=== PATIENT | male | born 1965 | race Caucasian/White ===

== ENCOUNTER 2019-03-10 09:41 | Outpatient (RCR) | payer MEDICARE, SELFPAY ==
[2019-03-10 09:48] VITALS: BMI 30.4
[2019-03-10 09:51] VITALS: BMI 30.4
[2019-03-10 10:21] VITALS: BMI 30.4
[2019-03-10 10:33] VITALS: BMI 30.4
[2019-03-10 10:34] VITALS: BMI 30.4
[2019-03-10 10:36] VITALS: BMI 30.4
== END 2019-06-08 23:59 | disposition home or self-care (01) ==
LOC: ANHDMC 09:41
PROVIDERS: PCP Family Medicine; Visit Provider Family Medicine
DX: E10.40 Type 1 diabetes mellitus with diabetic neuropathy, unspecified (principal); E10.621 Type 1 diabetes mellitus with foot ulcer; Z71.3 Dietary counseling and surveillance
CPT/HCPCS: 97802

== ENCOUNTER 2019-03-20 10:00 | Outpatient (RCR) | payer MEDICARE, SELFPAY ==
--- NOTE | 2019-03-02 15:47 | PCPTNOTE ---
The treatment documented on this account is a continuation of the treatment documented on visit number [id number]. Please see documentation on both accounts to view progress. The Plan of Care has been transitioned and updated within the new V#. I have addressed and agree with the discipline specific Problems, Interventions, and Goals for the current certification period. Completed interventions, outcomes, and problems have been marked as Inactive to facilitate the copying of the Care plan routine for recurring accounts.
--- NOTE | 2019-03-18 08:35 | PCPTNOTE ---
Pt called is doing well with his new compression knee high sock and foot peice is cancelling today and will be here for his reeval on Saturday.
--- NOTE | 2019-03-20 13:59 | PTOPEVAL ---
Addendum entered by Marisela Stearns, PT 03/20/19 16:55: circumferential measurements, from bottom of foot to 44 cm, R LE is 392.5 cm; decreased by 32.6 cm compared to initial evaluation. Original Note: PHYSICAL THERAPY DISCHARGE 03-20-19 Mr. Julian has received 10 Physical Therapy sessions, from February 19 to today, for the diagnosis of R foot edema and Charcot Telma Disease. He has improved with decreased edema and pain, and has appropriate compression garment and foot piece to manage his lymphedema. He has been educated on home exercises and lymphedema self massage and skin care. Thank you for referring Ross to [facility]. Please review, sign, date and return this plan of care NAEEM. I agree with and certify that the following plan of care is medically necessary. Referring Physician Date Admitting Provider: Attending Provider: Familia Monteiro MD Referring Provider: *PT Outpatient Evaluation Start: 03/20/19 13:44 Freq: Status: Active Protocol: Document 03/20/19 10:00 BRAD (Rec: 03/20/19 13:57 BRAD [email or web address]) Therapy Assessment Status Assessment Status Assessment Status Re-evaluation Evaluation Information Problem Subjective Information Ross reports: is doing well Query Text:As Reported By Patient/ with the compression sock and Family foot piece; is walking short distance in home, but wearing support to ankle, feels like going to turn in; walk in communtiy uses the knee/roller scooter; understands all the lymphedema education and agrees to discharge from PT services. He is working on obtaining an intermittent compression pump- -awaiting insurance authorization. Pain Assessment Timing of Pain Assessment Timing of Pain Assessment Assessment Self Report Self Report Pain Level 0 Pain Score Pain Score 0: Self Report Lower Extremity Muscle Strength Testing General Lower Extremity Strength Gross Lower Extremity Strength R hip and knee 4+/5; R ankle DF to 10'; PF to 10' and eversion 0'; with passive stretch, able to place calcaneus in neutral; static stand without brace, for 3 minutes without pain and with good balance.; Leukotape applied to calcaneus - to facilitate correct alignement; educated pt on application, monitor skin and
== END 2019-05-29 12:48 | disposition home or self-care (01) ==
LOC: ANHPT 10:00
PROVIDERS: PCP Family Medicine; Visit Provider Orthopaedic Surgery
DX: I89.0 Lymphedema, not elsewhere classified (principal); E11.40 Type 2 diabetes mellitus with diabetic neuropathy, unspecified
CPT/HCPCS: 29581; 97110; 97140

== ENCOUNTER 2019-10-13 08:56 | Outpatient (RCR) | payer MEDICARE, SELFPAY ==
--- NOTE | 2019-10-13 09:58 | PM.CNOR ---
Assessment and Plan Assessment and plan (1) Lymphedema of right lower extremity: Code(s): I89.0 - Lymphedema, not elsewhere classified Status: Acute Assessment and Plan: Patient with home lymphedema pumps and compression stockings. Continue with recommended treatment and observation. (2) Charcot's joint of foot in type 1 diabetes mellitus: Code(s): E10.610 - Type 1 diabetes mellitus with diabetic neuropathic arthropathy Status: Acute Assessment and Plan: Six months now with right double upright ankle brace. With modifications has a brace will plantigrade foot. Discussed surgical options including attempted reconstruction and stabilization versus amputation. Patient on willing to proceed with surgery at this time. Continue with bracing and observation. (3) Diabetic foot ulcer associated with diabetes mellitus due to underlying condition: Qualifiers: Diabetic foot ulcer location: toe Laterality: right Non-pressure ulcer stage: limited to breakdown of skin Qualified Code(s): E08.621 - Diabetes mellitus due to underlying condition with foot ulcer; L97.511 - Non-pressure chronic ulcer of other part of right foot limited to breakdown of skin Code(s): E08.621 - Diabetes mellitus due to underlying condition with foot ulcer; L97.509 - Non-pressure chronic ulcer of other part of unspecified foot with unspecified severity Status: Acute Assessment and Plan: Updated history, physical exam reviewed with the patient. Interval changes reviewed. Discussed the condition, nature, etiology and course of natural history with the patient. Fixed flexion deformity of the hallux secondary to flexor tendon over pull and neuropathy. Pressure on the distal tip of the hallux. Initial ulceration has almost completely healed. Patient using modified inserts, custom. Treatment options including surgical and nonoperative treatment were reviewed. Risks and benefits of each as well as alternatives reviewed. Discussed flexor tenotomy. Risk of amputation reviewed. The patient's questions were answered. He has declined surgery at this time. He is going to continue with conservative care and observation. Notify office if any changes. Follow up in 2 to 3 months for review of treatment options. History of Present Illness HPI Consult date: 10/13/19 Requesting physician: Roxana Mosley MD Consult reason: other (Bilat Charcot foot) Chief complaint: diabetic foot wound Narrative: Patient presents for [facility] wound clinic with bilateral Charcot foot deformity right ankle instability and new ulcer on the right hallux. Patient transition from his tlingit & haida walker boot to a double-upright ankle brace approximately 6 months ago. Developed pressure on the and the hallux and ulceration. He has treated it with dressing changes and orthotic modifications. He has noted improvement but still has central area opening. No drainage noted. Denies fever or chills. Denies any pain secondary to his neuropathy. He has noted some change in the appearance of the left midfoot. Review of Systems Constitutional: Constitutional: Denies fever(s) Eyes: Eyes: Denies blurry vision ENT: Reports Normal hearing present Cardiovascular: Cardiovascular: Denies chest pain and Denies dyspnea Respiratory: Respiratory: Denies dyspnea and Denies wheezing Gastrointestinal: Gastrointestinal: Denies abdominal pain Genitourinary: Genitourinary: Denies urinary urgency Musculoskeletal: Musculoskeletal: Reports as per HPI and Reports numbness (both feet) Integumentary/Breasts: Skin/Breast: Denies changing lesions and Denies sores Neurologic: Reports Normal hearing present, Denies behavioral changes, Denies confusion, Reports numbness and Denies convulsions Psychiatric: Psychiatric: Denies behavioral changes, Denies confusion and Denies hallucinations Endocrine: Endocrine: Denies heat intolerance Hematologic/Ly
== END 2020-01-11 23:59 | disposition home or self-care (01) ==
LOC: ANHWOC 08:56
PROVIDERS: PCP Family Medicine; Visit Provider Orthopaedic Surgery
DX: E11.621 Type 2 diabetes mellitus with foot ulcer (principal); L97.519 Non-pressure chronic ulcer of other part of right foot with unspecified severity
CPT/HCPCS: 99213; G0463

== ENCOUNTER 2020-05-30 19:39 | Inpatient (IN) | payer MEDICARE, SELFPAY ==
[2020-05-30] VITALS (7 sets, daily range): BP systolic 104–161; BP diastolic 66–85; PULSE 84–109; RESP 15–23; TEMP 36.7–38.1; O2SAT 95–100; BMI 31.6
--- NOTE | ~2020-05-30 | XR_ITS ---
XR chest 1V portable DATE: 05/30/2020 20:25 INDICATION: Fever. Diabetic lateral ankle and foot wound. TECHNIQUE: Portable upright AP chest on 05/30/2020 at 2010 hours COMPARISON: 05/27/2019 MR chest 09/19/2018 portable AP chest FINDINGS: Status post sternotomy. Normal heart size. No hilar or mediastinal enlargement. No pulmonar y infiltrate or consolidation, pleural effusion or pulmonary vascular congestion or pneumothorax. IMPRESSION: No active cardiopulmonary disease Reviewed, dictated and finalized at location A. R PATCHER
--- NOTE | ~2020-05-30 | XR_ITS ---
XR ankle RT 2V DATE: 05/30/2020 20:25 INDICATION: Right ankle wound TECHNIQUE: 2 views COMPARISON: 02/04/2019 right ankle and foot FINDINGS: There is mild organized periosteal reaction of the distal tibia. Differential diagnosis for the chronic organized periosteal reaction includes venous insufficiency, infection, fracture; no dis cortes tibial fracture however is evident. There is subluxation at the tibiotalar joint. There is prominent patchy sclerosis, bony deformity at the hindfoot and disruption of the subtalar, t arsal and tarsometatarsal articulations, suggesting severe neuropathic joint changes. Superimposed os teoarthritis is not excluded. Clinical correlation is advised. IMPRESSION: Chronic organized periosteal reaction of the distal tibia signal and diffusion diagnosis given above Tibiotalar subluxation and more severe disruption of the subtalar, tarsal and tarsometatarsal articul ations, with patchy sclerosis and bone deformity, suggesting severe neuropathic changes. Superimposed osteomyelitis is not excluded radiographically. Clinical correlation is advised. Reviewed, dictated and finalized at location A. RONMENTAL SERVICES MANAGER IMPRESSION: Chronic organized periosteal reaction of the distal tibia signal an d diffusion diagnosis given above Tibiotalar subluxation and more severe disruption of the subtalar, tarsal and t arsometatarsal articulations, with patchy sclerosis and bone deformity, suggest ing severe neuropathic changes. Superimposed osteomyelitis is not excluded radi ographically. Clinical correlation is advised.
--- NOTE | ~2020-05-30 | XR_ITS ---
XR foot RT 2V DATE: 05/30/2020 20:25 INDICATION: Right ankle wound TECHNIQUE: AP and lateral views of the right foot COMPARISON: 05/30/2020 right ankle 02/04/2019 right ankle and right foot FINDINGS: There is chronic organized periosteal reaction along the distal tibia. The vertebral diagno sis includes osteomyelitis, venous insufficiency, fracture. Clinical correlation is advised. CT or MR evaluation may be of benefit. There is subluxation of the tibiotalar joint. There is extensive deformity at the hindfoot, including subtalar region and tarsal joints as well as the second through fifth tarsometatarsal joints, in ass ociation with patchy sclerosis. Findings suggest chronic neuropathic changes. Superimposed bone destr uction secondary to osteomyelitis is difficult to exclude radiographically. Clinical correlation is a dvised. Joint space narrowing consistent with osteoarthritis at the first metatarsophalangeal joint. There is diffuse osteopenia. Metatarsal and digital artery calcifications, suggesting diabetes. IMPRESSION: Extensive neuropathic changes of the hindfoot including subtalar, tarsal and tarsometatar tal joints; superimposed osteomyelitis is not excluded. Chronic organized periosteal reaction of the distal tibia is minimal diffusion diagnosis includes ost eomyelitis, venous insufficiency, fracture Reviewed, dictated and finalized at location A. R TREATMENT PLANT SUPERVISOR IMPRESSION: Extensive neuropathic changes of the hindfoot including subtalar, t arsal and tarsometatarsal joints; superimposed osteomyelitis is not excluded. Chronic organized periosteal reaction of the distal tibia is minimal diffusion diagnosis includes osteomyelitis, venous insufficiency, fracture
--- NOTE | 2020-05-30 20:07 | ED.GENADULT ---
HPI - General Adult General Chief complaint: Extremity Problem,Nontraumatic Stated complaint: Fever/pain/drainage to right ankle chronic wound Time Seen by Provider: 05/30/20 19:55 Related Data Home Medications Medication Instructions Recorded Confirmed aspirin 81 mg tablet,delayed 81 mg PO DAILY 03/12/19 03/29/20 release cholecalciferol (vitamin D3) 10 400 unit PO DAILY 05/01/19 03/29/20 mcg (400 unit) capsule omega-3 fatty acids 1,000 mg 1,000 mg PO DAILY 05/01/19 03/29/20 capsule blood sugar diagnostic #10 each 09/08/19 03/29/20 subcutaneous insulin pump #1 each 09/08/19 03/29/20 lisinopril 20 mg tablet 20 mg PO BID tablet 03/29/20 03/29/20 Allergies Allergy/AdvReac Type Severity Reaction Status Date / Time No Known Allergies Allergy Verified 05/30/20 23:51 PMFSH Past Medical History Medical History Charcot's joint of foot in type 1 diabetes mellitus Chronic pain in right foot Coronary artery disease involving [place] coronary artery of [place] heart Diabetic foot ulcer associated with diabetes mellitus due to underlying condition Diabetic peripheral angiopathy Essential (primary) hypertension History of tobacco use wire cutter (current) use of insulin Lymphedema of right lower extremity Mixed hyperlipidemia AIDA on CPAP PVD (peripheral vascular disease) Stage 2 chronic kidney disease Type 1 diabetes mellitus with hyperglycemia Wound of right foot Surgical History Surgical History S/P angioplasty with stent S/P CABG x 3 Family History Family History Mother Family history of lung cancer Father Family history of lymphoma Other Diabetes mellitus Family history of arthritis Family history of cardiovascular disease Family history of congestive heart failure Family history of coronary artery disease Family history of heart disease in male family member before age 55 Family history of malignant neoplasm Family history of premature coronary heart disease Hypertension Social History Social History Smoking status: Former smoker Tobacco type: cigarettes Second hand tobacco smoke exposure: No Smoking end date: 05/06/12 Alcohol intake: never Substance use: never Substance use type: does not use Additional occupation/education comments: Disability Gender identity (if verbalized by the patient): Male Spiritual care concerns: No Course Vital Signs Vital signs: Vital Signs Temperature 38.1 C H 05/30/20 19:46 Pulse Rate 109 H 05/30/20 19:46 Respiratory Rate 16 05/30/20 19:46 Blood Pressure 161/66 H 05/30/20 19:46 Pulse Oximetry 100 05/30/20 19:46 Temperature 36.7 C 05/30/20 23:51 Pulse Rate 87 05/30/20 23:51 Respiratory Rate 20 05/30/20 23:51 Blood Pressure 146/85 H 05/30/20 23:51 Pulse Oximetry 100 05/30/20 23:51 Medical Decision Making Vital Signs Vital Signs: Vital Signs Temperature 38.1 C H 05/30/20 19:46 Pulse Rate 109 H 05/30/20 19:46 Respiratory Rate 16 05/30/20 19:46 Blood Pressure 161/66 H 05/30/20 19:46 Pulse Oximetry 100 05/30/20 19:46 Temperature 36.7 C 05/30/20 23:51 Pulse Rate 87 05/30/20 23:51 Respiratory Rate 20 05/30/20 23:51 Blood Pressure 146/85 H 05/30/20 23:51 Pulse Oximetry 100 05/30/20 23:51 Lab Data Result diagrams: 05/30/20 20:05 05/30/20 20:05 Labs: Lab Results 05/30/20 05/30/20 05/30/20 Range/Units 20:05 20:05 20:05 WBC 15.3 H (4.5-10.0) K/mm3 RBC 4.24 L (4.6-6.20) M/mm3 Hgb 11.8 L (14.0-18.0) g/dL Hct 35.9 L (42.0-52.0) % MCV 84.7 (80-100) fl MCH 27.8 (26-34) pg MCHC 32.9 (32-36) g/dl RDW 13.8 (11.5-14.5) % Plt Count 555 H (150-375) k/mm3 MPV 8.4 (7.4-10.4) fl Imm
--- NOTE | 2020-05-30 20:09 | ED.GENADULT ---
HPI - General Adult General Chief complaint: Extremity Problem,Nontraumatic Stated complaint: Fever/pain/drainage to right ankle chronic wound Time Seen by Provider: 05/30/20 19:55 Source: patient History of Present Illness HPI narrative: Patient is a 54 y/o male complaining of fever, chill, nausea and decreased appetite starting 3 days ago. He states that his fever was up to 102.8. He took Tylenol#4 for pain, which incidentally helps with the fever. He has chronic draining wound from right ankle. He also has a chronic cough which he attributed to CPAP use. He also developed a hiccup 2-3 days ago. Related Data Home Medications Medication Instructions Recorded Confirmed aspirin 81 mg tablet,delayed 81 mg PO DAILY 03/12/19 03/29/20 release cholecalciferol (vitamin D3) 10 400 unit PO DAILY 05/01/19 03/29/20 mcg (400 unit) capsule omega-3 fatty acids 1,000 mg 1,000 mg PO DAILY 05/01/19 03/29/20 capsule blood sugar diagnostic #10 each 09/08/19 03/29/20 subcutaneous insulin pump #1 each 09/08/19 03/29/20 lisinopril 20 mg tablet 20 mg PO BID tablet 03/29/20 03/29/20 Allergies Allergy/AdvReac Type Severity Reaction Status Date / Time No Known Allergies Allergy Verified 05/30/20 19:42 Review of Systems Constitutional: Constitutional: Reports chills, Reports fever(s), Denies headache(s) and Denies weakness Eyes: Eyes: Denies blurry vision ENT: Denies headache(s) and Denies neck pain Cardiovascular: Cardiovascular: Denies chest pain and Denies dyspnea Respiratory: Respiratory: Reports cough and Denies dyspnea Gastrointestinal: Gastrointestinal: Denies abdominal pain, Denies diarrhea, Reports nausea, Denies vomiting and Reports other (+hiccups) Genitourinary: Genitourinary: Denies hematuria and Denies dysuria Musculoskeletal: Musculoskeletal: Denies back pain and Denies neck pain Integumentary/Breasts: Skin/Breast: Reports wounds (open wound right ankle with drainage) Neurologic: Denies headache(s) and Denies weakness PMFSH Past Medical History Medical History Charcot's joint of foot in type 1 diabetes mellitus Chronic pain in right foot Coronary artery disease involving [place] coronary artery of [place] heart Diabetic foot ulcer associated with diabetes mellitus due to underlying condition Diabetic peripheral angiopathy Essential (primary) hypertension History of tobacco use long-term (current) use of insulin Lymphedema of right lower extremity Mixed hyperlipidemia AIDA on CPAP PVD (peripheral vascular disease) Stage 2 chronic kidney disease Type 1 diabetes mellitus with hyperglycemia Wound of right foot Surgical History Surgical History S/P angioplasty with stent S/P CABG x 3 Family History Family History Mother Family history of lung cancer Father Family history of lymphoma Other Diabetes mellitus Family history of arthritis Family history of cardiovascular disease Family history of congestive heart failure Family history of coronary artery disease Family history of heart disease in male family member before age 55 Family history of malignant neoplasm Family history of premature coronary heart disease Hypertension Social History Social History Smoking status: Former smoker Second hand tobacco smoke exposure: No Smoking end date: 05/06/12 Alcohol intake: former Substance use: never Substance use type: does not use Additional occupation/education comments: Disability Gender identity (if verbalized by the patient): Male Spiritual care concerns: No Exam Const: General: no acute distress and well developed Orientation/consciousness: oriented to person, oriented to place, oriented to time and patient oriented x3 HENMT: Head: normocephalic Ears: exter
[2020-05-30 20:17] LABS: Basophils Percent Auto 0.3 % (0.2-1.2); Eosinophils Absolute Auto 0.1 K/mm3 (0-0.3); Eosinophils Percent Auto 0.8 % (0-4.4); Hematocrit 35.9 % (42.0-52.0); Hemoglobin 11.8 g/dL (14.0-18.0); Immature Granulocyte Absolute 0.09 K/mm3 (0.00-0.031); Immature Granulocyte Percent A 0.6 % (0-0.5); Lymphocytes Absolute Auto 1.45 K/mm3 (0.9-3.2); Lymphocytes Percent Auto 9.5 % (18.3-44.2); Mean Corpuscular HGB Conc 32.9 g/dl (32-36); Mean Corpuscular Hemoglobin 27.8 pg (26-34); Mean Corpuscular Volume 84.7 fl (80-100); Mean Platelet Volume 8.4 fl (7.4-10.4); Monocytes Absolute Auto 1.7 K/mm3 (0.1-0.6); Monocytes Percent Auto 10.8 % (2.6-8.5); Platelet Count Result 555 k/mm3 (150-375); Red Blood Count 4.24 M/mm3 (4.6-6.20); Red Cell Distribution Width 13.8 % (11.5-14.5); White Blood Count 15.3 K/mm3 (4.5-10.0)
[2020-05-30 20:29] LABS: INR 1.1; Prothrombin Time 14.4 Seconds (11.1-14.7)
[2020-05-30 20:30] LABS: Partial Thromboplastin Time 33.4 SECONDS (22.3-36.8)
[2020-05-30 20:36] LABS: Lactic Acid Reflex 0.7 mmol/L (0.7-2.1)
[2020-05-30 20:39] LABS: Alanine Aminotransferase 18 U/L (4-50); Albumin Level 3.8 g/dL (3.5-5.1); Alkaline Phosphatase 85 U/L (38-126); Anion Gap 8 mmol/L (8-16); Aspartate Amino Transferase 32 U/L (17-59); Bilirubin,Total 0.4 mg/dL (0.2-1.3); Blood Urea Nitrogen 39 mg/dL (9-20); Calcium 9.4 mg/dL (8.4-10.2); Carbon Dioxide 27 mmol/L (22-30); Chloride 99 mmol/L (98-107); Estimated CRCL calculation 61 ml/min; Estimated Glomerular Filt Rate 48; Glucose 159 mg/dL (75-110); Potassium 4.6 mmol/L (3.4-5.0); Sodium 134 mmol/L (137-145)
[2020-05-30 20:41] LABS: Erythrocyte Sedimentation Rate > 140 mm/hr (0-20)
[2020-05-30 20:48] LABS: CRP 24.2 mg/dL (<1.0)
[2020-05-30 21:38] LABS: Add Urine Microscopic? YES; Amorphous Sediment Urine Few; Appearance Urine Clear (Clear); Bacteria Urine Trace /hpf; Bilirubin Urine Negative (Negative); Blood Urine 1+ (Negative); Color Urine Yellow (Yellow); Glucose Urine UA Negative (Negative); Ketones Urine Negative (Negative); Leukocyte Esterase Ur Negative LEU/UL (Negative); Mucus Urine Rare /lpf; Nitrate Urine Negative (Negative); Protein Urine 2+ mg/dL (Negative); Specific Grav Ur 1.021 (1.001-1.035); Squamous Epithelial Cell Urine Rare /hpf (Few); Urobilinogen Urine Negative mg/dL (<2.0); WBC Urine 0-3 /hpf
[2020-05-30] MEDS: SODIUM CHLORIDE 0.9% IV 1,000 ML 999 ML IV CONT (22:14)
[2020-05-30] MEDS: chlorproMAZINE HCL 25 MG TABLET PO (22:14)
--- NOTE | 2020-05-30 23:30 | PC.NURSE ---
This patient, Bereket Julian, was admitted to [facility] Room 332-01. Patient/family oriented to hospital policies and general routines including ID bracelet, bed and alarms, visiting hours, pain management, procedures, bathroom and other care routines, personal items, smoking policy, room service/diet, and visiting hours. Information on how to activate the Rapid Response Team has been discussed. Patient/Family are encouraged to report perceived risks to care and to ask questions if they do not understand what they are told or what they should do.
[2020-05-30] MEDS: SODIUM CHLORIDE 0.9% IV 1,000 ML 125 ML IV CONT (23:31)
[2020-05-31] VITALS (16 sets, daily range): BP systolic 125–162; BP diastolic 58–76; PULSE 64–91; RESP 14–20; TEMP 36.1–36.8; O2SAT 94–100
[2020-05-31 06:19] LABS: Anion Gap 6 mmol/L (8-16); Blood Urea Nitrogen 33 mg/dL (9-20); Calcium 8.3 mg/dL (8.4-10.2); Carbon Dioxide 29 mmol/L (22-30); Chloride 102 mmol/L (98-107); Estimated CRCL calculation 74 ml/min; Estimated Glomerular Filt Rate 52; Glucose 82 mg/dL (75-110); Sodium 137 mmol/L (137-145)
[2020-05-31 08:18] LABS: Glucose Point of Care 48 (65-105)
[2020-05-31] MEDS: SODIUM CHLORIDE 0.9% IV 1,000 ML 125 ML IV CONT (08:47)
[2020-05-31 08:49] LABS: Glucose Point of Care 81 (65-105)
[2020-05-31] MEDS: ACETAMINOPHEN/CODEINE (*CRX) 300/30 MG TABLET 1 TAB PO ×2 (11:12→20:14)
[2020-05-31] MEDS: OMEGA 3 POLYUNSAT FATTY ACIDS 1 GM CAP PO (11:12)
[2020-05-31] MEDS: ASPIRIN 81 MG ENTERIC TABLET PO (11:12)
[2020-05-31] MEDS: carvediloL 25 MG TABLET PO ×2 (11:13→20:07)
[2020-05-31] MEDS: CODEINE SULFATE (*CRX) 30 MG TABLET PO ×2 (11:13→20:14)
[2020-05-31] MEDS: ROSUVASTATIN 10 MG TABLET PO (11:13)
[2020-05-31] MEDS: cilostazoL 100 MG TABLET PO ×2 (11:14→16:31)
[2020-05-31] MEDS: lisinopriL 20 MG TABLET PO ×2 (11:14→16:31)
--- NOTE | 2020-05-31 13:16 | WPDANESEPPF ---
Anes - Initial Pre Proc Eval Procedure: Operation Date: 05/31/20 14:00 Proposed Procedures p Excision of Osteomyelitis and Debridement of Ulcer Right Ankle(Right) - Familia Monteiro MD Date/Time: 05/31/20 13:16 Surgeon: Crystal Concepcion DO Pre Op Diagnosis: sepsis Patient Data Age: 54 Gender: M Height: 1.93 m Weight: 118 kg Last Vital Signs Temp 36.6 C 05/31/20 08:00 Pulse 80 05/31/20 11:13 Resp 20 05/31/20 08:00 BP 154/74 H 05/31/20 08:00 Pulse Ox 99 05/31/20 08:00 Allergies Allergy/AdvReac Type Severity Reaction Status Date / Time No Known Allergies Allergy Verified 05/30/20 23:51 Home Medications Medication Instructions Recorded Confirmed Type aspirin 81 mg tablet,delayed 81 mg PO DAILY 03/12/19 05/30/20 History release cholecalciferol (vitamin D3) 10 400 unit PO DAILY 05/01/19 05/30/20 History mcg (400 unit) capsule omega-3 fatty acids 1,000 mg 1,000 mg PO DAILY 05/01/19 05/30/20 History capsule blood sugar diagnostic #10 each 09/08/19 05/30/20 History subcutaneous insulin pump #1 each 09/08/19 05/30/20 History acetaminophen 300 mg-codeine 60 mg 1 tablet PO Q8H PRN #90 tablet 02/05/20 05/30/20 Rx tablet rosuvastatin 10 mg tablet 10 mg PO DAILY #90 tablet 02/06/20 05/30/20 Rx carvedilol 25 mg tablet 25 mg PO Q12H #90 tablet 02/18/20 05/30/20 Rx lisinopril 20 mg tablet 20 mg PO BID tablet 03/29/20 05/30/20 History cilostazol 100 mg tablet 100 mg PO BID #60 tablet 04/27/20 05/30/20 Rx insulin aspart U-100 100 unit/mL 100 - 120 unit CONTINUOUS 05/03/20 05/30/20 Rx subcutaneous solution SUBCUTANEOUS INFUSION DAILY 90 Days #110 ml Laboratory Tests 05/30/20 05/30/20 05/30/20 20:05 20:05 20:05 WBC 15.3 K/mm3 H K/mm3 (4.5-10.0) RBC 4.24 M/mm3 L M/mm3 (4.6-6.20) Hgb 11.8 g/dL L g/dL (14.0-18.0) Hct 35.9 % L % (42.0-52.0) MCV 84.7 fl fl (80-100) MCH 27.8 pg pg (26-34) MCHC 32.9 g/dl g/dl (32-36) RDW 13.8 % % (11.5-14.5) Plt Count 555 k/mm3 H k/mm3 (150-375) MPV 8.4 fl fl (7.4-10.4) Immature Gran % (Auto) 0.6 % H % (0-0.5) Neut % (Auto) 78.0 % H % (45.5-73.1) Lymph % (Auto) 9.5 % L % (18.3-44.2) [place] % (Auto) 10.8 % H % (2.6-8.5) Eos % (Auto) 0.8 % % (0-4.4) Baso % (Auto) 0.3 % % (0.2-1.2) Lymph # (Auto) 1.45 K/mm3 K/mm3 (0.9-3.2) [place] # (Auto) 1.7 K/mm3 H K/mm3 (0.1-0.6) Eos # (Auto) 0.1 K/mm3 K/mm3 (0-0.3) Baso # (Auto) 0.0 K/mm3 K/mm3 (0.0-0.1) Abs Immat Gran (auto) 0.09 K/mm3 H K/mm3 (0.00-0.031) Absolute Neuts (auto) 12.0 K/mm3 H K/mm3 (1.3-6.7) Absolute Nucleated RBC 0.0 K/mm3 K/mm3 (0.0-0.012) Nucleated RBC % 0.0 % % (0.0-0.2) ESR > 140 mm/hr H mm/hr (0-20) PT 14.4 Seconds Seconds (11.1-14.7) INR 1.1 APTT 33.4 SECONDS SECONDS (22.3-36.8) Sodium 134 mmol/L L mmol/L (137-145) Potassium 4.6 mmol/L mmol/L (3.4-5.0) Chloride 99 mmol/L mmol/L (98-107) Carbon Dioxide 27 mmol/L mmol/L (22-30) Anion Gap 8 mmol/L mmol/L (8-16) BUN 39 mg/dL H mg/dL (9-20) Creatinine 1.50 mg/dL H mg/dL (0.7-1.3) Estim Creat Clear Calc 61 ml/min ml/min Estimated GFR 48 L (59 - ) Glucose 159 mg/dL H mg/dL (75-110) POC Capillary Glucose Lactic Acid Calcium 9.4 mg/dL mg/dL (8.4-10.2) Total Bilirubin 0.4 mg/dL mg/dL (0.2-1.3) AST 32 U/L U/L (17-59) ALT 18 U/L U/L (4-50) Alkaline Phosphatase 85 U/L U/L (38-126) C-Reactive Protein 24.2 mg/dL H mg/dL (<1.0) Total Protein 8.0 g/dL g/dL (6.3-8.2) Albumin 3.8 g/dL g/dL (3.5-5.1)
--- NOTE | 2020-05-31 13:16 | PM.CNOR ---
Assessment and Plan Assessment and plan (1) Infection of bone of right ankle: Code(s): M86.9 - Osteomyelitis, unspecified Status: Acute Assessment and Plan: History, exam and radiographs reviewed with the patient. Radiographs of the foot reveal extensive neuropathic changes of the hindfoot including subtalar, tarsal and tarsometatarsal joints. Radiographs of the ankle reveal mild organized periosteal reaction of the distal tibia. on exam, moderate amount of purulence drainage should expressed from the right lateral ankle ulcer. Wound goes down to the bone. Surrounding tissue with significant swelling. Chronic deformity noted. Discussed nonoperative and operative treatment options with the patient. The patients questions were answered. The patient desires operative treatment. Discussed excision of osteomyelitis and debridement of DFU right lateral ankle vs. below the knee amputation. Risks of surgery including but not limited to neurovascular damage, wound complications, blood clot, pulmonary embolus, stroke, myocardial infarction, anesthetic risks up to and including were reviewed. Continued pain and possible dysfunction were explained. No guarantees were offered. The patient understands and wishes to proceed. Patient would like to proceed with surgical debridement at this time. Understands risks for need of further debridement vs. below the knee amputation. Patient understanding of risks of potential loss of limb Plan: Excision of osteomyelitis and debridement of DFU right lateral ankle by Dr. Monteiro. Patient NPO now. (2) Sepsis: Qualifiers: Sepsis acute organ dysfunction status: unspecified Sepsis type: sepsis due to unspecified organism Qualified Code(s): A41.9 - Sepsis, unspecified organism Code(s): A41.9 - Sepsis, unspecified organism Status: Acute Assessment and Plan: IV antibiotics per medicine team. (3) intermediate designer (current) use of insulin: Code(s): Z79.4 - FPC (current) use of insulin Status: Acute Assessment and Plan: Defer diabetic management to hospitalist staff (4) Diabetic foot ulcer associated with diabetes mellitus due to underlying condition: Qualifiers: Diabetic foot ulcer location: toe Laterality: right Non-pressure ulcer stage: limited to breakdown of skin Qualified Code(s): E08.621 - Diabetes mellitus due to underlying condition with foot ulcer; L97.511 - Non-pressure chronic ulcer of other part of right foot limited to breakdown of skin Code(s): E08.621 - Diabetes mellitus due to underlying condition with foot ulcer; L97.509 - Non-pressure chronic ulcer of other part of unspecified foot with unspecified severity Status: Acute Assessment and Plan: Close diabetic control need for optimal healing. History of Present Illness HPI Consult date: 05/31/20 Requesting physician: Felipa Anthony MD Consult reason: other (Right Lateral Ankle Ulcer ) Chief complaint: sepsis Narrative: 54-year-old male admitted to the hospitalist service for a right lateral ankle ulcer and worsening signs of infection over the last 3 days. He has been being closely followed in the [facility] wound [facility] for the last month. He is well known to Orthopedic service for his right foot Charcot and complicated wounds. He reports increased feelings of lethargy and drainage to the right lateral ankle ulcer. He had a planned follow-up in the [facility] wound [facility] today however was evaluated in the emergency room prior. Orthopedic consult requested by the emergency room physician. Patient is also being ruled out for COVID-19. The patient was most recently seen in [facility] wound [facility] on May 17, 2020. He has had this ulcer on the lateral aspect of the ankle which was felt to be secondary to pressure from wearing out of his foot support. At that time, there was minimal changes to the wound bed and no signs of active infection. We zavaleta
[2020-05-31 13:30] LABS: Glucose Point of Care 312 (65-105)
[2020-05-31] MEDS: INSULIN ASPART (*BKC) 100 UNITS/ML SUB-Q ×2 (13:31→18:24)
--- NOTE | 2020-05-31 13:45 | WPDHPUPDATE1 ---
History and Physical Update Update Date/Time: 05/31/20 13:45 History and Physical has been reviewed, including an updated exam of the patient. There are NO changes in the patient's condition. chronic right lateral ankle ulcer now with evidence of osteomyelitis of the distal fibula and leg and foot cellulitis. Debridement with attempted salvage versus amputation leg discussed with the patient. He has declined an amputation at this time. Risks, benefits, and alternatives have been discussed and questions answered. Patient agrees to proceed with procedure. Plan: Excision of osteomyelitis right ankle with debridement of right ankle ulcer.
[2020-05-31] MEDS: BUPIVACAINE HCL 0.5% PF 30 ML VIAL INFILTRATE (14:31)
[2020-05-31] MEDS: LACTATED RINGERS 1,000 ML 30 ML IV CONT (14:47)
--- NOTE | 2020-05-31 15:49 | P.OP_ITS ---
Procedure Note - Detailed Date of procedure: 05/31/20 Pre-op diagnosis: sepsis right lateral diabetic ulcer ankle, distal fibula osteomyelitis Post-op diagnosis: other ( right diabetic ankle ulcer, lateral. Septic arthritis right ankle.) Procedure performed: Debridement right ankle septic arthritis, debridement including bone right diabetic ankle ulcer Description of procedure: Indications: Patient is a 54-year-old gentleman with diabetes peripheral neuropathy and peripheral arterial disease. Chronic ulceration right lateral ankle. Admitted to the hospital with worsening infection and cellulitis. Presents now to the operating room for debridement of right leg. What was done: Patient identified in the preoperative holding. Informed consent given. Operative extremity marked. Patient received intravenous antibiotics. Patient brought to the operating room where underwent general anesthetic by anesthesia team. Positioned supine on operating room table. Time-out performed confirming the patient, site of the surgery and the plan. Right leg prepped draped usual sterile surgical fashion using to a Betadine prep solution. Leg was elevated and a thigh tourniquet inflated to 250 mmHg. Quarter-sized ulceration noted on the lateral aspect of the ankle which probed to the distal fibula. The ulcer was extended proximally and distally with 15 blade knife to expose lateral side of the distal leg. Fifteen blade knife used to sharply debride the diabetic ulcer including skin, subcutaneous tissue, muscle and distal fibula which was debrided with a rongeur. There did not appear to be any infection of the distal fibula, only chronic ulcer changes of the bone noted. Wound thoroughly irrigated with antibiotic solution. Dissection then carried anterior to the fibula which allowed entry into the ankle joint. Copious amounts of infected material in the ankle joint as well as changes of the talar dome consistent with infection. Rongeur used to remove ankle joint material and synovium which appeared to be infected. Ankle joint then thoroughly irrigated antibiotic solution and suctioned. Wound packed with Betadine soaked gauze and skin incisions closed with 0 Prolene interrupted sutu re. Sterile dressing applied. The patient was then woken from anesthesia, extubated And recovered in the operating room due to suspected COVID. in stable condition , return to the floor when stable. All sponge, needle, instrument counts were correct at the end of the case. Implants: none Anesthesia: GETA Surgeon: Familia Monteiro MD Machine Molder Squeeze: 1st cardiology physician assistant Estimated blood loss (mL): 20 Tourniquet time (min): 16 Drains: No Packing: Yes ( Betadine gauze ankle ulcer) Complications: None Condition: stable Disposition: other ( recovered in the operating room)
[2020-05-31 16:31] LABS: Glucose Point of Care 263 (65-105)
[2020-05-31] MEDS: DOCUSATE SODIUM 100 MG CAPSULE PO (16:32)
--- NOTE | 2020-05-31 16:41 | PM.IMPN ---
Subjective Date/time seen: 05/31/20 16:41 Interval history: 54 year old male follows up to the Home wound clinic today for re-evaluation right lateral malleolus ulceration. Right lateral diabetic ulcer ankle, distal fibula osteomyelitis Objective Data Vital Signs Vital Signs: Vital Signs - 24 hr 05/30/20 19:46 05/30/20 21:30 05/30/20 21:58 Temperature 38.1 C H 36.9 C Pulse Rate 109 H 90 Respiratory Rate 16 23 H Blood Pressure 161/66 H 104/74 Pulse Oximetry 100 95 05/30/20 23:10 05/30/20 23:30 05/30/20 23:51 Temperature 36.7 C 36.7 C Pulse Rate 84 87 87 Respiratory Rate 15 20 20 Blood Pressure 127/78 146/85 H 146/85 H Pulse Oximetry 99 100 100 05/30/20 23:52 05/31/20 04:00 05/31/20 08:00 Temperature 36.8 C 36.6 C Pulse Rate 84 79 Respiratory Rate 20 20 Blood Pressure 144/60 H 154/74 H Pulse Oximetry 99 94 99 05/31/20 11:13 05/31/20 12:00 05/31/20 14:50 Temperature 36.4 C 36.2 C L Pulse Rate 80 91 86 Respiratory Rate 18 16 Blood Pressure 154/76 H 134/63 Pulse Oximetry 99 99 05/31/20 15:05 05/31/20 15:20 05/31/20 15:35 Temperature Pulse Rate 84 81 80 Respiratory Rate 16 14 16 Blood Pressure 162/74 H 158/69 H 151/67 H Pulse Oximetry 100 97 97 05/31/20 15:50 05/31/20 16:05 Temperature Pulse Rate 83 80 Respiratory Rate 16 16 Blood Pressure 145/67 H 146/66 H Pulse Oximetry 99 97 Intake/Output Intake/Output: Intake & Output 05/28/20 05/29/20 05/30/20 05/31/20 23:59 23:59 23:59 23:59 Intake Total 1300 1880 Output Total 1200 Balance 1300 680 Meds/Results Medications: Active Medications Generic Name Dose Route Start Last Admin Trade Name Freq PRN Reason Stop Dose Admin Acetaminophen/Codeine Phosphate 1 tab 05/31/20 08:32 05/31/20 11:12 Acetaminophen/Codeine (*Crx) 300/30 Mg Tablet PO 1 tab Q8H PRN Administration pain (scale score 7-10) Aspirin 81 mg 05/31/20 09:00 05/31/20 11:12 Aspirin 81 Mg Enteric Tablet PO 81 mg DAILY MARY Administration Carvedilol 25 mg 05/31/20 09:00 05/31/20 11:13 Carvedilol 25 Mg Tablet PO 25 mg Q12H MARY Administration Chlorpromazine HCl 25 mg 05/30/20 21:43 05/30/20 22:14 Chlorpromazine Hcl 25 Mg Tablet PO 25 mg Q6H PRN Administration Hiccups Cilostazol 100 mg 05/31/20 09:00 05/31/20 16:31 Cilostazol 100 Mg Tablet PO 100 mg BID MARY Administration Codeine Sulfate 30 mg 05/31/20 08:33 05/31/20 11:13 Codeine Sulfate (*Crx) 30 Mg Tablet PO 30 mg Q8H PRN Administration pain (scale score 7-10) Dextrose 12.5 gm 05/31/20 08:21 Dextrose 50% 25 Gm/50 Ml Syringe IV PUSH PRN PRN Hypoglycemia Protocol Docusate Sodium 100 mg 05/31/20 17:00 05/31/20 16:32 Docusate Sodium 100 Mg Capsule PO 100 mg BID MARY Administration Fish Oil 1 gm 05/31/20 09:00 05/31/20 11:12 [place] 3 Polyunsat Fatty Acids 1 Gm Cap PO 1 gm DAILY MARY Administration Glucagon 1 mg 05/31/20 08:21 Glucagon For Inj 1 Mg Vial IM PRN PRN Hypoglycemia Protocol Glucose 15 gm 05/31/20 08:21 Glucose Oral Gel 15 Gm Of Glucse In 37.5 Gm Tube PO PRN PRN Hypoglycemia Protocol Piperacillin/Tazobactam/Dextrose 3.375 gm in 50 mls @ 100 mls/hr 05/31/20 04:00 05/31/20 16:29 Zosyn 3.375 Gm/D5w 50ml Pm IVPB 100 mls/hr Q6H MARY Administration Dextrose 1,000 mls @ 100 mls/hr 05/31/20 08:21 Dextrose 5% 1,000 Ml IVPB PRN PRN Hypoglycemia Protocol Potassium Chloride/Sodium Chloride 1,000 mls @ 75 mls/hr 05/31/20 16:16 Kcl 20 Meq/Ns IV CONT .[id number] MARY Vancomycin HCl 1,750 mg in 500 mls @ 250 mls/hr 05/31/20 18:00 Vancomycin 1,750 Mg/D5w 500 Ml IVPB Q18H [facility] Insulin Aspart 4 - 8 units 05/31/20 12:00 05/31/20 13:31 Insulin Aspart (*Bkc) 100 Units/Ml SUB-Q 6 units TIDWM [facility] Administration Protocol Lisinopril 20 mg 05/31/20 09:00 05/31/20 16:31 Lisin
--- NOTE | 2020-05-31 16:42 | PM.IMHP ---
H&P: HPI History of Present Illness Date/Time: 05/31/20 16:42 Chief Complaint: Fever and drainage from DM foot wound Narrative: Bereket Julian is a 54 year old male sp Debridement right ankle septic arthritis today. Pt has a history of right lateral diabetic ulcer ankle with distal fibula osteomyelitis. History of Charcot foot and DM has been to wound clinic and orthopedic clinic before. Pt uses insulin pump but we stopped the pump while he was in the hospital. Pt is being checked for the covid virus. Pt has been unwell with fevers, chill, nausea and decreased appetite on admission. Pt denies cough or wheeze, sore throat, sinus infection or loss of taste. Review of Systems Review of Systems: All systems reviewed & are unremarkable except as noted in HPI and below PMFSH Past Medical History Medical History Charcot's joint of foot in type 1 diabetes mellitus Chronic pain in right foot Coronary artery disease involving [place] coronary artery of [place] heart Diabetic foot ulcer associated with diabetes mellitus due to underlying condition Diabetic peripheral angiopathy Essential (primary) hypertension History of tobacco use jail (current) use of insulin Lymphedema of right lower extremity Mixed hyperlipidemia AIDA on CPAP PVD (peripheral vascular disease) Stage 2 chronic kidney disease Type 1 diabetes mellitus with hyperglycemia Wound of right foot Surgical History Surgical History S/P angioplasty with stent S/P CABG x 3 Family History Family History Mother Family history of lung cancer Father Family history of lymphoma Other Diabetes mellitus Family history of arthritis Family history of cardiovascular disease Family history of congestive heart failure Family history of coronary artery disease Family history of heart disease in male family member before age 55 Family history of malignant neoplasm Family history of premature coronary heart disease Hypertension Social History Social History Social History: Patient lives at home alone. He does have a significant other and his daughter available for intermittent assistance with wound care. Smoking status: Former smoker Tobacco type: cigarettes Second hand tobacco smoke exposure: No Smoking end date: 05/06/12 Alcohol intake: never Substance use: never Substance use type: does not use Living arrangements: alone Occupation/Education: other Additional occupation/education comments: Disability Gender identity (if verbalized by the patient): Male Sexual Orientation (if Verbalized by the Patient): Straight or Heterosexual Spiritual care concerns: No Meds Home Medications and Allergies Home Medications Medication Instructions Recorded Confirmed Type aspirin 81 mg tablet,delayed 81 mg PO DAILY 03/12/19 05/30/20 History release cholecalciferol (vitamin D3) 10 400 unit PO DAILY 05/01/19 05/30/20 History mcg (400 unit) capsule omega-3 fatty acids 1,000 mg 1,000 mg PO DAILY 05/01/19 05/30/20 History capsule blood sugar diagnostic #10 each 09/08/19 05/30/20 History subcutaneous insulin pump #1 each 09/08/19 05/30/20 History acetaminophen 300 mg-codeine 60 mg 1 tablet PO Q8H PRN #90 tablet 02/05/20 05/30/20 Rx tablet rosuvastatin 10 mg tablet 10 mg PO DAILY #90 tablet 02/06/20 05/30/20 Rx carvedilol 25 mg tablet 25 mg PO Q12H #90 tablet 02/18/20 05/30/20 Rx lisinopril 20 mg tablet 20 mg PO BID tablet 03/29/20 05/30/20 History cilostazol 100 mg tablet 100 mg PO BID #60 tablet 04/27/20 05/30/20 Rx insulin aspart U-100 100 unit/mL 100 - 120 unit CONTINUOUS 05/03/20 05/30/20 Rx subcutaneous solution SUBCUTANEOUS INFUSION DAILY 90 Days #110 ml Allergies Allergy/AdvReac Type Severit
[2020-05-31 18:13] LABS: SARS-CoV-2 RNA PCR Negative
[2020-05-31 18:19] LABS: Glucose Point of Care 269 (65-105)
[2020-05-31] MEDS: ENOXAPARIN 40 MG/0.4 ML SYRINGE SUB-Q (20:08)
[2020-05-31 21:30] LABS: Glucose Point of Care 326 (65-105)
[2020-06-01] VITALS (7 sets, daily range): BP systolic 141–156; BP diastolic 70–78; PULSE 80–88; RESP 16–20; TEMP 36.4–36.7; O2SAT 95–98
--- NOTE | 2020-06-01 07:18 | WPDANESPN ---
Anes - Prog Note Post-Op Date/Time: 06/01/20 07:18 Cardiovascular status: normal Respiratory status: normal Airway patency: baseline Mental status: baseline Post-Op hydration status: normal Vital Signs: Last Vital Signs Temp 97.6 F 06/01/20 05:50 Pulse 80 06/01/20 05:50 Resp 20 06/01/20 05:50 BP 141/70 H 06/01/20 05:50 Pulse Ox 98 06/01/20 05:50 Pain Score (VAS): 05/15 I/O: Intake & Output 05/31/20 05/31/20 06/01/20 15:59 23:59 07:59 Intake Total 530 1440 400 Output Total 1500 2475 Balance 795 -07 -5824 Laboratory Tests 05/30/20 20:05 05/31/20 05:29 05/30/20 05/31/20 05/31/20 22:10 08:10 08:37 POC Capillary Glucose 48 L* 81 SARS-CoV-2 RNA (RT-PCR) Negative 05/31/20 05/31/20 05/31/20 12:40 14:54 18:15 POC Capillary Glucose 312 H 263 H 269 H SARS-CoV-2 RNA (RT-PCR) 05/31/20 20:16 POC Capillary Glucose 326 H SARS-CoV-2 RNA (RT-PCR) Microbiology 05/30/20 20:07 Blood Blood Culture - Preliminary 05/30/20 20:08 Blood Blood Culture - Preliminary 05/30/20 20:20 Ankle Right Wound Culture - Preliminary Post-procedural complaints: none Patient Feedback: Patient satisfied with anesthetic care.
[2020-06-01 08:30] LABS: Glucose Point of Care 375 (65-105)
[2020-06-01] MEDS: lisinopriL 20 MG TABLET PO ×2 (09:14→18:03)
[2020-06-01] MEDS: ENOXAPARIN 40 MG/0.4 ML SYRINGE SUB-Q (09:14)
[2020-06-01] MEDS: ASPIRIN 81 MG ENTERIC TABLET PO (09:15)
[2020-06-01] MEDS: cilostazoL 100 MG TABLET PO ×2 (09:15→18:03)
[2020-06-01] MEDS: CHOLECALCIFEROL 400 UNITS TABLET (VIT D) 800 UNITS PO (09:15)
[2020-06-01] MEDS: carvediloL 25 MG TABLET PO ×2 (09:15→21:36)
[2020-06-01] MEDS: ROSUVASTATIN 10 MG TABLET PO (09:15)
[2020-06-01] MEDS: OMEGA 3 POLYUNSAT FATTY ACIDS 1 GM CAP PO (09:15)
--- NOTE | 2020-06-01 09:16 | WPDCDIQUERY2 ---
CDI Query Clarification Request -Dr Monteiro you have documented: Fifteen blade knife used to sharply debride the diabetic ulcer including skin, subcutaneous tissue, muscle and distal fibula which was debrided with a rongeur. Please clarify if debridement was excisional or non excisional. <Jillian Saldana RN - Last Filed: 06/01/20 09:18> Debridement was excisional. Please modify computer system to allow for check box designation of type of debridement if this is critical to hospital. <Familia Monteiro MD - Last Filed: 06/01/20 10:47>
[2020-06-01] MEDS: ACETAMINOPHEN/CODEINE (*CRX) 300/30 MG TABLET 1 TAB PO ×2 (09:19→18:17)
[2020-06-01] MEDS: CODEINE SULFATE (*CRX) 30 MG TABLET PO (09:20)
--- NOTE | 2020-06-01 12:23 | PM.PNORT ---
Progress Note: A&P Assessment and Plan (1) Septic arthritis of right ankle: Qualifiers: Septic arthritis organism: staphylococcal Qualified Code(s): M00.071 - Staphylococcal arthritis, right ankle and foot Code(s): M00.9 - Pyogenic arthritis, unspecified Status: Acute Assessment and Plan: Postoperative day 1. Right ankle debridement. Operative findings reviewed with the patient. Long discussion regarding treatment options including potential salvage of the foot versus amputation. Patient to consider. Continue IV antibiotics. Wound VAC dressing to be applied to right ankle to control open wound and septic arthritis. PT/OT with nonweightbearing right lower extremity. Blood sugar control. Patient would like to restart his insulin pump. Further treatment recommendations based on patient decision regarding salvage or amputation of the right foot. Subjective Subjective Date/Time Seen: 06/01/20 8:00 Patient awake and alert. States uncomfortable secondary to hyperglycemia. Minimal complaints of right foot, ankle or leg pain. Exam Const: General: alert, awake, anxious and ill appearing acutely; No confusion, lethargic or poor hygiene Orientation/consciousness: patient oriented x3 and No confusion Limitations: no limitations HENMT: Head: normal to inspection, normocephalic and atraumatic Ears: hearing grossly normal bilaterally Mouth: Yes moist mucous membranes Teeth and gingiva: dentition normal Eyes: Conjunctivae: conjunctivae normal Sclera: sclerae normal Pupils: Equal, round and reactive pupils present EOM: EOMs intact bilaterally Neck: Neck: supple and nontender Chest: Chest palpation & inspection: normal inspection of the chest Resp: Effort & Inspection: normal respiratory effort and no audible wheezes Cardio: Jugular venous distension: no JVD Rate: regular rate Rhythm: regular rhythm GI: GI Palp: No abdominal tenderness : General: Yes deferred Skin: Wounds: wounds noted (see extremity exam) Neuro: General: patient oriented x3 and No confusion Cognition (Neuro): normal cognition Speech: normal speech Gait exam (Neuro): Unable to assess gait Extrem: General: capillary refill normal Right upper extremity: normal to inspection Left upper extremity: normal to inspection Right lower extremity: hip/thigh Details: no tenderness, knee Details: normal ROM; no tenderness and no swelling, ankle Details: abnormal to inspection Details: other (deformity ankle, hindfoot varus), swelling ( moderate) Details: laterally, medially and anteriorly, edema, abnormal ROM ( ankle dorsiflexion -10 degrees, plantar flexion 30?, inversion 15?, eversion 5?) Details: pain with active ROM, warmth and crepitus; no tenderness and no ecchymosis and foot Details: warmth, edema, vascular exam Details: normal capillary refill; dorsalis pedis pulse absent and posterior tibial pulse absent, tendon exam (flexion only), motor-sensory exam Details: two point discrimination abnormal Location: in all toes and light-touch abnormal Location: in all toes and other (Fixed flexion deformity of the hallux. No active extension of the hallux or toes.) Left lower extremity: hip/thigh Details: normal to inspection, knee Details: normal to inspection, ankle Details: normal to inspection and normal ROM ( Active flexion and extension intact); no tenderness and no swelling and foot Details: abnormal to inspection (Deformity through the midfoot and forefoot consistent with Charcot), vascular exam Details: normal capillary refill; dorsalis pedis pulse absent and posterior tivial pulse absent, tendon exam active flexion abnormal and motor-sensory exam two point discrimination abnormal in all toes and light-touch abnormal in all toes; no tenderness Other: Right ankle dressing in place. Betadine ointment noted. No other drainage. Toes with good capillary refill. Improved swelling ankle leg and calf. Negative Homans sign. Psych: Appearance: grossly
[2020-06-01 13:30] LABS: Glucose Point of Care 371 (65-105)
--- NOTE | 2020-06-01 13:53 | PM.IMPN ---
Progress Note: A&P Assessment and Plan (1) Sepsis: Qualifiers: Sepsis acute organ dysfunction status: unspecified Sepsis type: sepsis due to unspecified organism Qualified Code(s): A41.9 - Sepsis, unspecified organism Code(s): A41.9 - Sepsis, unspecified organism Status: Acute Assessment and Plan: blood cultures positive for Group B strep Treat with iv zosyn and iv vancomycin, can consult ID Dr Phelps for ABX regime (2) Infection of bone of right ankle: Code(s): M86.9 - Osteomyelitis, unspecified Status: Acute Assessment and Plan: Sp debridement and IV abx regime, pt to have vac theraphy. Pt to have picc line placed (3) Diabetic foot ulcer associated with diabetes mellitus due to underlying condition: Qualifiers: Diabetic foot ulcer location: toe Laterality: right Non-pressure ulcer stage: limited to breakdown of skin Qualified Code(s): E08.621 - Diabetes mellitus due to underlying condition with foot ulcer; L97.511 - Non-pressure chronic ulcer of other part of right foot limited to breakdown of skin Code(s): E08.621 - Diabetes mellitus due to underlying condition with foot ulcer; L97.509 - Non-pressure chronic ulcer of other part of unspecified foot with unspecified severity Status: Acute Assessment and Plan: Sp debridement today, pt to have vac theraphy (4) Type 1 diabetes mellitus with hyperglycemia: Code(s): E10.65 - Type 1 diabetes mellitus with hyperglycemia Status: Acute Assessment and Plan: Restart insulin pump post op day 1 (5) AILEEN (acute kidney injury): Code(s): N17.9 - Acute kidney failure, unspecified Status: Acute Assessment and Plan: CReat is 1.4 continue to hydrate and monitor kidney function (6) AIDA on CPAP: Code(s): G47.33 - Obstructive sleep apnea (adult) (pediatric); Z99.89 - Dependence on other enabling machines and devices Status: Acute Assessment and Plan: CPAP at night Subjective Date/time seen: 06/01/20 13:53 Interval history: 54 year old male sp Debridement right ankle septic arthritis today. Pt has a history of right lateral diabetic ulcer ankle with distal fibula osteomyelitis. Pt to have wound vac theraphy and picc line placement. Pt will need further debridement v amputation later. Review of Systems Review of Systems: All systems reviewed & are unremarkable except as noted in HPI and below Exam Const: General: other (large man alert talkative tired ) Nutritional Appearance: well nourished HENMT: Head: normocephalic Resp: Auscultation: clear to auscultation bilaterally Cardio: Rhythm: regular rhythm Heart sounds: S1 normal heart sound present and S2 normal heart sound present GI: Inspection: normal to inspection Auscultation: normal bowel sounds Skin: General skin exam: normal color and dry skin Neuro: Cognition (Neuro): normal cognition Speech: normal speech Motor exam (neuro): 5/5 motor strength present throughout Extrem: General: other (left foot wound sp debridement with kinga wrap on ) Psych: Appearance: grossly normal Mental Status: mental status grossly normal Objective Data Vital Signs Vital Signs: Vital Signs - 24 hr 05/31/20 14:50 05/31/20 15:05 05/31/20 15:20 Temperature 36.2 C L Pulse Rate 86 84 81 Respiratory Rate 16 16 14 Blood Pressure 134/63 162/74 H 158/69 H Pulse Oximetry 99 100 97 05/31/20 15:35 05/31/20 15:50 05/31/20 16:05 Temperature Pulse Rate 80 83 80 Respiratory Rate 16 16 16 Blood Pressure 151/67 H 145/67 H 146/66 H Pulse Oximetry 97 99 97 05/31/20 16:16 05/31/20 16:31 05/31/20 17:01 Temperature 36.1 C L 36.4 C 36.5 C Pulse Rate 84 79 78 Respiratory Rate 18 20 18 Blood Pressure 151/68 H 137/58 L 139/64 Pulse Oximetry 99 100 99 05/31/20 18:01 05/31/20 20:07 05/31/20 22:00 Temperature 36.7 C 36.4 C L Pulse Rate 80 64 81 Respiratory Rate 18 18 Blood Pressure 141/70
[2020-06-01 18:49] LABS: Glucose Point of Care 112 (65-105)
[2020-06-02] VITALS (7 sets, daily range): BP systolic 144–147; BP diastolic 69–74; PULSE 70–88; RESP 16–20; TEMP 35.9–36.7; O2SAT 93–98
[2020-06-02 06:18] LABS: Hematocrit 31.3 % (42.0-52.0); Hemoglobin 10.2 g/dL (14.0-18.0); Mean Corpuscular HGB Conc 32.6 g/dl (32-36); Mean Corpuscular Hemoglobin 27.6 pg (26-34); Mean Corpuscular Volume 84.6 fl (80-100); Mean Platelet Volume 8.1 fl (7.4-10.4); Platelet Count Result 637 k/mm3 (150-375); Red Cell Distribution Width 13.8 % (11.5-14.5); White Blood Count 10.4 K/mm3 (4.5-10.0)
[2020-06-02 06:36] LABS: Anion Gap 1 mmol/L (8-16); Blood Urea Nitrogen 18 mg/dL (9-20); Calcium 8.6 mg/dL (8.4-10.2); Carbon Dioxide 35 mmol/L (22-30); Chloride 103 mmol/L (98-107); Estimated CRCL calculation 86 ml/min; Estimated Glomerular Filt Rate > 60; Glucose 131 mg/dL (75-110); Potassium 4.2 mmol/L (3.4-5.0); Sodium 139 mmol/L (137-145)
[2020-06-02] MEDS: ENOXAPARIN 40 MG/0.4 ML SYRINGE SUB-Q (08:00)
[2020-06-02] MEDS: ROSUVASTATIN 10 MG TABLET PO (08:01)
[2020-06-02] MEDS: OMEGA 3 POLYUNSAT FATTY ACIDS 1 GM CAP PO (08:01)
[2020-06-02] MEDS: CHOLECALCIFEROL 400 UNITS TABLET (VIT D) 800 UNITS PO (08:01)
[2020-06-02] MEDS: DOCUSATE SODIUM 100 MG CAPSULE PO (08:02)
[2020-06-02] MEDS: carvediloL 25 MG TABLET PO ×2 (08:02→20:48)
[2020-06-02] MEDS: ASPIRIN 81 MG ENTERIC TABLET PO (08:03)
[2020-06-02] MEDS: cilostazoL 100 MG TABLET PO ×2 (08:03→16:25)
[2020-06-02] MEDS: lisinopriL 20 MG TABLET PO ×2 (08:04→16:25)
[2020-06-02] MEDS: ACETAMINOPHEN/CODEINE (*CRX) 300/30 MG TABLET 1 TAB PO ×3 (08:07→23:52)
[2020-06-02 09:13] LABS: Glucose Point of Care 142 (65-105)
--- NOTE | 2020-06-02 11:52 | PM.PNORT ---
Progress Note: A&P Assessment and Plan (1) Septic arthritis of right ankle: Qualifiers: Septic arthritis organism: staphylococcal Qualified Code(s): M00.071 - Staphylococcal arthritis, right ankle and foot Code(s): M00.9 - Pyogenic arthritis, unspecified Status: Acute Assessment and Plan: POD #2: Right ankle debridement. Continue IV antibiotics. Awaiting ID recommendations. PICC line to be placed today. Anticipate rodent exterminator IV antibiotics Wound VAC dressing in place. Home wound VAC pending. PT/OT with nonweightbearing right lower extremity. Blood sugar control. Patient would like to restart his insulin pump. Patient would like to proceed with conservative treatment and salvage of the right foot. He understands risks for need for amputation in the future. Plan: Home with Home Health for IV infusion/wound VAC pending recommendations from ID and medical clearance. Will arrange outpatient follow up in the [facility] wound clinic. Subjective Subjective Date/Time Seen: 06/02/20 11:52 Patient reports he feels significantly better. No new concerns. Anxious to go home once IV antibiotics and wound VAC are approved. Review of Systems Review of Systems: All systems reviewed & are unremarkable except as noted in HPI and below Constitutional: Constitutional: Denies fatigue, Denies fever(s) and Denies weakness Cardiovascular: Cardiovascular: Reports no additional cardiovascular complaints Respiratory: Respiratory: Reports no additional respiratory complaints, Denies cough and Denies dyspnea Gastrointestinal: Gastrointestinal: Reports no additional gastrointestinal complaints, Denies abdominal pain, Denies nausea and Denies vomiting Genitourinary: Genitourinary: Reports no additional male genitourinary complaints and Denies dysuria Musculoskeletal: Musculoskeletal: Reports as per HPI Exam Const: General: alert, awake, anxious and ill appearing acutely; No confusion, lethargic or poor hygiene Orientation/consciousness: patient oriented x3 and No confusion Limitations: no limitations HENMT: Head: normal to inspection, normocephalic and atraumatic Ears: hearing grossly normal bilaterally Mouth: Yes moist mucous membranes Teeth and gingiva: dentition normal Eyes: Conjunctivae: conjunctivae normal Sclera: sclerae normal Pupils: Equal, round and reactive pupils present EOM: EOMs intact bilaterally Neck: Neck: supple and nontender Chest: Chest palpation & inspection: normal inspection of the chest Resp: Effort & Inspection: normal respiratory effort and no audible wheezes Cardio: Jugular venous distension: no JVD Rate: regular rate Rhythm: regular rhythm GI: GI Palp: No abdominal tenderness : General: Yes deferred Skin: Wounds: wounds noted (see extremity exam) Neuro: General: patient oriented x3 and No confusion Cognition (Neuro): normal cognition Speech: normal speech Gait exam (Neuro): Unable to assess gait Extrem: General: capillary refill normal Right upper extremity: normal to inspection Left upper extremity: normal to inspection Right lower extremity: hip/thigh Details: no tenderness, knee Details: normal ROM; no tenderness and no swelling, ankle Details: abnormal to inspection Details: other (deformity ankle, hindfoot varus), swelling ( moderate) Details: laterally, medially and anteriorly, edema, abnormal ROM ( ankle dorsiflexion -10 degrees, plantar flexion 30?, inversion 15?, eversion 5?) Details: pain with active ROM, warmth and crepitus; no tenderness and no ecchymosis and foot Details: warmth, edema, vascular exam Details: normal capillary refill; dorsalis pedis pulse absent and posterior tibial pulse absent, tendon exam (flexion only), motor-sensory exam Details: two point discrimination abnormal Location: in all toes and light-touch abnormal Location: in all toes and other (Fixed flexion deformity of the hallux. No active extension of the hallux or toes.) Left lower extremity:
[2020-06-02 13:12] LABS: Glucose Point of Care 159 (65-105)
--- NOTE | 2020-06-02 13:31 | WPDINFPN2 ---
Progress Note: A&P Assessment and Plan (1) Septic arthritis of right ankle: Qualifiers: Septic arthritis organism: staphylococcal Qualified Code(s): M00.071 - Staphylococcal arthritis, right ankle and foot Code(s): M00.9 - Pyogenic arthritis, unspecified Status: Acute Assessment and Plan: GBS bacteremia and septic arthritis REC Amp IV through 06/27 Subjective Date/time seen: 06/02/20 13:31 Objective Data Vital Signs Vital Signs: Vital Signs - 24 hr 06/01/20 14:00 06/01/20 20:00 06/01/20 21:36 Temperature 36.6 C Pulse Rate 86 85 86 Respiratory Rate 16 18 Blood Pressure 155/70 H Pulse Oximetry 98 97 06/01/20 22:00 06/02/20 05:57 06/02/20 08:02 Temperature 36.7 C 36.7 C Pulse Rate 85 70 72 Respiratory Rate 18 18 Blood Pressure 156/78 H 147/69 H Pulse Oximetry 97 96 Intake/Output Intake/Output: Intake & Output 05/30/20 05/31/20 06/01/20 06/02/20 23:59 23:59 23:59 23:59 Intake Total 1300 3220 2800 850 Output Total 2700 3575 1600 Balance 1300 930 -135 -830 Meds/Results Medications: Active Medications Generic Name Dose Route Start Last Admin Trade Name Freq PRN Reason Stop Dose Admin Acetaminophen/Codeine Phosphate 1 tab 05/31/20 08:32 06/02/20 08:07 Acetaminophen/Codeine (*Crx) 300/30 Mg Tablet PO 1 tab Q8H PRN Administration pain (scale score 7-10) Aspirin 81 mg 05/31/20 09:00 06/02/20 08:03 Aspirin 81 Mg Enteric Tablet PO 81 mg DAILY MARY Administration Carvedilol 25 mg 05/31/20 09:00 06/02/20 08:02 Carvedilol 25 Mg Tablet PO 25 mg Q12H MARY Administration Chlorpromazine HCl 25 mg 05/30/20 21:43 05/30/20 22:14 Chlorpromazine Hcl 25 Mg Tablet PO 25 mg Q6H PRN Administration Hiccups Cilostazol 100 mg 05/31/20 09:00 06/02/20 08:03 Cilostazol 100 Mg Tablet PO 100 mg BID MARY Administration Codeine Sulfate 30 mg 05/31/20 08:33 06/01/20 09:20 Codeine Sulfate (*Crx) 30 Mg Tablet PO 30 mg Q8H PRN Administration pain (scale score 7-10) Dextrose 12.5 gm 05/31/20 08:21 Dextrose 50% 25 Gm/50 Ml Syringe IV PUSH PRN PRN Hypoglycemia Protocol Docusate Sodium 100 mg 05/31/20 17:00 06/02/20 08:02 Docusate Sodium 100 Mg Capsule PO 100 mg BID MARY Administration Enoxaparin Sodium 40 mg 06/02/20 09:00 06/02/20 08:00 Enoxaparin 40 Mg/0.4 Ml Syringe SUB-Q 40 mg DAILY MARY Administration Fish Oil 1 gm 05/31/20 09:00 06/02/20 08:01 [place] 3 Polyunsat Fatty Acids 1 Gm Cap PO 1 gm DAILY MARY Administration Glucagon 1 mg 05/31/20 08:21 Glucagon For Inj 1 Mg Vial IM PRN PRN Hypoglycemia Protocol Glucose 15 gm 05/31/20 08:21 Glucose Oral Gel 15 Gm Of Glucse In 37.5 Gm Tube PO PRN PRN Hypoglycemia Protocol Dextrose 1,000 mls @ 100 mls/hr 05/31/20 08:21 Dextrose 5% 1,000 Ml IVPB PRN PRN Hypoglycemia Protocol Ampicillin Sodium 2 gm in 100 mls @ 200 mls/hr 06/02/20 18:00 Ampicillin 2 Gm/Ns 100 Ml IVPB 06/27/20 23:59 Q6HR [facility] Lisinopril 20 mg 05/31/20 09:00 06/02/20 08:04 Lisinopril 20 Mg Tablet PO 20 mg BID MARY Administration Magnesium Hydroxide 30 ml 05/31/20 16:16 Magnesium Hydroxide Susp 30 Ml Udc PO BID PRN Constipation Morphine Sulfate 3 mg 05/31/20 16:16 Morphine Sulfate (*Crx) 4 Mg/Ml Inj IV PUSH Q3H PRN Pain Rated 7-10 Rosuvastatin Calcium 10 mg 05/31/20 09:00 06/02/20 08:01 Rosuvastatin 10 Mg Tablet PO 10 mg DAILY MARY Administration Vitamin D 800 units 06/01/20 09:00 06/02/20 08:01 Cholecalciferol 400 Units Tablet (Vit D) PO 800 units DAILY MARY Administration Radiology Results: ITS Impressions Chest X-Ray 05/30/20 20:30 IMPRESSION: No active cardiopulmonary disease Ankle X-Ray 05/30/20 20:33 IMPRESSION: Chronic organized periosteal reaction of the distal tibia signal and diff
--- NOTE | 2020-06-02 15:13 | CONS_ITS ---
DATE OF CONSULTATION: 06/02/2020 REASON FOR CONSULTATION: Group B strep bacteremia and septic arthritis, right ankle. HISTORY OF PRESENT ILLNESS: A 54-year-old male whom I have seen some 2 years ago for forefoot osteomyelitis on the right side. He had resolution in his signs and symptoms and I did not see him in the office. He began feeling ill several days before his admission on May 30 with anorexia, fever sensation, and chills. He ascribes his symptoms to an ulcer that developed due to an ill-fitting boot. The patient has been given vancomycin while here and consultation requested. He was taken to the operating room on the day after admission. Findings included an ulcer at the lateral aspect of the ankle without involvement of the distal fibula; however, the ankle joint was entered with pus evacuated by aspiration. The wound was closed. He has a wound VAC in place now and consultation requested. In the meantime, his blood cultures have become positive. He has been on no other recent antibiotics. He has defervesced. Appetite has fully recovered. His A1c is generally about 7%. He has an insulin pump in place. Accu-Cheks also acceptable. ALLERGIES: NONE KNOWN. HABITS: Ex-smoker. No alcohol. PRESENT MEDICATIONS: No immunosuppressants. PAST MEDICAL HISTORY: Charcot foot, ASHD, hypertension, lymphedema, peripheral vascular disease, hyperlipidemia, stage II chronic renal insufficiency. Per record, his diabetes is type 1. FAMILY HISTORY: Diabetes, ASHD, cancer. SOCIAL HISTORY: Administration of IV antibiotics several years ago was successfully performed by the patient. He has a daughter and also has a significant other. He is disabled. REVIEW OF SYSTEMS: 14-point review otherwise negative. PHYSICAL EXAMINATION: GENERAL: Middle-aged male who appears actual age. No acute distress. VITAL SIGNS: On admission, temperature 38.1, has since been afebrile. 147/69, 70, 18, 95%. SKIN: No rashes. Warm and dry. EENT: The conjunctivae are normal. Pupils equal, round, and reactive to light. The oropharynx, oral mucosa normal. NECK: No masses, adenopathy, or meningismus. LUNGS: Clear to auscultation and percussion. BACK: No spinal tenderness. CARDIAC: Regular rate and rhythm. No murmur, gallop, or rub. CHEST: No indwelling vascular devices. ABDOMEN: Nontender, soft. No organomegaly. No masses. Normal bowel sounds. EXTREMITIES: He has 1+ edema. Dressing in place which I did not remove. There is no lymphangitis nor proximal cellulitis. LABORATORY DATA: Blood cultures from admission, 1 out of 2 sets, micrococcus. The joint fluid has grown group B strep. His white count 10.4, hemoglobin 10.2, platelets are 637. His BUN is 18, creatinine 1.2. His Accu-Cheks widely variable. Hemoglobin A1c as noted above. RADIOLOGY: Ankle x-ray 05/30, periosteal reaction, distal tibia and also multiple neuropathic changes. ASSESSMENT: 1. Right fibula ulcer, no deep space infection, but port of entry for the below. 2. Group B strep septic arthritis. 3. Micrococcus bacteremia, skin contaminant. 4. Type 1 diabetes mellitus, well controlled overall, but labile blood sugars. RECOMMENDATIONS: 1. Ampicillin through June 27. 2. Set up a PICC. 3. Local wound care. 4. Glycemic control. Thank you very much for asking me to see him. GOMEZ PEÑA M.D. FUR GLAZER FUR GLAZER D I MT: Christoph
--- NOTE | 2020-06-02 15:42 | PM.IMPN ---
Progress Note: A&P Assessment and Plan (1) Sepsis: Qualifiers: Sepsis acute organ dysfunction status: unspecified Sepsis type: sepsis due to unspecified organism Qualified Code(s): A41.9 - Sepsis, unspecified organism Code(s): A41.9 - Sepsis, unspecified organism Status: Acute Assessment and Plan: blood cultures positive for Group B strep Treat with iv ampicillin await picc line placement (2) Infection of bone of right ankle: Code(s): M86.9 - Osteomyelitis, unspecified Status: Acute Assessment and Plan: Sp debridement and IV abx regime, pt to have vac theraphy. Pt to have picc line placed (3) Diabetic foot ulcer associated with diabetes mellitus due to underlying condition: Qualifiers: Diabetic foot ulcer location: toe Laterality: right Non-pressure ulcer stage: limited to breakdown of skin Qualified Code(s): E08.621 - Diabetes mellitus due to underlying condition with foot ulcer; L97.511 - Non-pressure chronic ulcer of other part of right foot limited to breakdown of skin Code(s): E08.621 - Diabetes mellitus due to underlying condition with foot ulcer; L97.509 - Non-pressure chronic ulcer of other part of unspecified foot with unspecified severity Status: Acute Assessment and Plan: Sp debridement pt on vac theraphy (4) Type 1 diabetes mellitus with hyperglycemia: Code(s): E10.65 - Type 1 diabetes mellitus with hyperglycemia Status: Acute Assessment and Plan: Restart insulin pump post op day 2 (5) AILEEN (acute kidney injury): Code(s): N17.9 - Acute kidney failure, unspecified Status: Acute Assessment and Plan: CReat is 1.2 continue to hydrate and monitor kidney function (6) AIDA on CPAP: Code(s): G47.33 - Obstructive sleep apnea (adult) (pediatric); Z99.89 - Dependence on other enabling machines and devices Status: Acute Assessment and Plan: CPAP at night Subjective Date/time seen: 06/02/20 15:42 Interval history: 54 year old male sp Debridement right ankle septic arthritis today. Pt has a history of right lateral diabetic ulcer ankle with distal fibula osteomyelitis. Pt to have wound vac theraphy and picc line placement. Pt will need further debridement v amputation later. pt has insulin pump back on, hopeful discharge tomorrow am Review of Systems Review of Systems: All systems reviewed & are unremarkable except as noted in HPI and below Exam Const: General: other (large man alert talkative tired ) Nutritional Appearance: well nourished HENMT: Head: normocephalic Eyes: General: appearance normal, both eyes and all related structures Pupils: Equal, round and reactive pupils present Neck: Neck: supple Chest: Chest palpation & inspection: normal inspection of the chest Resp: Effort & Inspection: normal respiratory effort Auscultation: clear to auscultation bilaterally Cardio: Jugular venous distension: no JVD Rhythm: regular rhythm Heart sounds: S1 normal heart sound present and S2 normal heart sound present GI: Inspection: normal to inspection Auscultation: normal bowel sounds Skin: General skin exam: normal color and dry skin Neuro: Cranial nerves: Yes CN's II-XII intact bilaterally and Yes Equal, round and reactive pupils present Cognition (Neuro): normal cognition Speech: normal speech Motor exam (neuro): 5/5 motor strength present throughout Extrem: General: other (left foot wound sp debridement with kinga wrap on ) Psych: Appearance: grossly normal Mental Status: mental status grossly normal Objective Data Vital Signs Vital Signs: Vital Signs - 24 hr 06/01/20 20:00 06/01/20 21:36 06/01/20 22:00 Temperature 36.7 C Pulse Rate 85 86 85 Respiratory Rate 18 18 Blood Pressure 156/78 H Pulse Oximetry 97 97 06/02/20 05:57 06/02/20 08:02 Temperature 36.7 C Pulse Rate 70 72 Respiratory Rate 18 Blood Pressure 147/69 H Pulse Oximet
[2020-06-02 17:20] LABS: Glucose Point of Care 210 (65-105)
[2020-06-02] MEDS: AMPICILLIN 2 GM/NS 100 ML 2 GM/100 ML BAG IVPB ×2 (17:29→23:14)
[2020-06-03 04:13] VITALS: PULSE 73; O2SAT 94
[2020-06-03] MEDS: AMPICILLIN 2 GM/NS 100 ML 2 GM/100 ML BAG IVPB ×3 (05:53→17:05)
--- NOTE | 2020-06-03 06:02 | PC.NURSE ---
63.1 uits basal and 15.2 units bolus
[2020-06-03 06:10] VITALS: BP 148/75; PULSE 81; RESP 18; TEMP 36.2; O2SAT 99
[2020-06-03] MEDS: LIDOCAINE HCL 1% PF INJ 5 ML VIAL INFILTRATE (08:00)
[2020-06-03 08:51] VITALS: PULSE 81
[2020-06-03] MEDS: cilostazoL 100 MG TABLET PO (08:51)
[2020-06-03] MEDS: carvediloL 25 MG TABLET PO (08:51)
[2020-06-03] MEDS: ROSUVASTATIN 10 MG TABLET PO (08:51)
[2020-06-03] MEDS: ENOXAPARIN 40 MG/0.4 ML SYRINGE SUB-Q (08:52)
[2020-06-03] MEDS: lisinopriL 20 MG TABLET PO (08:52)
[2020-06-03] MEDS: CHOLECALCIFEROL 400 UNITS TABLET (VIT D) 800 UNITS PO (08:52)
[2020-06-03] MEDS: ASPIRIN 81 MG ENTERIC TABLET PO (08:52)
[2020-06-03] MEDS: OMEGA 3 POLYUNSAT FATTY ACIDS 1 GM CAP PO (08:52)
[2020-06-03 09:06] LABS: Glucose Point of Care 131 (65-105)
--- NOTE | 2020-06-03 11:16 | PM.PNORT ---
Progress Note: A&P Assessment and Plan (1) Septic arthritis of right ankle: Qualifiers: Septic arthritis organism: staphylococcal Qualified Code(s): M00.071 - Staphylococcal arthritis, right ankle and foot Code(s): M00.9 - Pyogenic arthritis, unspecified Status: Acute Assessment and Plan: POD #3: Right ankle debridement. Continue IV antibiotics. PICC line to be placed. IV antibiotics Planned through 06/27 Wound VAC dressing change today with plan for home wound VAC. PT/OT with nonweightbearing right lower extremity. Fracture boot on for protection but nonweightbearing. Blood sugar control. Patient would like to proceed with conservative treatment and salvage of the right foot. He understands risks for need for amputation in the future. Current nose bleed with DVT prophylaxis. Recommend discontinue DVT prophylaxis with active current bleeding. Plan: Home with Home Health for IV infusion/wound VAC pending medical clearance. Will arrange outpatient follow up in the [facility] wound clinic. May be discharged home when medically cleared. Subjective Subjective Date/Time Seen: 06/03/20 11:16 Patient awake and alert. Currently with nose bleed, holding pressure. Exam Const: General: alert, awake, anxious and ill appearing acutely; No confusion, lethargic or poor hygiene Orientation/consciousness: patient oriented x3 and No confusion Limitations: no limitations HENMT: Head: normal to inspection, normocephalic and atraumatic Ears: hearing grossly normal bilaterally Mouth: Yes moist mucous membranes Teeth and gingiva: dentition normal Eyes: Conjunctivae: conjunctivae normal Sclera: sclerae normal Pupils: Equal, round and reactive pupils present EOM: EOMs intact bilaterally Neck: Neck: supple and nontender Chest: Chest palpation & inspection: normal inspection of the chest Resp: Effort & Inspection: normal respiratory effort and no audible wheezes Cardio: Jugular venous distension: no JVD Rate: regular rate Rhythm: regular rhythm GI: GI Palp: No abdominal tenderness : General: Yes deferred Skin: Wounds: wounds noted (see extremity exam) Neuro: General: patient oriented x3 and No confusion Cognition (Neuro): normal cognition Speech: normal speech Gait exam (Neuro): Unable to assess gait Extrem: General: capillary refill normal Right upper extremity: normal to inspection Left upper extremity: normal to inspection Right lower extremity: hip/thigh Details: no tenderness, knee Details: normal ROM; no tenderness and no swelling, ankle Details: abnormal to inspection Details: other (deformity ankle, hindfoot varus), swelling ( moderate) Details: laterally, medially and anteriorly, edema, abnormal ROM ( ankle dorsiflexion -10 degrees, plantar flexion 30?, inversion 15?, eversion 5?) Details: pain with active ROM, warmth and crepitus; no tenderness and no ecchymosis and foot Details: warmth, edema, vascular exam Details: normal capillary refill; dorsalis pedis pulse absent and posterior tibial pulse absent, tendon exam (flexion only), motor-sensory exam Details: two point discrimination abnormal Location: in all toes and light-touch abnormal Location: in all toes and other (Fixed flexion deformity of the hallux. No active extension of the hallux or toes.) Left lower extremity: hip/thigh Details: normal to inspection, knee Details: normal to inspection, ankle Details: normal to inspection and normal ROM ( Active flexion and extension intact); no tenderness and no swelling and foot Details: abnormal to inspection (Deformity through the midfoot and forefoot consistent with Charcot), vascular exam Details: normal capillary refill; dorsalis pedis pulse absent and posterior tivial pulse absent, tendon exam active flexion abnormal and motor-sensory exam two point discrimination abnormal in all toes and light-touch abnormal in all toes; no tenderness Other: Right ankle wound VAC dressing in place, functioni
[2020-06-03] MEDS: CENTRAL LINE FLUSH 10 ML IV PUSH (12:21)
[2020-06-03 12:43] LABS: Glucose Point of Care 231 (65-105)
--- NOTE | 2020-06-03 14:12 | WPDINFPN2 ---
Progress Note: A&P Assessment and Plan (1) Septic arthritis of right ankle: Qualifiers: Septic arthritis organism: staphylococcal Qualified Code(s): M00.071 - Staphylococcal arthritis, right ankle and foot Code(s): M00.9 - Pyogenic arthritis, unspecified Status: Acute Assessment and Plan: 1. GBS septic arthritis R ankle 2. Micrococcus bacteremia, contaminant 3. DM REC Ampicillin same, through 06/27/20. PICC in, and ok for discharge, I discussed what to expect with his therapy. See me in office. Subjective Date/time seen: 06/03/20 14:12 Interval history: ankle feels ok, no other complaints Exam Narrative: Exam Narrative: afebrile Const: General: no acute distress Resp: Effort & Inspection: normal respiratory effort Auscultation: clear to auscultation bilaterally Cardio: Rate: regular rate Rhythm: regular rhythm GI: Inspection: non-distended GI Palp: Yes Soft to palpation and No Tenderness to palpation present (GI) Skin: General skin exam: normal color and no rashes or lesions noted Extrem: Other: left foot normal. Wound vac R ankle, 3 + edema of ankle and surrounding foot/distal leg Objective Data Vital Signs Vital Signs: Vital Signs - 24 hr 06/02/20 20:30 06/02/20 20:48 06/02/20 22:00 Temperature 35.9 C L Pulse Rate 88 79 Respiratory Rate 16 Blood Pressure 144/74 H Pulse Oximetry 98 98 06/02/20 22:44 06/03/20 04:13 06/03/20 06:10 Temperature 36.2 C L Pulse Rate 74 73 81 Respiratory Rate 18 Blood Pressure 148/75 H Pulse Oximetry 93 94 99 06/03/20 08:51 Temperature Pulse Rate 81 Respiratory Rate Blood Pressure Pulse Oximetry Intake/Output Intake/Output: Intake & Output 05/31/20 06/01/20 06/02/20 06/03/20 23:59 23:59 23:59 23:59 Intake Total 3220 2800 2620 1030 Output Total 2700 3575 2700 600 Balance 520 -775 -80 430 Meds/Results Medications: Active Medications Generic Name Dose Route Start Last Admin Trade Name Freq PRN Reason Stop Dose Admin Acetaminophen/Codeine Phosphate 1 tab 05/31/20 08:32 06/02/20 23:52 Acetaminophen/Codeine (*Crx) 300/30 Mg Tablet PO 1 tab Q8H PRN Administration pain (scale score 7-10) Aspirin 81 mg 05/31/20 09:00 06/03/20 08:52 Aspirin 81 Mg Enteric Tablet PO 81 mg DAILY MARY Administration Carvedilol 25 mg 05/31/20 09:00 06/03/20 08:51 Carvedilol 25 Mg Tablet PO 25 mg Q12H MARY Administration Chlorpromazine HCl 25 mg 05/30/20 21:43 05/30/20 22:14 Chlorpromazine Hcl 25 Mg Tablet PO 25 mg Q6H PRN Administration Hiccups Cilostazol 100 mg 05/31/20 09:00 06/03/20 08:51 Cilostazol 100 Mg Tablet PO 100 mg BID MARY Administration Codeine Sulfate 30 mg 05/31/20 08:33 06/01/20 09:20 Codeine Sulfate (*Crx) 30 Mg Tablet PO 30 mg Q8H PRN Administration pain (scale score 7-10) Dextrose 12.5 gm 05/31/20 08:21 Dextrose 50% 25 Gm/50 Ml Syringe IV PUSH PRN PRN Hypoglycemia Protocol Docusate Sodium 100 mg 05/31/20 17:00 06/03/20 08:52 Docusate Sodium 100 Mg Capsule PO Not Given BID [facility] Enoxaparin Sodium 40 mg 06/02/20 09:00 06/03/20 08:52 Enoxaparin 40 Mg/0.4 Ml Syringe SUB-Q 40 mg DAILY MARY Administration Fish Oil 1 gm 05/31/20 09:00 06/03/20 08:52 [place] 3 Polyunsat Fatty Acids 1 Gm Cap PO 1 gm DAILY MARY Administration Glucagon 1 mg 05/31/20 08:21 Glucagon For Inj 1 Mg Vial IM PRN PRN Hypoglycemia Protocol Glucose 15 gm 05/31/20 08:21 Glucose Oral Gel 15 Gm Of Glucse In 37.5 Gm Tube PO PRN PRN Hypoglycemia Protocol Dextrose 1,000 mls @ 100 mls/hr 05/31/20 08:21 Dextrose 5% 1,000 Ml IVPB PRN PRN Hypoglycemia Protocol Ampicillin Sodium 2 gm in 100 mls @ 200 mls/hr 06/02/20 18:00 06/03/20 12:18 Ampicillin 2 Gm/Ns 100 Ml IVPB 06/27/20 23:59 Infused Q6HR MARY Infusion Lisinopril 20 mg 05/31/20 09:00
[2020-06-03 14:58] VITALS: BP 152/78; PULSE 85; RESP 20; TEMP 36.9; O2SAT 100
--- NOTE | 2020-06-03 16:51 | PM.DS ---
DS: Admitting Diagnosis Admitting Diagnosis Admitting Diagnosis: Drainage from foot and fever DS: Discharge Diagnosis Discharge Diagnosis (1) Sepsis: Qualifiers: Sepsis acute organ dysfunction status: unspecified Sepsis type: sepsis due to unspecified organism Qualified Code(s): A41.9 - Sepsis, unspecified organism Code(s): A41.9 - Sepsis, unspecified organism Status: Resolved Assessment and Plan: Blood cultures positive for Group B strep secondary to om Covid test was negative. Treat with iv ampicillin for another 21 days until jun 27 2020 Pt has picc line placed receiving iv abx through it (2) Infection of bone of right ankle: Code(s): M86.9 - Osteomyelitis, unspecified Status: Acute Assessment and Plan: Sp debridement and IV abx regime, pt to have vac theraphy at home and iv antibiotics through the picc line. (3) Diabetic foot ulcer associated with diabetes mellitus due to underlying condition: Qualifiers: Diabetic foot ulcer location: toe Laterality: right Non-pressure ulcer stage: limited to breakdown of skin Qualified Code(s): E08.621 - Diabetes mellitus due to underlying condition with foot ulcer; L97.511 - Non-pressure chronic ulcer of other part of right foot limited to breakdown of skin Code(s): E08.621 - Diabetes mellitus due to underlying condition with foot ulcer; L97.509 - Non-pressure chronic ulcer of other part of unspecified foot with unspecified severity Status: Acute Assessment and Plan: Sp debridement of right ankle septic arthritis, debridement including bone right diabetic ankle ulcer pt on vac therapy currently and iv abx, follow vac therapy at home home health to help, continue iv ampicillin at home, home health nurses to help and follow up orthopedics and wound clinic. Continue to dress wound and recommended bu Orthopedics. (4) Type 1 diabetes mellitus with hyperglycemia: Code(s): E10.65 - Type 1 diabetes mellitus with hyperglycemia Status: Acute Assessment and Plan: Continue insulin pump post op day 3 (5) AILEEN (acute kidney injury): Code(s): N17.9 - Acute kidney failure, unspecified Status: Resolved Assessment and Plan: Creat is 1.2 on discharge, sp hydration and monitor kidney function (6) AIDA on CPAP: Code(s): G47.33 - Obstructive sleep apnea (adult) (pediatric); Z99.89 - Dependence on other enabling machines and devices Status: Acute Assessment and Plan: CPAP at night DS: Summary Hospital Course Hospital Course: 54 year old male sp Debridement right ankle septic arthritis today. Pt has a history of right lateral diabetic ulcer ankle with distal fibula osteomyelitis. Pt sp wound vac theraphy and picc line placement. Pt will need further debridement v amputation later. pt has insulin pump back on, hopeful discharge today with outpatient abx. Time Spent with Patient Time attestation: Total time spent providing and/or coordinating discharge services:40 minutes on day of discharge Exam Const: General: other (large man alert talkative tired ) Nutritional Appearance: well nourished HENMT: Head: normocephalic Eyes: General: appearance normal, both eyes and all related structures Pupils: Equal, round and reactive pupils present Neck: Neck: supple Chest: Chest palpation & inspection: normal inspection of the chest Resp: Effort & Inspection: normal respiratory effort Auscultation: clear to auscultation bilaterally Cardio: Jugular venous distension: no JVD Rhythm: regular rhythm Heart sounds: S1 normal heart sound present and S2 normal heart sound present GI: Inspection: normal to inspection Auscultation: normal bowel sounds Skin: General skin exam: normal color and dry skin Neuro: Cranial nerves: Yes CN's II-XII intact bilaterally and Yes Equal, round and reactive pupils present Cognition (Neuro): normal cognition Speech: normal speech Motor
== END 2020-06-03 17:57 | disposition home health service (06) | DRG 854 ==
LOC: ANHED 23:22 → ANH3MEDSUR 23:46
PROVIDERS: Emergency Medicine Emergency Medical Services; Orthopaedic Surgery; Admitting Provider Internal Medicine; Emergency Provider Emergency Medicine; PCP Family Medicine; Visit Provider Family Medicine
PROC: 0QBJ0ZZ Excision of Right Fibula, Open Approach (ICD-10-PCS; principal; 2020-05-31 14:00)
DX: A41.9 Sepsis, unspecified organism (principal); N17.9 Acute kidney failure, unspecified; M86.171 Other acute osteomyelitis, right ankle and foot; M00.271 Other streptococcal arthritis, right ankle and foot; L97.319 Non-pressure chronic ulcer of right ankle with unspecified severity; E10.69 Type 1 diabetes mellitus with other specified complication; E10.622 Type 1 diabetes mellitus with other skin ulcer; Z20.822 Contact with and (suspected) exposure to COVID-19; N18.2 Chronic kidney disease, stage 2 (mild); E10.610 Type 1 diabetes mellitus with diabetic neuropathic arthropathy; I12.9 Hypertensive chronic kidney disease with stage 1 through stage 4 chronic kidney disease, or unspecified chronic kidney disease; E10.42 Type 1 diabetes mellitus with diabetic polyneuropathy; E10.51 Type 1 diabetes mellitus with diabetic peripheral angiopathy without gangrene; B95.1 Streptococcus, group B, as the cause of diseases classified elsewhere; E10.22 Type 1 diabetes mellitus with diabetic chronic kidney disease; E10.65 Type 1 diabetes mellitus with hyperglycemia; I25.10 Atherosclerotic heart disease of native coronary artery without angina pectoris; G47.33 Obstructive sleep apnea (adult) (pediatric); E78.2 Mixed hyperlipidemia; E66.9 Obesity, unspecified; Z68.31 Body mass index [BMI] 31.0-31.9, adult; Z79.4 Long term (current) use of insulin; Z87.891 Personal history of nicotine dependence; Z95.5 Presence of coronary angioplasty implant and graft; Z95.1 Presence of aortocoronary bypass graft
CPT/HCPCS: 36415; 36569; 71045; 73600; 73620; 80048; 80053; 81001; 82948; 83605; 85025; 85027; 85610; 85652; 85730; 86140; 87040; 87070; 87077; 87205; 96365; 96367; 97110; 97116; 97161; 97165; 97530; 97535; 99285; A9270; C1751; C9803; J0290; J0330; J1100; J1650; J1815; J2250; J2370; J2405; J2543; J2704; J3010; J3370; J7030; J7120; U0003; U0005

== ENCOUNTER 2020-06-27 10:56 | Outpatient (RCR) | payer MEDICARE, SELFPAY ==
[2020-06-06 17:22] LABS: Anion Gap 4 mmol/L (8-16); Blood Urea Nitrogen 18 mg/dL (9-20); CRP 1.3 mg/dL (<1.0); Calcium 9.4 mg/dL (8.4-10.2); Carbon Dioxide 33 mmol/L (22-30); Chloride 103 mmol/L (98-107); Estimated Glomerular Filt Rate > 60; Glucose 143 mg/dL (75-110); Potassium 4.7 mmol/L (3.4-5.0); Sodium 140 mmol/L (137-145)
[2020-06-07 00:55] LABS: Basophils Absolute Auto 0.1 K/mm3 (0.0-0.1); Basophils Percent Auto 0.5 % (0.2-1.2); Eosinophils Absolute Auto 0.3 K/mm3 (0-0.3); Eosinophils Percent Auto 2.2 % (0-4.4); Hematocrit 36.6 % (42.0-52.0); Hemoglobin 11.2 g/dL (14.0-18.0); Immature Granulocyte Absolute 0.22 K/mm3 (0.00-0.031); Immature Granulocyte Percent A 1.7 % (0-0.5); Lymphocytes Absolute Auto 2.68 K/mm3 (0.9-3.2); Lymphocytes Percent Auto 20.4 % (18.3-44.2); Mean Corpuscular HGB Conc 30.6 g/dl (32-36); Mean Corpuscular Hemoglobin 27.9 pg (26-34); Mean Platelet Volume 8.4 fl (7.4-10.4); Monocytes Absolute Auto 0.9 K/mm3 (0.1-0.6); Neutrophils Percent Auto 68.2 % (45.5-73.1); Platelet Count Result 691 k/mm3 (150-375); Red Blood Count 4.02 M/mm3 (4.6-6.20); Red Cell Distribution Width 14.6 % (11.5-14.5); White Blood Count 13.2 K/mm3 (4.5-10.0)
[2020-06-08 12:56] LABS: Basophils Absolute Auto 0.1 K/mm3 (0.0-0.1); Basophils Percent Auto 0.4 % (0.2-1.2); Eosinophils Absolute Auto 0.3 K/mm3 (0-0.3); Hemoglobin 11.6 g/dL (14.0-18.0); Immature Granulocyte Absolute 0.16 K/mm3 (0.00-0.031); Immature Granulocyte Percent A 1.2 % (0-0.5); Lymphocytes Absolute Auto 2.35 K/mm3 (0.9-3.2); Lymphocytes Percent Auto 17.4 % (18.3-44.2); Mean Corpuscular HGB Conc 31.4 g/dl (32-36); Mean Corpuscular Hemoglobin 27.8 pg (26-34); Mean Corpuscular Volume 88.7 fl (80-100); Mean Platelet Volume 8.4 fl (7.4-10.4); Monocytes Absolute Auto 1.4 K/mm3 (0.1-0.6); Monocytes Percent Auto 10.3 % (2.6-8.5); Neutrophils Absolute Auto 9.3 K/mm3 (1.3-6.7); Neutrophils Percent Auto 68.7 % (45.5-73.1); Platelet Count Result 609 k/mm3 (150-375); Red Blood Count 4.17 M/mm3 (4.6-6.20); Red Cell Distribution Width 14.9 % (11.5-14.5); White Blood Count 13.5 K/mm3 (4.5-10.0)
[2020-06-08 13:11] LABS: Anion Gap 7 mmol/L (8-16); Blood Urea Nitrogen 17 mg/dL (9-20); Calcium 9.3 mg/dL (8.4-10.2); Carbon Dioxide 30 mmol/L (22-30); Chloride 102 mmol/L (98-107); Estimated Glomerular Filt Rate > 60; Glucose 149 mg/dL (75-110); Potassium 4.7 mmol/L (3.4-5.0); Sodium 139 mmol/L (137-145)
[2020-06-13 11:25] LABS: Basophils Absolute Auto 0.1 K/mm3 (0.0-0.1); Basophils Percent Auto 0.5 % (0.2-1.2); Eosinophils Absolute Auto 0.2 K/mm3 (0-0.3); Hematocrit 37.6 % (42.0-52.0); Hemoglobin 11.9 g/dL (14.0-18.0); Immature Granulocyte Absolute 0.06 K/mm3 (0.00-0.031); Immature Granulocyte Percent A 0.7 % (0-0.5); Lymphocytes Absolute Auto 1.98 K/mm3 (0.9-3.2); Lymphocytes Percent Auto 21.6 % (18.3-44.2); Mean Corpuscular HGB Conc 31.6 g/dl (32-36); Mean Corpuscular Hemoglobin 27.4 pg (26-34); Mean Corpuscular Volume 86.6 fl (80-100); Mean Platelet Volume 8.4 fl (7.4-10.4); Monocytes Absolute Auto 0.8 K/mm3 (0.1-0.6); Monocytes Percent Auto 8.6 % (2.6-8.5); Neutrophils Absolute Auto 6.1 K/mm3 (1.3-6.7); Neutrophils Percent Auto 66.6 % (45.5-73.1); Platelet Count Result 476 k/mm3 (150-375); Red Blood Count 4.34 M/mm3 (4.6-6.20); Red Cell Distribution Width 15.2 % (11.5-14.5); White Blood Count 9.2 K/mm3 (4.5-10.0)
[2020-06-13 11:38] LABS: Anion Gap 4 mmol/L (8-16); Blood Urea Nitrogen 20 mg/dL (9-20); CRP 1.1 mg/dL (<1.0); Calcium 9.1 mg/dL (8.4-10.2); Carbon Dioxide 32 mmol/L (22-30); Chloride 105 mmol/L (98-107); Estimated Glomerular Filt Rate > 60; Glucose 97 mg/dL (75-110); Potassium 4.8 mmol/L (3.4-5.0); Sodium 141 mmol/L (137-145)
[2020-06-15 12:16] LABS: Basophils Absolute Auto 0.1 K/mm3 (0.0-0.1); Basophils Percent Auto 0.8 % (0.2-1.2); Eosinophils Absolute Auto 0.1 K/mm3 (0-0.3); Eosinophils Percent Auto 1.4 % (0-4.4); Hematocrit 36.9 % (42.0-52.0); Hemoglobin 11.8 g/dL (14.0-18.0); Immature Granulocyte Absolute 0.04 K/mm3 (0.00-0.031); Immature Granulocyte Percent A 0.4 % (0-0.5); Lymphocytes Absolute Auto 2.36 K/mm3 (0.9-3.2); Lymphocytes Percent Auto 25.4 % (18.3-44.2); Mean Corpuscular Volume 87.6 fl (80-100); Mean Platelet Volume 8.5 fl (7.4-10.4); Monocytes Absolute Auto 0.9 K/mm3 (0.1-0.6); Monocytes Percent Auto 9.4 % (2.6-8.5); Neutrophils Absolute Auto 5.8 K/mm3 (1.3-6.7); Neutrophils Percent Auto 62.6 % (45.5-73.1); Platelet Count Result 394 k/mm3 (150-375); Red Blood Count 4.21 M/mm3 (4.6-6.20); Red Cell Distribution Width 15.6 % (11.5-14.5); White Blood Count 9.3 K/mm3 (4.5-10.0)
[2020-06-15 12:26] LABS: Anion Gap 4 mmol/L (8-16); Blood Urea Nitrogen 25 mg/dL (9-20); Calcium 9.2 mg/dL (8.4-10.2); Carbon Dioxide 32 mmol/L (22-30); Chloride 101 mmol/L (98-107); Estimated Glomerular Filt Rate 57; Glucose 197 mg/dL (75-110); Sodium 137 mmol/L (137-145)
[2020-06-20 10:25] LABS: Basophils Absolute Auto 0.1 K/mm3 (0.0-0.1); Basophils Percent Auto 0.5 % (0.2-1.2); Eosinophils Absolute Auto 0.2 K/mm3 (0-0.3); Eosinophils Percent Auto 1.8 % (0-4.4); Hematocrit 38.4 % (42.0-52.0); Hemoglobin 12.3 g/dL (14.0-18.0); Immature Granulocyte Absolute 0.04 K/mm3 (0.00-0.031); Immature Granulocyte Percent A 0.4 % (0-0.5); Lymphocytes Absolute Auto 2.41 K/mm3 (0.9-3.2); Lymphocytes Percent Auto 25.6 % (18.3-44.2); Mean Corpuscular Hemoglobin 28.1 pg (26-34); Mean Corpuscular Volume 87.7 fl (80-100); Mean Platelet Volume 8.8 fl (7.4-10.4); Monocytes Absolute Auto 1.3 K/mm3 (0.1-0.6); Monocytes Percent Auto 13.5 % (2.6-8.5); Neutrophils Absolute Auto 5.5 K/mm3 (1.3-6.7); Neutrophils Percent Auto 58.2 % (45.5-73.1); Platelet Count Result 331 k/mm3 (150-375); Red Blood Count 4.38 M/mm3 (4.6-6.20); Red Cell Distribution Width 15.8 % (11.5-14.5); White Blood Count 9.4 K/mm3 (4.5-10.0)
[2020-06-20 10:38] LABS: Anion Gap 3 mmol/L (8-16); Blood Urea Nitrogen 23 mg/dL (9-20); CRP 3.2 mg/dL (<1.0); Calcium 9.7 mg/dL (8.4-10.2); Carbon Dioxide 32 mmol/L (22-30); Chloride 103 mmol/L (98-107); Estimated Glomerular Filt Rate > 60; Glucose 73 mg/dL (75-110); Potassium 4.5 mmol/L (3.4-5.0); Sodium 138 mmol/L (137-145)
[2020-06-22 12:09] LABS: Basophils Absolute Auto 0.1 K/mm3 (0.0-0.1); Basophils Percent Auto 0.5 % (0.2-1.2); Eosinophils Absolute Auto 0.1 K/mm3 (0-0.3); Eosinophils Percent Auto 0.5 % (0-4.4); Hematocrit 36.3 % (42.0-52.0); Hemoglobin 11.6 g/dL (14.0-18.0); Immature Granulocyte Absolute 0.04 K/mm3 (0.00-0.031); Immature Granulocyte Percent A 0.4 % (0-0.5); Lymphocytes Absolute Auto 2.23 K/mm3 (0.9-3.2); Lymphocytes Percent Auto 20.4 % (18.3-44.2); Mean Corpuscular Hemoglobin 27.8 pg (26-34); Mean Corpuscular Volume 87.1 fl (80-100); Mean Platelet Volume 8.9 fl (7.4-10.4); Monocytes Absolute Auto 1.5 K/mm3 (0.1-0.6); Monocytes Percent Auto 13.7 % (2.6-8.5); Neutrophils Percent Auto 64.5 % (45.5-73.1); Platelet Count Result 291 k/mm3 (150-375); Red Blood Count 4.17 M/mm3 (4.6-6.20); White Blood Count 10.9 K/mm3 (4.5-10.0)
[2020-06-22 12:30] LABS: Anion Gap 4 mmol/L (8-16); Blood Urea Nitrogen 21 mg/dL (9-20); Carbon Dioxide 31 mmol/L (22-30); Chloride 100 mmol/L (98-107); Estimated Glomerular Filt Rate 52; Glucose 116 mg/dL (75-110); Potassium 4.5 mmol/L (3.4-5.0); Sodium 135 mmol/L (137-145)
[2020-06-27 11:12] LABS: Basophils Absolute Auto 0.1 K/mm3 (0.0-0.1); Basophils Percent Auto 0.7 % (0.2-1.2); Eosinophils Absolute Auto 0.3 K/mm3 (0-0.3); Eosinophils Percent Auto 3.1 % (0-4.4); Hematocrit 36.7 % (42.0-52.0); Hemoglobin 11.7 g/dL (14.0-18.0); Immature Granulocyte Absolute 0.02 K/mm3 (0.00-0.031); Immature Granulocyte Percent A 0.2 % (0-0.5); Lymphocytes Absolute Auto 2.46 K/mm3 (0.9-3.2); Lymphocytes Percent Auto 30.2 % (18.3-44.2); Mean Corpuscular HGB Conc 31.9 g/dl (32-36); Mean Corpuscular Hemoglobin 27.6 pg (26-34); Mean Corpuscular Volume 86.6 fl (80-100); Mean Platelet Volume 8.8 fl (7.4-10.4); Monocytes Absolute Auto 0.8 K/mm3 (0.1-0.6); Monocytes Percent Auto 9.9 % (2.6-8.5); Neutrophils Absolute Auto 4.6 K/mm3 (1.3-6.7); Neutrophils Percent Auto 55.9 % (45.5-73.1); Platelet Count Result 308 k/mm3 (150-375); Red Blood Count 4.24 M/mm3 (4.6-6.20); Red Cell Distribution Width 15.1 % (11.5-14.5); White Blood Count 8.2 K/mm3 (4.5-10.0)
[2020-06-27 11:25] LABS: Anion Gap 3 mmol/L (8-16); Blood Urea Nitrogen 22 mg/dL (9-20); CRP 1.4 mg/dL (<1.0); Calcium 9.5 mg/dL (8.4-10.2); Carbon Dioxide 32 mmol/L (22-30); Chloride 103 mmol/L (98-107); Estimated Glomerular Filt Rate > 60; Glucose 121 mg/dL (75-110); Potassium 4.7 mmol/L (3.4-5.0); Sodium 138 mmol/L (137-145)
== END 2020-09-04 23:59 | disposition home or self-care (01) ==
LOC: HOME HLTH 10:56
PROVIDERS: PCP Family Medicine; Visit Provider Internal Medicine Infectious Disease
DX: Z51.81 Encounter for therapeutic drug level monitoring (principal); A41.9 Sepsis, unspecified organism; Z79.2 Long term (current) use of antibiotics
CPT/HCPCS: 80048; 85025; 86140

== ENCOUNTER 2020-07-01 07:29 | Outpatient (RCR) | payer MEDICARE, SELFPAY ==
--- NOTE | 2020-04-12 09:07 | PM.CNOR ---
Assessment and Plan Assessment and plan (1) Diabetic foot ulcer associated with diabetes mellitus due to underlying condition: Qualifiers: Diabetic foot ulcer location: toe Laterality: right Non-pressure ulcer stage: limited to breakdown of skin Qualified Code(s): E08.621 - Diabetes mellitus due to underlying condition with foot ulcer; L97.511 - Non-pressure chronic ulcer of other part of right foot limited to breakdown of skin Code(s): E08.621 - Diabetes mellitus due to underlying condition with foot ulcer; L97.509 - Non-pressure chronic ulcer of other part of unspecified foot with unspecified severity Status: Acute Assessment and Plan: new ulceration right lateral ankle and hindfoot, stage III. Secondary to pressure from wearing out of his foot support, Shoe and ankle brace. No signs of infection at this time. Treatment options reviewed. Start silver rope packing for the wound with Mepilex foam to protect and absorbed. Twice daily dressing change. Continue to clean the ulcer. Discontinue use of ankle brace. Medically necessary for re-evaluation for new brace. Use fracture boot in the interim. Limited weight-bearing with use of the rolling knee scooter for ambulation. Discussed risk of infection, osteomyelitis or worsening. Reviewed signs to be aware of. Follow up 2 weeks for re-evaluation Medically necessary for custom prosthetic fit and fabrication. Patient condition requires custom fitting due to bone, joint, musculoskeletal deformity. Unable to fit with [id number] brace. Patient condition will be improved with bracing. Condition likely to deteriorate without custom support Indicated for custom ankle support brace and custom shoe right lower extremity (2) Peripheral vascular disease: Code(s): I73.9 - Peripheral vascular disease, unspecified Status: Acute (3) Type 1 diabetes mellitus with hyperglycemia: Code(s): E10.65 - Type 1 diabetes mellitus with hyperglycemia Status: Acute (4) termination clerk (current) use of insulin: Code(s): Z79.4 - termination clerk (current) use of insulin Status: Acute History of Present Illness HPI Consult date: 04/12/20 Requesting physician: Roxana Mosley MD Consult reason: other ( right ankle ulceration) Chief complaint: E11.621 type 2 diabetes mellitus with foot ulcer Narrative: 54-year-old gentleman presents to [facility] outpatient wound clinic for consultation his right ankle foot. Patient with history of Charcot arthropathy of the right foot with previous plantar ulceration. Has been in double upright ankle brace. Has pressure over the lateral aspect developed an ulceration 5 weeks ago. He has been doing home dressing changes. Denies fever chills. Denies any pain. He has noted clear drainage from the ulcer. He states that he feels like it has gotten a little bit better. Review of Systems Constitutional: Constitutional: Denies fever(s) Eyes: Eyes: Denies blurry vision ENT: Reports Normal hearing present Cardiovascular: Cardiovascular: Denies chest pain and Denies dyspnea Respiratory: Respiratory: Denies dyspnea and Denies wheezing Gastrointestinal: Gastrointestinal: Denies abdominal pain Genitourinary: Genitourinary: Denies urinary urgency Musculoskeletal: Musculoskeletal: Reports as per HPI and Reports numbness (both feet) Integumentary/Breasts: Skin/Breast: Denies changing lesions and Denies sores Neurologic: Reports Normal hearing present, Denies behavioral changes, Denies confusion, Reports numbness and Denies convulsions Psychiatric: Psychiatric: Denies behavioral changes, Denies confusion and Denies hallucinations Endocrine: Endocrine: Denies heat intolerance Hematologic/Lymphatic: Hematologic/Lymphatic: Denies easy bleeding Allergic/Immunologic: Allergic/Immunologic: Denies wheezing PMFSH Past Medical History Medical History Ch
--- NOTE | 2020-04-26 13:04 | PM.IMHP ---
H&P: HPI History of Present Illness Date/Time: 04/26/20 0900 Chief Complaint: Right lateral ankle and hind foot ulceration. Narrative: Bereket Julian is a 54 year old male who follows up to the [place] wound clinic today for re-evaluation right lateral malleolus ulceration. Patient has been in a fracture boot utilizing a knee scooter for the last 2 weeks. He reports no fever, chills, night sweats, nausea, vomiting or diarrhea. He denies elevated blood glucose levels. He continues to endorse wound and concerns about future needs for his foot. Review of Systems Constitutional: Constitutional: Denies fever(s) Eyes: Eyes: Denies blurry vision ENT: Reports Normal hearing present Cardiovascular: Cardiovascular: Denies chest pain and Denies dyspnea Respiratory: Respiratory: Denies dyspnea and Denies wheezing Gastrointestinal: Gastrointestinal: Denies abdominal pain Genitourinary: Genitourinary: Denies urinary urgency Musculoskeletal: Musculoskeletal: Reports as per HPI and Reports numbness (both feet) Integumentary/Breasts: Skin/Breast: Denies changing lesions and Denies sores Neurologic: Reports Normal hearing present, Denies behavioral changes, Denies confusion, Reports numbness and Denies convulsions Psychiatric: Psychiatric: Denies behavioral changes, Denies confusion and Denies hallucinations Endocrine: Endocrine: Denies heat intolerance Hematologic/Lymphatic: Hematologic/Lymphatic: Denies easy bleeding Allergic/Immunologic: Allergic/Immunologic: Denies wheezing PMFSH Past Medical History Medical History Charcot's joint of foot in type 1 diabetes mellitus Chronic pain in right foot Coronary artery disease involving [place] coronary artery of [place] heart Diabetic foot ulcer associated with diabetes mellitus due to underlying condition Diabetic peripheral angiopathy Essential (primary) hypertension History of tobacco use [facility] (current) use of insulin Lymphedema of right lower extremity Mixed hyperlipidemia AIDA on CPAP PVD (peripheral vascular disease) Stage 2 chronic kidney disease Type 1 diabetes mellitus with hyperglycemia Wound of right foot Surgical History Surgical History S/P angioplasty with stent S/P CABG x 3 Family History Family History Mother Family history of lung cancer Father Family history of lymphoma Other Diabetes mellitus Family history of arthritis Family history of cardiovascular disease Family history of congestive heart failure Family history of coronary artery disease Family history of heart disease in male family member before age 55 Family history of malignant neoplasm Family history of premature coronary heart disease Hypertension Social History Social History Smoking status: Former smoker Second hand tobacco smoke exposure: No Smoking end date: 05/06/12 Alcohol intake: former Substance use: never Substance use type: does not use Additional occupation/education comments: Disability Gender identity (if verbalized by the patient): Male Sexual Orientation (if Verbalized by the Patient): Straight or Heterosexual Spiritual care concerns: No Meds Home Medications and Allergies Home Medications Medication Instructions Recorded Confirmed Type aspirin 81 mg tablet,delayed 81 mg PO DAILY 03/12/19 03/29/20 History release cholecalciferol (vitamin D3) 10 400 unit PO DAILY 05/01/19 03/29/20 History mcg (400 unit) capsule omega-3 fatty acids 1,000 mg 1,000 mg PO DAILY 05/01/19 03/29/20 History capsule blood sugar diagnostic #10 each 09/08/19 03/29/20 History subcutaneous insulin pump #1 each 09/08/19 03/29/20 History acetaminophen 300 mg-codeine 60 mg 1 tablet PO Q8H PRN #90 tablet 02/05/20 03/29/20 Rx table
--- NOTE | 2020-05-10 13:09 | PM.IMHP ---
H&P: HPI History of Present Illness Date/Time: 05/10/20 13:09 Chief Complaint: Right lateral ankle ulcer Narrative: Bereket Julian is a 54 year old male follows up to the [place] wound clinic today for re-evaluation right lateral malleolus ulceration. Patient has been in a fracture boot utilizing a knee scooter for the last 2 weeks. He reports no fever, chills, night sweats, nausea, vomiting or diarrhea. He denies elevated blood glucose levels. He continues to endorse wound and concerns about future needs for his foot. Review of Systems Constitutional: Constitutional: Denies fever(s) Eyes: Eyes: Denies blurry vision ENT: Reports Normal hearing present Cardiovascular: Cardiovascular: Denies chest pain and Denies dyspnea Respiratory: Respiratory: Denies dyspnea and Denies wheezing Gastrointestinal: Gastrointestinal: Denies abdominal pain Genitourinary: Genitourinary: Denies urinary urgency Musculoskeletal: Musculoskeletal: Reports as per HPI and Reports numbness (both feet) Integumentary/Breasts: Skin/Breast: Denies changing lesions and Denies sores Neurologic: Reports Normal hearing present, Denies behavioral changes, Denies confusion, Reports numbness and Denies convulsions Psychiatric: Psychiatric: Denies behavioral changes, Denies confusion and Denies hallucinations Endocrine: Endocrine: Denies heat intolerance Hematologic/Lymphatic: Hematologic/Lymphatic: Denies easy bleeding Allergic/Immunologic: Allergic/Immunologic: Denies wheezing PMF Past Medical History Medical History Charcot's joint of foot in type 1 diabetes mellitus Chronic pain in right foot Coronary artery disease involving [place] coronary artery of [place] heart Diabetic foot ulcer associated with diabetes mellitus due to underlying condition Diabetic peripheral angiopathy Essential (primary) hypertension History of tobacco use [facility] (current) use of insulin Lymphedema of right lower extremity Mixed hyperlipidemia AIDA on CPAP PVD (peripheral vascular disease) Stage 2 chronic kidney disease Type 1 diabetes mellitus with hyperglycemia Wound of right foot Surgical History Surgical History S/P angioplasty with stent S/P CABG x 3 Family History Family History Mother Family history of lung cancer Father Family history of lymphoma Other Diabetes mellitus Family history of arthritis Family history of cardiovascular disease Family history of congestive heart failure Family history of coronary artery disease Family history of heart disease in male family member before age 55 Family history of malignant neoplasm Family history of premature coronary heart disease Hypertension Social History Social History Smoking status: Former smoker Second hand tobacco smoke exposure: No Smoking end date: 05/06/12 Alcohol intake: former Substance use: never Substance use type: does not use Additional occupation/education comments: Disability Gender identity (if verbalized by the patient): Male Sexual Orientation (if Verbalized by the Patient): Straight or Heterosexual Spiritual care concerns: No Meds Home Medications and Allergies Home Medications Medication Instructions Recorded Confirmed Type aspirin 81 mg tablet,delayed 81 mg PO DAILY 03/12/19 03/29/20 History release cholecalciferol (vitamin D3) 10 400 unit PO DAILY 05/01/19 03/29/20 History mcg (400 unit) capsule omega-3 fatty acids 1,000 mg 1,000 mg PO DAILY 05/01/19 03/29/20 History capsule blood sugar diagnostic #10 each 09/08/19 03/29/20 History subcutaneous insulin pump #1 each 09/08/19 03/29/20 History acetaminophen 300 mg-codeine 60 mg 1 tablet PO Q8H PRN #90 tablet 02/05/20 03/29/20 Rx tablet rosuvastatin 10 mg
--- NOTE | 2020-05-17 08:44 | PM.CNOR ---
Assessment and Plan Assessment and plan (1) Diabetic foot ulcer associated with diabetes mellitus due to underlying condition: Qualifiers: Diabetic foot ulcer location: toe Laterality: right Non-pressure ulcer stage: limited to breakdown of skin Qualified Code(s): E08.621 - Diabetes mellitus due to underlying condition with foot ulcer; L97.511 - Non-pressure chronic ulcer of other part of right foot limited to breakdown of skin Code(s): E08.621 - Diabetes mellitus due to underlying condition with foot ulcer; L97.509 - Non-pressure chronic ulcer of other part of unspecified foot with unspecified severity Status: Acute Assessment and Plan: Patient follows up in the [place] wound clinic today for re-evaluation of right lateral ankle and hindfoot ulcer which is stage III. The ulcer is felt to be secondary to pressure from wearing out of his foot support. Wound with minimal change today. We did discuss increased pressure over the lateral malleolus due to malformation of the foot when not immobilized in the fracture boot, patient verbalized understanding. He did just received his prescription for Regranex x 1 week ago. We reviewed use. Patient will likely need further surgical intervention in the future of right foot hindfoot fusion. Patient is also at risk for right [id number] amputation if infection occurs, patient verbalized understanding. He would like to continue with conservative treatment at this time in the hopes to have his wound heal and then proceed with hindfoot fusion. Regranex with strip gauze and cover with a Mepilex foam daily. He will follow up in 2 weeks for re-evaluation. We reviewed signs symptoms of infection to report to the emergency room immediately, patient verbalized understanding. (2) Peripheral vascular disease: Code(s): I73.9 - Peripheral vascular disease, unspecified Status: Acute (3) Type 1 diabetes mellitus with hyperglycemia: Code(s): E10.65 - Type 1 diabetes mellitus with hyperglycemia Status: Acute (4) longterm (current) use of insulin: Code(s): Z79.4 - longterm (current) use of insulin Status: Acute Assessment and Plan: Discussed importance of proper nutrition and diabetic control for optimal healing. History of Present Illness HPI Consult date: 05/17/20 Requesting physician: Roxana Mosley MD Chief complaint: E11.621 type 2 diabetes mellitus with foot ulcer Narrative: 54-year-old gentleman [facility] outpatient wound clinic for right lateral ankle ulcer, diabetes with neuropathy peripheral arterial disease. Regranex started week ago. Patient using fracture boot. Denies any change in condition. No fever or chills or aches. No pain in the right ankle or foot. Review of Systems Constitutional: Constitutional: Denies fever(s) Eyes: Eyes: Denies blurry vision ENT: Reports Normal hearing present Cardiovascular: Cardiovascular: Denies chest pain and Denies dyspnea Respiratory: Respiratory: Denies dyspnea and Denies wheezing Gastrointestinal: Gastrointestinal: Denies abdominal pain Genitourinary: Genitourinary: Denies urinary urgency Musculoskeletal: Musculoskeletal: Reports as per HPI and Reports numbness (both feet) Integumentary/Breasts: Skin/Breast: Denies changing lesions and Denies sores Neurologic: Reports Normal hearing present, Denies behavioral changes, Denies confusion, Reports numbness and Denies convulsions Psychiatric: Psychiatric: Denies behavioral changes, Denies confusion and Denies hallucinations Endocrine: Endocrine: Denies heat intolerance Hematologic/Lymphatic: Hematologic/Lymphatic: Denies easy bleeding Allergic/Immunologic: Allergic/Immunologic: Denies wheezing PMFSH Past Medical History Medical History Charcot's joint of foot in type 1 diabetes mellitus Chronic pain in right foot Coronary arter
--- NOTE | 2020-05-31 07:53 | PCWOUND ---
WOCN NOTE cancelled patient appointment for today, patient was admitted to the hospital last night.
--- NOTE | 2020-06-10 09:25 | PM.PNORT ---
Progress Note: A&P Assessment and Plan (1) Septic arthritis of right ankle: Qualifiers: Septic arthritis organism: staphylococcal Qualified Code(s): M00.071 - Staphylococcal arthritis, right ankle and foot Code(s): M00.9 - Pyogenic arthritis, unspecified Status: Acute Assessment and Plan: Ten days status post right ankle debridement. Wound VAC reapplied. Increase pressure to assist with drainage control. Continue with dressing changes 3 times per week. May use gauze dressing if wound VAC seal leaks in between dressing changes. Nonweightbearing. IV antibiotic plan until June 27. Continue to follow in wound clinic weekly. (2) Infection of bone of right ankle: Code(s): M86.9 - Osteomyelitis, unspecified Status: Acute (3) Diabetic foot ulcer associated with diabetes mellitus due to underlying condition: Qualifiers: Diabetic foot ulcer location: toe Laterality: right Non-pressure ulcer stage: limited to breakdown of skin Qualified Code(s): E08.621 - Diabetes mellitus due to underlying condition with foot ulcer; L97.511 - Non-pressure chronic ulcer of other part of right foot limited to breakdown of skin Code(s): E08.621 - Diabetes mellitus due to underlying condition with foot ulcer; L97.509 - Non-pressure chronic ulcer of other part of unspecified foot with unspecified severity Status: Acute Subjective Subjective Date/Time Seen: 06/10/20 09:25 Post Op day: 10 Principal diagnosis: Right ankle septic arthritis Interval history: postoperative visit [facility]. Tendon status post debridement of right ankle septic arthritis and diabetic ulcer. Patient states overall feels good. No fever/ chills. No new complaints. Exam Const: General: No confusion Orientation/consciousness: patient oriented x3 and No confusion HENMT: Head: normal to inspection, normocephalic and atraumatic Eyes: Conjunctivae: conjunctivae normal Sclera: sclerae normal Neck: Neck: supple and nontender Chest: Chest palpation & inspection: normal inspection of the chest Resp: Effort & Inspection: normal respiratory effort and no audible wheezes Cardio: Rate: regular rate Rhythm: regular rhythm : General: Yes deferred Skin: General skin exam: no rashes or lesions noted Neuro: General: patient oriented x3 and No confusion Extrem: General: capillary refill normal Right upper extremity: normal to inspection Left upper extremity: normal to inspection Right lower extremity: hip/thigh Details: no tenderness, knee Details: normal ROM; no tenderness and no swelling, ankle Details: abnormal to inspection Details: other (deformity ankle, hindfoot varus), swelling ( moderate) Details: laterally, medially and anteriorly and abnormal ROM ( ankle dorsiflexion -10 degrees, plantar flexion 30?, inversion 15?, eversion 5?) Details: pain with active ROM; no tenderness and no ecchymosis and foot Details: vascular exam Details: normal capillary refill; dorsalis pedis pulse absent and posterior tibial pulse absent, tendon exam (flexion only), motor-sensory exam Details: two point discrimination abnormal Location: in all toes and light-touch abnormal Location: in all toes and other (Fixed flexion deformity of the hallux. No active extension of the hallux or toes.) Left lower extremity: hip/thigh Details: normal to inspection, knee Details: normal to inspection, ankle Details: normal to inspection and normal ROM ( Active flexion and extension intact); no tenderness and no swelling and foot Details: abnormal to inspection (Deformity through the midfoot and forefoot consistent with Charcot), vascular exam Details: normal capillary refill; dorsalis pedis pulse absent and posterior tivial pulse absent, tendon exam active flexion abnormal and motor-sensory exam two point discrimination abnormal in all toes and light-touch abnormal in all toes; no tenderness Other:
--- NOTE | 2020-06-17 10:05 | PM.PNORT ---
Progress Note: A&P Assessment and Plan (1) Septic arthritis of right ankle: Qualifiers: Septic arthritis organism: staphylococcal Qualified Code(s): M00.071 - Staphylococcal arthritis, right ankle and foot Code(s): M00.9 - Pyogenic arthritis, unspecified Status: Acute Assessment and Plan: Two weeks, 3 days status post right ankle debridement. Patient is performing wound VAC dressing changes 3 times a week by the [facility] wound clinic and or home health. He has had some difficulties with getting the wound VAC to stay in place for more than 2 days at a time. Mild improvement with increasing pressure for drainage control. Plan to continue dressing changes 3 times per week. Educated patient on use of gauze dressing of wound VAC seal week in between dressing changes by nursing. Patient continue nonweightbearing of the right lower extremity. IV antibiotics planned under the direction of Dr. burkett and tell June 27. We will continue to follow up in the Wound Clinic weekly. Patient understands need for future surgical intervention. We reviewed signs and symptoms of infection to report to the emergency room immediately for further evaluation. Patient verbalized understanding and agreed with plan of care. (2) Infection of bone of right ankle: Code(s): M86.9 - Osteomyelitis, unspecified Status: Acute Assessment and Plan: continue IV antibiotics under the direction of Dr. burkett. Follow-up with Dr. burkett as scheduled. (3) Diabetic foot ulcer associated with diabetes mellitus due to underlying condition: Qualifiers: Diabetic foot ulcer location: toe Laterality: right Non-pressure ulcer stage: limited to breakdown of skin Qualified Code(s): E08.621 - Diabetes mellitus due to underlying condition with foot ulcer; L97.511 - Non-pressure chronic ulcer of other part of right foot limited to breakdown of skin Code(s): E08.621 - Diabetes mellitus due to underlying condition with foot ulcer; L97.509 - Non-pressure chronic ulcer of other part of unspecified foot with unspecified severity Status: Acute Assessment and Plan: Reviewed importance of diabetic diet, proper nutrition medication management for optimal healing. Subjective Subjective Date/Time Seen: 06/17/20 10:05 54-year-old male follows up in the [facility] wound clinic today status post hospitalization for right septic ankle joint. Patient is now 2 weeks, 3 days status post debridement of right ankle septic arthritis and diabetic ulcer. Patient overall is feeling well. No fever, no chills, no night sweats, no nausea, no vomiting. patient is currently on IV antibiotics under the direction of Dr. burkett. His IV antibiotics are scheduled to proceed through June 27, 2020. He has had a recent follow-up with his primary care physician. No scheduled follow-up with Infectious Disease at this time the Home Health following in performing IV antibiotics and labs. No new questions. Review of Systems Constitutional: Constitutional: Denies fever(s) Eyes: Eyes: Denies blurry vision ENT: Reports Normal hearing present Cardiovascular: Cardiovascular: Denies chest pain and Denies dyspnea Respiratory: Respiratory: Denies dyspnea and Denies wheezing Gastrointestinal: Gastrointestinal: Denies abdominal pain Genitourinary: Genitourinary: Denies urinary urgency Musculoskeletal: Musculoskeletal: Reports as per HPI and Reports numbness (both feet) Integumentary/Breasts: Skin/Breast: Denies changing lesions and Denies sores Neurologic: Reports Normal hearing present, Denies behavioral changes, Denies confusion, Reports numbness and Denies convulsions Psychiatric: Psychiatric: Denies behavioral changes, Denies confusion and Denies hallucinations Endocrine: Endocrine: Denies heat intolerance Hematologic/Lymphatic: Hematologic/Lymphatic: Denies easy bleeding Allergic/Immunologic: Allergic/Immunologic:
--- NOTE | 2020-06-24 10:04 | PM.PNORT ---
Progress Note: A&P Assessment and Plan (1) Septic arthritis of right ankle: Qualifiers: Septic arthritis organism: staphylococcal Qualified Code(s): M00.071 - Staphylococcal arthritis, right ankle and foot Code(s): M00.9 - Pyogenic arthritis, unspecified Status: Acute Assessment and Plan: 3 weeks, 3 days status post right ankle debridement. Patient with wound VAC dressing changes 3 times a week by the [place] wound clinic and or home health. episode yesterday where the wound VAC was no longer holding suction. We have plan in place to remove the wound VAC in start dry gauze dressing in the interim. He had no problems with that. Plan to continue dressing changes 3 times per week. Educated patient on use of gauze dressing of wound VAC seal week in between dressing changes by nursing. Patient continue nonweightbearing of the right lower extremity. IV antibiotics planned under the direction of Dr. painter montejo June 27. We will continue to follow up in the Wound Clinic weekly. Patient understands need for future surgical intervention. Discussed nonoperative and operative treatment options with the patient. Risks and benefits of each as well as alternatives were reviewed. All of the patient's questions were answered. Difficult problem given medical comorbidities and history of previous ulceration and infection. Difficulty with healing following surgery due to peripheral arterial disease and peripheral neuropathy, diabetes. Need for further treatment given the open ulceration and risk of sepsis discussed. Options include attempt at salvage of the leg with ankle and subtalar arthrodesis versus below-knee amputation. Long discussion. Patient has declined amputation at this time and would like to attempt salvage. The risks of surgery reviewed including but not limited to: Neurovascular damage, wound complication, infection, blood clot, pulmonary embolus, stroke, myocardial infarction, and anesthetic risks up to and including . Continued pain and possible dysfunction were explained. Specific risks of the procedure including later recurrence of deformity , recurrence of infection, ulceration or further problems with the foot discussed in detail. Medical comorbidities with diabetes, peripheral arterial disease, neuropathy reviewed. No guarantees were offered. If hardware used, discussed risk of failure/ breakage and possible need for removal. If complications occur, the patient understands the need for further treatment, possible further surgery. Patient verbalizes understanding and wishes to proceed. PLAN: right ankle and subtalar arthrodesis, debridement of diabetic ulcer, hallux flexor tenotomy (2) Infection of bone of right ankle: Code(s): M86.9 - Osteomyelitis, unspecified Status: Acute Assessment and Plan: continue IV antibiotics under the direction of Dr. burkett. Follow-up with Dr. burkett as scheduled. (3) Diabetic foot ulcer associated with diabetes mellitus due to underlying condition: Qualifiers: Diabetic foot ulcer location: toe Laterality: right Non-pressure ulcer stage: limited to breakdown of skin Qualified Code(s): E08.621 - Diabetes mellitus due to underlying condition with foot ulcer; L97.511 - Non-pressure chronic ulcer of other part of right foot limited to breakdown of skin Code(s): E08.621 - Diabetes mellitus due to underlying condition with foot ulcer; L97.509 - Non-pressure chronic ulcer of other part of unspecified foot with unspecified severity Status: Acute Assessment and Plan: Reviewed importance of diabetic diet, proper nutrition medication management for optimal healing. (4) Clawtoe, acquired: Qualifiers: Laterality: right Qualified Code(s): M20.5X1 - Other deformities of toe(s) (acquired), right foot Code(s): M20.5X9 - Other deformities of toe(s) (acquired), unspecified foot Status: Acute A
--- NOTE | 2020-07-01 09:40 | PM.IMHP ---
H&P: HPI History of Present Illness Date/Time: 07/01/20 09:40 Chief Complaint: Diabetic ulcer ankle right, septic arthritis right ankle. Diabetes with peripheral neuropathy Narrative: Bereket Julian is a 54 year old male 1 month status post debridement of right ankle septic arthritis. Patient has completed his course of intravenous antibiotics. He has no findings of systemic infection. Presents to the wound clinic for wound VAC dressing change right ankle. Denies any problems in the interim. Plan for right ankle reconstruction next week. Review of Systems Constitutional: Constitutional: Denies fever(s) Eyes: Eyes: Denies blurry vision ENT: Reports Normal hearing present Cardiovascular: Cardiovascular: Denies chest pain and Denies dyspnea Respiratory: Respiratory: Denies dyspnea and Denies wheezing Gastrointestinal: Gastrointestinal: Denies abdominal pain Genitourinary: Genitourinary: Denies urinary urgency Musculoskeletal: Musculoskeletal: Reports as per HPI and Reports numbness (both feet) Integumentary/Breasts: Skin/Breast: Denies changing lesions and Denies sores Neurologic: Reports Normal hearing present, Denies behavioral changes, Denies confusion, Reports numbness and Denies convulsions Psychiatric: Psychiatric: Denies behavioral changes, Denies confusion and Denies hallucinations Endocrine: Endocrine: Denies heat intolerance Hematologic/Lymphatic: Hematologic/Lymphatic: Denies easy bleeding Allergic/Immunologic: Allergic/Immunologic: Denies wheezing PMFSH Past Medical History Medical History Charcot's joint of foot in type 1 diabetes mellitus Chronic pain in right foot Clawtoe, acquired Coronary artery disease involving [place] coronary artery of [place] heart Diabetic foot ulcer associated with diabetes mellitus due to underlying condition Diabetic peripheral angiopathy Essential (primary) hypertension 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 Lymphedema of right lower extremity Mixed hyperlipidemia AIDA on CPAP PVD (peripheral vascular disease) Septic arthritis of right ankle Stage 2 chronic kidney disease Type 1 diabetes mellitus with hyperglycemia Wound of right foot Surgical History Surgical History S/P angioplasty with stent S/P CABG x 3 Family History Family History Mother Family history of lung cancer Father Family history of lymphoma Other Diabetes mellitus Family history of arthritis Family history of cardiovascular disease Family history of congestive heart failure Family history of coronary artery disease Family history of heart disease in male family member before age 55 Family history of malignant neoplasm Family history of premature coronary heart disease Hypertension Social History Social History Social History: Patient lives at home alone. He does have a significant other and his daughter available for intermittent assistance with wound care. Smoking status: Former smoker Tobacco type: cigarettes Second hand tobacco smoke exposure: No Smoking end date: 05/06/12 Alcohol intake: never Substance use: never Substance use type: does not use Additional occupation/education comments: Disability Gender identity (if verbalized by the patient): Male Sexual Orientation (if Verbalized by the Patient): Straight or Heterosexual Spiritual care concerns: No Meds Home Medications and Allergies Home Medications Medication Instructions Recorded Confirmed Type aspirin 81 mg tablet,delayed 81 mg PO DAILY 03/12/19 06/15/20 History release cholecalciferol (vitamin D3) 10 400 unit PO DAILY 05/01/19 06/15/20 History mcg (400 unit) capsule omega-3 fatty acids 1,000 mg 1,000 mg PO DAILY 05/01/19
== END 2020-07-11 23:59 | disposition home or self-care (01) ==
LOC: ANHWOC 07:29
PROVIDERS: PCP Family Medicine; Visit Provider Nurse Practitioner Family
DX: L97.511 Non-pressure chronic ulcer of other part of right foot limited to breakdown of skin (principal); L97.519 Non-pressure chronic ulcer of other part of right foot with unspecified severity; E08.621 Diabetes mellitus due to underlying condition with foot ulcer
CPT/HCPCS: 97605; 97606; 99212; 99213; A9270; G0463

== ENCOUNTER → 2020-07-04 02:38 | Outpatient (CLI) | payer MEDICARE, SELFPAY ==
[2020-07-04 18:21] LABS: SARS-CoV-2 RNA PCR Negative
== END ==
PROVIDERS: PCP Family Medicine; Visit Provider Orthopaedic Surgery
DX: Z01.812 Encounter for preprocedural laboratory examination (principal); Z20.822 Contact with and (suspected) exposure to COVID-19
CPT/HCPCS: C9803; U0003; U0005

== ENCOUNTER 2020-07-07 01:45 | Day surgery (SDC) | payer MEDICARE, SELFPAY ==
[2020-07-01 14:35] VITALS: BMI 31.6
[2020-07-07] VITALS (12 sets, daily range): BP systolic 136–158; BP diastolic 63–86; PULSE 75–98; RESP 14–18; TEMP 36–36.4; O2SAT 94–100; BMI 30.8
--- NOTE | ~2020-07-07 | XR_ITS ---
EXAMINATION: XR surgery orthopedic EXAM DATE: 07/07/2020 16:47 INDICATION: Right ankle arthrodesis. TECHNIQUE: Fluoroscopy used during right ankle arthrodesis. performed by Dr. Familia Monteiro MD. The DAP for this procedure was 0.26 mGym2. FINDINGS: Frontal and lateral images demonstrates distal fibular resection. 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 Ther e are 2 supporting cross screws to this xochitl in the calcaneus extending to the tarsal region. Pes plan us. Correlate with procedure note. IMPRESSION: Fluoroscopy used during right ankle arthrodesis.. Reviewed, dictated and finalized at location A. [employer]
--- NOTE | 2020-07-07 07:15 | WPDHPUPDATE1 ---
History and Physical Update Update Date/Time: 07/07/20 07:15 History and Physical has been reviewed, including an updated exam of the patient. There are NO changes in the patient's condition. Covid test negative. Risks, benefits, and alternatives have been discussed and questions answered. Patient agrees to proceed with procedure.
--- NOTE | 2020-07-07 09:43 | ECG_ITS ---
Measurements Intervals [place] Rate: 77 P: -7 MD: 142 QRS: 8 QRSD: 109 T: 31 QT: 337 QTc: 383 Interpretive Statements SINUS RHYTHM NORMAL ECG Electronically Signed On 07-07-2020 10:19:59 COILER by Sundeep Nichols D.O.
[2020-07-07] MEDS: ACETAMINOPHEN 500 MG TABLET 1000 MG PO (10:15)
--- NOTE | 2020-07-07 10:20 | SUR.PREOP ---
pt states use of knee scooter .right foot boot removed .
--- NOTE | 2020-07-07 10:21 | WPDANESEPPF ---
Anes - Initial Pre Proc Eval Procedure: Operation Date: 07/07/20 11:45 Proposed Procedures p Right Ankle Arthrodesis, Subtalar Arthrodesis,Debride Ulcer Right Ankle - Familia Monteiro MD s Right Hallux Flexor Tenotomy, Second Ray Flexor Tenotomy - Familia Monteiro MD Date/Time: 07/07/20 10:21 Surgeon: Familia Monteiro MD Pre Op Diagnosis: right charcot ankle and foot, diab ankle ulcer Patient Data Age: 54 Gender: M Height: 1.93 m Weight: 115 kg Last Vital Signs Temp 36.4 C 07/07/20 09:48 Pulse 86 07/07/20 09:48 Resp 16 07/07/20 09:48 BP 158/85 H 07/07/20 09:48 Pulse Ox 99 07/07/20 09:48 Allergies Allergy/AdvReac Type Severity Reaction Status Date / Time No Known Allergies Allergy Verified 07/07/20 10:21 Home Medications Medication Instructions Recorded Confirmed Type aspirin 81 mg tablet,delayed 81 mg PO DAILY 03/12/19 07/01/20 History release cholecalciferol (vitamin D3) 10 400 unit PO DAILY 05/01/19 07/01/20 History mcg (400 unit) capsule omega-3 fatty acids 1,000 mg 1,000 mg PO DAILY 05/01/19 07/01/20 History capsule blood sugar diagnostic #10 each 09/08/19 07/01/20 History subcutaneous insulin pump #1 each 09/08/19 07/01/20 History rosuvastatin 10 mg tablet 10 mg PO DAILY #90 tablet 02/06/20 07/01/20 Rx insulin aspart U-100 100 unit/mL 100 - 120 unit CONTINUOUS 05/03/20 07/01/20 Rx subcutaneous solution SUBCUTANEOUS INFUSION DAILY 90 Days #110 ml acetaminophen 300 mg-codeine 60 mg 1 tablet PO Q8H PRN #90 tablet 06/10/20 07/01/20 Rx tablet carvedilol 25 mg tablet 25 mg PO Q12H #90 tablet 06/10/20 07/01/20 Rx cilostazol 100 mg tablet 100 mg PO BID #60 tablet 06/10/20 07/01/20 Rx irbesartan-hydrochlorothiazide 1 tablet PO DAILY 07/01/20 07/01/20 History [[facility]] Patient hx anesthesia problems: none Family hx anesthesia problems: none PMFSH Past Medical History Medical History Charcot's joint of foot in type 1 diabetes mellitus Chronic pain in right foot Clawtoe, acquired Coronary artery disease involving [place] coronary artery of [place] heart Diabetic foot ulcer associated with diabetes mellitus due to underlying condition Diabetic peripheral angiopathy Essential (primary) hypertension History of tobacco 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 Lymphedema of right lower extremity Mixed hyperlipidemia AIDA on CPAP PVD (peripheral vascular disease) Septic arthritis of right ankle Stage 2 chronic kidney disease Type 1 diabetes mellitus with hyperglycemia Wound of right foot Surgical History Surgical History S/P angioplasty with stent S/P CABG x 3 Family History Family History Mother Family history of lung cancer Father Family history of lymphoma Other Diabetes mellitus Family history of arthritis Family history of cardiovascular disease Family history of congestive heart failure Family history of coronary artery disease Family history of heart disease in male family member before age 55 Family history of malignant neoplasm Family history of premature coronary heart disease Hypertension Social History Social History Social History: Patient lives at home alone. He does have a significant other and his daughter available for intermittent assistance with wound care. Smoking status: Never smoker Tobacco type: cigarettes Second hand tobacco smoke exposure: No Smoking end date: 05/06/12 Alcohol intake: never Substance use: never Substance use type: does not use Living arrangements: alone Additional occupation/education comments: Disability Gender identity (if verbalized by the patient): Male Spiritual care concerns: No Anes - Eval Final PreProcedure Day of Procedure 07/07/20 10:21
[2020-07-07] MEDS: LACTATED RINGERS 1,000 ML 30 ML IV CONT ×2 (10:53→17:17)
[2020-07-07] MEDS: KETOROLAC 15 MG/ML VIAL (*BKC) IV PUSH (10:55)
[2020-07-07 10:58] LABS: Glucose Point of Care 142 (65-105)
[2020-07-07] MEDS: ceFAZolin 2 GM/D5W 50 ML 2 GM/50 ML BAG IVPB (13:09)
[2020-07-07] MEDS: BUPIVACAINE HCL 0.5% PF 30 ML VIAL INFILTRATE (13:37)
[2020-07-07] MEDS: VANCOMYCIN HCL 1,000 MG VIAL 1000 MG TOPICAL (14:23)
[2020-07-07 17:27] LABS: Glucose Point of Care 185 (65-105)
--- NOTE | 2020-07-07 17:33 | PM.PROC ---
Procedure Note - Detailed Date of procedure: 07/07/20 Pre-op diagnosis: right charcot ankle and foot, diab ankle ulcer Post-op diagnosis: other (Right distal fibula osteomyelitis with diabetic ankle ulcer, neuropathic ankle and subtalar joint arthropathy, clawtoe of the right hallux and 2nd toe.) Procedure performed: Right ankle and subtalar joints arthrodesis, excision of distal fibula osteomyelitis, hallux and 2nd toe flexor tenotomies Description of procedure: Indications: Patient is a 54-year-old gentleman with insulin dependent diabetes and severe peripheral neuropathy. He has neuropathic destruction of the right hindfoot and ankle. He is status post neuropathic ulceration of the right foot and osteomyelitis treated with debridement. He recently developed a right ankle neuropathic ulcer and subsequent osteomyelitis of the distal fibula. He has declined amputation and requests salvage of the foot and presents now for operative treatment. He has been through debridement of the fibula as well as a 5 week course of intravenous antibiotics. His laboratory testing shows no active infection. What was done: Patient identified in the preoperative holding. Informed consent given. Operative extremity marked. Patient received intravenous antibiotics. Patient brought to the operating room where underwent general anesthetic by anesthesia team. Positioned supine on operating room table. Time-out performed confirming the patient, site of the surgery and the plan. Right lower extremity prepped draped usual sterile surgical fashion using a Betadine prep solution. Foot and ankle exsanguinated and a thigh tourniquet inflated to 250 mmHg. There was a half-dollar sized ulceration on the lateral ankle with of visualization of the distal fibula was noted to be chronically infected. Fifteen blade knife used to extend the incision and the ulcer was ellipsed and debrided. The distal fibula was then transected with a sagittal saw and removed and passed off. Wound thoroughly irrigated antibiotic solution. Skin closed with 0 Prolene interrupted suture. Vancomycin powder packed into the wound prior to closure. Skin incision made with 15 blade knife along the lateral ankle and extending down to the sinus tarsi. Hemostasis controlled electrocautery. Fascia incised in line with skin incision. The more proximal portion of the distal fibula was transected with a sagittal saw and this was ground up on the back table to be used as bone graft. The ankle and subtalar joints were then prepared with osteotomes and rongeur is to remove the articular surface of both joints. There was relatively well preserved morphology of the talus but the calcaneus and the subtalar joint had gone through severe neuropathic changes. The joints were then able to be il aligned and provisionally pinned. Thorough irrigation with antibiotic solution was utilized. BMP putty was then prepared on the back table and the fibula autograft was prepared with the putty and placed into the arthrodesis sites. Fixation was then achieved with an intramedullary xochitl which was placed from the plantar aspect of the foot retrograde fashion into the intramedullary canal of the tibia. Sequential reaming was done from a size 9 mm up to size 13.5 mm. A size 13 mm x 180 mm length nail would be utilized. Two locking screws were placed into the calcaneus. The locking rods were used proximally and compression was applied across the joints. Two tibial locking screws were then utilized. The out event mgr device was removed and a distal locking cap was placed. Image intensification confirmed the alignment and placement of the hardware. Wound was thoroughly irrigated antibiotic solution and the fascia repaired with 0 Vicryl interrupted suture. Subcutaneous tissue repaired with 2 Vicryl interrupted suture and skin repaired with 0 Prolene interrupted suture. Fresh 15 blade knife was then used and a tenotomy of the hallux and 2nd toe flexor was p
[2020-07-07 17:36] LABS: Hematocrit 37.6 % (42.0-52.0); Hemoglobin 12.2 g/dL (14.0-18.0)
[2020-07-07] MEDS: fentaNYL CITRATE INJ (*CRX) 100 MCG/2 ML VIAL 25 MCG IV PUSH ×4 (17:42→17:57)
--- NOTE | 2020-07-07 18:35 | ADMGEN ---
This patient, Bereket Julian, was admitted to 2 Medical Room 259-01. Patient/family oriented to hospital policies and general routines including ID bracelet, bed and alarms, visiting hours, pain management, procedures, bathroom and other care routines, personal items, smoking policy, room service/diet, and visiting hours. Information on how to activate the Rapid Response Team has been discussed. Patient/Family are encouraged to report perceived risks to care and to ask questions if they do not understand what they are told or what they should do.
[2020-07-07] MEDS: HYDROcodone/acetaminophen (*CRX) 7.5-325 MG TABLET 1 TAB PO (19:47)
[2020-07-07] MEDS: FAMOTIDINE 20 MG TABLET PO (21:21)
[2020-07-07] MEDS: carvediloL 25 MG TABLET PO (21:21)
[2020-07-07] MEDS: CENTRAL LINE FLUSH 10 ML IV PUSH (21:21)
[2020-07-07] MEDS: MORPHINE SULFATE (*CRX) 4 MG/ML INJ 3 MG IV PUSH (22:01)
[2020-07-08 00:15] VITALS: PULSE 93; RESP 18; O2SAT 98
[2020-07-08] MEDS: MORPHINE SULFATE (*CRX) 4 MG/ML INJ 3 MG IV PUSH (01:45)
[2020-07-08 01:49] VITALS: BP 123/71; PULSE 89; RESP 16; TEMP 36.3; O2SAT 98
[2020-07-08 02:05] LABS: Glucose Point of Care 280 (65-105)
[2020-07-08 04:57] VITALS: PULSE 87; RESP 15; O2SAT 98
[2020-07-08] MEDS: CENTRAL LINE FLUSH 10 ML IV PUSH ×2 (05:46→11:58)
[2020-07-08] MEDS: HYDROcodone/acetaminophen (*CRX) 7.5-325 MG TABLET 1 TAB PO ×2 (06:13→12:16)
[2020-07-08 06:23] LABS: Basophils Absolute Auto 0.1 K/mm3 (0.0-0.1); Basophils Percent Auto 0.6 % (0.2-1.2); Eosinophils Absolute Auto 0.1 K/mm3 (0-0.3); Eosinophils Percent Auto 0.6 % (0-4.4); Hematocrit 33.5 % (42.0-52.0); Hemoglobin 10.6 g/dL (14.0-18.0); Immature Granulocyte Absolute 0.06 K/mm3 (0.00-0.031); Immature Granulocyte Percent A 0.5 % (0-0.5); Lymphocytes Absolute Auto 2.18 K/mm3 (0.9-3.2); Lymphocytes Percent Auto 17.6 % (18.3-44.2); Mean Corpuscular HGB Conc 31.6 g/dl (32-36); Mean Corpuscular Hemoglobin 27.5 pg (26-34); Mean Platelet Volume 8.3 fl (7.4-10.4); Monocytes Absolute Auto 1.4 K/mm3 (0.1-0.6); Monocytes Percent Auto 11.6 % (2.6-8.5); Neutrophils Absolute Auto 8.6 K/mm3 (1.3-6.7); Neutrophils Percent Auto 69.1 % (45.5-73.1); Platelet Count Result 403 k/mm3 (150-375); Red Blood Count 3.85 M/mm3 (4.6-6.20); White Blood Count 12.4 K/mm3 (4.5-10.0)
[2020-07-08 06:30] VITALS: BP 129/75; PULSE 83; RESP 18; TEMP 36.4; O2SAT 99
[2020-07-08 06:43] LABS: Potassium 4.7 mmol/L (3.4-5.0)
[2020-07-08 06:47] LABS: Anion Gap 3 mmol/L (8-16); Blood Urea Nitrogen 27 mg/dL (9-20); CRP 3.5 mg/dL (<1.0); Calcium 8.5 mg/dL (8.4-10.2); Carbon Dioxide 29 mmol/L (22-30); Chloride 100 mmol/L (98-107); Estimated CRCL calculation 73 ml/min; Estimated Glomerular Filt Rate 52; Glucose 139 mg/dL (75-110); Sodium 132 mmol/L (137-145)
[2020-07-08 07:02] LABS: Erythrocyte Sedimentation Rate 66 mm/hr (0-20)
[2020-07-08 08:00] LABS: Glucose Point of Care 144 (65-105)
[2020-07-08] MEDS: hydroCHLOROthiazide 12.5 MG CAPSULE PO (08:45)
[2020-07-08 08:46] VITALS: PULSE 104
[2020-07-08] MEDS: ASPIRIN 81 MG ENTERIC TABLET PO (08:46)
[2020-07-08] MEDS: OMEGA 3 POLYUNSAT FATTY ACIDS 1 GM CAP PO (08:46)
[2020-07-08] MEDS: IRBESARTAN 150 MG TABLET 300 MG PO (08:46)
[2020-07-08] MEDS: carvediloL 25 MG TABLET PO (08:46)
[2020-07-08] MEDS: ROSUVASTATIN 10 MG TABLET PO (08:47)
[2020-07-08] MEDS: DOCUSATE SODIUM 100 MG CAPSULE PO (08:47)
[2020-07-08 08:48] VITALS: RESP 18; O2SAT 99
[2020-07-08] MEDS: FAMOTIDINE 20 MG TABLET PO (08:48)
[2020-07-08] MEDS: CHOLECALCIFEROL 400 UNITS TABLET (VIT D) PO (08:48)
[2020-07-08] MEDS: cilostazoL 100 MG TABLET PO (08:48)
--- NOTE | 2020-07-08 09:26 | PM.PNORT ---
Progress Note: A&P Assessment and Plan (1) Septic arthritis of right ankle: Qualifiers: Septic arthritis organism: staphylococcal Qualified Code(s): M00.071 - Staphylococcal arthritis, right ankle and foot Code(s): M00.9 - Pyogenic arthritis, unspecified Status: Acute Assessment and Plan: Postoperative day 1 status post right ankle arthrodesis. Patient stable overnight. Labs reviewed. Still some pain control issues. Plan for physical therapy/ occupational therapy for mobilization with nonweightbearing right lower extremity. IV antibiotics with PICC line. Pain control. Diabetes control with insulin pump. Reviewed operative findings with the patient. Plan dressing change today possible application wound VAC. Discharge home when pain controlled and medically stable Subjective Subjective Date/Time Seen: 07/08/20 09:26 Patient awake and alert. Complains of right ankle and foot pain. Did fairly well overnight terms of pain control. Tolerating oral diet. Exam Const: General: healthy appearing; No in distress or confusion Orientation/consciousness: patient oriented x3 and No confusion HENMT: Head: normal to inspection, normocephalic and atraumatic Eyes: Conjunctivae: conjunctivae normal Sclera: sclerae normal Resp: Effort & Inspection: normal respiratory effort and no audible wheezes Neuro: General: patient oriented x3 and No confusion Extrem: Other: Splint in place right lower extremity. Sanguinous drainage from the heel noted. No active drainage. Good capillary refill in the toes. Psych: Affect: normal affect Objective Data Vital Signs Vital Signs: Vital Signs - 24 hr 07/07/20 09:48 07/07/20 17:17 07/07/20 17:30 Temperature 97.6 F 97.5 F L Pulse Rate 86 87 82 Respiratory Rate 16 17 14 Blood Pressure 158/85 H 138/86 146/77 H Pulse Oximetry 99 100 100 07/07/20 17:45 07/07/20 18:00 07/07/20 18:15 Temperature Pulse Rate 75 81 79 Respiratory Rate 16 16 16 Blood Pressure 143/76 H 151/79 H 151/78 H Pulse Oximetry 100 94 97 07/07/20 18:45 07/07/20 19:00 07/07/20 19:30 Temperature 96.8 F L 96.9 F L 96.8 F L Pulse Rate 82 83 98 Respiratory Rate 18 18 18 Blood Pressure 148/81 H 152/81 H 136/76 Pulse Oximetry 100 99 97 07/07/20 20:30 07/07/20 21:21 07/07/20 21:30 Temperature 96.8 F L Pulse Rate 93 98 Respiratory Rate 18 Blood Pressure 144/63 H Pulse Oximetry 96 98 07/08/20 00:15 07/08/20 01:49 07/08/20 04:57 Temperature 97.4 F L Pulse Rate 93 89 87 Respiratory Rate 18 16 15 Blood Pressure 123/71 Pulse Oximetry 98 98 98 07/08/20 06:30 07/08/20 08:46 Temperature 97.5 F L Pulse Rate 83 104 H Respiratory Rate 18 Blood Pressure 129/75 Pulse Oximetry 99 Intake/Output Intake/Output: Intake & Output 07/05/20 07/06/20 07/07/20 07/08/20 23:59 23:59 23:59 23:59 Intake Total 400 920 Output Total 200 1250 Balance 200 -330 Meds/Results Medications: Active Medications Generic Name Dose Route Start Last Admin Trade Name Freq PRN Reason Stop Dose Admin Acetaminophen 1,000 mg 07/07/20 18:22 Acetaminophen 500 Mg Tablet PO Q6HR PRN Fever Hydrocodone Bitart/Acetaminophen 1 tab 07/07/20 18:22 07/08/20 06:13 Hydrocodone/Acetaminophen (*Crx) 7.5-325 Mg Tablet PO 1 tab Q3H PRN Administration Pain Rated 4-6 Aspirin 81 mg 07/08/20 09:00 07/08/20 08:46 Aspirin 81 Mg Enteric Tablet PO 81 mg DAILY MARY Administration Bisacodyl 10 mg 07/07/20 18:22 Bisacodyl 10 Mg Suppository RECTAL DAILY PRN Constipation Carvedilol 25 mg 07/07/20 21:00 07/08/20 08:46 Carvedilol 25 Mg Tablet PO 25 mg Q12HR MARY Administration Cilostazol 100 mg 07/08/20 09:00 07/08/20 08:48 Cilostazol 100 Mg Tablet PO 100 mg BID MARY Administration Dextrose 12.5 gm 07/07/20 18:22 Dextrose 50% 25 Gm/50 Ml Syringe IV PUSH PRN PRN Hypoglycemia Protocol Di
--- NOTE | 2020-07-08 09:36 | WPDANESPN ---
Anes - Prog Note Post-Op Date/Time: 07/08/20 09:36 Cardiovascular status: normal Respiratory status: normal Airway patency: baseline Mental status: baseline Post-Op hydration status: normal Vital Signs: Last Vital Signs Temp 36.4 C L 07/08/20 06:30 Pulse 104 H 07/08/20 08:46 Resp 18 07/08/20 06:30 BP 129/75 07/08/20 06:30 Pulse Ox 99 07/08/20 06:30 Pain Score (VAS): 3 I/O: Intake & Output 07/07/20 07/08/20 07/08/20 23:59 07:59 15:59 Intake Total 350 400 520 Output Total 750 500 Balance 350 -350 20 Laboratory Tests 07/08/20 05:48 07/08/20 05:48 07/07/20 07/07/20 07/07/20 10:48 17:25 17:32 WBC RBC Hgb 12.2 L Hct 37.6 L MCV MCH MCHC RDW Plt Count MPV Immature Gran % (Auto) Neut % (Auto) Lymph % (Auto) [place] % (Auto) Eos % (Auto) Baso % (Auto) Lymph # (Auto) [place] # (Auto) Eos # (Auto) Baso # (Auto) Abs Immat Gran (auto) Absolute Neuts (auto) Absolute Nucleated RBC Nucleated RBC % ESR Sodium Potassium Chloride Carbon Dioxide Anion Gap BUN Creatinine Estim Creat Clear Calc Estimated GFR Glucose POC Capillary Glucose 142 H 185 H Calcium C-Reactive Protein 07/07/20 07/08/20 07/08/20 21:13 05:48 05:48 WBC 12.4 H RBC 3.85 L Hgb 10.6 L Hct 33.5 L MCV 87.0 MCH 27.5 MCHC 31.6 L RDW 15.0 H Plt Count 403 H MPV 8.3 Immature Gran % (Auto) 0.5 Neut % (Auto) 69.1 Lymph % (Auto) 17.[address] [place] % (Auto) 11.6 H Eos % (Auto) 0.6 Baso % (Auto) 0.6 Lymph # (Auto) 2.18 [place] # (Auto) 1.4 H Eos # (Auto) 0.1 Baso # (Auto) 0.1 Abs Immat Gran (auto) 0.06 H Absolute Neuts (auto) 8.6 H Absolute Nucleated RBC 0.0 Nucleated RBC % 0.0 ESR 66 H Sodium Potassium Chloride Carbon Dioxide Anion Gap BUN Creatinine Estim Creat Clear Calc Estimated GFR Glucose POC Capillary Glucose 280 H Calcium C-Reactive Protein 07/08/20 07/08/20 05:48 07:56 WBC RBC Hgb Hct MCV MCH MCHC RDW Plt Count MPV Immature Gran % (Auto) Neut % (Auto) Lymph % (Auto) [place] % (Auto) Eos % (Auto) Baso % (Auto) Lymph # (Auto) [place] # (Auto) Eos # (Auto) Baso # (Auto) Abs Immat Gran (auto) Absolute Neuts (auto) Absolute Nucleated RBC Nucleated RBC % ESR Sodium 132 L Potassium 4.7 Chloride 100 Carbon Dioxide 29 Anion Gap 3 L BUN 27 H Creatinine 1.40 H Estim Creat Clear Calc 73 Estimated GFR 52 L Glucose 139 H POC Capillary Glucose 144 H Calcium 8.5 C-Reactive Protein 3.5 H Post-procedural complaints: none Patient Feedback: Patient satisfied with anesthetic care.
--- NOTE | 2020-07-08 09:41 | PC.NURSE ---
To Wound Care via wheelchair for dressing change per Dr Monteiro.
--- NOTE | 2020-07-08 10:52 | PC.NURSE ---
Returned from wound clinic via wheelchair. Dressing clean dry and intact. Wound vac in place. family at bedside.
[2020-07-08 11:29] LABS: Glucose Point of Care 275 (65-105)
--- NOTE | 2020-07-08 11:41 | PM.DS ---
DS: Admitting Diagnosis Admitting Diagnosis Admitting Diagnosis: Right diabetic ankle ulcer, osteomyelitis, diabetes with neuropathy DS: Discharge Diagnosis Discharge Diagnosis (1) Infection of bone of right ankle: Code(s): M86.9 - Osteomyelitis, unspecified Status: Acute Assessment and Plan: status post excision of osteomyelitis with ankle and subtalar arthrodesis. Splint applied. Splint care reviewed. Nonweightbearing right leg. Use of walker for ambulation. Wound VAC placement. Wound VAC instructions reviewed. Follow up in 5 days [facility] (2) Diabetic foot ulcer associated with diabetes mellitus due to underlying condition: Qualifiers: Diabetic foot ulcer location: toe Laterality: right Non-pressure ulcer stage: limited to breakdown of skin Qualified Code(s): E08.621 - Diabetes mellitus due to underlying condition with foot ulcer; L97.511 - Non-pressure chronic ulcer of other part of right foot limited to breakdown of skin Code(s): E08.621 - Diabetes mellitus due to underlying condition with foot ulcer; L97.509 - Non-pressure chronic ulcer of other part of unspecified foot with unspecified severity Status: Acute Assessment and Plan: continue insulin pump, diabetic diet. (3) Peripheral vascular disease: Code(s): I73.9 - Peripheral vascular disease, unspecified Status: Acute DS: Summary Hospital Course Reason for hospitalization: Right diabetic ankle ulcer with osteomyelitis, Charcot neuropathy Hospital Course: patient taken to the operating room on July 07 underwent excision of osteomyelitis, ankle and subtalar arthrodesis. Admitted postoperatively for observation. Insulin pump restarted. Physical therapy and occupational therapy for ambulation with nonweightbearing right leg. Splint removed postoperative day 1. New wound VAC dressing applied with new splint. Patient cleared for discharge. Eating diabetic diet, voiding appropriately. Blood sugar well controlled. Vital signs stable. Follow-up arrangements made. Home health arrangements with IV antibiotics arranged. Status at Discharge Cognitive/behavioral status at discharge: Alert and oriented x3 Functional status at discharge: uses cane/walker Overall status at discharge: patient is not back to baseline Time Spent with Patient Time attestation: Total time spent providing and/or coordinating discharge services: Exam Const: General: healthy appearing; No in distress or confusion Orientation/consciousness: patient oriented x3 and No confusion HENMT: Head: normal to inspection, normocephalic and atraumatic Eyes: Conjunctivae: conjunctivae normal Sclera: sclerae normal Resp: Effort & Inspection: normal respiratory effort and no audible wheezes Neuro: General: patient oriented x3 and No confusion Extrem: Other: Splint in place right lower extremity. Sanguinous drainage from the heel noted. No active drainage. Good capillary refill in the toes. Psych: Affect: normal affect DS: Data Data Completed and Pending Labs on day of discharge: Labs from last 24 hours 07/08/20 07/08/20 07/08/20 11:25 07:56 05:48 WBC RBC Hgb Hct MCV MCH MCHC RDW Plt Count MPV Immature Gran % (Auto) Neut % (Auto) Lymph % (Auto) [place] % (Auto) Eos % (Auto) Baso % (Auto) Lymph # (Auto) [place] # (Auto) Eos # (Auto) Baso # (Auto) Abs Immat Gran (auto) Absolute Neuts (auto) Absolute Nucleated RBC Nucleated RBC % ESR Sodium 132 L Potassium 4.7 Chloride 100 Carbon Dioxide 29 Anion Gap 3 L BUN 27 H Creatinine 1.40 H Estim Creat Clear Calc 73 Estimated GFR 52 L Glucose 139 H POC Capillary Glucose 275 H 144 H Calcium 8.5 C-Reactive Protein 3.5 H 07/08/20 07/08/20 07/07/20 05:48 05:48 21:13 WBC 12.4 H RBC 3.85 L Hgb 10.6 L Hct 33.5 L MCV 87.0 MCH
== END 2020-07-08 12:40 | disposition home health service (06) ==
LOC: ANHSURGERY 09:28 → ANH2MED 18:43
PROVIDERS: PCP Family Medicine; Visit Provider Orthopaedic Surgery
PROC: (CPT 28750; principal; 2020-07-07 11:45)
PROC: (CPT 28750; 2020-07-07 11:45)
DX: E10.69 Type 1 diabetes mellitus with other specified complication (principal); M86.8X6 Other osteomyelitis, lower leg; E10.610 Type 1 diabetes mellitus with diabetic neuropathic arthropathy; E10.622 Type 1 diabetes mellitus with other skin ulcer; L97.319 Non-pressure chronic ulcer of right ankle with unspecified severity; M00.071 Staphylococcal arthritis, right ankle and foot; M00.9 Pyogenic arthritis, unspecified; M19.071 Primary osteoarthritis, right ankle and foot; M20.5X1 Other deformities of toe(s) (acquired), right foot; Z79.4 Long term (current) use of insulin; Z96.41 Presence of insulin pump (external) (internal); I25.10 Atherosclerotic heart disease of native coronary artery without angina pectoris; E10.51 Type 1 diabetes mellitus with diabetic peripheral angiopathy without gangrene; E78.2 Mixed hyperlipidemia; E10.22 Type 1 diabetes mellitus with diabetic chronic kidney disease; I12.9 Hypertensive chronic kidney disease with stage 1 through stage 4 chronic kidney disease, or unspecified chronic kidney disease; N18.2 Chronic kidney disease, stage 2 (mild); G47.33 Obstructive sleep apnea (adult) (pediatric); Z79.82 Long term (current) use of aspirin; Z95.1 Presence of aortocoronary bypass graft; Z95.820 Peripheral vascular angioplasty status with implants and grafts; E66.9 Obesity, unspecified; Z68.30 Body mass index [BMI] 30.0-30.9, adult
CPT/HCPCS: 28725; 27870; 27641; 28010 ×2; 36415; 80048; 82948; 85014; 85018; 85025; 85652; 86140; 87040; 93005; 97161; 97165; A9270; J0690; J1885; J2250; J2270; J2370; J2405; J2704; J3010; J3370; J7120

== ENCOUNTER 2020-07-14 10:19 | Outpatient (NON) | payer MEDICARE, SELFPAY ==
[2020-07-14 10:49] LABS: Anion Gap 5 mmol/L (8-16); Blood Urea Nitrogen 23 mg/dL (9-20); CRP 3.7 mg/dL (<1.0); Calcium 9.2 mg/dL (8.4-10.2); Carbon Dioxide 31 mmol/L (22-30); Chloride 101 mmol/L (98-107); Estimated Glomerular Filt Rate 57; Glucose 127 mg/dL (75-110); Potassium 4.9 mmol/L (3.4-5.0); Sodium 137 mmol/L (137-145)
[2020-07-14 11:04] LABS: Erythrocyte Sedimentation Rate > 140 mm/hr (0-20)
== END 2020-07-14 10:20 ==
PROVIDERS: PCP Family Medicine; Visit Provider Orthopaedic Surgery
DX: M86.9 Osteomyelitis, unspecified (principal); R78.81 Bacteremia; E08.621 Diabetes mellitus due to underlying condition with foot ulcer
CPT/HCPCS: 80048; 85652; 86140

== ENCOUNTER 2020-07-21 10:26 | Outpatient (CLI) | payer MEDICARE, SELFPAY | END 2020-07-21 10:27 | disposition home or self-care (01) | LOC: ANHCOVIDVC 10:26 | PROVIDERS: PCP Family Medicine; Visit Provider Family Medicine | DX: Z23 Encounter for immunization (principal) | CPT/HCPCS: 0001A; 91300 ==

== ENCOUNTER 2020-08-11 10:07 | Outpatient (CLI) | payer MEDICARE, SELFPAY | END 2020-08-11 10:08 | disposition home or self-care (01) | LOC: ANHCOVIDVC 10:07 | PROVIDERS: PCP Family Medicine; Visit Provider Family Medicine | DX: Z23 Encounter for immunization (principal) | CPT/HCPCS: 0002A; 91300 ==

== ENCOUNTER → 2020-08-27 07:09 | Outpatient (CLI) | payer MEDICARE, SELFPAY ==
[2020-08-27 20:53] LABS: SARS-CoV-2 RNA PCR Negative
== END ==
PROVIDERS: PCP Family Medicine; Visit Provider Orthopaedic Surgery
DX: Z01.812 Encounter for preprocedural laboratory examination (principal); Z20.822 Contact with and (suspected) exposure to COVID-19
CPT/HCPCS: C9803; U0003; U0005

== ENCOUNTER 2020-08-29 01:53 | Day surgery (SDC) | payer MEDICARE, SELFPAY ==
[2020-08-26 11:27] VITALS: BMI 29.8
[2020-08-29] VITALS (7 sets, daily range): BP systolic 106–146; BP diastolic 56–69; PULSE 78–87; RESP 12–16; TEMP 36.7–36.8; O2SAT 98–100
--- NOTE | ~2020-08-29 | XR_ITS ---
EXAMINATION: XR ankle RT min 3V EXAM DATE: 08/29/2020 14:19 INDICATION: Right ankle surgery. TECHNIQUE: Frontal, mortise, lateral projections right ankle obtained postoperatively. Comparison is made to prior examination from 08/16/2020. FINDINGS: Distal fibular amputation. There is a new irregular shaped implanted density projecting a long the lateral aspect of the ankle joint, expected location of the lateral malleolus. Right ankle a nd subtalar arthrodesis, hardware intact, appears unchanged. Macerated appearing chronic mid foot fin dings, could be sequela from Charcot's joint or chronic osteomyelitis. Correlate with procedure note. IMPRESSION: Right ankle, hindfoot arthrodesis, other chronic findings. Reviewed, dictated and finalized at location A.
--- NOTE | 2020-08-29 07:56 | WPDANESEPPF ---
Anes - Initial Pre Proc Eval Procedure: Operation Date: 08/29/20 13:00 Proposed Procedures p Right Ankle Debridement - Familia Monteiro MD Date/Time: 08/29/20 07:56 Surgeon: Familia Monteiro MD Pre Op Diagnosis: right ankle diabetic infection Patient Data Age: 54 Gender: M Height: 1.93 m Weight: 111.13 kg Allergies Allergy/AdvReac Type Severity Reaction Status Date / Time No Known Allergies Allergy Verified 08/29/20 11:01 Home Medications Medication Instructions Recorded Confirmed Type aspirin 81 mg tablet,delayed 81 mg PO DAILY 03/12/19 08/29/20 History release cholecalciferol (vitamin D3) 10 400 unit PO DAILY 05/01/19 08/29/20 History mcg (400 unit) capsule omega-3 fatty acids 1,000 mg 1,000 mg PO DAILY 05/01/19 08/29/20 History capsule blood sugar diagnostic #10 each 09/08/19 07/01/20 History subcutaneous insulin pump #1 each 09/08/19 07/01/20 History rosuvastatin 10 mg tablet 10 mg PO DAILY #90 tablet 02/06/20 08/29/20 Rx insulin aspart U-100 100 unit/mL 100 - 120 unit CONTINUOUS 05/03/20 08/26/20 Rx subcutaneous solution SUBCUTANEOUS INFUSION DAILY 90 Days #110 ml acetaminophen 300 mg-codeine 60 mg 1 tablet PO Q8H PRN #90 tablet 06/10/20 08/29/20 Rx tablet carvedilol 25 mg tablet 25 mg PO Q12H #90 tablet 06/10/20 08/29/20 Rx cilostazol 100 mg tablet 100 mg PO BID #60 tablet 06/10/20 08/29/20 Rx irbesartan-hydrochlorothiazide 1 tablet PO DAILY 07/01/20 08/29/20 History [Avalide] Patient hx anesthesia problems: none Family hx anesthesia problems: none PMFSH Past Medical History Medical History (Updated 08/26/20 @ 10:26 by Familia Monteiro MD) Charcot's joint of foot in type 1 diabetes mellitus Chronic pain in right foot [place], acquired Coronary artery disease involving [place] coronary artery of [place] heart Diabetic foot ulcer associated with diabetes mellitus due to underlying condition Diabetic peripheral angiopathy Diabetic ulcer of ankle associated with diabetes mellitus due to underlying condition Essential (primary) hypertension History of tobacco use assisted (current) use of insulin Lymphedema of right lower extremity Mixed hyperlipidemia AIDA on CPAP PVD (peripheral vascular disease) Septic arthritis of right ankle Stage 2 chronic kidney disease Type 1 diabetes mellitus with hyperglycemia Wound of right foot Surgical History Surgical History Encounter for postoperative care related to surgical joint fusion S/P angioplasty with stent S/P CABG x 3 Family History Family History Mother Family history of lung cancer Father Family history of lymphoma Other Diabetes mellitus Family history of arthritis Family history of cardiovascular disease Family history of congestive heart failure Family history of coronary artery disease Family history of heart disease in male family member before age 55 Family history of malignant neoplasm Family history of premature coronary heart disease Hypertension Social History Social History Social History: Patient lives at home alone. He does have a significant other and his daughter available for intermittent assistance with wound care. Years smoked: 10 Smoking status: Former smoker Tobacco type: cigarettes Second hand tobacco smoke exposure: No Smoking end date: 05/06/07 Additional smoking assessment comments: occasional social smoker Alcohol intake: never Substance use: never Substance use type: does not use Living arrangements: alone Additional occupation/education comments: Disability Gender identity (if verbalized by the patient): Male Spiritual care concerns: No Anes - Eval Final PreProcedure Day of Procedure 08/29/20 07:56 Patient weight: overweight Heart: regular rate and rhythm Lungs: clear
[2020-08-29] MEDS: ACETAMINOPHEN 500 MG TABLET 1000 MG PO (11:38)
[2020-08-29] MEDS: LACTATED RINGERS 1,000 ML 30 ML IV CONT ×2 (11:38→13:57)
[2020-08-29] MEDS: KETOROLAC 15 MG/ML VIAL (*BKC) IV PUSH (11:40)
[2020-08-29 11:44] LABS: Prothrombin Time 13.6 Seconds (11.1-14.7)
[2020-08-29 11:45] LABS: Partial Thromboplastin Time 34.4 SECONDS (22.3-36.8)
--- NOTE | 2020-08-29 11:48 | SUR.PREOP ---
Patient still has incentive spirometer at home and voices understanding of how to use it. Right foot and leg wrapped to knee so no hair removal done.
[2020-08-29 11:50] LABS: Anion Gap 5 mmol/L (8-16); Blood Urea Nitrogen 33 mg/dL (9-20); Calcium 9.5 mg/dL (8.4-10.2); Carbon Dioxide 30 mmol/L (22-30); Chloride 102 mmol/L (98-107); Estimated CRCL calculation 79 ml/min; Estimated Glomerular Filt Rate 57; Glucose 155 mg/dL (75-110); Potassium 4.6 mmol/L (3.4-5.0); Sodium 137 mmol/L (137-145)
--- NOTE | 2020-08-29 11:50 | WPDHPUPDATE1 ---
History and Physical Update Update Date/Time: 08/29/20 11:50 History and Physical has been reviewed, including an updated exam of the patient. There are NO changes in the patient's condition. Risks, benefits, and alternatives have been discussed and questions answered. Patient agrees to proceed with procedure.
[2020-08-29] MEDS: ceFAZolin 2 GM/D5W 50 ML 2 GM/50 ML BAG IVPB (12:51)
[2020-08-29] MEDS: VANCOMYCIN HCL 1,000 MG VIAL 1000 MG TOPICAL (13:34)
[2020-08-29] MEDS: GENTAMICIN BONE CEMENT REFOBACIN 1 EACH TOPICAL (13:35)
[2020-08-29 14:07] LABS: Glucose Point of Care 158 (65-105)
--- NOTE | 2020-08-29 14:07 | PM.PROC ---
Procedure Note - Detailed Date of procedure: 08/29/20 Pre-op diagnosis: right ankle diabetic infection Post-op diagnosis: same Procedure performed: Excisional debridement of right ankle with insertion of antibiotic cement Description of procedure: Indications: Patient is a 54-year-old gentleman with insulin-dependent diabetes, peripheral neuropathy and peripheral arterial disease who is 7 weeks status post right ankle and subtalar arthrodesis. He has a draining wound from distal tibia medially and laterally which is nonhealing. He presents now for debridement. What was done: Patient identified in the preoperative holding. Informed consent given. Operative extremity marked. Patient received intravenous antibiotics. Patient brought to the operating room where underwent general anesthetic by anesthesia team. Positioned supine on operating room table. Time-out performed confirming the patient, site of the surgery and the plan. Right lower extremity prepped draped usual sterile surgical fashion using a Betadine prep solution. Leg exsanguinated and a thigh tourniquet inflated to 250 mmHg. Fifteen blade knife used to make a longitudinal incision over the medial distal tibia with an ellipse around the open wound area which measured 1 cm in length. Hemostasis controlled electrocautery. Fifteen blade knife then used to sharply excise skin, subcutaneous tissue and muscle down to the medial tibia. Tissue was passed off. Rongeur used to remove any loose or larger pieces of devitalized tissue. This also was excised and passed off. There was a small involvement of the medial tibia at the previous drill hole. This was debrided with a rongeur and curette to excise the infected bone. Small incision made with 15 blade knife on the lateral side of the distal tibia so that communication was performed through the tibia and the nail. Extensive irrigation was then performed with antibiotic solution. The lateral ankle incision which also had the open ulcer in the midportion was extended proximally and distally with a 15 blade knife. Hemostasis controlled electrocautery. Fifteen blade knife then used to excise skin, subcutaneous tissue and muscle down to the lateral ankle bone. Rongeur used to debride the ankle bone fusion site. Wound then thoroughly irrigated with antibiotic solution. Culture from the tibia was taken prior to the irrigation. Gentamicin cement with vancomycin then prepared with vacuum suction and applied to the tibia, drill hole and the lateral ankle. Wounds and closed with 0 Prolene interrupted suture. Sterile dressing applied. The patient was then woken from anesthesia, extubated and taken to the recovery room in stable condition. All sponge, needle, instrument counts were correct at the end of the case. Anesthesia: GLMA and GETA Surgeon: Familia Monteiro MD Construction Tech: district administrative assistant Estimated blood loss (mL): 5 Tourniquet time (min): 40 Drains: No Packing: No Pathology: yes (Distal tibia culture) Complications: None Condition: stable Disposition: PACU
[2020-08-29] MEDS: oxyCODONE HCL (*CRX) 5 MG TAB IR PO (15:14)
== END 2020-08-29 15:59 | disposition home or self-care (01) ==
PROVIDERS: Anesthesiology; PCP Family Medicine; Visit Provider Orthopaedic Surgery
PROC: (CPT 11044; principal; 2020-08-29 13:00)
DX: T81.42XA Infection following a procedure, deep incisional surgical site, initial encounter (principal); E10.621 Type 1 diabetes mellitus with foot ulcer; E10.622 Type 1 diabetes mellitus with other skin ulcer; L97.319 Non-pressure chronic ulcer of right ankle with unspecified severity; Y83.8 Other surgical procedures as the cause of abnormal reaction of the patient, or of later complication, without mention of misadventure at the time of the procedure; E10.610 Type 1 diabetes mellitus with diabetic neuropathic arthropathy; I25.10 Atherosclerotic heart disease of native coronary artery without angina pectoris; I10 Essential (primary) hypertension; E78.2 Mixed hyperlipidemia; G47.33 Obstructive sleep apnea (adult) (pediatric); E10.51 Type 1 diabetes mellitus with diabetic peripheral angiopathy without gangrene; Z79.4 Long term (current) use of insulin; Z79.82 Long term (current) use of aspirin; Z96.41 Presence of insulin pump (external) (internal); Z95.1 Presence of aortocoronary bypass graft; Z95.5 Presence of coronary angioplasty implant and graft; Z87.891 Personal history of nicotine dependence
CPT/HCPCS: 11044; 36415; 73610; 80048; 82948; 85610; 85730; 87070; 87075; 87077; 87186; 87205; A9270; C1713; J0690; J1100; J1885; J2250; J2370; J2405; J2704; J3010; J3370; J7120

== ENCOUNTER 2020-10-07 08:01 | Outpatient (RCR) | payer MEDICARE, SELFPAY ==
--- NOTE | 2020-07-13 13:21 | P.PNOP_ITS ---
Progress Note: A&P Assessment and Plan (1) Septic arthritis of right ankle: Qualifiers: Septic arthritis organism: staphylococcal Qualified Code(s): M00.071 - Staphylococcal arthritis, right ankle and foot Code(s): M00.9 - Pyogenic arthritis, unspecified Status: Acute (2) Encounter for postoperative care related to surgical joint fusion: Code(s): Z48.89 - Encounter for other specified surgical aftercare; Z98.1 - Arthrodesis status Status: Acute Assessment and Plan: patient returns for postoperative follow-up. Splint and wound VAC removed. His incision still has some serous drainage but much improved. His swelling is improved. No erythema. New sterile dressing applied with wound VAC. Short-leg splint applied. Continue nonweightbearing. Plan for laboratory testing tomorrow. Discontinue PICC line of lab testing normal. Follow up in 1 week for wound VAC and splint change. Discussed with patient radiographs approximately 5 weeks from now to determine weight-bearing. (3) Charcot's joint of foot in type 1 diabetes mellitus: Code(s): E10.610 - Type 1 diabetes mellitus with diabetic neuropathic arthropathy Status: Acute Subjective Subjective Date/Time Seen: 07/13/20 13:21 patient returns for follow-up [facility] outpatient wound clinic. He is 1 week status post left ankle and subtalar arthrodesis. He was placed into a splint with wound VAC. He has had no problems in the interim. The wound VAC is continued to function. Denies fever chills. He is still on intravenous antibiotics. Exam Const: General: healthy appearing; No in distress or confusion Orientation/consciousness: patient oriented x3 and No confusion HENMT: Head: normal to inspection, normocephalic and atraumatic Eyes: Conjunctivae: conjunctivae normal Sclera: sclerae normal Resp: Effort & Inspection: normal respiratory effort and no audible wheezes Neuro: General: patient oriented x3 and No confusion Extrem: Other: Splint in place right lower extremity. Sanguinous drainage from the heel And lateral incision noted. No active drainage. Good capillary refill in the toes. swelling and drainage improved. Psych: Affect: normal affect Fracture/Casting/Strapping Episode of Care Return Visit Splinting Application Short Leg Spl ( Right) Application Exam of Affected Area: Color: Normal, Temp: Normal, Pulse: Abnormal ( peripheral arterial disease), Blanching: Normal, Capillary Refill: Abnormal and Sensory Exam: Abnormal ( neuropathy) Swelling: Yes ( moderate) and Tenderness: No Skin Apperance: Clean and Dry and Intact Care: Alcohol Wipes Patient Tolerated Procedure Well: Yes
--- NOTE | 2020-07-19 15:00 | PM.PNORT ---
Progress Note: A&P Assessment and Plan (1) Encounter for postoperative care related to surgical joint fusion: Code(s): Z48.89 - Encounter for other specified surgical aftercare; Z98.1 - Arthrodesis status Status: Acute Assessment and Plan: Patient returns [place] wound clinic today for wound VAC and splint change. He continues to suffer from drainage of the lateral incision. Drainage is serosanguineous in nature. Swelling with continued improvement. No new onset erythema. Sutures intact. Incision well approximated aside from central opening as site of old ulceration. Recommended continuation of wound VAC at this time and continuation of splint. short-leg splint applied. Continue nonweightbearing. Patient will need repeat radiographs in 4 weeks to determine weight-bearing status. Follow-up on Saturday for splint and wound VAC dressing change. (2) Septic arthritis of right ankle: Qualifiers: Septic arthritis organism: staphylococcal Qualified Code(s): M00.071 - Staphylococcal arthritis, right ankle and foot Code(s): M00.9 - Pyogenic arthritis, unspecified Status: Acute Assessment and Plan: Of note, PICC line removed on 07/15 under the direction of Dr. Monteiro. (3) Charcot's joint of foot in type 1 diabetes mellitus: Code(s): E10.610 - Type 1 diabetes mellitus with diabetic neuropathic arthropathy Status: Acute Subjective Subjective Date/Time Seen: 07/19/20 15:00 Patient returns to [facility]. He is 1 week, 5 days status post left ankle and subtalar arthrodesis. He has been undergoing splint and wound VAC changes. His most recent wound VAC change and splint change was last Saturday. He has had no acute problems in the interim. Wound VAC functioning well. Denies fever or chills or night sweats. PICC line removed on July 15, 2020. Review of Systems Constitutional: Constitutional: Denies fever(s) Eyes: Eyes: Denies blurry vision ENT: Reports Normal hearing present Cardiovascular: Cardiovascular: Denies chest pain and Denies dyspnea Respiratory: Respiratory: Denies dyspnea and Denies wheezing Gastrointestinal: Gastrointestinal: Denies abdominal pain Genitourinary: Genitourinary: Denies urinary urgency Musculoskeletal: Musculoskeletal: Reports as per HPI and Reports numbness (both feet) Integumentary/Breasts: Skin/Breast: Denies changing lesions and Denies sores Neurologic: Reports Normal hearing present, Denies behavioral changes, Denies confusion, Reports numbness and Denies convulsions Psychiatric: Psychiatric: Denies behavioral changes, Denies confusion and Denies hallucinations Endocrine: Endocrine: Denies heat intolerance Hematologic/Lymphatic: Hematologic/Lymphatic: Denies easy bleeding Allergic/Immunologic: Allergic/Immunologic: Denies wheezing Exam Const: General: healthy appearing; No in distress or confusion Orientation/consciousness: patient oriented x3 and No confusion HENMT: Head: normal to inspection, normocephalic and atraumatic Eyes: Conjunctivae: conjunctivae normal Sclera: sclerae normal Resp: Effort & Inspection: normal respiratory effort and no audible wheezes Neuro: General: patient oriented x3 and No confusion Extrem: Other: Splint in place right lower extremity. Sanguinous drainage from the heel and lateral incision noted. No active drainage. Good capillary refill in the toes. Swelling and drainage improved. Psych: Affect: normal affect
--- NOTE | 2020-07-22 12:43 | PM.PNORT ---
Progress Note: A&P Assessment and Plan (1) Encounter for postoperative care related to surgical joint fusion: Code(s): Z48.89 - Encounter for other specified surgical aftercare; Z98.1 - Arthrodesis status Status: Acute Assessment and Plan: Patient presents [place] wound clinic today for wound VAC and splint change. He continues to suffer from drainage to the lateral incision but notable improvement from dressing change on Saturday. The drainage is serosanguineous in nature in the chamber of the wound VAC. He continues to suffer from swelling of the right lower extremity however there is mild improvement. No new signs of infection. Sutures are intact aside from the central opening at the side of the old ulceration. Patient to continue wound VAC at this time. New splint applied. Short-leg splint applied to the right lower extremity. Patient is to continue nonweightbearing patient will need repeat radiographs in 4 weeks to determine weight-bearing status. Patient to follow-up in 1 week for splint and wound VAC dressing change. Patient verbalized understanding agrees with plan of care. (2) Septic arthritis of right ankle: Qualifiers: Septic arthritis organism: staphylococcal Qualified Code(s): M00.071 - Staphylococcal arthritis, right ankle and foot Code(s): M00.9 - Pyogenic arthritis, unspecified Status: Acute Assessment and Plan: Of note, PICC line removed on 07/15 under the direction of Dr. Monteiro. Will begin oral antibiotics for prophylactic infection prevention given patient's complicated history with multiple episodes of sepsis. (3) Charcot's joint of foot in type 1 diabetes mellitus: Code(s): E10.610 - Type 1 diabetes mellitus with diabetic neuropathic arthropathy Status: Acute Subjective Subjective Date/Time Seen: 07/22/20 12:43 Patient returns to [facility]. He is 2 weeks, 1 day status post left ankle and subtalar arthrodesis. He has been undergoing splint and wound VAC changes. His most recent wound VAC change and splint change was Saturday. He has had no acute problems in the interim. Wound VAC functioning well. Denies fever or chills or night sweats. No longer on IV antibiotics. PICC line removed on July 15, 2020. Review of Systems Constitutional: Constitutional: Denies fever(s) Eyes: Eyes: Denies blurry vision ENT: Reports Normal hearing present Cardiovascular: Cardiovascular: Denies chest pain and Denies dyspnea Respiratory: Respiratory: Denies dyspnea and Denies wheezing Gastrointestinal: Gastrointestinal: Denies abdominal pain Genitourinary: Genitourinary: Denies urinary urgency Musculoskeletal: Musculoskeletal: Reports as per HPI and Reports numbness (both feet) Integumentary/Breasts: Skin/Breast: Denies changing lesions and Denies sores Neurologic: Reports Normal hearing present, Denies behavioral changes, Denies confusion, Reports numbness and Denies convulsions Psychiatric: Psychiatric: Denies behavioral changes, Denies confusion and Denies hallucinations Endocrine: Endocrine: Denies heat intolerance Hematologic/Lymphatic: Hematologic/Lymphatic: Denies easy bleeding Allergic/Immunologic: Allergic/Immunologic: Denies wheezing Exam Const: General: healthy appearing; No in distress or confusion Orientation/consciousness: patient oriented x3 and No confusion HENMT: Head: normal to inspection, normocephalic and atraumatic Eyes: Conjunctivae: conjunctivae normal Sclera: sclerae normal Resp: Effort & Inspection: normal respiratory effort and no audible wheezes Neuro: General: patient oriented x3 and No confusion Extrem: Other: Splint in place right lower extremity. Lateral ankle incision well approximated. Mild opening in the center of the incision at the site of the old ulceration. Sanguinous drainage from the heel and lateral incision noted. No active drainage. Good capillary refill in t
--- NOTE | 2020-07-29 15:01 | PM.PNORT ---
Progress Note: A&P Assessment and Plan (1) Encounter for postoperative care related to surgical joint fusion: Code(s): Z48.89 - Encounter for other specified surgical aftercare; Z98.1 - Arthrodesis status Status: Acute Assessment and Plan: Patient presents [place] [facility] today for wound VAC and splint change. He has minimal drainage to the lateral incision but notable improvement. The drainage is serosanguineous in nature in the chamber of the wound VAC. No new signs of infection. Sutures are intact aside from the central opening at the side of the old ulceration. sutures removed today. New splint applied. Short-leg splint applied to the right lower extremity. hold off on wound VAC as there is minimal drainage. Will re-evaluate in 5 days. Patient is to continue nonweightbearing patient will need repeat radiographs in 3 weeks to determine weight-bearing status. Patient to follow-up in 5 days for splint Change and dressing change with re-evaluation. Patient verbalized understanding agrees with plan of care. (2) Septic arthritis of right ankle: Qualifiers: Septic arthritis organism: staphylococcal Qualified Code(s): M00.071 - Staphylococcal arthritis, right ankle and foot Code(s): M00.9 - Pyogenic arthritis, unspecified Status: Acute Assessment and Plan: Of note, PICC line removed on 07/15 under the direction of Dr. Monteiro. Will begin oral antibiotics for prophylactic infection prevention given patient's complicated history with multiple episodes of sepsis. (3) Charcot's joint of foot in type 1 diabetes mellitus: Code(s): E10.610 - Type 1 diabetes mellitus with diabetic neuropathic arthropathy Status: Acute Subjective Subjective Date/Time Seen: 07/29/20 15:01 Post Op day: 3 wks Principal diagnosis: right Charcot ankle with septic arthritis Interval history: 3 weeks status post arthrodesis right ankle and subtalar joint. Patient presents for follow-up orthopedic wound clinic [facility]. For with wound VAC in short-leg splint in place. Exam Const: General: healthy appearing; No in distress or confusion Orientation/consciousness: patient oriented x3 and No confusion HENMT: Head: normal to inspection, normocephalic and atraumatic Eyes: Conjunctivae: conjunctivae normal Sclera: sclerae normal Resp: Effort & Inspection: normal respiratory effort and no audible wheezes Neuro: General: patient oriented x3 and No confusion Extrem: Other: Splint in place right lower extremity. Lateral ankle incision well approximated. Mild opening in the center of the incision at the site of the old ulceration. Sanguinous drainage from the heel and lateral incision noted. No active drainage. Good capillary refill in the toes. Swelling and drainage improved. Sutures removed Psych: Affect: normal affect Fracture/Casting/Strapping Pre Procedure Consent was obtained, Procedures/risks were explained, Questions were answered, Correct patient identified and Correct side and site confirmed Episode of Care Return Visit ( right ankle) Splinting Application Short Leg Spl ( Right) Application Exam of Affected Area: Color: Normal, Temp: Normal, Pulse: Abnormal ( arterial disease), Blanching: Normal, Capillary Refill: Abnormal ( peripheral arterial disease) and Sensory Exam: Abnormal ( neuropathy) Swelling: Yes ( moderate) and Tenderness: No Skin Care: Alcohol Wipes Patient Tolerated Procedure Well: Yes
--- NOTE | 2020-08-02 08:44 | PM.PNORT ---
Progress Note: A&P Assessment and Plan (1) Encounter for postoperative care related to surgical joint fusion: Code(s): Z48.89 - Encounter for other specified surgical aftercare; Z98.1 - Arthrodesis status Status: Acute Assessment and Plan: Patient follows up [place] wound clinic today 3 weeks, 5 days status post arthrodesis right ankle and subtalar joint. wound VAC discontinued earlier this week. Patient has been undergoing splint changes. He has minimal drainage to the lateral incision however there is still an area of opening where the old ulceration was. Patient does have sanguinous drainage in the medial aspect of the ankle at the site of incision. No evidence of active infection. Consideration for total contact cast was discussed today however given continued drainage at this time, would recommend re-splint team. Patient will follow up on Saturday for re-evaluation. If drainage has continued to minimize, we will transition patient into a total contact cast at that time. Patient to continue nonweightbearing of the right lower extremity. We will repeat radiographs in 2 weeks to determine weight-bearing status. Patient to follow up on Saturday for re-evaluation. We reviewed signs and symptoms of infection to report to the emergency room immediately. Patient verbalized understanding agrees with plan of care. (2) Septic arthritis of right ankle: Qualifiers: Septic arthritis organism: staphylococcal Qualified Code(s): M00.071 - Staphylococcal arthritis, right ankle and foot Code(s): M00.9 - Pyogenic arthritis, unspecified Status: Acute Assessment and Plan: Patient tolerated 10 days of cephalexin without complications. No signs of infection at this time however we will continue prophylactic antibiotic given complicated history and multiple episodes of sepsis. (3) Charcot's joint of foot in type 1 diabetes mellitus: Code(s): E10.610 - Type 1 diabetes mellitus with diabetic neuropathic arthropathy Status: Acute Subjective Subjective Date/Time Seen: 08/02/20 08:44 Patient presents [facility] in clinic 3 weeks, 5 days status post arthrodesis right ankle and subtalar joint. we have transitioned out of the wound VAC earlier this week. Drainage well controlled. Patient reports no signs of infection. He denies fever, chills, night sweats, nausea, vomiting or diarrhea. He has been maintaining his nonweightbearing status of the right lower extremity with splint in place. He is using a rolling scooter. Blood glucose levels well maintained. He has also been on oral antibiotics and denies any difficulties with antibiotic regimen. Review of Systems Constitutional: Constitutional: Denies fever(s) Eyes: Eyes: Denies blurry vision ENT: Reports Normal hearing present Cardiovascular: Cardiovascular: Denies chest pain and Denies dyspnea Respiratory: Respiratory: Denies dyspnea and Denies wheezing Gastrointestinal: Gastrointestinal: Denies abdominal pain Genitourinary: Genitourinary: Denies urinary urgency Musculoskeletal: Musculoskeletal: Reports as per HPI and Reports numbness (both feet) Integumentary/Breasts: Skin/Breast: Denies changing lesions and Denies sores Neurologic: Reports Normal hearing present, Denies behavioral changes, Denies confusion, Reports numbness and Denies convulsions Psychiatric: Psychiatric: Denies behavioral changes, Denies confusion and Denies hallucinations Endocrine: Endocrine: Denies heat intolerance Hematologic/Lymphatic: Hematologic/Lymphatic: Denies easy bleeding Allergic/Immunologic: Allergic/Immunologic: Denies wheezing Exam Const: General: healthy appearing; No in distress or confusion Orientation/consciousness: patient oriented x3 and No confusion HENMT: Head: normal to inspection, normocephalic and atraumatic Eyes: Conjunctivae: conjunctivae normal Sclera: sclerae normal Resp: Effort & Inspection: normal respirator
--- NOTE | 2020-08-05 10:52 | PM.PNORT ---
Progress Note: A&P Assessment and Plan (1) Encounter for postoperative care related to surgical joint fusion: Code(s): Z48.89 - Encounter for other specified surgical aftercare; Z98.1 - Arthrodesis status Status: Acute Assessment and Plan: Patient follows up in the [place] [facility] today 4 weeks, 1 day status post arthrodesis right ankle and subtalar joint. Patient no longer requiring wound VAC and his drainage has been slowly decreasing. He has been undergoing splint changes twice weekly without complications. He continues to be nonweightbearing on the right lower extremity. Silver gel applied to all areas of wounds today and covered with transfer and then extra storms. Leg then splinted. We will continue to consider total contact cast in the future however patient prefers the splint at this time. Patient to remain nonweightbearing. We will do repeat radiographs in 2 weeks to determine weight-bearing status. Appointment has been set for that in the outpatient orthopedic clinic. We reviewed signs symptoms of infection to report to the emergency room immediately, patient verbalized understanding agrees with plan of care. Keep splint dry and intact. Follow up on Saturday. (2) Septic arthritis of right ankle: Qualifiers: Septic arthritis organism: staphylococcal Qualified Code(s): M00.071 - Staphylococcal arthritis, right ankle and foot Code(s): M00.9 - Pyogenic arthritis, unspecified Status: Acute Assessment and Plan: Patient continues on cephalexin without complications for antibiotic prophylaxis given multiple history of multiple episodes of sepsis. Patient denies complications with oral antibiotics at this time. (3) Charcot's joint of foot in type 1 diabetes mellitus: Code(s): E10.610 - Type 1 diabetes mellitus with diabetic neuropathic arthropathy Status: Acute Subjective Subjective Date/Time Seen: 08/05/20 10:52 Patient presents with [place] [facility] clinic 4 weeks, 1 day status post arthrodesis right ankle and subtalar joint. Patient has been undergoing splint changes 1-2 times per week. Drainage has been well controlled. Patient reports no signs of infection. He denies fever, chills, night sweats, nausea, vomiting or diarrhea. He reports well-maintained blood glucose levels. He has maintained his nonweightbearing status of the right lower extremity without complication. He is continuing to use a rolling scooter. He is still on oral antibiotics and will be through [place] of next week. No new questions or concerns today. Review of Systems Constitutional: Constitutional: Denies fever(s) Eyes: Eyes: Denies blurry vision ENT: Reports Normal hearing present Cardiovascular: Cardiovascular: Denies chest pain and Denies dyspnea Respiratory: Respiratory: Denies dyspnea and Denies wheezing Gastrointestinal: Gastrointestinal: Denies abdominal pain Genitourinary: Genitourinary: Denies urinary urgency Musculoskeletal: Musculoskeletal: Reports as per HPI and Reports numbness (both feet) Integumentary/Breasts: Skin/Breast: Denies changing lesions and Denies sores Neurologic: Reports Normal hearing present, Denies behavioral changes, Denies confusion, Reports numbness and Denies convulsions Psychiatric: Psychiatric: Denies behavioral changes, Denies confusion and Denies hallucinations Endocrine: Endocrine: Denies heat intolerance Hematologic/Lymphatic: Hematologic/Lymphatic: Denies easy bleeding Allergic/Immunologic: Allergic/Immunologic: Denies wheezing Exam Const: General: healthy appearing; No in distress or confusion Orientation/consciousness: patient oriented x3 and No confusion HENMT: Head: normal to inspection, normocephalic and atraumatic Eyes: Conjunctivae: conjunctivae normal Sclera: sclerae normal Resp: Effort & Inspection: normal respiratory effort and no audible wheezes Neuro: General: patient oriented x3 and No confusion Extrem:
--- NOTE | 2020-08-09 09:41 | PM.PNORT ---
Progress Note: A&P Assessment and Plan (1) Encounter for postoperative care related to surgical joint fusion: Code(s): Z48.89 - Encounter for other specified surgical aftercare; Z98.1 - Arthrodesis status Status: Acute Assessment and Plan: Patient follows up in the [place] [facility] clinic today 4 weeks, 5 days status post arthrodesis right ankle and subtalar joint. He has been undergoing splint changes twice weekly without complications. Improvement in drainage. Slight new onset Pseudomonas noted on drainage this week. Add gentamicin to lateral wound. Silver gel applied to medial/lateral wounds today and covered with transfer and gauze. RLE splinted. Repeat radiographs scheduled for 08/16 in the outpatient orthopedic clinic to determine weight-bearing status. Continue NWB at this time. We reviewed signs symptoms of infection to report to the emergency room immediately, patient verbalized understanding agrees with plan of care. Keep splint dry and intact. Follow up on Saturday. (2) Septic arthritis of right ankle: Qualifiers: Septic arthritis organism: staphylococcal Qualified Code(s): M00.071 - Staphylococcal arthritis, right ankle and foot Code(s): M00.9 - Pyogenic arthritis, unspecified Status: Acute Assessment and Plan: Patient continues on cephalexin through Saturday without complications for antibiotic prophylaxis given multiple history of multiple episodes of sepsis. Patient denies complications with oral antibiotics at this time. (3) Charcot's joint of foot in type 1 diabetes mellitus: Code(s): E10.610 - Type 1 diabetes mellitus with diabetic neuropathic arthropathy Status: Acute Subjective Subjective Date/Time Seen: 08/09/20 09:45 Patient presents with [facility] 4 weeks, 5 day status post arthrodesis right ankle and subtalar joint. Patient has been undergoing splint changes 1-2 times per week. Drainage has been well controlled. Patient reports no signs of infection. He denies fever, chills, night sweats, nausea, vomiting or diarrhea. He reports well-maintained blood glucose levels. He has maintained his nonweightbearing status of the right lower extremity without complication. He is continuing to use a rolling scooter. He is still on oral antibiotics and will be through Saturday of next week. No new questions or concerns today. Review of Systems Constitutional: Constitutional: Denies fever(s) Eyes: Eyes: Denies blurry vision ENT: Reports Normal hearing present Cardiovascular: Cardiovascular: Denies chest pain and Denies dyspnea Respiratory: Respiratory: Denies dyspnea and Denies wheezing Gastrointestinal: Gastrointestinal: Denies abdominal pain Genitourinary: Genitourinary: Denies urinary urgency Musculoskeletal: Musculoskeletal: Reports as per HPI and Reports numbness (both feet) Integumentary/Breasts: Skin/Breast: Denies changing lesions and Denies sores Neurologic: Reports Normal hearing present, Denies behavioral changes, Denies confusion, Reports numbness and Denies convulsions Psychiatric: Psychiatric: Denies behavioral changes, Denies confusion and Denies hallucinations Endocrine: Endocrine: Denies heat intolerance Hematologic/Lymphatic: Hematologic/Lymphatic: Denies easy bleeding Allergic/Immunologic: Allergic/Immunologic: Denies wheezing Exam Const: General: healthy appearing; No in distress or confusion Orientation/consciousness: patient oriented x3 and No confusion HENMT: Head: normal to inspection, normocephalic and atraumatic Eyes: Conjunctivae: conjunctivae normal Sclera: sclerae normal Resp: Effort & Inspection: normal respiratory effort and no audible wheezes Neuro: General: patient oriented x3 and No confusion Extrem: Other: Splint removed today. Lateral incision well healed aside from opening at the center of the incision at the site of the old ulceration. That wound measures 4.0x1.4x3.0 cm. Serosanguineous
--- NOTE | 2020-08-12 09:37 | PM.PNORT ---
Progress Note: A&P Assessment and Plan (1) Encounter for postoperative care related to surgical joint fusion: Code(s): Z48.89 - Encounter for other specified surgical aftercare; Z98.1 - Arthrodesis status Status: Acute Assessment and Plan: Patient follows up in the [facility] clinic today 5 weeks, 1 days status post arthrodesis right ankle and subtalar joint. He has been undergoing splint changes twice weekly without complications. Improvement in drainage. Slight new onset Pseudomonas noted on drainage this week. Add gentamicin to lateral wound. Silver gel applied to medial/lateral wounds today and covered with transfer and gauze. Nu Gauze applied to the medial wound. RLE splinted. Repeat radiographs scheduled for 08/16 in the outpatient orthopedic clinic to determine weight-bearing status. Continue NWB at this time. We reviewed signs symptoms of infection to report to the emergency room immediately, patient verbalized understanding agrees with plan of care. Keep splint dry and intact. Follow up 08/16. (2) Septic arthritis of right ankle: Qualifiers: Septic arthritis organism: staphylococcal Qualified Code(s): M00.071 - Staphylococcal arthritis, right ankle and foot Code(s): M00.9 - Pyogenic arthritis, unspecified Status: Acute Assessment and Plan: Patient continues on cephalexin without complications for antibiotic prophylaxis given multiple history of multiple episodes of sepsis. Patient denies complications with oral antibiotics at this time. (3) Charcot's joint of foot in type 1 diabetes mellitus: Code(s): E10.610 - Type 1 diabetes mellitus with diabetic neuropathic arthropathy Status: Acute Subjective Subjective Date/Time Seen: 08/12/20 09:37 Post Op day: 5wks Principal diagnosis: right Charcot ankle Interval history: 5 weeks status post arthrodesis right ankle and hindfoot. No interval complaints. Patient in short-leg splint with nonweightbearing. Exam Const: General: healthy appearing; No in distress or confusion Orientation/consciousness: patient oriented x3 and No confusion HENMT: Head: normal to inspection, normocephalic and atraumatic Eyes: Conjunctivae: conjunctivae normal Sclera: sclerae normal Resp: Effort & Inspection: normal respiratory effort and no audible wheezes Neuro: General: patient oriented x3 and No confusion Extrem: Other: Splint removed today. Lateral incision well healed aside from opening at the center of the incision at the site of the old ulceration. That wound measures 3.5x1.5x2.1 cm. Serosanguineous drainage noted from the lateral incision. Heal well healed. Medial ankle incision area with serosanguineous drainage but improvement from previous exam, wound measures 0.6x0.6x3.0cm. Good capillary refill in the toes. Swelling and drainage with mild improvement. New splint applied. Psych: Affect: normal affect Objective Data Meds/Results Medications: Active Medications Generic Name Dose Route Start Last Admin Trade Name Freq PRN Reason Stop Dose Admin Gentamicin Sulfate 1 applic 08/09/20 09:12 Gentamicin Sulfate 0.1% Oint 15 Gm Tube TOPICAL 11/08/20 23:55 PRN PRN Wound Care Silver Nitrate 1 applic 08/02/20 10:45 Silvergel (Elta) 45 Ml TOPICAL 11/02/20 23:55 PRN PRN Wound Care Wound Care/Dressing Products 1 patch 08/02/20 10:43 Mepilex Transfer Drsg 6x8 TOPICAL 11/02/20 23:55 PRN PRN Wound Care Wound Care/Dressing Products 1 each 08/09/20 09:13 Foam Bandage (Mepilex 4x4) Bandage TOPICAL 11/08/20 23:55 PRN PRN Wound Care Fracture/Casting/Strapping Pre Procedure Consent was obtained, Procedures/risks were explained, Questions were answered, Correct patient identified and Correct side and site confirmed Episode of Care Return Visit ( right ankle) Splinting Application Short Leg Spl ( Right) Application Exam of Affected Area: Color: Normal, Temp:
--- NOTE | 2020-08-16 08:40 | PM.PNORT ---
Progress Note: A&P Assessment and Plan (1) Encounter for postoperative care related to surgical joint fusion: Code(s): Z48.89 - Encounter for other specified surgical aftercare; Z98.1 - Arthrodesis status Status: Acute Assessment and Plan: Patient follows up in the [facility] clinic today 5 weeks, 5 days status post arthrodesis right ankle and subtalar joint. He has been undergoing splint changes twice weekly without complications. Improvement in drainage. Slight new onset Pseudomonas noted on drainage last week- improved. continue gentamicin to lateral wound. Silver gel applied to medial/lateral wounds today and covered with transfer and gauze. Nu Gauze applied to the medial wound. RLE splinted. Repeat radiographs scheduled for today in the outpatient orthopedic clinic, will review. Continue NWB at this time. We reviewed signs symptoms of infection to report to the emergency room immediately, patient verbalized understanding agrees with plan of care. Keep splint dry and intact. Follow up 08/19. (2) Septic arthritis of right ankle: Qualifiers: Septic arthritis organism: staphylococcal Qualified Code(s): M00.071 - Staphylococcal arthritis, right ankle and foot Code(s): M00.9 - Pyogenic arthritis, unspecified Status: Acute Assessment and Plan: Patient continues on cephalexin without complications for antibiotic prophylaxis given multiple history of multiple episodes of sepsis. Patient denies complications with oral antibiotics at this time. (3) Charcot's joint of foot in type 1 diabetes mellitus: Code(s): E10.610 - Type 1 diabetes mellitus with diabetic neuropathic arthropathy Status: Acute Subjective Subjective Date/Time Seen: 08/16/20 08:40 Postop visit for right Charcot ankle. No interim complaints. Exam Const: General: healthy appearing; No in distress or confusion Orientation/consciousness: patient oriented x3 and No confusion HENMT: Head: normal to inspection, normocephalic and atraumatic Eyes: Conjunctivae: conjunctivae normal Sclera: sclerae normal Resp: Effort & Inspection: normal respiratory effort and no audible wheezes Neuro: General: patient oriented x3 and No confusion Extrem: Other: Splint removed today. Lateral incision well healed aside from opening at the center of the incision at the site of the old ulceration. That wound measures 2.5x1.3x2.1 cm. Serosanguineous drainage noted from the lateral incision. Heal well healed. Medial ankle incision area with serosanguineous drainage but improvement from previous exam, wound measures 0.4x0.4x3.0cm. Good capillary refill in the toes. Swelling and drainage with mild improvement. New splint applied. Psych: Affect: normal affect Objective Data Meds/Results Medications: Active Medications Generic Name Dose Route Start Last Admin Trade Name Freq PRN Reason Stop Dose Admin Gentamicin Sulfate 1 applic 08/09/20 09:12 Gentamicin Sulfate 0.1% Oint 15 Gm Tube TOPICAL 11/08/20 23:55 PRN PRN Wound Care Silver Nitrate 1 applic 08/02/20 10:45 Silvergel (Elta) 45 Ml TOPICAL 11/02/20 23:55 PRN PRN Wound Care Wound Care/Dressing Products 1 patch 08/02/20 10:43 Mepilex Transfer Drsg 6x8 TOPICAL 11/02/20 23:55 PRN PRN Wound Care Wound Care/Dressing Products 1 each 08/09/20 09:13 Foam Bandage (Mepilex 4x4) Bandage TOPICAL 11/08/20 23:55 PRN PRN Wound Care Fracture/Casting/Strapping Pre Procedure Consent was obtained, Procedures/risks were explained, Questions were answered, Correct patient identified and Correct side and site confirmed Episode of Care Return Visit Splinting Application Short Leg Spl Application Exam of Affected Area: Color: Normal, Temp: Normal, Pulse: Abnormal ( PAD), Blanching: Normal, Capillary Refill: Normal and Sensory Exam: Abnormal ( neuropathy) Swelling: Yes ( improved) and Tenderness: No Skin Apperance: C
--- NOTE | 2020-08-19 14:29 | PM.PNORT ---
Progress Note: A&P Assessment and Plan (1) Encounter for postoperative care related to surgical joint fusion: Code(s): Z48.89 - Encounter for other specified surgical aftercare; Z98.1 - Arthrodesis status Status: Acute Assessment and Plan: Patient follows up in the [place] wound clinic today 6 weeks status post arthrodesis right ankle and subtalar joint. He has been undergoing splint changes twice weekly without complications. Improvement in drainage. Pseudomonas improving. Continue gentamicin to lateral wound. Silver gel to medial/lateral wounds today and cover with transfer and gauze. RLE splinted. Continue NWB at this time. We reviewed signs symptoms of infection to report to the emergency room immediately, patient verbalized understanding agrees with plan of care. Keep splint dry and intact. Follow up on Saturday. (2) Septic arthritis of right ankle: Qualifiers: Septic arthritis organism: staphylococcal Qualified Code(s): M00.071 - Staphylococcal arthritis, right ankle and foot Code(s): M00.9 - Pyogenic arthritis, unspecified Status: Acute Assessment and Plan: Patient continues on cephalexin without complications for antibiotic prophylaxis given multiple history of multiple episodes of sepsis. Patient denies complications with oral antibiotics at this time. Subjective Subjective Date/Time Seen: 08/19/20 14:29 54-year-old male follows up in the [place] wound clinic status post ankle fusion by Dr. Monteiro. No new complaints. Tolerating the splint well. Review of Systems Constitutional: Constitutional: Denies fever(s) Eyes: Eyes: Denies blurry vision ENT: Reports Normal hearing present Cardiovascular: Cardiovascular: Denies chest pain and Denies dyspnea Respiratory: Respiratory: Denies dyspnea and Denies wheezing Gastrointestinal: Gastrointestinal: Denies abdominal pain Genitourinary: Genitourinary: Denies urinary urgency Musculoskeletal: Musculoskeletal: Reports as per HPI and Reports numbness (both feet) Integumentary/Breasts: Skin/Breast: Denies changing lesions and Denies sores Neurologic: Reports Normal hearing present, Denies behavioral changes, Denies confusion, Reports numbness and Denies convulsions Psychiatric: Psychiatric: Denies behavioral changes, Denies confusion and Denies hallucinations Endocrine: Endocrine: Denies heat intolerance Hematologic/Lymphatic: Hematologic/Lymphatic: Denies easy bleeding Allergic/Immunologic: Allergic/Immunologic: Denies wheezing Exam Const: General: healthy appearing; No in distress or confusion Orientation/consciousness: patient oriented x3 and No confusion HENMT: Head: normal to inspection, normocephalic and atraumatic Eyes: Conjunctivae: conjunctivae normal Sclera: sclerae normal Resp: Effort & Inspection: normal respiratory effort and no audible wheezes Neuro: General: patient oriented x3 and No confusion Extrem: Other: Splint removed today. Lateral incision well healed aside from opening at the center of the incision at the site of the old ulceration. That wound measures 2.5x1.3x2.1 cm. Serosanguineous drainage noted from the lateral incision. Heal well healed. Medial ankle incision area with serosanguineous drainage but improvement from previous exam, wound measures 0.4x0.4x1.5cm. Good capillary refill in the toes. Swelling and drainage with mild improvement. New splint applied. Psych: Affect: normal affect Objective Data Meds/Results Medications: Active Medications Generic Name Dose Route Start Last Admin Trade Name Freq PRN Reason Stop Dose Admin Gentamicin Sulfate 1 applic 08/09/20 09:12 Gentamicin Sulfate 0.1% Oint 15 Gm Tube TOPICAL 11/08/20 23:55 PRN PRN Wound Care Silver Nitrate 1 applic 08/02/20 10:45 Silvergel (Elta) 45 Ml TOPICAL 11/02/20 23:55 PRN PRN Wound Care Wound Care/Dressing Products 1 patch 08/02/20 10:43 Mepilex Transfer Hetal
--- NOTE | 2020-08-23 09:24 | PM.PNORT ---
Progress Note: A&P Assessment and Plan (1) Encounter for postoperative care related to surgical joint fusion: Code(s): Z48.89 - Encounter for other specified surgical aftercare; Z98.1 - Arthrodesis status Status: Acute Assessment and Plan: Patient follows up in [place] wound clinic today 6 weeks, 5 days status post arthrodesis right ankle and subtalar joint. He has been undergoing splint changes twice weekly without complications. Wounds with continued improvement in dimensions today. Serosanguineous drainage from both the medial and lateral wound. No purulence, no malodor. No signs of active infection. Patient continues on oral antibiotics without complications. Recommended continuation of splint at this time. Silver gel applied to medial and lateral wounds. Gentamicin applied to the lateral wound. Both wounds with it with iodoform gauze. Patient has been resplinted today. We reviewed signs and symptoms of infection to report to the emergency room immediately. Patient verbalized understanding agrees with plan of care. Patient to continue nonweightbearing of the right lower extremity at this time. Keep splint dry and intact. Follow up on Saturday for re-evaluation by Dr. Monteiro. (2) Septic arthritis of right ankle: Qualifiers: Septic arthritis organism: staphylococcal Qualified Code(s): M00.071 - Staphylococcal arthritis, right ankle and foot Code(s): M00.9 - Pyogenic arthritis, unspecified Status: Acute Assessment and Plan: Patient continues on cephalexin without complications for antibiotic prophylaxis given multiple history of multiple episodes of sepsis. Patient denies complications with oral antibiotics at this time. Subjective Subjective Date/Time Seen: 08/23/20 09:24 54-year-old male follows up today 6 weeks, 5 days status post ankle fusion by Dr. Monteiro. He denies fever, chills, night sweats, nausea vomiting or diarrhea. He reports well-maintained blood glucose levels. He is tolerating his splint well without complications. No new concerns. Review of Systems Constitutional: Constitutional: Denies fever(s) Eyes: Eyes: Denies blurry vision ENT: Reports Normal hearing present Cardiovascular: Cardiovascular: Denies chest pain and Denies dyspnea Respiratory: Respiratory: Denies dyspnea and Denies wheezing Gastrointestinal: Gastrointestinal: Denies abdominal pain Genitourinary: Genitourinary: Denies urinary urgency Musculoskeletal: Musculoskeletal: Reports as per HPI and Reports numbness (both feet) Integumentary/Breasts: Skin/Breast: Denies changing lesions and Denies sores Neurologic: Reports Normal hearing present, Denies behavioral changes, Denies confusion, Reports numbness and Denies convulsions Psychiatric: Psychiatric: Denies behavioral changes, Denies confusion and Denies hallucinations Endocrine: Endocrine: Denies heat intolerance Hematologic/Lymphatic: Hematologic/Lymphatic: Denies easy bleeding Allergic/Immunologic: Allergic/Immunologic: Denies wheezing Exam Const: General: healthy appearing; No in distress or confusion Orientation/consciousness: patient oriented x3 and No confusion HENMT: Head: normal to inspection, normocephalic and atraumatic Eyes: Conjunctivae: conjunctivae normal Sclera: sclerae normal Resp: Effort & Inspection: normal respiratory effort and no audible wheezes Neuro: General: patient oriented x3 and No confusion Extrem: Other: Splint removed today. Lateral incision well-healed aside from opening at the center of the incision at the site of the ulceration which measures 3.2 x 1.5 x 2.4 cm in depth. Serosanguineous drainage noted. Marked improvement in swelling of the right lower extremity. Medial ankle incision with continued dehiscence measuring 0.5 x 0.4 x 1.9 cm. Good capillary refill in the toes. Swelling and drainage with serosanguineous in nature. Psych: Affect: normal affect Objective Data Meds/R
--- NOTE | 2020-08-26 10:22 | PM.IMHP ---
H&P: HPI History of Present Illness Date/Time: 08/26/20 10:22 Patient returns for postoperative visit right ankle arthrodesis from Charcot ankle deformity with septic arthritis. Patient notes increased pain along the tibia. No fever or chills. Has continued nonweightbearing. Chief Complaint: Right ankle infection and ulcer Review of Systems Constitutional: Constitutional: Denies fever(s) Eyes: Eyes: Denies blurry vision ENT: Reports Normal hearing present Cardiovascular: Cardiovascular: Denies chest pain and Denies dyspnea Respiratory: Respiratory: Denies dyspnea and Denies wheezing Gastrointestinal: Gastrointestinal: Denies abdominal pain Genitourinary: Genitourinary: Denies urinary urgency Musculoskeletal: Musculoskeletal: Reports as per HPI and Reports numbness (both feet) Integumentary/Breasts: Skin/Breast: Denies changing lesions and Denies sores Neurologic: Reports Normal hearing present, Denies behavioral changes, Denies confusion, Reports numbness and Denies convulsions Psychiatric: Psychiatric: Denies behavioral changes, Denies confusion and Denies hallucinations Endocrine: Endocrine: Denies heat intolerance Hematologic/Lymphatic: Hematologic/Lymphatic: Denies easy bleeding Allergic/Immunologic: Allergic/Immunologic: Denies wheezing PMF Past Medical History Medical History Charcot's joint of foot in type 1 diabetes mellitus Chronic pain in right foot [place], acquired Coronary artery disease involving [place] coronary artery of [place] heart Diabetic foot ulcer associated with diabetes mellitus due to underlying condition Diabetic peripheral angiopathy Essential (primary) hypertension History of tobacco use MCC (current) use of insulin Lymphedema of right lower extremity Mixed hyperlipidemia AIDA on CPAP PVD (peripheral vascular disease) Septic arthritis of right ankle Stage 2 chronic kidney disease Type 1 diabetes mellitus with hyperglycemia Wound of right foot Surgical History Surgical History Encounter for postoperative care related to surgical joint fusion S/P angioplasty with stent S/P CABG x 3 Family History Family History Mother Family history of lung cancer Father Family history of lymphoma Other Diabetes mellitus Family history of arthritis Family history of cardiovascular disease Family history of congestive heart failure Family history of coronary artery disease Family history of heart disease in male family member before age 55 Family history of malignant neoplasm Family history of premature coronary heart disease Hypertension Social History Social History Social History: Patient lives at home alone. He does have a significant other and his daughter available for intermittent assistance with wound care. Smoking status: Former smoker Tobacco type: cigarettes Second hand tobacco smoke exposure: No Smoking end date: 05/06/12 Additional smoking assessment comments: occasional social smoker Alcohol intake: never Substance use: never Substance use type: does not use Additional occupation/education comments: Disability Gender identity (if verbalized by the patient): Male Spiritual care concerns: No Meds Home Medications and Allergies Home Medications Medication Instructions Recorded Confirmed Type aspirin 81 mg tablet,delayed 81 mg PO DAILY 03/12/19 07/07/20 History release cholecalciferol (vitamin D3) 10 400 unit PO DAILY 05/01/19 07/07/20 History mcg (400 unit) capsule omega-3 fatty acids 1,000 mg 1,000 mg PO DAILY 05/01/19 07/07/20 History capsule blood sugar diagnostic #10 each 09/08/19 07/01/20 History subcutaneous insulin pump #1 each 09/08/19 07/01/20 History rosuvastatin 10 mg tablet 10 m
--- NOTE | 2020-09-02 09:15 | PM.PNORT ---
Progress Note: A&P Assessment and Plan (1) Infection of bone of right ankle: Code(s): M86.9 - Osteomyelitis, unspecified Status: Acute Assessment and Plan: POD #4: Excisional debridement of right ankle with insertion of antibiotic cement Splint removed. Incisions on the medial/lateral aspect of the right ankle well-approximated. Scant serosanguineous drainage. Wound culture reveals Pseudomonas aeruginosa. Patient to continue oral antibiotics, renewed today. Transfer applied to all incision lines. New splint applied, tolerated well. Patient to continue to be NWB of the [facility]. Follow up in 1 week for splint change. Will await suture removal for 3 weeks s/p recent surgery. (2) Diabetic ulcer of ankle associated with diabetes mellitus due to underlying condition: Code(s): E08.622 - Diabetes mellitus due to underlying condition with other skin ulcer; L97.309 - Non-pressure chronic ulcer of unspecified ankle with unspecified severity Status: Acute Assessment and Plan: Reviewed importance of proper nutrition and medication compliance for optimal healing. Patient reports well maintained blood glucose levels. 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 Monteiro and 4 days s/p excisional debridement of right ankle with insertion of antibiotic cement. He denies fever, chills, night sweats, nausea vomiting or diarrhea. He reports well-maintained blood glucose levels. He is tolerating his splint well without complications. No new concerns. Tolerating oral medication well. Review of Systems Constitutional: Constitutional: Denies fever(s) Eyes: Eyes: Denies blurry vision ENT: Reports Normal hearing present Cardiovascular: Cardiovascular: Denies chest pain and Denies dyspnea Respiratory: Respiratory: Denies dyspnea and Denies wheezing Gastrointestinal: Gastrointestinal: Denies abdominal pain Genitourinary: Genitourinary: Denies urinary urgency Musculoskeletal: Musculoskeletal: Reports as per HPI and Reports numbness (both feet) Integumentary/Breasts: Skin/Breast: Denies changing lesions and Denies sores Neurologic: Reports Normal hearing present, Denies behavioral changes, Denies confusion, Reports numbness and Denies convulsions Psychiatric: Psychiatric: Denies behavioral changes, Denies confusion and Denies hallucinations Endocrine: Endocrine: Denies heat intolerance Hematologic/Lymphatic: Hematologic/Lymphatic: Denies easy bleeding Allergic/Immunologic: Allergic/Immunologic: Denies wheezing Exam Const: General: healthy appearing; No in distress or confusion Orientation/consciousness: patient oriented x3 and No confusion HENMT: Head: normal to inspection, normocephalic and atraumatic Eyes: Conjunctivae: conjunctivae normal Sclera: sclerae normal Resp: Effort & Inspection: normal respiratory effort and no audible wheezes GI: Inspection: non-distended GI Palp: Yes Soft to palpation, No Tenderness to palpation present (GI) and No Guarding due to palpation present (GI) Skin: Wounds: wounds noted (see below ) Neuro: General: patient oriented x3, No gait normal (NWB RLE ) and No confusion Cognition (Neuro): normal cognition Extrem: Right lower extremity: lower leg (see below ), ankle (see below ) and foot (see below ) Details: abnormal to inspection, vascular exam (palpable pedal pulses ) and motor-sensory exam Details: two point discrimination abnormal and light-touch abnormal; no tenderness Other: Splint removed today. Medial and both more anterior and lateral incisions well-approximated with sutures. Previous ulcer closed with sutures. Scant serosanguineous drainage noted. Marked improvement in swelli
--- NOTE | 2020-09-09 09:42 | PM.PNORT ---
Progress Note: A&P Assessment and Plan (1) Infection of bone of right ankle: Code(s): M86.9 - Osteomyelitis, unspecified Status: Acute Assessment and Plan: POD #11: Excisional debridement of right ankle with insertion of antibiotic cement Splint removed. Incisions on the medial/lateral aspect of the right ankle well-approximated. Scant serosanguineous drainage And exudate from the ulcer. Wound culture reveals Pseudomonas aeruginosa. Patient to continue oral antibiotics, renewed today. Transfer applied to all incision lines. silver gel and gentamicin ointment applied to the ulcer. New splint applied, tolerated well. Patient to continue to be NWB of the RLE. Follow up in 1.5 week for splint change In evaluation for possible suture removal. (2) Diabetic ulcer of ankle associated with diabetes mellitus due to underlying condition: Code(s): E08.622 - Diabetes mellitus due to underlying condition with other skin ulcer; L97.309 - Non-pressure chronic ulcer of unspecified ankle with unspecified severity Status: Acute Assessment and Plan: Reviewed importance of proper nutrition and medication compliance for optimal healing. Patient reports well maintained blood glucose levels. 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 Patient with no interim complaints. Exam Const: General: healthy appearing; No in distress or confusion Orientation/consciousness: patient oriented x3 and No confusion HENMT: Head: normal to inspection, normocephalic and atraumatic Eyes: Conjunctivae: conjunctivae normal Sclera: sclerae normal Resp: Effort & Inspection: normal respiratory effort and no audible wheezes GI: Inspection: non-distended GI Palp: Yes Soft to palpation, No Tenderness to palpation present (GI) and No Guarding due to palpation present (GI) Skin: Wounds: wounds noted (see below ) Neuro: General: patient oriented x3, No gait normal (NWB RLE ) and No confusion Cognition (Neuro): normal cognition Extrem: Right lower extremity: lower leg (see below ), ankle (see below ) and foot (see below ) Other: Splint removed Right leg. Medial and both more anterior and lateral incisions well-approximated with sutures. Previous ulcer closed with sutures. minimal fibrous exudate in the ulcer bed. debrided today. Wound with 1.3 cm depth. Marked improvement in swelling of the right lower extremity. Good capillary refill in the toes. Psych: Affect: normal affect Objective Data Meds/Results Medications: Active Medications Generic Name Dose Route Start Last Admin Trade Name Freq PRN Reason Stop Dose Admin Gentamicin Sulfate 1 applic 08/09/20 09:12 Gentamicin Sulfate 0.1% Oint 15 Gm Tube TOPICAL 11/08/20 23:55 PRN PRN Wound Care Silver Nitrate 1 applic 08/02/20 10:45 Silvergel (Elta) 45 Ml TOPICAL 11/02/20 23:55 PRN PRN Wound Care Wound Care/Dressing Products 1 patch 08/02/20 10:43 Mepilex Transfer Drsg 6x8 TOPICAL 11/02/20 23:55 PRN PRN Wound Care Wound Care/Dressing Products 1 each 08/09/20 09:13 Foam Bandage (Mepilex 4x4) Bandage TOPICAL 11/08/20 23:55 PRN PRN Wound Care Fracture/Casting/Strapping Pre Procedure Consent was obtained, Procedures/risks were explained, Questions were answered, Correct patient identified and Correct side and site confirmed Episode of Care Return Visit ( Right ankle) Splinting Application Short Leg Spl Application Exam of Affected Area: Color: Normal, Temp: Normal, Pulse: Abnormal ( PAD), Blanching: Normal, Capillary Refill: Normal and Sensory Exam:
--- NOTE | 2020-09-20 12:45 | PM.PNORT ---
Progress Note: A&P Assessment and Plan (1) Infection of bone of right ankle: Code(s): M86.9 - Osteomyelitis, unspecified Status: Acute Assessment and Plan: Three weeks, 1 day status post excisional debridement of right ankle with insertion of antibiotic cement. Splint removed today. Incisions on the medial and lateral aspect of the right ankle with sutures removed today. Cement noted to be protruding from the lateral incision line. Cement removed and incision reapproximated with sutures today. Medial incision line with hypergranulation tissue noted. Silver nitrate applied. Lateral ankle wound measures 2.3 x 0.7 x 1.0 cm. Patient transition to fracture boot today to be able to do daily dressing changes. He will begin silver gel to all areas of wound bed as well as gentamicin and cover with transfer and an ABD pad. He will wrap with Kerlix gauze. Patient fit with a fracture boot by the [facility] wound [facility] nurses today. Patient follow up in 1 week for re-evaluation. Continue oral antibiotics in the interim. (2) Diabetic ulcer of ankle associated with diabetes mellitus due to underlying condition: Code(s): E08.622 - Diabetes mellitus due to underlying condition with other skin ulcer; L97.309 - Non-pressure chronic ulcer of unspecified ankle with unspecified severity Status: Acute Assessment and Plan: Reviewed importance of proper nutrition and medication compliance for optimal healing. Patient reports well maintained blood glucose levels. 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 Patient with no interim complaints. Review of Systems Constitutional: Constitutional: Denies fever(s) Eyes: Eyes: Denies blurry vision ENT: Reports Normal hearing present Cardiovascular: Cardiovascular: Denies chest pain and Denies dyspnea Respiratory: Respiratory: Denies dyspnea and Denies wheezing Gastrointestinal: Gastrointestinal: Denies abdominal pain Genitourinary: Genitourinary: Denies urinary urgency Musculoskeletal: Musculoskeletal: Reports as per HPI and Reports numbness (both feet) Integumentary/Breasts: Skin/Breast: Denies changing lesions and Denies sores Neurologic: Reports Normal hearing present, Denies behavioral changes, Denies confusion, Reports numbness and Denies convulsions Psychiatric: Psychiatric: Denies behavioral changes, Denies confusion and Denies hallucinations Endocrine: Endocrine: Denies heat intolerance Hematologic/Lymphatic: Hematologic/Lymphatic: Denies easy bleeding Allergic/Immunologic: Allergic/Immunologic: Denies wheezing Exam Const: General: healthy appearing; No in distress or confusion Orientation/consciousness: patient oriented x3 and No confusion HENMT: Head: normal to inspection, normocephalic and atraumatic Eyes: Conjunctivae: conjunctivae normal Sclera: sclerae normal Resp: Effort & Inspection: normal respiratory effort and no audible wheezes GI: Inspection: non-distended GI Palp: Yes Soft to palpation, No Tenderness to palpation present (GI) and No Guarding due to palpation present (GI) Skin: Wounds: wounds noted (see below ) Neuro: General: patient oriented x3, No gait normal (NWB RLE ) and No confusion Cognition (Neuro): normal cognition Extrem: Right lower extremity: lower leg (see below ), ankle (see below ) and foot (see below ) Other: Splint removed from the right lower extremity. Medial incision line with hypergranulation noted. Sutures removed. Lateral incision line with cement protruding from incision causing wound dehiscence. Sutures removed. Cement removed and lateral incision lying reapproximated with 3-0 Vicryl. Sutures over the pr
--- NOTE | 2020-09-23 09:07 | PM.PROC ---
Procedure Note - Detailed Date of procedure: 09/23/20 Pre-op diagnosis: diabetic ulcer right ankle-wound vac dressing churchill retained antibiotic delivery mechanism right ankle, Charcot arthropathy right ankle, diabetes with neuropathy Post-op diagnosis: same Procedure performed: removal of antibiotic delivery mechanism right ankle. Description of procedure: Indications: Patient is a 54-year-old gentleman with insulin-dependent diabetes and neuropathy with Charcot arthropathy of the right ankle. He is status post insertion of antibiotic delivery mechanism. Presents now for removal. What was done: Patient identified in the preoperative holding. Informed consent given. Operative extremity marked. Patient received oral antibiotics. Time-out performed confirming the patient, site of the surgery and the plan. Right ankle prepped with alcohol prep solution. Fifteen blade knife used to enlarge the right ankle lateral ulcer. The antibiotic cement was identified 15 blade knife blunt dissection used to free up from the surrounding tissue. Bone cutter used to remove portions of this. The remainder of the cement was then able to be grasped and removed from the wound. Wound irrigated and closed with 0 Prolene interrupted suture. Sterile dressing applied. Anesthesia: none Surgeon: Familia Monteiro MD Estimated blood loss (mL): 5 Drains: No Packing: Yes Pathology: none sent Complications: None Condition: stable Disposition: no change
--- NOTE | 2020-09-23 09:56 | PM.PNORT ---
Progress Note: A&P Assessment and Plan (1) Infection of bone of right ankle: Code(s): M86.9 - Osteomyelitis, unspecified Status: Acute Assessment and Plan: Three weeks, 4 days status post excisional debridement of right ankle with insertion of antibiotic cement. Plan for removal of cement from the lateral ankle ulcer. Previous removal of cement incision clean dry and intact. Medial incision with some granulation tissue which was silver nitrated. Cement removed and incision reapproximated with sutures today. fracture boot today to be able to do daily dressing changes. He will begin silver gel to all areas of wound bed as well as gentamicin and cover with transfer and an ABD pad. He will wrap with Kerlix gauze. Continue oral antibiotics in the interim. Follow-up next week for dressing change. Discussed nonoperative and operative treatment options with the patient. Risks and benefits of each as well as alternatives were reviewed. All of the patient's questions were answered. The risks of surgery reviewed including but not limited to: Neurovascular damage, wound complication, infection, blood clot, pulmonary embolus, stroke, myocardial infarction, and anesthetic risks up to and including . Continued pain and possible dysfunction were explained. Specific risks of the procedure including later recurrence of deformity. No guarantees were offered. If hardware used, discussed risk of failure/ breakage and possible need for removal. If complications occur, the patient understands the need for further treatment, possible further surgery. Patient verbalizes understanding and wishes to proceed. PLAN: debridement of right ankle ulcer and removal of antibiotic cement. (2) Diabetic ulcer of ankle associated with diabetes mellitus due to underlying condition: Code(s): E08.622 - Diabetes mellitus due to underlying condition with other skin ulcer; L97.309 - Non-pressure chronic ulcer of unspecified ankle with unspecified severity Status: Acute Assessment and Plan: Reviewed importance of proper nutrition and medication compliance for optimal healing. Patient reports well maintained blood glucose levels. 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 3.5 weeks. No interim complaints. Patient does state that he has noticed that he can feel the cement in the lateral ankle wound. No fever chills. Exam Const: General: healthy appearing; No in distress or confusion Orientation/consciousness: patient oriented x3 and No confusion HENMT: Head: normal to inspection, normocephalic and atraumatic Eyes: Conjunctivae: conjunctivae normal Sclera: sclerae normal Resp: Effort & Inspection: normal respiratory effort and no audible wheezes GI: Inspection: non-distended GI Palp: Yes Soft to palpation, No Tenderness to palpation present (GI) and No Guarding due to palpation present (GI) Skin: Wounds: wounds noted (see below ) Neuro: General: patient oriented x3, No gait normal (NWB RLE ) and No confusion Cognition (Neuro): normal cognition Extrem: Right lower extremity: lower leg (see below ), ankle (see below ) and foot (see below ) Other: Dressing removed from the right lower extremity. Medial incision line with hypergranulation noted. Lateral ankle wound ulcer with cement protruding from incision causing wound dehiscence. Cement removed and lateral incision Previously sutured 3 days ago intact and dry. lateral ulcer measures 3 cm 2 cm with 3 depth. New ulceration on the dorsal aspect of the 1st toe measures 0.5 x 0.5 x 0 2 cm. All wound beds 100% red / pink. No signs of active
--- NOTE | 2020-09-27 10:19 | PM.PNORT ---
Progress Note: A&P Assessment and Plan (1) Infection of bone of right ankle: Code(s): M86.9 - Osteomyelitis, unspecified Status: Acute Assessment and Plan: 4 weeks, 1 day status post excisional debridement of right ankle with insertion of antibiotic cement and 5 days status post removal of antibiotic cement in the [place] wound clinic by Dr. Monteiro. He is also 1 week status post removal of cement to the more proximal lateral incision of the right ankle. Sutures intact to the lateral ankle ulcer and more proximal incision. He continues to suffer from hypergranulation tissue on the medial aspect of the ankle at site of previous incision from 4 weeks ago surgery. Patient has had no drainage over the weekend. He had to change his dressing on Saturday but then his drainage stopped. No purulence, no malodor. No surrounding redness, warmth or swelling or signs of active infection. Recommended continuation of daily dressing changes at this time given controlled drainage. Patient to apply gentamicin to the lateral ankle ulcer and cover with transfer. Cover more proximal incision with transfer as well and hypergranulation tissue on the medial sore has been treated with silver nitrate. Patient to continue fracture boot with no weight-bearing. Continue oral antibiotics. Patient may be indicated for a wound VAC if increase in drainage. Will continue with daily dressing changes in the interim. Patient to follow up on Saturday for re-evaluation. (2) Diabetic ulcer of ankle associated with diabetes mellitus due to underlying condition: Code(s): E08.622 - Diabetes mellitus due to underlying condition with other skin ulcer; L97.309 - Non-pressure chronic ulcer of unspecified ankle with unspecified severity Status: Acute Assessment and Plan: Reviewed importance of proper nutrition and medication compliance for optimal healing. Patient reports well maintained blood glucose levels. 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 no new concerns today. Patient denies fever, chills, night sweats, nausea, vomiting or diarrhea. He is still taking his oral antibiotics without complications. He is performing daily dressing changes. He notes decreased drainage to the lateral ankle wound status post removal of antibiotic cement. Review of Systems Constitutional: Constitutional: Denies fever(s) Eyes: Eyes: Denies blurry vision ENT: Reports Normal hearing present Cardiovascular: Cardiovascular: Denies chest pain and Denies dyspnea Respiratory: Respiratory: Denies dyspnea and Denies wheezing Gastrointestinal: Gastrointestinal: Denies abdominal pain Genitourinary: Genitourinary: Denies urinary urgency Musculoskeletal: Musculoskeletal: Reports as per HPI and Reports numbness (both feet) Integumentary/Breasts: Skin/Breast: Denies changing lesions and Denies sores Neurologic: Reports Normal hearing present, Denies behavioral changes, Denies confusion, Reports numbness and Denies convulsions Psychiatric: Psychiatric: Denies behavioral changes, Denies confusion and Denies hallucinations Endocrine: Endocrine: Denies heat intolerance Hematologic/Lymphatic: Hematologic/Lymphatic: Denies easy bleeding Allergic/Immunologic: Allergic/Immunologic: Denies wheezing Exam Const: General: healthy appearing; No in distress or confusion Orientation/consciousness: patient oriented x3 and No confusion HENMT: Head: normal to inspection, normocephalic and atraumatic Eyes: Conjunctivae: conjunctivae normal Sclera: sclerae normal Resp: E
--- NOTE | 2020-09-30 08:30 | PM.PNORT ---
Progress Note: A&P Assessment and Plan (1) Infection of bone of right ankle: Code(s): M86.9 - Osteomyelitis, unspecified Status: Acute Assessment and Plan: 4 weeks, 4 days s/p excisional debridement of right ankle with insertion of antibiotic cement and 1 wee status post removal of antibiotic cement of the right lateral ankle in the [place] wound clinic by Dr. Monteiro. He is also 1.5 weeks status post removal of cement to the more proximal lateral incision of the right ankle. Sutures intact to the lateral ankle ulcer and more proximal incision sutures removed today. He continues to suffer from hypergranulation tissue on the medial aspect of the ankle at site of previous incision from 4 weeks ago surgery; however, he is showing great signs of improvement with silver nitrate treatment. Patient has had minimal drainage since Saturday, no indication for wound VAC at this time. No purulence, no malodor. No surrounding redness, warmth or swelling or signs of active infection. Recommended continuation of daily dressing changes at this time. Patient to apply gentamicin to the lateral ankle ulcer and cover with transfer. Cover medial wound with transfer dressing as well, no gentamicin. Patient to continue fracture boot with no weight-bearing. Continue oral antibiotics, renewed today. Follow up in 1 week. (2) Diabetic ulcer of ankle associated with diabetes mellitus due to underlying condition: Code(s): E08.622 - Diabetes mellitus due to underlying condition with other skin ulcer; L97.309 - Non-pressure chronic ulcer of unspecified ankle with unspecified severity Status: Acute Assessment and Plan: Reviewed importance of proper nutrition and medication compliance for optimal healing. Patient reports well maintained blood glucose levels. 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 Monteiro. No new concerns today. Patient denies fever, chills, night sweats, nausea, vomiting or diarrhea. He is still taking his oral antibiotics without complications. He is performing daily dressing changes. He continues to note decreased drainage to the lateral ankle wound status post removal of antibiotic cement. Review of Systems Constitutional: Constitutional: Denies fever(s) Eyes: Eyes: Denies blurry vision ENT: Reports Normal hearing present Cardiovascular: Cardiovascular: Denies chest pain and Denies dyspnea Respiratory: Respiratory: Denies dyspnea and Denies wheezing Gastrointestinal: Gastrointestinal: Denies abdominal pain Genitourinary: Genitourinary: Denies urinary urgency Musculoskeletal: Musculoskeletal: Reports as per HPI and Reports numbness (both feet) Integumentary/Breasts: Skin/Breast: Denies changing lesions and Denies sores Neurologic: Reports Normal hearing present, Denies behavioral changes, Denies confusion, Reports numbness and Denies convulsions Psychiatric: Psychiatric: Denies behavioral changes, Denies confusion and Denies hallucinations Endocrine: Endocrine: Denies heat intolerance Hematologic/Lymphatic: Hematologic/Lymphatic: Denies easy bleeding Allergic/Immunologic: Allergic/Immunologic: Denies wheezing Exam Const: General: healthy appearing; No in distress or confusion Orientation/consciousness: patient oriented x3 and No confusion HENMT: Head: normal to inspection, normocephalic and atraumatic Eyes: Conjunctivae: conjunctivae normal Sclera: sclerae normal Resp: Effort & Inspection: normal respiratory effort and no audible wheezes GI: Inspection: non-distended GI Pal
--- NOTE | 2020-10-07 09:13 | PM.PNORT ---
Progress Note: A&P Assessment and Plan (1) Infection of bone of right ankle: Code(s): M86.9 - Osteomyelitis, unspecified Status: Acute Assessment and Plan: 5 weeks, 4 days s/p excisional debridement of right ankle with insertion of antibiotic cement and 2 weeks status post removal of antibiotic cement of the right lateral ankle in the [facility] wound clinic by Dr. Monteiro. He is also 2.5 weeks status post removal of cement to the more proximal lateral incision of the right ankle. Sutures intact to the lateral ankle ulcer and more proximal incision sutures removed today. He continues to suffer from hypergranulation tissue on the medial aspect of the ankle at site of previous incision from 5 weeks ago surgery; however, he is showing signs of improvement with silver nitrate treatment. Still with depth to wound bed to bone. No purulence, no malodor. No surrounding redness, warmth or swelling or signs of active infection. Recommended continuation of daily dressing changes at this time. Patient to apply gentamicin to the lateral ankle ulcer/medial wound and cover with transfer. Cover medial wound with transfer dressing as well, add gentamicin. Patient to continue fracture boot with minimal weight-bearing. Continue oral antibiotics. Follow up in 1 week. (2) Diabetic ulcer of ankle associated with diabetes mellitus due to underlying condition: Code(s): E08.622 - Diabetes mellitus due to underlying condition with other skin ulcer; L97.309 - Non-pressure chronic ulcer of unspecified ankle with unspecified severity Status: Acute Assessment and Plan: Reviewed importance of proper nutrition and medication compliance for optimal healing. Patient reports well maintained blood glucose levels. 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 Monteiro. No new concerns today. Patient denies fever, chills, night sweats, nausea, vomiting or diarrhea. He is still taking his oral antibiotics without complications. He is performing daily dressing changes. He continues to note decreased drainage to the lateral ankle wound status post removal of antibiotic cement. He does note some increased drainage from medial ulcer. Review of Systems Constitutional: Constitutional: Denies fever(s) Eyes: Eyes: Denies blurry vision ENT: Reports Normal hearing present Cardiovascular: Cardiovascular: Denies chest pain and Denies dyspnea Respiratory: Respiratory: Denies dyspnea and Denies wheezing Gastrointestinal: Gastrointestinal: Denies abdominal pain Genitourinary: Genitourinary: Denies urinary urgency Musculoskeletal: Musculoskeletal: Reports as per HPI and Reports numbness (both feet) Integumentary/Breasts: Skin/Breast: Denies changing lesions and Denies sores Neurologic: Reports Normal hearing present, Denies behavioral changes, Denies confusion, Reports numbness and Denies convulsions Psychiatric: Psychiatric: Denies behavioral changes, Denies confusion and Denies hallucinations Endocrine: Endocrine: Denies heat intolerance Hematologic/Lymphatic: Hematologic/Lymphatic: Denies easy bleeding Allergic/Immunologic: Allergic/Immunologic: Denies wheezing Exam Const: General: healthy appearing; No in distress or confusion Orientation/consciousness: patient oriented x3 and No confusion HENMT: Head: normal to inspection, normocephalic and atraumatic Eyes: Conjunctivae: conjunctivae normal Sclera: sclerae normal Resp: Effort & Inspection: normal respiratory effort and no audible wheezes GI: Inspection: non-distended GI Palp: Yes Soft
== END 2020-10-11 23:59 | disposition home or self-care (01) ==
LOC: ANHWOC 08:01
PROVIDERS: PCP Family Medicine; Visit Provider Nurse Practitioner Family
DX: L97.511 Non-pressure chronic ulcer of other part of right foot limited to breakdown of skin (principal); L97.519 Non-pressure chronic ulcer of other part of right foot with unspecified severity; E08.621 Diabetes mellitus due to underlying condition with foot ulcer
CPT/HCPCS: 29515; 97605; 99212; 99213; 99214; A9270; G0463; L2116

== ENCOUNTER → 2020-10-17 02:50 | Outpatient (CLI) | payer MEDICARE, SELFPAY ==
[2020-10-17 17:43] LABS: SARS-CoV-2 RNA PCR Negative
== END ==
PROVIDERS: PCP Family Medicine; Visit Provider Orthopaedic Surgery
DX: Z01.812 Encounter for preprocedural laboratory examination (principal); Z20.822 Contact with and (suspected) exposure to COVID-19
CPT/HCPCS: C9803; U0003; U0005

== ENCOUNTER 2020-10-20 02:21 | Day surgery (SDC) | payer MEDICARE, SELFPAY ==
[2020-10-14 12:56] VITALS: BMI 28.5
--- NOTE | 2020-10-19 10:07 | WPDANESEPPF ---
Anes - Initial Pre Proc Eval Procedure: Operation Date: 10/20/20 11:30 Proposed Procedures p Debridement Of Right Ankle, With Graft Application - Familia Monteiro MD s Removal Of Cement Or Loose Body - Familia Monteiro MD Date/Time: 10/19/20 10:07 Surgeon: Familia Monteiro MD Pre Op Diagnosis: Right Diabetic Ankle ulcer, Right Charcot Foot Patient Data Age: 54 Gender: M Height: 1.93 m Weight: 106.59 kg Allergies Allergy/AdvReac Type Severity Reaction Status Date / Time No Known Allergies Allergy Verified 10/20/20 09:51 Home Medications Medication Instructions Recorded Confirmed Type aspirin 81 mg tablet,delayed 81 mg PO DAILY 03/12/19 10/20/20 History release cholecalciferol (vitamin D3) 10 400 unit PO DAILY 05/01/19 10/20/20 History mcg (400 unit) capsule omega-3 fatty acids 1,000 mg 1,000 mg PO DAILY 05/01/19 10/20/20 History capsule subcutaneous insulin pump #1 each 09/08/19 07/01/20 History rosuvastatin 10 mg tablet 10 mg PO DAILY #90 tablet 02/06/20 10/20/20 Rx acetaminophen 300 mg-codeine 60 mg 1 tablet PO Q8H PRN #90 tablet 06/10/20 10/20/20 Rx tablet cilostazol 100 mg tablet 100 mg PO BID #60 tablet 09/04/20 10/14/20 Rx blood sugar diagnostic #500 ea 09/08/20 Rx irbesartan 300 1 tablet PO DAILY #90 tablet 09/25/20 10/20/20 Rx mg-hydrochlorothiazide 12.5 mg tablet carvedilol [Coreg] 25 mg PO BID 10/14/20 10/20/20 History cephalexin 500 mg PO BID 10/14/20 10/20/20 History insulin aspart U-100 100 unit/mL 100 - 120 unit CONTINUOUS 10/19/20 Rx subcutaneous solution SUBCUTANEOUS INFUSION DAILY 90 Days #110 ml Patient hx anesthesia problems: none Family hx anesthesia problems: none PMFSH Past Medical History Medical History (Updated 08/26/20 @ 10:26 by Familia Monteiro MD) Charcot's joint of foot in type 1 diabetes mellitus Chronic pain in right foot [place]toe, acquired Coronary artery disease involving [place] coronary artery of [place] heart Diabetic foot ulcer associated with diabetes mellitus due to underlying condition Diabetic peripheral angiopathy Diabetic ulcer of ankle associated with diabetes mellitus due to underlying condition Essential (primary) hypertension 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 Lymphedema of right lower extremity Mixed hyperlipidemia AIDA on CPAP PVD (peripheral vascular disease) Septic arthritis of right ankle Stage 2 chronic kidney disease Type 1 diabetes mellitus with hyperglycemia Wound of right foot Surgical History Surgical History Encounter for postoperative care related to surgical joint fusion S/P angioplasty with stent S/P CABG x 3 Family History Family History Mother Family history of lung cancer Father Family history of lymphoma Other Diabetes mellitus Family history of arthritis Family history of cardiovascular disease Family history of congestive heart failure Family history of coronary artery disease Family history of heart disease in male family member before age 55 Family history of malignant neoplasm Family history of premature coronary heart disease Hypertension Social History Social History Social History: Patient lives at home alone. He does have a significant other and his daughter available for intermittent assistance with wound care. Years smoked: 10 Smoking status: Former smoker Tobacco type: cigarettes Second hand tobacco smoke exposure: No Smoking end date: 05/06/07 Alcohol intake: never Substance use: never Substance use type: does not use Living arrangements: alone Additional occupation/education comments: Disability Spiritual care concerns: No Anes - Eval Final PreProcedure Day of Procedure 10/19/20 10:07 Patient weight: overweight Heart: regular rate and rh
[2020-10-20] VITALS (9 sets, daily range): BP systolic 121–151; BP diastolic 51–77; PULSE 60–74; RESP 12–20; TEMP 36.3–36.4; O2SAT 94–100
--- NOTE | 2020-10-20 07:01 | WPDHPUPDATE1 ---
History and Physical Update Update Date/Time: 10/20/20 07:01 History and Physical has been reviewed, including an updated exam of the patient. There are NO changes in the patient's condition. Covid test negative. Risks, benefits, and alternatives have been discussed and questions answered. Patient agrees to proceed with procedure.
[2020-10-20] MEDS: LACTATED RINGERS 1,000 ML 30 ML IV CONT (10:18)
[2020-10-20] MEDS: KETOROLAC 15 MG/ML VIAL (*BKC) IV PUSH (10:20)
[2020-10-20 10:30] LABS: Glucose Point of Care 203 mg/dl (65-105)
[2020-10-20] MEDS: ceFAZolin 2 GM/D5W 50 ML 2 GM/50 ML BAG IVPB (10:33)
[2020-10-20] MEDS: BUPIVACAINE HCL 0.5% PF 30 ML VIAL INFILTRATE (11:01)
--- NOTE | 2020-10-20 11:50 | P.OP_ITS ---
Procedure Note - Detailed Date of Procedure 10/20/20 Pre-op Diagnosis Right Diabetic Ankle ulcer, Right Charcot Foot Post-op Diagnosis same Procedure Performed Debridement right ankle diabetic ulcer, removal of antibiotic delivery device. Application of allograft. Surgeon Familia Monteiro MD Risk Control Director botany laboratory assistant Anesthesia general Indications 54-year-old gentleman who is 4 months status post right ankle and subtalar arthrodesis. This was complicated with wound dehiscence and tibial osteomyelitis which was treated with debridement and application of an antibiotic delivery device. He now presents for removal of the antibiotic delivery device as well as debridement of lateral ankle ulcer and application of graft. Findings Nearly healed ulceration proximal medial tibia with palpable cement deep to the fascia. Lateral ankle ulcer 2 x 1 cm which probes to the lateral ankle bone. Description of Procedure What was done: Patient identified in the preoperative holding. Informed consent given. Operative extremity marked. Patient received intravenous antibiotics. Patient brought to the operating room where underwent general anesthetic by anesthesia team. Positioned supine on operating room table. Time-out performed confirming the patient, site of the surgery and the plan. Right lower extremity prepped draped usual sterile surgical fashion using ChloraPrep skin solution. No tourniquet was utilized. Fifteen blade knife used to make a longitudinal incision utilizing the previous incision over the medial anterior aspect of the midportion of the tibia. Hemostasis controlled electrocautery. Deep to the fascia of the antibiotic delivery cement was encountered. Soft tissue was freed up around this and the cement was removed. Local tissue in the bone was debr ided and thoroughly irrigated with solution. 3 x 2 cm amniotic cell amniotic graft then applied. Wound closed with 0 Prolene interrupted suture. Lateral ankle ulcer then addressed. Fifteen blade knife used to sharply excise skin, subcutaneous tissue and muscle from the wound. This measured 2 x 1 cm. Rongeur was used to debride the lateral aspect of the ankle bone. This was then thoroughly irrigated with solution. A 2 x 2 amniotic graft followed by the 3 x 3 prime matrix graft was then applied to the wound. This was closed with 0 Prolene interrupted suture. Sterile dressing applied. The patient was then woken from anesthesia, extubated and taken to the recovery room in stable condition. All sponge, needle, instrument counts were correct at the end of the case. Implants Integra amnioexcel graft 3 x 2 cm, 2 x 2 cm. Integra prime matrix 3 x 3 cm. Estimated Blood Loss 20 Tourniquet Time 0 Drains No Packing No Pathology none sent Complications None Condition stable Disposition PACU
[2020-10-20 12:02] LABS: Glucose Point of Care 173 mg/dl (65-105)
--- NOTE | 2020-10-20 12:07 | SUR.PHASEI ---
Simple mask removed at 1206.
--- NOTE | 2020-10-24 08:39 | PM.IMHP ---
H&P: HPI History of Present Illness Date/Time: 10/20/20 08:39 Chief Complaint: Right Charcot ankle with retained antibiotic cement Narrative: 54-year-old gentleman insulin-dependent diabetes and peripheral neuropathy underwent reconstruction of the right ankle for Charcot changes and ankle ulcer. Complicated postoperatively with wound dehiscence. Treated with debridement and insertion antibiotic delivery device. Presents now for removal of antibiotic delivery device debridement of ankle ulcer. Review of Systems Constitutional: Constitutional: Denies fever(s) Eyes: Eyes: Denies blurry vision ENT: Reports Normal hearing present Cardiovascular: Cardiovascular: Denies chest pain and Denies dyspnea Respiratory: Respiratory: Denies dyspnea and Denies wheezing Gastrointestinal: Gastrointestinal: Denies abdominal pain Genitourinary: Genitourinary: Denies urinary urgency Musculoskeletal: Musculoskeletal: Reports as per HPI and Reports numbness (both feet) Integumentary/Breasts: Skin/Breast: Denies changing lesions and Denies sores Neurologic: Reports Normal hearing present, Denies behavioral changes, Denies confusion, Reports numbness and Denies convulsions Psychiatric: Psychiatric: Denies behavioral changes, Denies confusion and Denies hallucinations Endocrine: Endocrine: Denies heat intolerance Hematologic/Lymphatic: Hematologic/Lymphatic: Denies easy bleeding Allergic/Immunologic: Allergic/Immunologic: Denies wheezing PMFSH Past Medical History Medical History Charcot's joint of foot in type 1 diabetes mellitus Chronic pain in right foot Clawtoe, acquired Coronary artery disease involving [place] coronary artery of [place] heart Diabetic foot ulcer associated with diabetes mellitus due to underlying condition Diabetic peripheral angiopathy Diabetic ulcer of ankle associated with diabetes mellitus due to underlying condition Essential (primary) 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 Lymphedema of right lower extremity Mixed hyperlipidemia AIDA on CPAP PVD (peripheral vascular disease) Septic arthritis of right ankle Stage 2 chronic kidney disease Type 1 diabetes mellitus with hyperglycemia Wound of right foot Surgical History Surgical History Encounter for postoperative care related to surgical joint fusion S/P angioplasty with stent S/P CABG x 3 Family History Family History Mother Family history of lung cancer Father Family history of lymphoma Other Diabetes mellitus Family history of arthritis Family history of cardiovascular disease Family history of congestive heart failure Family history of coronary artery disease Family history of heart disease in male family member before age 55 Family history of malignant neoplasm Family history of premature coronary heart disease Hypertension Social History Social History Social History: Patient lives at home alone. He does have a significant other and his daughter available for intermittent assistance with wound care. Years smoked: 10 Smoking status: Former smoker Tobacco type: cigarettes Second hand tobacco smoke exposure: No Smoking end date: 05/06/07 Alcohol intake: never Substance use: never Substance use type: does not use Living arrangements: alone Additional occupation/education comments: Disability Spiritual care concerns: No Meds Home Medications and Allergies Home Medications Medication Instructions Recorded Confirmed Type aspirin 81 mg tablet,delayed 81 mg PO DAILY 03/12/19 10/20/20 History release cholecalciferol (vitamin D3) 10 400 unit PO DAILY 05/01/19 10/20/20 History mcg (400 unit) capsule omega-3 fatty acids 1,000 mg 1,000 mg PO DAILY
== END 2020-10-20 13:24 | disposition home or self-care (01) ==
PROVIDERS: PCP Family Medicine; Visit Provider Orthopaedic Surgery
PROC: (CPT 11044; principal; 2020-10-20 11:30)
PROC: (CPT 11044; 2020-10-20 11:30)
DX: E10.622 Type 1 diabetes mellitus with other skin ulcer (principal); L97.319 Non-pressure chronic ulcer of right ankle with unspecified severity; E10.610 Type 1 diabetes mellitus with diabetic neuropathic arthropathy; I25.10 Atherosclerotic heart disease of native coronary artery without angina pectoris; E10.51 Type 1 diabetes mellitus with diabetic peripheral angiopathy without gangrene; I12.9 Hypertensive chronic kidney disease with stage 1 through stage 4 chronic kidney disease, or unspecified chronic kidney disease; N18.2 Chronic kidney disease, stage 2 (mild); E10.22 Type 1 diabetes mellitus with diabetic chronic kidney disease; E78.2 Mixed hyperlipidemia; G47.33 Obstructive sleep apnea (adult) (pediatric); Z95.5 Presence of coronary angioplasty implant and graft; Z95.1 Presence of aortocoronary bypass graft; Z79.4 Long term (current) use of insulin; Z96.41 Presence of insulin pump (external) (internal); Z87.891 Personal history of nicotine dependence
CPT/HCPCS: 11044; 20701; 15275; 82948; J0690; J1885; J2250; J2704; J3010; J7120; Q4137

== ENCOUNTER 2020-11-04 09:03 | Outpatient (CLI) | payer MEDICARE, SELFPAY ==
[2020-11-04 10:00] LABS: Basophils Percent Auto 0.5 % (0.2-1.2); Eosinophils Absolute Auto 0.1 K/mm3 (0-0.3); Eosinophils Percent Auto 1.2 % (0-4.4); Hematocrit 37.6 % (42.0-52.0); Hemoglobin 11.9 g/dL (14.0-18.0); Immature Granulocyte Absolute 0.04 K/mm3 (0.00-0.031); Immature Granulocyte Percent A 0.5 % (0-0.5); Lymphocytes Absolute Auto 0.95 K/mm3 (0.9-3.2); Lymphocytes Percent Auto 11.5 % (18.3-44.2); Mean Corpuscular HGB Conc 31.6 g/dl (32-36); Mean Corpuscular Hemoglobin 26.2 pg (26-34); Mean Corpuscular Volume 82.8 fl (80-100); Mean Platelet Volume 8.2 fl (7.4-10.4); Monocytes Absolute Auto 1.3 K/mm3 (0.1-0.6); Neutrophils Absolute Auto 5.8 K/mm3 (1.3-6.7); Neutrophils Percent Auto 70.3 % (45.5-73.1); Platelet Count Result 439 k/mm3 (150-375); Red Blood Count 4.54 M/mm3 (4.6-6.20); Red Cell Distribution Width 15.4 % (11.5-14.5); White Blood Count 8.2 K/mm3 (4.5-10.0)
[2020-11-04 10:09] LABS: Alanine Aminotransferase 24 U/L (4-50); Alkaline Phosphatase 96 U/L (38-126); Anion Gap 8 mmol/L (8-16); Aspartate Amino Transferase 47 U/L (17-59); Bilirubin,Total 0.5 mg/dL (0.2-1.3); Blood Urea Nitrogen 38 mg/dL (9-20); Calcium 9.7 mg/dL (8.4-10.2); Carbon Dioxide 28 mmol/L (22-30); Chloride 100 mmol/L (98-107); Estimated Glomerular Filt Rate 57; Glucose 116 mg/dL (75-110); Potassium 5.3 mmol/L (3.4-5.0); Sodium 136 mmol/L (137-145)
[2020-11-04 10:21] LABS: NT Pro B Type Natriuretic Pept 113 pg/mL (5-100); Troponin I < 0.012 ng/mL (0.000-0.034)
[2020-11-04 10:51] LABS: Erythrocyte Sedimentation Rate 86 mm/hr (0-20)
[2020-11-07 12:15] LABS: CRP, High Sensitivity >10.0 mg/L (***)
== END 2020-11-04 09:04 | disposition home or self-care (01) ==
PROVIDERS: PCP Family Medicine; Visit Provider Orthopaedic Surgery
DX: E08.622 Diabetes mellitus due to underlying condition with other skin ulcer (principal); L97.309 Non-pressure chronic ulcer of unspecified ankle with unspecified severity; E08.621 Diabetes mellitus due to underlying condition with foot ulcer; L97.511 Non-pressure chronic ulcer of other part of right foot limited to breakdown of skin
CPT/HCPCS: 36415; 80053; 83880; 84484; 85025; 85652; 86141; 99213; G0463

== ENCOUNTER 2020-11-28 13:00 | Outpatient (CLI) | payer MEDICARE, SELFPAY ==
--- NOTE | ~2020-11-28 | CT_ITS ---
EXAMINATION: CT LE RT wo con DATE: 11/28/2020 13:39 INDICATION: Mechanical complication of other internal orthopedic devices or implants. Diabetic ulcer with exposed orthopedic instrumentation. TECHNIQUE: High resolution computed tomography (CT) of the right lower leg from the knee through the ankle was performed without intravenous contrast. Additional sagittal and coronal reconstructions wer e performed. Automated exposure control and iterative reconstruction technique were employed. The dos e-length product was 950.03 mGy-cm. COMPARISON: Radiograph dated 11/15/2020, 10/14/2020 and 08/29/2020 FINDINGS: Osteotomy of the distal right fibula with smooth corticated osteotomy margin. Again seen are postoper ative change of the attempted right ankle and subtalar arthrodesis with retrograde xochitl spanning the c alcaneus, talus and extending into the distal right tibial diaphysis. There is a distal posterior to anterior directed interlocking screw spanning the calcaneus as well as a lateral to medial oriented i nterlocking screw at the distal diaphysis. The diaphyseal screw has backed out which appears to occur between the radiograph and 10/14 and 11/15. There is some methylmethacrylate along the tract of a seco nd screw which was removed between radiographs on /and 11/15. There is also a new lucent tract from a second order plantar calcaneal interlocking screw which is been removed since last recent radiogra phs on 11/15. A narrow gauge pin extends from the lateral process of the talus across the tibiotalar j oint into the lateral metaphyseal region of the distal tibia. This appears to remain unchanged interp osition with very small amount of surrounding osteolysis which in places difficult to distinguish fro m the associated streak artifact. There is eccentric positioning of the proximal tip of the retrograde xochitl with progressive osteolysis along the inner margin of the lateral sided cortex which is continued increase since the radiograph f rom 08/29. More significant nonspecific osteolysis is seen more distally along the retrograde xochitl at t he level of the talus and calcaneus. There has been significant osteolysis along the subarticular por tions of the tibial plafond and talar dome with widening of the joint space and extensive cortical er osion which is more concerning for osteomyelitis. Also with appearance suspicious for osteomyelitis i s erosion of the bones with widening of the joint space at the subtalar, calcaneocuboid and talonavic ular joints. There is near fluid attenuation within the right and joint spaces raising concern for po ssible abscess. There is increasing periosteal reaction along the distal diaphysis of the tibia. There has been a prior midfoot arthrodesis with solid osseous fusion extending between the cuneiforms , the cuboid and the base of the metatarsals. Extensive soft tissue edema about the distal lower leg and visualized portion of the foot. No soft tissue gas. No acute fracture. IMPRESSION: 1. Significant osteolysis with progressive widening of the ankle, calcaneocuboid and talonavicular barbara ints with extensive osteolysis of the articular cortices and subarticular bone which is most suspicio us for septic arthritis and osteomyelitis. 2. Loosening of the retrograde xochitl as well as of a distal interlocking screw at the distal tibial kristyn physis and could not exclude more proximal extension of osteomyelitis particularly given the prominen t periosteal reaction along the distal diaphysis. Reviewed, dictated and finalized at location A. IMPRESSION: 1. Significant osteolysis with progressive widening of the ankle, calcaneocuboi d and talonavicular joints with extensive osteolysis of the articular cortices and subarticular bone which is most suspicious for septic arthritis a
== END 2020-11-28 13:01 | disposition home or self-care (01) ==
PROVIDERS: PCP Family Medicine; Visit Provider Nurse Practitioner Family
DX: L97.309 Non-pressure chronic ulcer of unspecified ankle with unspecified severity (principal); E08.622 Diabetes mellitus due to underlying condition with other skin ulcer; T84.498A Other mechanical complication of other internal orthopedic devices, implants and grafts, initial encounter; M89.571 Osteolysis, right ankle and foot
CPT/HCPCS: 73700

== ENCOUNTER 2021-01-06 07:41 | Outpatient (RCR) | payer MEDICARE, SELFPAY ==
--- NOTE | 2020-10-14 08:45 | PM.PNORT ---
Progress Note: A&P Assessment and Plan (1) Infection of bone of right ankle: Code(s): M86.9 - Osteomyelitis, unspecified Status: Acute Assessment and Plan: 6 weeks, 2 days s/p excisional debridement of right ankle with insertion of antibiotic cement and 3 weeks status post removal of antibiotic cement of the right lateral ankle in the [facility] wound clinic by Dr. Monteiro. Sutures removed from the lateral ankle wound today. Remaining ulcer measures 2.0x0.7x2.0cm. 100% red/pink wound bed. Begin daily dressing changes with shoshana/gentamicin to the wound bed. Cover dry. Continued wound on the medial aspect of the distal tibia with probing beneath skin surface, possibly to site of cement which was placed 6 weeks ago. No purulence, no malodor. No surrounding redness, warmth or swelling or signs of active infection. Treated once again with silver nitrate. Begin gentamicin in 2 days. Continue fracture boot with minimal weight bearing. New radiographs to be obtained today in the outpatient orthopedic clinic. Will contact patient with results and any further recommendations. Continue oral antibiotics. Follow up in 1 week. (2) Diabetic ulcer of ankle associated with diabetes mellitus due to underlying condition: Code(s): E08.622 - Diabetes mellitus due to underlying condition with other skin ulcer; L97.309 - Non-pressure chronic ulcer of unspecified ankle with unspecified severity Status: Acute Assessment and Plan: Reviewed importance of proper nutrition and medication compliance for optimal healing. Patient reports well maintained blood glucose levels. Recommended initiating glucerna. 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 Monteiro. No new concerns today. Patient denies fever, chills, night sweats, nausea, vomiting or diarrhea. He is still taking his oral antibiotics without complications. He is performing daily dressing changes. He continues to note decreased drainage to the lateral ankle wound status post removal of antibiotic cement. Review of Systems Constitutional: Constitutional: Denies fever(s) Eyes: Eyes: Denies blurry vision ENT: Reports Normal hearing present Cardiovascular: Cardiovascular: Denies chest pain and Denies dyspnea Respiratory: Respiratory: Denies dyspnea and Denies wheezing Gastrointestinal: Gastrointestinal: Denies abdominal pain Genitourinary: Genitourinary: Denies urinary urgency Musculoskeletal: Musculoskeletal: Reports as per HPI and Reports numbness (both feet) Integumentary/Breasts: Skin/Breast: Denies changing lesions and Denies sores Neurologic: Reports Normal hearing present, Denies behavioral changes, Denies confusion, Reports numbness and Denies convulsions Psychiatric: Psychiatric: Denies behavioral changes, Denies confusion and Denies hallucinations Endocrine: Endocrine: Denies heat intolerance Hematologic/Lymphatic: Hematologic/Lymphatic: Denies easy bleeding Allergic/Immunologic: Allergic/Immunologic: Denies wheezing Exam Const: General: healthy appearing; No in distress or confusion Orientation/consciousness: patient oriented x3 and No confusion HENMT: Head: normal to inspection, normocephalic and atraumatic Eyes: Conjunctivae: conjunctivae normal Sclera: sclerae normal Resp: Effort & Inspection: normal respiratory effort and no audible wheezes GI: Inspection: non-distended GI Palp: Yes Soft to palpation, No Tenderness to palpation present (GI) and No Guarding due to palpation present (GI) Skin: Wounds: wounds noted (see below ) Neuro: General: elpidio
--- NOTE | 2020-10-25 09:11 | PM.PNORT ---
Progress Note: A&P Assessment and Plan (1) Infection of bone of right ankle: Code(s): M86.9 - Osteomyelitis, unspecified Status: Acute Assessment and Plan: Five days status post removal of cement, debridement and graft application to the right foot. Sutures on the medial and lateral aspect of the ankle well approximated. No malodor. No purulence. No surrounding redness, warmth or swelling. Transfer dressing applied to both incisions. Covered with ABD pads and wrapped with Kerlix and Coban. Patient to begin bone stimulator this week. Bone stimulator education provided today in the Wound Clinic by the [employer] outside sales representative. Patient to do daily dressing changes. Continue oral antibiotics. Follow-up next week. (2) Diabetic ulcer of ankle associated with diabetes mellitus due to underlying condition: Code(s): E08.622 - Diabetes mellitus due to underlying condition with other skin ulcer; L97.309 - Non-pressure chronic ulcer of unspecified ankle with unspecified severity Status: Acute Assessment and Plan: Reviewed importance of proper nutrition and medication compliance for optimal healing. Patient reports well maintained blood glucose levels. Recommended initiating glucerna. 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 He denies fever, chills, night sweats, nausea, vomiting or diarrhea. No new signs of infection. No new concerns today. Review of Systems Constitutional: Constitutional: Denies fever(s) Eyes: Eyes: Denies blurry vision ENT: Reports Normal hearing present Cardiovascular: Cardiovascular: Denies chest pain and Denies dyspnea Respiratory: Respiratory: Denies dyspnea and Denies wheezing Gastrointestinal: Gastrointestinal: Denies abdominal pain Genitourinary: Genitourinary: Denies urinary urgency Musculoskeletal: Musculoskeletal: Reports as per HPI and Reports numbness (both feet) Integumentary/Breasts: Skin/Breast: Denies changing lesions and Denies sores Neurologic: Reports Normal hearing present, Denies behavioral changes, Denies confusion, Reports numbness and Denies convulsions Psychiatric: Psychiatric: Denies behavioral changes, Denies confusion and Denies hallucinations Endocrine: Endocrine: Denies heat intolerance Hematologic/Lymphatic: Hematologic/Lymphatic: Denies easy bleeding Allergic/Immunologic: Allergic/Immunologic: Denies wheezing Exam Const: General: healthy appearing; No in distress or confusion Orientation/consciousness: patient oriented x3 and No confusion HENMT: Head: normal to inspection, normocephalic and atraumatic Eyes: Conjunctivae: conjunctivae normal Sclera: sclerae normal Resp: Effort & Inspection: normal respiratory effort and no audible wheezes GI: Inspection: non-distended GI Palp: Yes Soft to palpation, No Tenderness to palpation present (GI) and No Guarding due to palpation present (GI) Skin: Wounds: wounds noted (see below ) Neuro: General: patient oriented x3, No gait normal (NWB RLE ) and No confusion Cognition (Neuro): normal cognition Extrem: Right lower extremity: lower leg (see below ) Details: localized swelling, ankle (see below ) Details: swelling, abnormal ROM (fusion ) and other (wound dimensions below ); no unusual warmth and no abrasions and foot (see below ) Details: vascular exam Details: dorsalis pedis pulse present and motor-sensory exam Details: two point discrimination abnormal and light-touch abnormal; no ecchymosis and no crepitus Other: Dressing removed from the right lower extremity. Medial and lateral incisions well approximated. No drainage. No signs of infection. No purulence, no malodor. Psych: Affect: no
--- NOTE | 2020-11-04 08:47 | PM.PNORT ---
Progress Note: A&P Assessment and Plan (1) Infection of bone of right ankle: Code(s): M86.9 - Osteomyelitis, unspecified Status: Acute Assessment and Plan: 15 days status post removal of cement, debridement and graft application to the right foot. Sutures on the medial and lateral aspect of the ankle well approximated. One suture from the medial aspect and 2 sutures from the lateral ankle removed today. Remaining sutures left in place. No malodor. No purulence. No surrounding redness, warmth or swelling. Transfer dressing applied to both incisions. Covered with ABD pads and wrapped with Kerlix and Coban. Patient to continue bone stimulator this week. Patient to do daily dressing changes. Stop oral antibiotics. Follow-up one week. Concerned about general malaise and fatigue with low-grade fever and diarrhea. Recommend proceed to the emergency room for full evaluation. The patient has declined that. We are going to order some blood work to see about white count and inflammatory markers as well as heart enzymes. Recommend yogurt and probiotics as well as plenty of fluids. Patient verbalizes understanding. Labs ordered and patient proceed directly to lab at this time. (2) Diabetic ulcer of ankle associated with diabetes mellitus due to underlying condition: Code(s): E08.622 - Diabetes mellitus due to underlying condition with other skin ulcer; L97.309 - Non-pressure chronic ulcer of unspecified ankle with unspecified severity Status: Acute Assessment and Plan: Reviewed importance of proper nutrition and medication compliance for optimal healing. Patient reports well maintained blood glucose levels. Recommended initiating glucerna. 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 outpatient wound clinic 2 weeks status post removal of antibiotic delivery device and debridement of right ankle ulcer. No problems or new complaints with the ankle. He has been doing daily dressing changes and fracture boot for immobilization. He does complain of generalized fatigue and malaise. Low-grade fever by report, 2 days of diarrhea and just generally feeling tired. Diarrhea has stopped. His blood sugars have been stable in the low 100s. Exam Const: General: healthy appearing; No in distress or confusion Orientation/consciousness: patient oriented x3 and No confusion HENMT: Head: normal to inspection, normocephalic and atraumatic Eyes: Conjunctivae: conjunctivae normal Sclera: sclerae normal Resp: Effort & Inspection: normal respiratory effort and no audible wheezes GI: Inspection: non-distended GI Palp: Yes Soft to palpation, No Tenderness to palpation present (GI) and No Guarding due to palpation present (GI) Skin: Wounds: wounds noted (see below ) Neuro: General: patient oriented x3, No gait normal (NWB RLE ) and No confusion Cognition (Neuro): normal cognition Extrem: Right lower extremity: lower leg (see below ) Details: localized swelling, ankle (see below ) Details: swelling, abnormal ROM (fusion ) and other (wound dimensions below ); no unusual warmth and no abrasions and foot (see below ) Details: vascular exam Details: dorsalis pedis pulse present and motor-sensory exam Details: two point discrimination abnormal and light-touch abnormal; no ecchymosis and no crepitus Other: Dressing removed from the right lower extremity. Medial and lateral incisions well approximated. No drainage. No signs of infection. No purulence, no malodor. Psych: Affect: normal affect Objective Data Meds/Results Medications: Active Medications Generic Name Dose Route Sta
--- NOTE | 2020-11-11 09:35 | PM.PNORT ---
Progress Note: A&P Assessment and Plan (1) Infection of bone of right ankle: Code(s): M86.9 - Osteomyelitis, unspecified Status: Acute Assessment and Plan: 22 days status post removal of cement, debridement and graft application to the right ankle. Sutures on the medial and lateral aspect of the ankle well approximated. Two sutures from the medial aspect and 1 suture from the lateral ankle removed today. No malodor. No drainage. No surrounding redness, warmth or swelling. Transfer dressing applied to both incisions. gentamicin ointment. Covered with ABD pads and wrapped with Kerlix and Coban. Continue bone stimulator. Patient to do daily dressing changes. (2) Diabetic ulcer of ankle associated with diabetes mellitus due to underlying condition: Code(s): E08.622 - Diabetes mellitus due to underlying condition with other skin ulcer; L97.309 - Non-pressure chronic ulcer of unspecified ankle with unspecified severity Status: Acute Assessment and Plan: Reviewed importance of proper nutrition and medication compliance for optimal healing. Patient reports well maintained blood glucose levels. Recommended initiating glucerna. 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 Discussed need for removal. Patient verbalized understanding he has declined anesthesia and would like to do this under local. Discussed nonoperative and operative treatment options with the patient. Risks and benefits of each as well as alternatives were reviewed. All of the patient's questions were answered. The risks of surgery reviewed including but not limited to: Neurovascular damage, wound complication, infection, blood clot, pulmonary embolus, stroke, myocardial infarction, and anesthetic risks up to and including . Continued pain and possible dysfunction were explained. Specific risks of the procedure including later recurrence of deformity. No guarantees were offered. If complications occur, the patient understands the need for further treatment, possible further surgery. Patient verbalizes understanding and wishes to proceed. PLAN: Removal hardware right foot. Subjective Subjective Date/Time Seen: 11/11/20 09:35 Post Op day: 22 Principal diagnosis: right Charcot ankle with diabetic ulcer Interval history: 3 weeks status post removal of cement from the right ankle and debridement of ulceration. Last week patient feeling lethargic with general malaise. Blood work done and reviewed. His inflammatory markers were elevated including CRP and sed rate however his white blood cell count was normal and the rest of his laboratory results were stable. Patient states he is feeling better overall. He does have some prominence over the posterior heel. He has followed up with his veneer jointer helper for any further recommendations from them. Exam Const: General: healthy appearing; No in distress or confusion Orientation/consciousness: patient oriented x3 and No confusion HENMT: Head: normal to inspection, normocephalic and atraumatic Eyes: Conjunctivae: conjunctivae normal Sclera: sclerae normal Resp: Effort & Inspection: normal respiratory effort and no audible wheezes GI: Inspection: non-distended GI Palp: Yes Soft to palpation, No Tenderness to palpation present (GI) and No Guarding due to palpation present (GI) Skin: Wounds: wounds noted (see below ) Neuro: General: patient oriented x3, No gait normal (NWB RLE ) and No confusion Cognition (Neuro): normal cognition Extrem: Right lowe
--- NOTE | 2020-11-22 08:55 | PM.PNORT ---
Progress Note: A&P Assessment and Plan (1) Exposed orthopaedic hardware: Code(s): T84.498A - Other mechanical complication of other internal orthopedic devices, implants and grafts, initial encounter Status: Acute Assessment and Plan: Patient is 1 week status post calcaneal screw removal in the outpatient orthopedic clinic. He now has a new ulcer on the medial ankle at the site of the previous incision. There is widening of the incision noted with an area of opening which has moderate sink when his drainage. He reports purulence drainage from the site on Saturday. No purulence noted today. Serosanguineous drainage only. Hypergranulation tissue noted. Patient denies fever or chills. He did start himself back on oral antibiotics on Saturday. Discussed concerns for possible hardware infection versus osteomyelitis in the distal tibia. Recommend CT scan of the right lower extremity at this time. Patient to continue oral antibiotics, prescription renewed. Patient may require admission to [facility] for IV antibiotics pending CT scan results. Reviewed signs and symptoms of worsening infection that would require immediate intervention in the emergency room. Pending CT scan results, patient may benefit from surgical intervention to remove remaining screw in the distal tibia and replace with an antibiotic screw. Patient verbalized understanding and agrees with plan of care. 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 He reports a new onset medial ankle wound and purulence drainage which occurred on Saturday. He reports having expressed copious amounts of purulence from the right medial ankle wound on Saturday. He started himself back on cephalexin orally at that time. He denies fever, chills, night sweats, nausea, vomiting or diarrhea. He did not seek medical care. Review of Systems Constitutional: Constitutional: Denies fever(s) Eyes: Eyes: Denies blurry vision ENT: Reports Normal hearing present Cardiovascular: Cardiovascular: Denies chest pain and Denies dyspnea Respiratory: Respiratory: Denies dyspnea and Denies wheezing Gastrointestinal: Gastrointestinal: Denies abdominal pain Genitourinary: Genitourinary: Denies urinary urgency Musculoskeletal: Musculoskeletal: Reports as per HPI and Reports numbness (both feet) Integumentary/Breasts: Skin/Breast: Denies changing lesions and Denies sores Neurologic: Reports Normal hearing present, Denies behavioral changes, Denies confusion, Reports numbness and Denies convulsions Psychiatric: Psychiatric: Denies behavioral changes, Denies confusion and Denies hallucinations Endocrine: Endocrine: Denies heat intolerance Hematologic/Lymphatic: Hematologic/Lymphatic: Denies easy bleeding Allergic/Immunologic: Allergic/Immunologic: Denies wheezing Exam Const: General: healthy appearing; No in distress or confusion Orientation/consciousness: patient oriented x3 and No confusion HENMT: Head: normal to inspection, normocephalic and atraumatic Eyes: Conjunctivae: conjunctivae normal Sclera: sclerae normal Resp: Effort & Inspection: normal respiratory effort and no audible wheezes GI: Inspection: non-distended GI Palp: Yes Soft to palpation, No Tenderness to palpation present (GI) and No Guarding due to palpation present (G
--- NOTE | 2020-11-29 10:47 | PM.PNORT ---
Progress Note: A&P Assessment and Plan (1) Failure of joint fusion: Qualifiers: Encounter type: subsequent encounter Qualified Code(s): T84.9XXD - Unspecified complication of internal orthopedic prosthetic device, implant and graft, subsequent encounter <DAO Wade - Last Filed: 11/29/20 10:58> Code(s): T84.9XXA - Unspecified complication of internal orthopedic prosthetic device, implant and graft, initial encounter <DAO Wade - Last Filed: 11/29/20 10:58> Status: Acute <DAO Wade - Last Filed: 11/29/20 10:58> Assessment and Plan: 54-year-old male follows up in the [facility] wound clinic today for re-evaluation of right medial and lateral ankle wounds. He is 4.5 months status post right ankle arthrodesis. Patient has a history of diabetes and Charcot neuropathy. He has had several surgeries of the right lower extremity and recurrent wounds. CT scan of the right lower extremity revealed significant osteolysis with progressive widening of the ankle, calcaneocuboid and talonavicular joints with extensive osteolysis of the articular cortices and subarticular bone. There was also noted to be loosening of the retrograde xochitl as well as of a distal interlocking screw at the distal tibial diaphysis. patient continues to suffer from right medial distal leg wound which measures 1.7 x 0.6 x 2.0 cm. Moderate amount of serosanguineous drainage noted. No purulence. No surrounding redness, warmth. Moderate edema noted. Lateral ankle wound with scant serosanguineous drainage. No signs of septic arthritis at this time. Patient would ultimately benefit from removal of current hardware and insertion of antibiotic xochitl and new screw verses [id number] amputation. Discussed both surgical options with patient in depth today. Patient had a recent stress test by his appliance painter and refinisher and it has been suggest that the patient proceed with cardiac catheterization at this time. Per his appliance painter and refinisher, patient would not be a candidate for further surgical intervention until stabilization from a cardiology standpoint. Discussed case with attending MD, Dr. Monteiro as well as recent CT scan results. Dr. Monteiro recommends patient proceed with cardiology procedure at this time. Patient to continue conservative treatment with daily dressing changes. Continue NWB of the RLE. Patient to contact our office with appt time for cardiac catheterization. Will continue to monitor in wound clinic in the interim. Will determine definitive surgical intervention pending cardiac stabilization. <DAO Wade - Last Filed: 11/29/20 10:58> (2) Diabetic ulcer of ankle associated with diabetes mellitus due to underlying condition: Code(s): E08.622 - Diabetes mellitus due to underlying condition with other skin ulcer; L97.309 - Non-pressure chronic ulcer of unspecified ankle with unspecified severity <DAO Wade - Last Filed: 11/29/20 10:58> Status: Acute <DAO Wade - Last Filed: 11/29/20 10:58> Assessment and Plan: CT scan right ankle reviewed. Current patient condition discussed with nurse practitioner. CT scan shows incomplete healing of the ankle and subtalar joint with loosening of the screw fixation. Unsure whether poor healing due to neuropathy or infection. Not currently showing any signs of infection or drainage. Discussed options for ankle hardware revision or amputation. Both would require cardiac clearance. For this reason recommend proceed with cardiac treatment and continue with conservative care for the ankle. We will re-evaluate once cleared from a cardiac standpoint. <Familia Monteiro MD - Last Filed: 11/29/20 12:10> (3) Charcot foot due to diabetes mellitus: Code(s): E11.610 - Type 2 diabetes mellitus with diabetic neuropathic arthropathy <DAO Wade - Last Filed: 11/29/20 10:58> Status: Acute <Lluvia Lam
--- NOTE | 2020-12-06 10:01 | PM.PNORT ---
Progress Note: A&P Assessment and Plan (1) Diabetic ulcer of ankle associated with diabetes mellitus due to underlying condition: Code(s): E08.622 - Diabetes mellitus due to underlying condition with other skin ulcer; L97.309 - Non-pressure chronic ulcer of unspecified ankle with unspecified severity Status: Acute Assessment and Plan: CT scan of the right ankle showed incomplete healing of the ankle and subtalar joint with loosening of screw fixation. Unsure whether poor healing due to neuropathy or infection. Patient is currently not showing any signs of infection. Moderate amount of serosanguineous drainage noted from the medial ankle. No purulence. No malodor. No fever, chills, night sweats, nausea, vomiting or diarrhea. Today we discussed options for ankle hardware revision versus amputation. Patient is currently awaiting a cardiac catheterization by Cardiology next Saturday. We will refrain from surgical intervention if no signs of acute infection in the interim. Patient will need cardiac clearance prior to proceeding with surgical intervention. We will follow up with patient status post cardiac catheterization next week. Recommended patient begin waking medial ankle wound with iodoform gauze in the interim. Continue gentamicin. Change dressing daily. Subjective Subjective Date/Time Seen: 12/06/20 10:01 Interval history: 54-year-old male presents to [place] wound clinic 3 weeks status post hardware removal in the outpatient orthopedic clinic. He is 4-1/2 months status post right ankle arthrodesis. His postoperative course has been complicated by return to the OR for I and D of cement removal and hardware exposure. He had a new onset wound on the medial aspect of the right ankle which was noted 2 weeks ago. He underwent a lower extremity CT scan last week. Results of that have been noted. He is currently awaiting a cardiac catheterization by his gymnastics coach or instructor next Saturday. We are holding off on any further surgical intervention pending cardiac stability. He continues on oral antibiotics. Review of Systems Constitutional: Constitutional: Denies fever(s) Eyes: Eyes: Denies blurry vision ENT: Reports Normal hearing present Cardiovascular: Cardiovascular: Denies chest pain and Denies dyspnea Respiratory: Respiratory: Denies dyspnea and Denies wheezing Gastrointestinal: Gastrointestinal: Denies abdominal pain Genitourinary: Genitourinary: Denies urinary urgency Musculoskeletal: Musculoskeletal: Reports as per HPI and Reports numbness (both feet) Integumentary/Breasts: Skin/Breast: Denies changing lesions and Denies sores Neurologic: Reports Normal hearing present, Denies behavioral changes, Denies confusion, Reports numbness and Denies convulsions Psychiatric: Psychiatric: Denies behavioral changes, Denies confusion and Denies hallucinations Endocrine: Endocrine: Denies heat intolerance Hematologic/Lymphatic: Hematologic/Lymphatic: Denies easy bleeding Allergic/Immunologic: Allergic/Immunologic: Denies wheezing Exam Const: General: healthy appearing; No in distress or confusion Orientation/consciousness: patient oriented x3 and No confusion HENMT: Head: normal to inspection, normocephalic and atraumatic Eyes: Conjunctivae: conjunctivae normal Sclera: sclerae normal Resp: Effort & Inspection: normal respiratory effort and no audible wheezes GI: Inspection: non-distended GI Palp: Yes Soft to palpation, No Tenderness to palpation present (GI) and No Guarding due to palpation present (GI) Skin: Wounds: wounds noted (see below ) Neuro: General: patient oriented x3, No gait normal (NWB RLE ) and No confusion Cognition (Neuro): normal cognition Extrem: Right lower extremity: lower leg (see below ) Details: localized swelling, ankle (see below ) Details: swelling, abnormal ROM (fusion ) and other (wound dimensions below ); no unusual warmth and no abrasions and foot (see below ) Details: vasc
--- NOTE | 2020-12-16 10:51 | PM.PNORT ---
Progress Note: A&P Assessment and Plan (1) Diabetic ulcer of ankle associated with diabetes mellitus due to underlying condition: Code(s): E08.622 - Diabetes mellitus due to underlying condition with other skin ulcer; L97.309 - Non-pressure chronic ulcer of unspecified ankle with unspecified severity Status: Acute Assessment and Plan: CT scan shows incomplete healing of the ankle and subtalar joint with loosening of the screw fixation. Unsure whether poor healing due to neuropathy or infection. Cultures taken today. Not currently showing any signs of infection. Discussed options for ankle hardware revision or amputation. Continue with daily dressing changes and limited activity with fracture boot. Patient underwent cardiac stent placement of this week. Currently on Plavix. Continue to monitor. Subjective Subjective Date/Time Seen: 12/16/20 10:51 54-year-old male presents to [facility] outpatient wound clinic 4 weeks status post hardware removal in the outpatient orthopedic clinic. He is 5 months status post right ankle arthrodesis. His postoperative course has been complicated by return to the OR for I and D , cement removal and hardware exposure. He had a new onset wound on the medial aspect of the right ankle which was noted 3 weeks ago. patient underwent cardiac catheterization this week. He was found to blockage of 1 of the bypass vessels and underwent stent placement. He is currently on Plavix. He continues on oral antibiotics. Exam Const: General: healthy appearing; No in distress or confusion Orientation/consciousness: patient oriented x3 and No confusion HENMT: Head: normal to inspection, normocephalic and atraumatic Eyes: Conjunctivae: conjunctivae normal Sclera: sclerae normal Resp: Effort & Inspection: normal respiratory effort and no audible wheezes GI: Inspection: non-distended GI Palp: Yes Soft to palpation, No Tenderness to palpation present (GI) and No Guarding due to palpation present (GI) Skin: Wounds: wounds noted (see below ) Neuro: General: patient oriented x3, No gait normal (NWB RLE ) and No confusion Cognition (Neuro): normal cognition Extrem: Right lower extremity: lower leg (see below ) Details: localized swelling, ankle (see below ) Details: swelling, abnormal ROM (fusion ) and other (wound dimensions below ); no unusual warmth and no abrasions and foot (see below ) Details: vascular exam Details: dorsalis pedis pulse present and motor-sensory exam Details: two point discrimination abnormal and light-touch abnormal; no ecchymosis and no crepitus Other: Dressing removed from the right lower extremity. Medial wound measures 1.5x0.7x3 cm. Lateral ankle incision measures 0.2x0.1x1.0cm. Scant drainage from the lateral ankle noted. No purulence, no malodor. Moderate amount of serosanguineous drainage in from the medial incision. Probing to bone/hardware. More proximal medial wound body and fluctuant. Small skin incision made under sterile conditions with serosanguineous fluid. Cultures taken. Moderate right lower extremity edema noted. Psych: Affect: normal affect Objective Data Meds/Results Medications: Active Medications Generic Name Dose Route Start Last Admin Trade Name Freq PRN Reason Stop Dose Admin Gentamicin Sulfate 1 applic 10/14/20 13:09 Gentamicin Sulfate 0.1% Oint 15 Gm Tube TOPICAL 01/13/21 23:59 PRN PRN Wound Care Wound Care/Dressing Products 1 patch 10/14/20 13:10 Mepilex Transfer Drsg 6x8 TOPICAL 01/14/21 23:59 PRN PRN Wound Care
--- NOTE | 2020-12-23 09:01 | PM.PNORT ---
Progress Note: A&P Assessment and Plan (1) Diabetic ulcer of ankle associated with diabetes mellitus due to underlying condition: Code(s): E08.622 - Diabetes mellitus due to underlying condition with other skin ulcer; L97.309 - Non-pressure chronic ulcer of unspecified ankle with unspecified severity Status: Acute Assessment and Plan: overall, right leg looks better. The medial wound is consolidated into 1 ulcer. The previous site has healed up. Still with sanguinous drainage from the medial side and minimal drainage from the lateral side. Culture results show pansensitive Pseudomonas. Discussed with Infectious Disease. Recommend double coverage antibiotic. Cipro and cephalexin ordered. Continue with daily dressing changes switched to gentamicin ointment for Pseudomonas coverage. Patient has evaluation for vascular assessment in January. Follow-up in 1 week for dressing change. planned for 10 to 14 day course of antibiotics Discussed options for ankle hardware revision or amputation. Continue with daily dressing changes and limited activity with fracture boot. Subjective Subjective Date/Time Seen: 12/23/20 09:01 Principal diagnosis: RT ankle charcot Interval history: Patient returns to [facility] for re-evaluation of the right leg. Culture results returned. Patient has appointment for vascular evaluation. He reports no new problems Exam Const: General: healthy appearing; No in distress or confusion Orientation/consciousness: patient oriented x3 and No confusion HENMT: Head: normal to inspection, normocephalic and atraumatic Eyes: Conjunctivae: conjunctivae normal Sclera: sclerae normal Resp: Effort & Inspection: normal respiratory effort and no audible wheezes GI: Inspection: non-distended GI Palp: Yes Soft to palpation, No Tenderness to palpation present (GI) and No Guarding due to palpation present (GI) Skin: Wounds: wounds noted (see below ) Neuro: General: patient oriented x3, No gait normal (NWB RLE ) and No confusion Cognition (Neuro): normal cognition Extrem: Right lower extremity: lower leg (see below ) Details: localized swelling, ankle (see below ) Details: swelling, abnormal ROM (fusion ) and other (wound dimensions below ); no unusual warmth and no abrasions and foot (see below ) Details: vascular exam Details: dorsalis pedis pulse present and motor-sensory exam Details: two point discrimination abnormal and light-touch abnormal; no ecchymosis and no crepitus Other: Right lower extremity Medial wound measures 1.5x1.5x3.0 cm. Lateral ankle incision measures 1.4x0.5x1.2cm. Scant drainage from the lateral ankle noted. No purulence, no malodor. Moderate amount of serosanguineous drainage in from the medial incision. Probing to bone/hardware. More proximal medial wound body and fluctuant. Small skin incision made under sterile conditions with serosanguineous fluid. Cultures taken. Moderate right lower extremity edema noted. Psych: Affect: normal affect Objective Data Meds/Results Medications: Active Medications Generic Name Dose Route Start Last Admin Trade Name Freq PRN Reason Stop Dose Admin Gentamicin Sulfate 1 applic 10/14/20 13:09 Gentamicin Sulfate 0.1% Oint 15 Gm Tube TOPICAL 01/13/21 23:59 PRN PRN Wound Care Wound Care/Dressing Products 1 patch 10/14/20 13:10 Mepilex Transfer Drsg 6x8 TOPICAL 01/14/21 23:59 PRN PRN Wound Care
--- NOTE | 2020-12-30 08:34 | PM.PNORT ---
Progress Note: A&P Assessment and Plan (1) Diabetic ulcer of ankle associated with diabetes mellitus due to underlying condition: Code(s): E08.622 - Diabetes mellitus due to underlying condition with other skin ulcer; L97.309 - Non-pressure chronic ulcer of unspecified ankle with unspecified severity Status: Acute Assessment and Plan: Right lower extremity edema improving. Medial wound with continued serosanguineous drainage. Previous I&D site more proximally remains closed. Mildly fluctuant. No redness, warmth or swelling. No purulence. Previous culture results reveal pansensitive Pseudomonas. Discussed with Infectious Disease last week and started patient on Cipro and cephalexin ordered. No complications with oral antibiotics at this time. Continue with daily dressing changes with gentamicin ointment for Pseudomonas coverage. Patient has evaluation for vascular assessment in January. He has appt with ID in January. Follow-up in 1 week for dressing change. Continue antibiotics. Discussed options for ankle hardware revision or amputation. Continue with daily dressing changes and limited activity with fracture boot. Subjective Subjective Date/Time Seen: 12/30/20 08:34 Principal diagnosis: Right Ankle Charcot Interval history: Patient returns to [facility] for re-evaluation of the right leg. He has been on oral antibiotics x 1 week. No new concerns. Tolerating medication well. Awaiting ID consult at the end of January. Patient has appointment for vascular evaluation in January as well. Review of Systems Constitutional: Constitutional: Denies fever(s) Eyes: Eyes: Denies blurry vision ENT: Reports Normal hearing present Cardiovascular: Cardiovascular: Denies chest pain and Denies dyspnea Respiratory: Respiratory: Denies dyspnea and Denies wheezing Gastrointestinal: Gastrointestinal: Denies abdominal pain Genitourinary: Genitourinary: Denies urinary urgency Musculoskeletal: Musculoskeletal: Reports as per HPI and Reports numbness (both feet) Integumentary/Breasts: Skin/Breast: Denies changing lesions and Denies sores Neurologic: Reports Normal hearing present, Denies behavioral changes, Denies confusion, Reports numbness and Denies convulsions Psychiatric: Psychiatric: Denies behavioral changes, Denies confusion and Denies hallucinations Endocrine: Endocrine: Denies heat intolerance Hematologic/Lymphatic: Hematologic/Lymphatic: Denies easy bleeding Allergic/Immunologic: Allergic/Immunologic: Denies wheezing Exam Const: General: healthy appearing; No in distress or confusion Orientation/consciousness: patient oriented x3 and No confusion HENMT: Head: normal to inspection, normocephalic and atraumatic Eyes: Conjunctivae: conjunctivae normal Sclera: sclerae normal Resp: Effort & Inspection: normal respiratory effort and no audible wheezes GI: Inspection: non-distended GI Palp: Yes Soft to palpation, No Tenderness to palpation present (GI) and No Guarding due to palpation present (GI) Skin: Wounds: wounds noted (see below ) Neuro: General: patient oriented x3, No gait normal (NWB RLE ) and No confusion Cognition (Neuro): normal cognition Extrem: Right lower extremity: lower leg (see below ) Details: localized swelling, ankle (see below ) Details: swelling, abnormal ROM (fusion ) and other (wound dimensions below ); no unusual warmth and no abrasions and foot (see below ) Details: vascular exam Details: dorsalis pedis pulse present and motor-sensory exam Details: two point discrimination abnormal and light-touch abnormal; no ecchymosis and no crepitus Other: Right lower extremity medial wound measures 0.8x0.9x3.7 cm. Lateral ankle incision measures 1.4x0.5x1.2cm. Scant drainage from the lateral ankle noted. No purulence, no malodor. Moderate amount of serosanguineous drainage in from the medial incision. Probing to bone/hardware. More proximal medial wound close
--- NOTE | 2021-01-06 08:26 | PM.IMHP ---
H&P: HPI History of Present Illness Date/Time: 01/06/21 08:26 Chief Complaint: Right Charcot Foot/Ankle Narrative: 55 year old male returns to [facility] for re-evaluation of the right leg. He has been on oral antibiotics x 2 weeks. No new concerns. Tolerating medication well. No worsening signs of infection at this time. No fever, chills, night sweats, nausea, vomiting or diarrhea. Awaiting ID consult at the end of January. Patient has appointment for vascular evaluation next week as well. Review of Systems Review of Systems: All systems reviewed & are unremarkable except as noted in HPI and below PMFSH Past Medical History Medical History Charcot foot due to diabetes mellitus Charcot's joint of foot in type 1 diabetes mellitus Chronic pain in right foot [place], acquired Coronary artery disease involving [place] coronary artery of [place] heart Diabetic foot ulcer associated with diabetes mellitus due to underlying condition Diabetic peripheral angiopathy Diabetic ulcer of ankle associated with diabetes mellitus due to underlying condition Essential (primary) hypertension Exposed orthopaedic hardware Failure of joint fusion 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 Lymphedema of right lower extremity Mixed hyperlipidemia AIDA on CPAP PVD (peripheral vascular disease) Septic arthritis of right ankle Stage 2 chronic kidney disease Type 1 diabetes mellitus with hyperglycemia Wound of right foot Surgical History Surgical History Encounter for postoperative care related to surgical joint fusion S/P angioplasty with stent S/P CABG x 3 Family History Family History Mother Family history of lung cancer Father Family history of lymphoma Other Diabetes mellitus Family history of arthritis Family history of cardiovascular disease Family history of congestive heart failure Family history of coronary artery disease Family history of heart disease in male family member before age 55 Family history of malignant neoplasm Family history of premature coronary heart disease Hypertension Social History Social History Social History: Patient lives at home alone. He does have a significant other and his daughter available for intermittent assistance with wound care. Years smoked: 10 Smoking status: Former smoker Tobacco type: cigarettes Second hand tobacco smoke exposure: No Smoking end date: 05/06/07 Additional smoking assessment comments: occasional social smoker Alcohol intake: never Substance use: never Substance use type: does not use Additional occupation/education comments: Disability Sexual Orientation (if Verbalized by the Patient): Straight or Heterosexual Spiritual care concerns: No Meds Home Medications and Allergies Home Medications Medication Instructions Recorded Confirmed Type aspirin 81 mg tablet,delayed 81 mg PO DAILY 03/12/19 11/15/20 History release cholecalciferol (vitamin D3) 10 400 unit PO DAILY 05/01/19 11/15/20 History mcg (400 unit) capsule omega-3 fatty acids 1,000 mg 1,000 mg PO DAILY 05/01/19 11/15/20 History capsule subcutaneous insulin pump #1 each 09/08/19 11/15/20 History acetaminophen 300 mg-codeine 60 mg 1 tablet PO Q8H PRN #90 tablet 06/10/20 11/15/20 Rx tablet irbesartan 300 1 tablet PO DAILY #90 tablet 09/25/20 11/15/20 Rx mg-hydrochlorothiazide 12.5 mg tablet insulin aspart U-100 100 unit/mL 100 - 120 unit CONTINUOUS 10/31/20 11/15/20 Rx subcutaneous solution SUBCUTANEOUS INFUSION DAILY 90 Days #110 ml blood-glucose meter,continuous #1 ea 11/08/20 11/15/20 Rx blood-glucose sensor #9 ea 11/08/20 11/15/20 Rx blood-glucose transmitter #3 ea 11/08/20 11/15/20 Rx bl
== END 2021-01-12 23:59 | disposition home or self-care (01) ==
LOC: ANHWOC 07:41
PROVIDERS: PCP Family Medicine; Visit Provider Nurse Practitioner Family
DX: L97.511 Non-pressure chronic ulcer of other part of right foot limited to breakdown of skin (principal); L97.519 Non-pressure chronic ulcer of other part of right foot with unspecified severity; E08.621 Diabetes mellitus due to underlying condition with foot ulcer
CPT/HCPCS: 87070; 87075; 87077; 87186; 87205; 99212; 99213; A9270; G0463; L2116

== ENCOUNTER 2021-04-14 07:59 | Outpatient (RCR) | payer MEDICARE, SELFPAY ==
--- NOTE | 2021-01-20 13:42 | PM.IMHP ---
H&P: HPI History of Present Illness Date/Time: 01/20/21 13:42 Chief Complaint: Right Charcot Foot/Ankle Narrative: 55 year old male returns to [facility] for re-evaluation of the right leg. He has been on oral antibiotics x 27 days. No new concerns. Tolerating medication well. No worsening signs of infection at this time. No fever, chills, night sweats, nausea, vomiting or diarrhea. Patient still awaiting ID consult at the end of January. Patient did meet with his vascular surgeon who wants to perform more imaging but needs to be cleared by his rn medical inpatient services 1st for need for contrast dye it sounds. Review of Systems Review of Systems: All systems reviewed & are unremarkable except as noted in HPI and below PMFSH Past Medical History Medical History Charcot foot due to diabetes mellitus Charcot's joint of foot in type 1 diabetes mellitus Chronic pain in right foot [place], acquired Coronary artery disease involving [place] coronary artery of [place] heart Diabetic foot ulcer associated with diabetes mellitus due to underlying condition Diabetic peripheral angiopathy Diabetic ulcer of ankle associated with diabetes mellitus due to underlying condition Essential (primary) hypertension Exposed orthopaedic hardware Failure of joint fusion 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 Lymphedema of right lower extremity Mixed hyperlipidemia AIDA on CPAP PVD (peripheral vascular disease) Septic arthritis of right ankle Stage 2 chronic kidney disease Type 1 diabetes mellitus with hyperglycemia Wound of right foot Surgical History Surgical History Encounter for postoperative care related to surgical joint fusion S/P angioplasty with stent S/P CABG x 3 Family History Family History Mother Family history of lung cancer Father Family history of lymphoma Other Diabetes mellitus Family history of arthritis Family history of cardiovascular disease Family history of congestive heart failure Family history of coronary artery disease Family history of heart disease in male family member before age 55 Family history of malignant neoplasm Family history of premature coronary heart disease Hypertension Social History Social History Social History: Patient lives at home alone. He does have a significant other and his daughter available for intermittent assistance with wound care. Years smoked: 10 Smoking status: Former smoker Tobacco type: cigarettes Second hand tobacco smoke exposure: No Smoking end date: 05/06/07 Alcohol intake: never Substance use: never Substance use type: does not use Additional occupation/education comments: Disability Sexual Orientation (if Verbalized by the Patient): Straight or Heterosexual Spiritual care concerns: No Meds Home Medications and Allergies Home Medications Medication Instructions Recorded Confirmed Type aspirin 81 mg tablet,delayed 81 mg PO DAILY 03/12/19 11/15/20 History release cholecalciferol (vitamin D3) 10 400 unit PO DAILY 05/01/19 11/15/20 History mcg (400 unit) capsule omega-3 fatty acids 1,000 mg 1,000 mg PO DAILY 05/01/19 11/15/20 History capsule subcutaneous insulin pump #1 each 09/08/19 11/15/20 History acetaminophen 300 mg-codeine 60 mg 1 tablet PO Q8H PRN #90 tablet 06/10/20 11/15/20 Rx tablet irbesartan 300 1 tablet PO DAILY #90 tablet 09/25/20 11/15/20 Rx mg-hydrochlorothiazide 12.5 mg tablet insulin aspart U-100 100 unit/mL 100 - 120 unit CONTINUOUS 10/31/20 11/15/20 Rx subcutaneous solution SUBCUTANEOUS INFUSION DAILY 90 Days #110 ml blood-glucose meter,continuous #1 ea 11/08/20 11/15/20 Rx blood-glucose sensor #9 ea 11/08/20 11/15/20 Rx blood-glu
--- NOTE | 2021-01-27 09:00 | PM.IMHP ---
H&P: HPI History of Present Illness Date/Time: 01/27/21 09:00 Chief Complaint: Right Ankle Charcot Narrative: 55 year old male returns to [facility] for re-evaluation of the right leg. Tolerating medication well. Will finish current antibiotic prescription tomorrow. No worsening signs of infection at this time. No fever, chills, night sweats, nausea, vomiting or diarrhea. Patient still awaiting ID consult at the end of January. Awaiting final plans from vascular surgeon as well. Review of Systems Review of Systems: All systems reviewed & are unremarkable except as noted in HPI and below PMFSH Past Medical History Medical History Charcot foot due to diabetes mellitus Charcot's joint of foot in type 1 diabetes mellitus Chronic pain in right foot [place], acquired Coronary artery disease involving [place] coronary artery of [place] heart Diabetic foot ulcer associated with diabetes mellitus due to underlying condition Diabetic peripheral angiopathy Diabetic ulcer of ankle associated with diabetes mellitus due to underlying condition Essential (primary) hypertension Exposed orthopaedic hardware Failure of joint fusion History of tobacco use [employer] (current) use of insulin Lymphedema of right lower extremity Mixed hyperlipidemia AIDA on CPAP PVD (peripheral vascular disease) Septic arthritis of right ankle Stage 2 chronic kidney disease Type 1 diabetes mellitus with hyperglycemia Wound of right foot Surgical History Surgical History Encounter for postoperative care related to surgical joint fusion S/P angioplasty with stent S/P CABG x 3 Family History Family History Mother Family history of lung cancer Father Family history of lymphoma Other Diabetes mellitus Family history of arthritis Family history of cardiovascular disease Family history of congestive heart failure Family history of coronary artery disease Family history of heart disease in male family member before age 55 Family history of malignant neoplasm Family history of premature coronary heart disease Hypertension Social History Social History Social History: Patient lives at home alone. He does have a significant other and his daughter available for intermittent assistance with wound care. Years smoked: 10 Smoking status: Former smoker Tobacco type: cigarettes Second hand tobacco smoke exposure: No Smoking end date: 05/06/07 Alcohol intake: never Substance use: never Substance use type: does not use Additional occupation/education comments: Disability Sexual Orientation (if Verbalized by the Patient): Straight or Heterosexual Spiritual care concerns: No Meds Home Medications and Allergies Home Medications Medication Instructions Recorded Confirmed Type aspirin 81 mg tablet,delayed 81 mg PO DAILY 03/12/19 11/15/20 History release cholecalciferol (vitamin D3) 10 400 unit PO DAILY 05/01/19 11/15/20 History mcg (400 unit) capsule omega-3 fatty acids 1,000 mg 1,000 mg PO DAILY 05/01/19 11/15/20 History capsule subcutaneous insulin pump #1 each 09/08/19 11/15/20 History acetaminophen 300 mg-codeine 60 mg 1 tablet PO Q8H PRN #90 tablet 06/10/20 11/15/20 Rx tablet irbesartan 300 1 tablet PO DAILY #90 tablet 09/25/20 11/15/20 Rx mg-hydrochlorothiazide 12.5 mg tablet insulin aspart U-100 100 unit/mL 100 - 120 unit CONTINUOUS 10/31/20 11/15/20 Rx subcutaneous solution SUBCUTANEOUS INFUSION DAILY 90 Days #110 ml blood-glucose meter,continuous #1 ea 11/08/20 11/15/20 Rx blood-glucose sensor #9 ea 11/08/20 11/15/20 Rx blood-glucose transmitter #3 ea 11/08/20 11/15/20 Rx blood sugar diagnostic #500 ea 12/07/20 Rx cilostazol 100 mg tablet 100 mg PO BID
--- NOTE | 2021-02-07 09:12 | PM.IMHP ---
H&P: HPI History of Present Illness Date/Time: 02/07/21 09:12 Chief Complaint: right neuropathic ankle Narrative: 55-year-old male follows up in the [facility] today 1 week status post hardware removal in the orthopedic outpatient clinic of the right ankle due to hardware failure. Patient suffers from severe Charcot changes of the right lower extremity. He noted good improvement in pain and drainage 4 days 1, 2 and 3 status post hardware removal. He noticed on the weekend, or postop days 4 and 5 that he had increased swelling on the medial aspect of the ankle at the site of the original incision. Lateral aspect of the ankle at site of incision for hardware removal from 1 week ago remains clean, dry and intact. More distal wound on the ankle also remains clean dry and intact. Patient does report some fatigue however overall he reports well-maintained blood glucose levels and denies fever, chills, night sweats, nausea, vomiting or diarrhea. Main concern is the new drainage on the medial aspect of the ankle which was originally closed immediately status post hardware removal. Review of Systems Review of Systems: All systems reviewed & are unremarkable except as noted in HPI and below PMFSH Past Medical History Medical History Charcot foot due to diabetes mellitus Charcot's joint of foot in type 1 diabetes mellitus Chronic pain in right foot [place]e, acquired Coronary artery disease involving [place] coronary artery of [place] heart Diabetic foot ulcer associated with diabetes mellitus due to underlying condition Diabetic peripheral angiopathy Diabetic ulcer of ankle associated with diabetes mellitus due to underlying condition Essential (primary) hypertension Exposed orthopaedic hardware Failure of joint fusion History of tobacco use [facility] (current) use of insulin Lymphedema of right lower extremity Mixed hyperlipidemia AIDA on CPAP PVD (peripheral vascular disease) Septic arthritis of right ankle Stage 2 chronic kidney disease Type 1 diabetes mellitus with hyperglycemia Wound of right foot Surgical History Surgical History Encounter for postoperative care related to surgical joint fusion S/P angioplasty with stent S/P CABG x 3 Family History Family History Mother Family history of lung cancer Father Family history of lymphoma Other Diabetes mellitus Family history of arthritis Family history of cardiovascular disease Family history of congestive heart failure Family history of coronary artery disease Family history of heart disease in male family member before age 55 Family history of malignant neoplasm Family history of premature coronary heart disease Hypertension Social History Social History Social History: Patient lives at home alone. He does have a significant other and his daughter available for intermittent assistance with wound care. Years smoked: 10 Smoking status: Former smoker Tobacco type: cigarettes Second hand tobacco smoke exposure: No Smoking end date: 05/06/07 Alcohol intake: never Substance use: never Substance use type: does not use Additional occupation/education comments: Disability Sexual Orientation (if Verbalized by the Patient): Straight or Heterosexual Spiritual care concerns: No Meds Home Medications and Allergies Home Medications Medication Instructions Recorded Confirmed Type aspirin 81 mg tablet,delayed 81 mg PO DAILY 03/12/19 01/31/21 History release cholecalciferol (vitamin D3) 10 400 unit PO DAILY 05/01/19 01/31/21 History mcg (400 unit) capsule omega-3 fatty acids 1,000 mg 1,000 mg PO DAILY 05/01/19 01/31/21 History capsule subcutaneous insulin pump #1 each 09/08/19 01/31/21 History acetaminophen 300
--- NOTE | 2021-02-10 09:27 | P.PNOP_ITS ---
Progress Note: A&P Assessment and Plan (1) Diabetic ulcer of ankle associated with diabetes mellitus due to underlying condition: Code(s): E08.622 - Diabetes mellitus due to underlying condition with other skin ulcer; L97.309 - Non-pressure chronic ulcer of unspecified ankle with unspecified severity Status: Acute Assessment and Plan: 10 days status post hardware removal right ankle. Overall appears better. Silver nitrate applied to the granulation tissue. Continue with daily dressing changes and fracture boot. Patient has appointment with infectious disease today. He is going to ask about chronic suppressive oral antibiotics. Follow- up in 1 week for dressing change. Subjective Subjective Date/Time Seen: 02/10/21 09:27 Post Op day: 10 Principal diagnosis: Right ankle ulcer with nonunion Interval history: status post hardware removal right ankle. Patient noted improvement in drainage and swelling in the interim. Has been using ice. Exam 2 Const: General: healthy appearing; No in distress or confusion Orientation/consciousness: patient oriented x3 and No confusion HENMT: Head: normal to inspection, normocephalic and atraumatic Eyes: Conjunctivae: conjunctivae normal Sclera: sclerae normal Resp: Effort & Inspection: normal respiratory effort and no audible wheezes Cardio: Jugular venous distension: no JVD GI: Inspection: non-distended GI Palp: Yes Soft to palpation, No Tenderness to palpation present (GI) and No Guarding due to palpation present (GI) Skin: Wounds: wounds noted (see below ) Neuro: General: patient oriented x3, No gait normal (NWB RLE ) and No confusion Cognition (Neuro): normal cognition Extrem: Right lower extremity: lower leg (see below ) Details: localized swelling, ankle (see below ) Details: swelling, abnormal ROM (fusion ) and other (wound dimensions below ); no unusual warmth and no abrasions and foot (see below ) Details: vascular exam Details: dorsalis pedis pulse present and motor- sensory exam Details: two point discrimination abnormal and light-touch abnormal; no ecchymosis and no crepitus Other: Patient with continued wound on the medial aspect of the right ankle which measures 1.4 x 0.5cm. No depth. surrounding swelling and erythema. Incision on the lateral aspect of the ankle which was made 1 week ago in the outpatient orthopedic clinic by Dr. Monteiro for hardware removal is now completely closed. Original ankle ulcer at the distal ankle on the lateral aspect continues with no drainage. 1.0 cm depth. Medial wound has moderate serosanguineous drainage. No evidence of purulence. Patient has swelling in the right lower extremity which is chronic in nature. Psych: Appearance: grossly normal Affect: normal affect Objective Data Meds/Results Medications: Active Medications Generic Name Dose Route Start Last Admin Trade Name Freq PRN Reason Stop Dose Admin Wound Care/Dressing Products 1 patch 01/20/21 10:12 Mepilex Transfer Drsg 6x8 TOPICAL 04/21/21 23:55 PRN PRN Wound Care
--- NOTE | 2021-02-17 08:39 | PM.IMHP ---
H&P: HPI History of Present Illness Date/Time: 02/17/21 08:39 Chief Complaint: right ankle septic arthritis, Charcot arthropathy Narrative: re-evaluation [facility]. Patient was seen by infectious disease in the interim. Plan for suppressive antibiotics. He patient doing daily dressing changes. He has noted decrease in drainage. No new problems. Review of Systems Constitutional: Constitutional: Denies fever(s) Eyes: Eyes: Denies blurry vision ENT: Reports Normal hearing present Cardiovascular: Cardiovascular: Denies chest pain and Denies dyspnea Respiratory: Respiratory: Denies dyspnea and Denies wheezing Gastrointestinal: Gastrointestinal: Denies abdominal pain Genitourinary: Genitourinary: Denies urinary urgency Musculoskeletal: Musculoskeletal: Reports as per HPI and Reports numbness (both feet) Integumentary/Breasts: Skin/Breast: Denies changing lesions and Denies sores Neurologic: Reports Normal hearing present, Denies behavioral changes, Denies confusion, Reports numbness and Denies convulsions Psychiatric: Psychiatric: Denies behavioral changes, Denies confusion and Denies hallucinations Endocrine: Endocrine: Denies heat intolerance Hematologic/Lymphatic: Hematologic/Lymphatic: Denies easy bleeding Allergic/Immunologic: Allergic/Immunologic: Denies wheezing PMFSH Past Medical History Medical History Charcot foot due to diabetes mellitus Charcot's joint of foot in type 1 diabetes mellitus Chronic pain in right foot [place]e, acquired Coronary artery disease involving [place] coronary artery of [place] heart Diabetic foot ulcer associated with diabetes mellitus due to underlying condition Diabetic peripheral angiopathy Diabetic ulcer of ankle associated with diabetes mellitus due to underlying condition Essential (primary) hypertension Exposed orthopaedic hardware Failure of joint fusion History of tobacco use [facility] (current) use of insulin Lymphedema of right lower extremity Mixed hyperlipidemia AIDA on CPAP PVD (peripheral vascular disease) Septic arthritis of right ankle Stage 2 chronic kidney disease Type 1 diabetes mellitus with hyperglycemia Wound of right foot Surgical History Surgical History Encounter for postoperative care related to surgical joint fusion S/P angioplasty with stent S/P CABG x 3 Family History Family History Mother Family history of lung cancer Father Family history of lymphoma Other Diabetes mellitus Family history of arthritis Family history of cardiovascular disease Family history of congestive heart failure Family history of coronary artery disease Family history of heart disease in male family member before age 55 Family history of malignant neoplasm Family history of premature coronary heart disease Hypertension Social History Social History Social History: Patient lives at home alone. He does have a significant other and his daughter available for intermittent assistance with wound care. Years smoked: 10 Smoking status: Former smoker Tobacco type: cigarettes Second hand tobacco smoke exposure: No Smoking end date: 05/06/07 Alcohol intake: never Substance use: never Substance use type: does not use Additional occupation/education comments: Disability Sexual Orientation (if Verbalized by the Patient): Straight or Heterosexual Spiritual care concerns: No Meds Home Medications and Allergies Home Medications Medication Instructions Recorded Confirmed Type aspirin 81 mg tablet,delayed 81 mg PO DAILY 03/12/19 02/14/21 History release cholecalciferol (vitamin D3) 10 400 unit PO DAILY 05/01/19 02/14/21 History mcg (400 unit) capsule omega-3 fatty acids 1
--- NOTE | 2021-02-24 09:12 | PM.PNORT ---
Progress Note: A&P Assessment and Plan (1) Diabetic ulcer of ankle associated with diabetes mellitus due to underlying condition: Code(s): E08.622 - Diabetes mellitus due to underlying condition with other skin ulcer; L97.309 - Non-pressure chronic ulcer of unspecified ankle with unspecified severity Status: Acute Assessment and Plan: 3 weeks, 3 days s/p hardware removal of the right ankle. Lateral ankle wound from hardware removal is 100% closed. Patient denies fever, chills, night sweats, nausea, vomiting or diarrhea. Lateral ankle ulcer closed. Medial leg with closed, no drainage. New blister on the lateral aspect of the right foot measures 0.2x0.2x0.1cm, 100% red pink wound bed. Begin silver foam to the lateral midfoot blister. Continue partial weight-bearing with fracture boot. New fracture boot to be fit in the outpatient ortho clinic today. Infectious Disease handling chronic suppressive antibiotics at this time. Follow-up in 2 week for dressing change. Reviewed signs/symptoms of infection to report to ED. Subjective Subjective Date/Time Seen: 02/24/21 09:12 Interval history: 3 weeks, 3 days s/p screw removal right ankle. No new complaints today. Denies fever, chills, night sweats, nausea, vomiting or diarrhea. No longer draining. No longer requiring daily dressing changes as he is not having any drainage. Review of Systems Constitutional: Constitutional: Denies fever(s) Eyes: Eyes: Denies blurry vision ENT: Reports Normal hearing present Cardiovascular: Cardiovascular: Denies chest pain and Denies dyspnea Respiratory: Respiratory: Denies dyspnea and Denies wheezing Gastrointestinal: Gastrointestinal: Denies abdominal pain Genitourinary: Genitourinary: Denies urinary urgency Musculoskeletal: Musculoskeletal: Reports as per HPI and Reports numbness (both feet) Integumentary/Breasts: Skin/Breast: Denies changing lesions and Denies sores Neurologic: Reports Normal hearing present, Denies behavioral changes, Denies confusion, Reports numbness and Denies convulsions Psychiatric: Psychiatric: Denies behavioral changes, Denies confusion and Denies hallucinations Endocrine: Endocrine: Denies heat intolerance Hematologic/Lymphatic: Hematologic/Lymphatic: Denies easy bleeding Allergic/Immunologic: Allergic/Immunologic: Denies wheezing Exam Const: General: healthy appearing; No in distress or confusion Orientation/consciousness: patient oriented x3 and No confusion HENMT: Head: normal to inspection, normocephalic and atraumatic Eyes: Conjunctivae: conjunctivae normal Sclera: sclerae normal Resp: Effort & Inspection: normal respiratory effort and no audible wheezes Cardio: Jugular venous distension: no JVD GI: Inspection: non-distended GI Palp: Yes Soft to palpation, No Tenderness to palpation present (GI) and No Guarding due to palpation present (GI) Skin: Wounds: wounds noted (see below ) Neuro: General: patient oriented x3, No gait normal (NWB RLE ) and No confusion Cognition (Neuro): normal cognition Extrem: Right lower extremity: lower leg (see below ) Details: localized swelling, ankle (see below ) Details: swelling, abnormal ROM (fusion ) and other (wound dimensions below ); no unusual warmth and no abrasions and foot (see below ) Details: vascular exam Details: dorsalis pedis pulse present and motor-sensory exam Details: two point discrimination abnormal and light-touch abnormal; no ecchymosis and no crepitus Other: Wound on the medial aspect of the right ankle now closed. No depth. Surrounding swelling and erythema improved. Incision on the lateral aspect of the ankle completely closed. Original ankle ulcer at the distal ankle on the lateral aspect continues with no drainage. No evidence of purulence. Patient has swelling in the right lower extremity which is chronic in nature. New small blister on the lateral aspect of the foot measures 0.2x0.2x0.1cm. 100% red/pink wound bed
--- NOTE | 2021-03-10 08:51 | PM.PNORT ---
Progress Note: A&P Assessment and Plan (1) Diabetic ulcer of ankle associated with diabetes mellitus due to underlying condition: Code(s): E08.622 - Diabetes mellitus due to underlying condition with other skin ulcer; L97.309 - Non-pressure chronic ulcer of unspecified ankle with unspecified severity Status: Acute Assessment and Plan: 5 weeks, 3 days s/p hardware removal of the right ankle. Lateral ankle wound from hardware removal remains closed. Patient reports having had a pin extruding from lateral midfoot blister. He self removed pin last week and had increased drainage from site of pin removal. Now pin removal site is completely closed. Patient denies fever, chills, night sweats, nausea, vomiting or diarrhea. Lateral ankle ulcer closed. Medial leg with scant drainage, measuring 0.1x0.1x0.1cm. Cover dry daily. Continue partial weight-bearing with fracture boot. Infectious Disease handling chronic suppressive antibiotics at this time. Follow-up in 2 week for wound assessment. Reviewed signs/symptoms of infection to report to ED. Subjective Subjective Date/Time Seen: 03/10/21 08:51 Interval history: 5 weeks, 3 days s/p screw removal right ankle. New reports of noting a pin extruding from the lateral aspect of the midfoot last week. Copious amounts of fluid drained from opening s/p pin removal by patient. Now wound completely closed and dry. Denies fever, chills, night sweats, nausea, vomiting or diarrhea. No longer draining from medial wound. No longer requiring daily dressing changes as he is not having any drainage. Review of Systems Constitutional: Constitutional: Denies fever(s) Eyes: Eyes: Denies blurry vision ENT: Reports Normal hearing present Cardiovascular: Cardiovascular: Denies chest pain and Denies dyspnea Respiratory: Respiratory: Denies dyspnea and Denies wheezing Gastrointestinal: Gastrointestinal: Denies abdominal pain Genitourinary: Genitourinary: Denies urinary urgency Musculoskeletal: Musculoskeletal: Reports as per HPI and Reports numbness (both feet) Integumentary/Breasts: Skin/Breast: Denies changing lesions and Denies sores Neurologic: Reports Normal hearing present, Denies behavioral changes, Denies confusion, Reports numbness and Denies convulsions Psychiatric: Psychiatric: Denies behavioral changes, Denies confusion and Denies hallucinations Endocrine: Endocrine: Denies heat intolerance Hematologic/Lymphatic: Hematologic/Lymphatic: Denies easy bleeding Allergic/Immunologic: Allergic/Immunologic: Denies wheezing Exam Const: General: healthy appearing; No in distress or confusion Orientation/consciousness: patient oriented x3 and No confusion HENMT: Head: normal to inspection, normocephalic and atraumatic Eyes: Conjunctivae: conjunctivae normal Sclera: sclerae normal Resp: Effort & Inspection: normal respiratory effort and no audible wheezes Cardio: Jugular venous distension: no JVD GI: Inspection: non-distended GI Palp: Yes Soft to palpation, No Tenderness to palpation present (GI) and No Guarding due to palpation present (GI) Skin: Wounds: wounds noted (see below ) Neuro: General: patient oriented x3, No gait normal (NWB RLE ) and No confusion Cognition (Neuro): normal cognition Extrem: Right lower extremity: lower leg (see below ) Details: localized swelling, ankle (see below ) Details: swelling, abnormal ROM (fusion ) and other (wound dimensions below ); no unusual warmth and no abrasions and foot (see below ) Details: vascular exam Details: dorsalis pedis pulse present and motor-sensory exam Details: two point discrimination abnormal and light-touch abnormal; no ecchymosis and no crepitus Other: Wound on the medial aspect of the right ankle with scan drainage, 0.1x0.1x0.1cm. No depth. Surrounding swelling and erythema improved. Incision on the lateral aspect of the ankle closed. Original ankle ulcer at the distal ankle on the lateral aspect continues with
--- NOTE | 2021-03-24 08:38 | PM.PNORT ---
Progress Note: A&P Assessment and Plan (1) Diabetic ulcer of ankle associated with diabetes mellitus due to underlying condition: Code(s): E08.622 - Diabetes mellitus due to underlying condition with other skin ulcer; L97.309 - Non-pressure chronic ulcer of unspecified ankle with unspecified severity Status: Acute Assessment and Plan: 7 weeks, 3 days s/p hardware removal of the right ankle. Lateral ankle wound from hardware removal remains closed. Medial ankle ulcer now well healed. No open wounds. No drainage. No signs of infection. Patient continues to utilize bone stimulator. Still with minimal ability to bear weight on the RLE. Patient still considering definitive surgical intervention with BKA pending ability to pause anticoagulants. Continue partial weight-bearing with fracture boot. Infectious Disease handling chronic suppressive antibiotics at this time. Follow-up in 2 weeks for repeat radiographs in the outpatient ortho clinic and follow up in the [facility] wound clinic. Reviewed signs/symptoms of infection to report to ED. Time Spent With Patient Time with patient: 15 - 25 minutes Subjective Subjective Date/Time Seen: 03/24/21 08:38 Interval history: 7 weeks, 3 days s/p screw removal right ankle. No new complaints. Patient reports no open wounds or needs for dressing changes x1.5 weeks. No fever, chills, night sweats, nausea, vomiting or diarrhea. Review of Systems Constitutional: Constitutional: Denies fever(s) Eyes: Eyes: Denies blurry vision ENT: Reports Normal hearing present Cardiovascular: Cardiovascular: Denies chest pain and Denies dyspnea Respiratory: Respiratory: Denies dyspnea and Denies wheezing Gastrointestinal: Gastrointestinal: Denies abdominal pain Genitourinary: Genitourinary: Denies urinary urgency Musculoskeletal: Musculoskeletal: Reports as per HPI and Reports numbness (both feet) Integumentary/Breasts: Skin/Breast: Denies changing lesions and Denies sores Neurologic: Reports Normal hearing present, Denies behavioral changes, Denies confusion, Reports numbness and Denies convulsions Psychiatric: Psychiatric: Denies behavioral changes, Denies confusion and Denies hallucinations Endocrine: Endocrine: Denies heat intolerance Hematologic/Lymphatic: Hematologic/Lymphatic: Denies easy bleeding Allergic/Immunologic: Allergic/Immunologic: Denies wheezing Exam Const: General: healthy appearing; No in distress or confusion Orientation/consciousness: patient oriented x3 and No confusion HENMT: Head: normal to inspection, normocephalic and atraumatic Eyes: Conjunctivae: conjunctivae normal Sclera: sclerae normal Resp: Effort & Inspection: normal respiratory effort and no audible wheezes Cardio: Jugular venous distension: no JVD GI: Inspection: non-distended GI Palp: Yes Soft to palpation, No Tenderness to palpation present (GI) and No Guarding due to palpation present (GI) Skin: Wounds: wounds noted (see below ) Neuro: General: patient oriented x3, No gait normal (NWB RLE ) and No confusion Cognition (Neuro): normal cognition Extrem: Right lower extremity: lower leg (see below ) Details: localized swelling, ankle (see below ) Details: swelling, abnormal ROM (fusion ) and other (wound dimensions below ); no unusual warmth and no abrasions and foot (see below ) Details: vascular exam Details: dorsalis pedis pulse present and motor-sensory exam Details: two point discrimination abnormal and light-touch abnormal; no ecchymosis and no crepitus Other: Wound on the medial aspect of the right ankle closed. No depth. No surrounding swelling and erythema. Incision on the lateral aspect of the ankle closed. Original ankle ulcer at the distal ankle on the lateral aspect continues with no drainage. Patient has swelling in the right lower extremity which is chronic in nature. Psych: Appearance: grossly normal Affect: normal affect Thought content: Yes Normal thought content present
--- NOTE | 2021-04-14 09:20 | PM.PNORT ---
Progress Note: A&P Assessment and Plan (1) Diabetic ulcer of ankle associated with diabetes mellitus due to underlying condition: Code(s): E08.622 - Diabetes mellitus due to underlying condition with other skin ulcer; L97.309 - Non-pressure chronic ulcer of unspecified ankle with unspecified severity Status: Acute Assessment and Plan: 10 weeks, 3 days s/p hardware removal of the right ankle. Lateral ankle wound from hardware removal remains closed. Medial ankle ulcer now well healed. No open wounds. No drainage. No signs of infection. Patient continues to utilize bone stimulator. Still with minimal ability to bear weight on the RLE. Patient still considering definitive surgical intervention with BKA pending ability to pause anticoagulants. May continue with bone stimulator. We will see about obtaining new brace to allow for increased weight-bearing. Continue partial weight-bearing with fracture boot. Infectious Disease handling chronic suppressive antibiotics at this time. Recent cardiology visit reviewed. Patient considering imaging for the lower extremity arterial flow. Follow-up in 4 weeks for re-evaluation. (2) Charcot foot due to diabetes mellitus: Code(s): E11.610 - Type 2 diabetes mellitus with diabetic neuropathic arthropathy Status: Acute Assessment and Plan: Medically necessary for custom prosthetic fit and fabrication. Patient condition requires custom fitting due to bone, joint, musculoskeletal deformity. Unable to fit with [id number] brace. Patient condition will be improved with bracing. Condition likely to deteriorate without custom support. Indicated for custom Right ankle brace with appropriate shoe wear and custom insert. Left custom full-length insert with appropriate shoe wear and possible ankle brace. Subjective Subjective Date/Time Seen: 04/14/21 09:20 Principal diagnosis: Right ankle Charcot with ulcer Interval history: 10 weeks status post hardware removal right ankle. Patient using the bone stimulator. Currently on suppressive antibiotics. He reports no new problems in the interim. He is trying to become more active but having difficulty with the walker boot. Exam Const: General: healthy appearing; No in distress or confusion Orientation/consciousness: patient oriented x3 and No confusion HENMT: Head: normal to inspection, normocephalic and atraumatic Eyes: Conjunctivae: conjunctivae normal Sclera: sclerae normal Resp: Effort & Inspection: normal respiratory effort and no audible wheezes Cardio: Jugular venous distension: no JVD GI: Inspection: non-distended GI Palp: Yes Soft to palpation, No Tenderness to palpation present (GI) and No Guarding due to palpation present (GI) Skin: Wounds: wounds noted (see below ) Neuro: General: patient oriented x3, No gait normal (NWB RLE ) and No confusion Cognition (Neuro): normal cognition Extrem: Right lower extremity: lower leg (see below ) Details: localized swelling, ankle (see below ) Details: swelling, abnormal ROM (fusion ) and other (wound dimensions below ); no unusual warmth and no abrasions and foot (see below ) Details: vascular exam Details: dorsalis pedis pulse present and motor-sensory exam Details: two point discrimination abnormal and light-touch abnormal; no ecchymosis and no crepitus Other: Wound on the medial aspect of the right ankle closed. No depth. No surrounding swelling and erythema. Incision on the lateral aspect of the ankle closed. Original ankle ulcer at the distal ankle on the lateral aspect continues To remain closed with no drainage. Patient has swelling in the right lower extremity which is chronic in nature. gross instability of the ankle and midfoot noted. Prominence of the posterior calcaneal hardware palpable but no wound breakdown. Psych: Appearance: grossly normal Affect: normal affect Thought content: Yes Normal thought content present Objective Data Meds/Results Medic
== END 2021-04-20 23:59 | disposition home or self-care (01) ==
LOC: ANHWOC 07:59
PROVIDERS: PCP Family Medicine; Visit Provider Nurse Practitioner Family
DX: L97.511 Non-pressure chronic ulcer of other part of right foot limited to breakdown of skin (principal); L97.519 Non-pressure chronic ulcer of other part of right foot with unspecified severity; E08.621 Diabetes mellitus due to underlying condition with foot ulcer
CPT/HCPCS: 99212; 99213; G0463; L2116

== ENCOUNTER 2021-05-16 07:51 | Outpatient (RCR) | payer MEDICARE, SELFPAY ==
--- NOTE | 2021-05-16 11:33 | PM.IMHP ---
H&P: HPI History of Present Illness Date/Time: 05/16/21 11:33 Chief Complaint: Right ankle septic arthritis and Charcot. Narrative: 55-year-old male presents today for re-evaluation in the wound clinic. The patient is now 3 months status post screw removal of the right ankle. He reports no new wounds. He is currently awaiting custom orthotic fabrication. Review of Systems Constitutional: Constitutional: Denies fever(s) Eyes: Eyes: Denies blurry vision ENT: Reports Normal hearing present Cardiovascular: Cardiovascular: Denies chest pain and Denies dyspnea Respiratory: Respiratory: Denies dyspnea and Denies wheezing Gastrointestinal: Gastrointestinal: Denies abdominal pain Genitourinary: Genitourinary: Denies urinary urgency Musculoskeletal: Musculoskeletal: Reports as per HPI and Reports numbness (both feet) Integumentary/Breasts: Skin/Breast: Denies changing lesions and Denies sores Neurologic: Reports Normal hearing present, Denies behavioral changes, Denies confusion, Reports numbness and Denies convulsions Psychiatric: Psychiatric: Denies behavioral changes, Denies confusion and Denies hallucinations Endocrine: Endocrine: Denies heat intolerance Hematologic/Lymphatic: Hematologic/Lymphatic: Denies easy bleeding Allergic/Immunologic: Allergic/Immunologic: Denies wheezing PMFSH Past Medical History Medical History Charcot foot due to diabetes mellitus Charcot's joint of foot in type 1 diabetes mellitus Chronic pain in right foot [place]e, acquired Coronary artery disease involving [place] coronary artery of [place] heart Diabetic foot ulcer associated with diabetes mellitus due to underlying condition Diabetic peripheral angiopathy Diabetic ulcer of ankle associated with diabetes mellitus due to underlying condition Essential (primary) hypertension Exposed orthopaedic hardware Failure of joint fusion History of tobacco use long term (current) use of insulin Lymphedema of right lower extremity Mixed hyperlipidemia AIDA on CPAP PVD (peripheral vascular disease) Septic arthritis of right ankle Stage 2 chronic kidney disease Type 1 diabetes mellitus with hyperglycemia Wound of right foot Surgical History Surgical History Encounter for postoperative care related to surgical joint fusion S/P angioplasty with stent S/P CABG x 3 Family History Family History Mother Family history of lung cancer Father Family history of lymphoma Other Diabetes mellitus Family history of arthritis Family history of cardiovascular disease Family history of congestive heart failure Family history of coronary artery disease Family history of heart disease in male family member before age 55 Family history of malignant neoplasm Family history of premature coronary heart disease Hypertension Social History Social History Social History: Patient lives at home alone. He does have a significant other and his daughter available for intermittent assistance with wound care. Years smoked: 10 Smoking status: Former smoker Tobacco type: cigarettes Second hand tobacco smoke exposure: No Smoking end date: 05/06/07 Alcohol intake: never Substance use: never Substance use type: does not use Additional occupation/education comments: Disability Gender identity (if verbalized by the patient): Male Sexual Orientation (if Verbalized by the Patient): Straight or Heterosexual Spiritual care concerns: No Meds Home Medications and Allergies Home Medications Medication Instructions Recorded Confirmed Type aspirin 81 mg tablet,delayed 81 mg PO DAILY 03/12/19 03/13/21 History release cholecalciferol (vitamin D3) 10 400 unit PO DAILY 05/01/19 03/13/21 History mcg (400 unit) capsule
== END 2021-07-31 08:05 | disposition home or self-care (01) ==
LOC: ANHWOC 07:51
PROVIDERS: PCP Family Medicine; Visit Provider Nurse Practitioner Family
DX: L97.511 Non-pressure chronic ulcer of other part of right foot limited to breakdown of skin (principal); L97.519 Non-pressure chronic ulcer of other part of right foot with unspecified severity; E08.621 Diabetes mellitus due to underlying condition with foot ulcer
CPT/HCPCS: 99212; G0463

== ENCOUNTER 2021-07-06 09:03 | Outpatient (CLI) | payer MEDICARE, SELFPAY ==
--- NOTE | 2021-07-06 09:15 | ECG_ITS ---
Measurements Intervals [place] Rate: 70 P: -14 [place]: 159 QRS: -2 QRSD: 102 T: 11 QT: 344 QTc: 373 Interpretive Statements SINUS RHYTHM NORMAL ECG COMPARED TO ECG 07/07/2020 10:07:12 NO SIGNIFICANT CHANGES Electronically Signed On 07-06-2021 10:00:12 STAPLE SHEAR OPERATOR by Roger Fernandez M.D.
[2021-07-06 09:40] LABS: Anion Gap 6 mmol/L (8-16); Blood Urea Nitrogen 34 mg/dL (9-20); Carbon Dioxide 30 mmol/L (22-30); Chloride 99 mmol/L (98-107); Estimated Glomerular Filt Rate > 60; Glucose 160 mg/dL (65-110); Potassium 4.8 mmol/L (3.4-5.0); Sodium 135 mmol/L (137-145)
== END 2021-07-06 09:04 | disposition home or self-care (01) ==
LOC: ANHSURGERY 09:10
PROVIDERS: Anesthesiology; PCP Family Medicine; Visit Provider Orthopaedic Surgery
DX: Z01.818 Encounter for other preprocedural examination (principal); I25.810 Atherosclerosis of coronary artery bypass graft(s) without angina pectoris; E10.65 Type 1 diabetes mellitus with hyperglycemia
CPT/HCPCS: 36415; 80048; 93005

== ENCOUNTER 2021-07-10 11:29 | Inpatient (IN) | payer MEDICARE, SELFPAY ==
[2021-07-04 11:02] VITALS: BMI 32.4
--- NOTE | 2021-07-04 11:08 | PC.NURSE ---
Report to the Outpatient Waiting Room, entrance under the green pavilion located off [facility], at time __0600 on date _07/10/21 . OR Time: . - You and your visitor will be asked a series of questions to screen for COVID 19 for your protection. - A mask is required within the hospital. Preoperative COVID Testing Requirements: No COVID Test needed if: (proof is required; if not received patient will have Rapid Test prior to entry) - Patient has received COVID Vaccine at least 14 days prior to procedure date or - Patient has positive COVID test result within last 90 days of surgery date. COVID Test needed if above criteria is not met If not COVID vaccinated a COVID test must be conducted within 72 hours of surgery and patient is asked to isolate self from time of testing until procedure. You will go to the [facility] for your COVID testing. The [facility] is located at the corner of [address] [facility]. You will only be called if COVID results are positive and your surgeon may reschedule your elective surgery date. Patients may have clear liquids (water, carbonated beverages, clear teas, apple juice) until 3 hours prior to surgery with a maximum of 20 ounces. - No food from midnight until time of surgery - Infants may have breast milk until 4 hours before surgery, formula 6 hours prior to surgery. - Children will be allowed to drink immediately following surgery. If applicable, please bring a bottle or sippy cup to assist with drinking. Juice, water, soda, and popsicles are readily available. For infants on formula, please bring formula the day of surgery. Pacifiers are allowed. Take the following medications with a SIP of water the morning of surgery: CARVEDIOLOL AND TYLENOL/CODEINE. CONTINUE INSULIN PUMP AT BASAL RATE Medications to discontinue per physician ____VITAMINS ON 07/07/21. PT STATES HE STOPPED ASA AND PLAVIX 1 WEEK AGO. HE WILL CALL DR BARBOZA REGARDING CILOSTAZOL Date to take last dose 07/07/21 Please no make-up, nail burkinan, hairspray, perfume, deodorant, or body powder the day of surgery. No jewelry (including any body piercings) or valuables the day of surgery, leave them at home. Please take a shower or bath the night before, or the morning of, surgery with an antibacterial soap. Wear comfortable, loose fitting clothing. Children are encouraged to wear pajamas. - Jewelry must be removed prior to entering the operating room. Rings and piercings that are not removed may be cut off. - The hospital will not accept responsibility for valuables. - Please leave all valuables, including medications, at home the day of surgery. If you are going home after surgery, a licensed concrete mixing truck driver must drive you home. - NO public transportation without another adult. - We recommend that an adult stay with you for 24 hours following discharge. - We also recommend that you do not drive, make important decision, drink alcoholic beverages, or take any drugs that were not prescribed by your health care provider for at least 24 hours after your discharge time. For Pediatric surgeries, we recommend two adults accompany the child home (only one inside the building at this time). One visitor will be allowed to accompany the patient into the hospital. Patients visitor will be instructed to remain with patient at all times or leave the building. We will allow the visitor to come back to the postoperative area when patient is ready. Follow any additional instructions given to you from your surgeon. Telephone instructions given to ___PATIENT and asked if any additional questions and then verbalized understanding. Patient advised to call surgeon office or pre surgery nurse liaison [phone] if any additional questions.
--- NOTE | 2021-07-09 16:44 | WPDANESEPP ---
Anes - Eval Pre Procedure Procedure: Operation Date: 07/10/21 07:30 Proposed Procedures p Right Transtibial Amputation, Possible Tibia Fibula Arthrodesis - Familia Monteiro MD Date/Time: 07/09/21 16:44 Pre Op Diagnosis: Rt Foot Osteomyeoitits, Diabetic Rt Foot Ulcer Patient Data Age: 55 Gender: M Height: 1.93 m Weight: 121 kg Allergies Allergy/AdvReac Type Severity Reaction Status Date / Time No Known Allergies Allergy Verified 07/04/21 10:42 Home Medications Medication Instructions Recorded Confirmed Type aspirin 81 mg tablet,delayed 81 mg PO DAILY 03/12/19 07/04/21 History release cholecalciferol (vitamin D3) 10 400 unit PO DAILY 05/01/19 07/04/21 History mcg (400 unit) capsule omega-3 fatty acids 1,000 mg 1,000 mg PO DAILY 05/01/19 07/04/21 History capsule subcutaneous insulin pump #1 each 09/08/19 06/27/21 History insulin aspart U-100 100 unit/mL 100 - 120 unit CONTINUOUS 10/31/20 07/04/21 Rx subcutaneous solution SUBCUTANEOUS INFUSION DAILY 90 Days #110 ml blood-glucose meter,continuous #1 ea 11/08/20 06/27/21 Rx blood-glucose sensor #9 ea 11/08/20 06/27/21 Rx blood-glucose transmitter #3 ea 11/08/20 06/27/21 Rx cephalexin 500 mg capsule 500 mg PO BID #20 cap 02/07/21 07/04/21 Rx ciprofloxacin HCl 500 mg tablet 500 mg PO Q12H #20 tablet 02/07/21 07/04/21 Rx clopidogrel 75 mg tablet 75 mg PO DAILY 02/14/21 07/04/21 History hydrochlorothiazide 25 mg tablet 25 mg PO DAILY 02/14/21 07/04/21 History carvedilol 25 mg tablet See Rx Instructions .ROUTE 03/02/21 07/04/21 Rx .COMPLEX #180 tablet cilostazol 100 mg tablet 100 mg PO BID #180 tablet 03/02/21 07/04/21 Rx irbesartan 300 mg tablet 300 mg PO DAILY #90 tablet 03/02/21 07/04/21 Rx rosuvastatin 10 mg tablet 10 mg PO DAILY #90 tablet 03/02/21 07/04/21 Rx blood sugar diagnostic #400 ea 06/06/21 06/27/21 Rx acetaminophen 300 mg-codeine 60 mg 1 tablet PO Q8H PRN #20 tablet 07/05/21 Rx tablet ECG: [place] Rate: 70 P: -14 [place]: 159 QRS: -2 QRSD: 102 T: 11 QT: 344 QTc: 373 Interpretive Statements SINUS RHYTHM NORMAL ECG COMPARED TO ECG 07/07/2020 10:07:12 NO SIGNIFICANT CHANGES Electronically Signed On 07-06-2021 10:00:12 COMBER SETTER by Roger Fernandez M.D. Dictated By: Roger Fernandez MD 07/06/21 1000 Signed By: <Electronically signed by Roger Fernandez MD in OV> Patient hx anesthesia problems: none Family hx anesthesia problems: none Prior surgeries: 10/19/20 right foot debridement & graft application; CABG X 3, coronary stents Results Review: All pre-operative results and documents have been reviewed as part of the pre-operative evaluation. [facility] Past Medical History Medical History Charcot foot due to diabetes mellitus Charcot's joint of foot in type 1 diabetes mellitus Chronic pain in right foot [place]toe, acquired Coronary artery disease involving [place] coronary artery of [place] heart Diabetic foot ulcer associated with diabetes mellitus due to underlying condition Diabetic peripheral angiopathy Diabetic ulcer of ankle associated with diabetes mellitus due to underlying condition Essential (primary) hypertension Exposed orthopaedic hardware Failure of joint fusion History of tobacco use senior living (current) use of insulin Lymphedema of right lower extremity Mixed hyperlipidemia AIDA on CPAP PVD (peripheral vascular disease) Septic arthritis of right ankle Stage 2 chronic kidney disease Type 1 diabetes mellitus with hyperglycemia Wound of right foot Surgical History Surgical History Encounter for postoperative care related to surgical joint fusion S/P angioplasty with stent S/P C
[2021-07-10] VITALS (15 sets, daily range): BP systolic 105–163; BP diastolic 57–90; PULSE 55–74; RESP 10–19; TEMP 35.7–36.7; O2SAT 94–100
--- NOTE | 2021-07-10 07:06 | WPDANESEFPP ---
Anes - Eval Final PreProcedure Day of Procedure 07/10/21 07:06 Patient weight: obese Heart: regular rate and rhythm Lungs: clear to auscultation and normal air movement Airway: Mallampati scale class II Neurological: alert and oriented Last oral intake: >/= 8 hours ASA classification: IV Emergent: no Anesthetic plan: proceed Anesthesia type and monitoring: general LMA and standard monitoring Results Review: All pre-operative results and documents have been reviewed as part of the pre-operative evaluation. Informed Consent: The patient's anesthetic plan and its attendant risks and benefits were discussed with the patient/family/POA. Questions were solicited and answers provided to the satisfaction of the patient/family/POA.
[2021-07-10] MEDS: LACTATED RINGERS 1,000 ML 30 ML IV CONT ×2 (07:15→09:57)
[2021-07-10 07:16] LABS: Glucose Point of Care 166 mg/dl (65-105)
[2021-07-10] MEDS: KETOROLAC 15 MG/ML VIAL (*BKC) IV PUSH (07:16)
[2021-07-10] MEDS: ceFAZolin 3 GM/D5W 100 ML 100 ML IVPB (07:32)
--- NOTE | 2021-07-10 08:40 | SUR.OPER ---
Specimen sent to lab @8013 with EVA Aj. Specimen received in lab @4331 by Estella.
[2021-07-10] MEDS: BUPIVACAINE/EPINEPHRINE 0.25% 10 ML VIAL 60 ML INFILTRATE (08:45)
--- NOTE | 2021-07-10 09:09 | SUR.OPER ---
INSULIN MONITORED PER ANESTHESIA PER PATIENTS INSULIN DEVICE AND MONITOR.
--- NOTE | 2021-07-10 09:23 | SUR.OPER ---
RIGHT LEG AMPUTATION SYNDESMOSIS TIGHT ROPE XP IMPLANT SS/EXP /LOT [id number]
--- NOTE | 2021-07-10 09:30 | SUR.OPER ---
EBL 50ML
--- NOTE | 2021-07-10 10:00 | WPDHPUPDATE1 ---
History and Physical Update Update Date/Time: 07/10/21 07:10 History and Physical has been reviewed, including an updated exam of the patient. There are NO changes in the patient's condition. Risks, benefits, and alternatives have been discussed and questions answered. Patient agrees to proceed with procedure.
--- NOTE | 2021-07-10 10:00 | W.PM.PROC2 ---
Procedure Note - Detailed Date of Procedure 07/10/21 Pre-op Diagnosis Rt Foot Osteomyeoitits, Diabetic Rt Foot Ulcer Post-op Diagnosis Same Procedure Performed Right leg transtibial amputation with proximal tibia fibular arthrodesis, immediate cast fitting Surgeon Familia Monteiro MD Watermaster 1st assistant account executive Anesthesia General Indications 55-year-old gentleman with insulin-dependent diabetes peripheral neuropathy and peripheral arterial disease who has Charcot arthropathy of the right ankle and hindfoot as well as previous ulcerations with osteomyelitis and drainage. Deformity and changes now with inability to bear weight. Presents for amputation. Findings 90% occluded tibial artery posterior to the tibia. Lower leg musculature with fatty infiltrate. Description of Procedure Patient identified in the preoperative holding. Informed consent given. Operative extremity marked. Patient received intravenous antibiotics. Patient brought to the operating room where underwent general anesthetic by anesthesia team. Positioned supine on operating room table. Time-out performed confirming the patient, site of the surgery and the plan. Leg then prepped and draped usual sterile surgical fashion using Betadine prep solution. Calf and leg exsanguinated and a thigh tourniquet inflated to 250 mmHg. Anatomic landmarks mapped out on the skin to allow for a posterior flap and approximately 12 cm of tibia below the tibial tubercle. Skin incision made with a 10 blade knife. Hemostasis controlled electrocautery. Cautery dissection carried down circumferentially through the fascia. Dissection then carried around the proximal fibula, retractors placed and sagittal saw used to transect the fibula. Elevator used to dissect soft tissue off of the tibia. Tibia once again measured and the tibia osteotomy performed with a sagittal saw with retractors posterior to protect the soft tissue. Saphenous vessels and peroneal vessels were identified and ligated with 2 0 silk suture. The peroneal nerve and saphenous nerve identified and anesthetized with 0.5% Marcaine with epinephrine and ligated. Tibia was then brought forward and an amputation knife was placed posterior to the tibia and the distal fibula and the soft tissue was transected away from the bone. The cut was completed through the Achilles tendon. The distal leg ankle and foot were then passed off as specimen. Tibial artery identified and ligated with 2 0 silk suture. Tibial nerve identified and anesthetized with 0.5% Marcaine with epinephrine and ligated. Any other bleeding points coagulated with cautery. The tourniquet was then released. Any further bleeding was controlled with cautery or 2 0 silk suture ligation. After thorough hemostasis the wound was thoroughly irrigated with antibiotic solution. The anterior cortex of the tibia was shaped with the saw to reduce pressure. Thorough irrigation again performed. Myodesis was then performed of the gastrocnemius over the distal tibia using #2 Ethibond suture placed through trans osseous holes in the distal tibia. Proximal fibula was noted to be unstable. Indicated for arthrodesis. Proximal tibia fibula arthrodesis then performed. Second cut made at the distal fibula and the interval segment was rotated 90? into the space between the tibia and fibula. Guide pin placed from the fibula through the intercalary bone piece and into the tibia. Reaming then done with the cannulated drill. Bone thoroughly irrigated. Tight rope passed from the fibula through the intercalary bone piece and through the tibia. Medial button was flipped and suture was secured laterally compressing the arthrodesis site. Suture was cut. Fascia then repaired with 0 Vicryl interrupted suture. Subcutaneous tissue repaired with 2 O Vicryl 3 0 Monocryl interrupted suture and skin repaired with josselyn. Sterile dressing followed by a immediate fitting weight-bearing cast using fiberglass cast mat
[2021-07-10] MEDS: fentaNYL CITRATE INJ (*CRX) 100 MCG/2 ML VIAL 25 MCG IV PUSH ×6 (10:16→11:25)
[2021-07-10 12:11] LABS: Glucose Point of Care 136 mg/dl (65-105)
[2021-07-10] MEDS: MORPHINE SULFATE (*CRX) 4 MG/ML INJ 3 MG IV PUSH ×4 (13:04→22:39)
[2021-07-10] MEDS: KCL 20MEQ/0.9% SOD CHL 1,000 ML 125 ML IV CONT (13:04)
[2021-07-10] MEDS: diazePAM (*CRX) 5 MG TABLET PO (17:10)
[2021-07-10] MEDS: SENNA/DOCUSATE SODIUM TABLET 2 TAB PO (17:10)
[2021-07-10] MEDS: cilostazoL 100 MG TABLET PO (17:10)
[2021-07-10] MEDS: carvediloL 25 MG TABLET BY MOUTH (19:59)
[2021-07-11 03:48] VITALS: BP 129/74; PULSE 86; RESP 20; TEMP 36.7; O2SAT 95
[2021-07-11 06:00] VITALS: BP 113/62; PULSE 75; RESP 14; TEMP 35.8; O2SAT 91
[2021-07-11] MEDS: MORPHINE SULFATE (*CRX) 4 MG/ML INJ 3 MG IV PUSH ×2 (06:44→10:01)
[2021-07-11 07:35] LABS: Basophils Percent Auto 0.3 % (0.2-1.2); Eosinophils Absolute Auto 0.1 K/mm3 (0-0.3); Eosinophils Percent Auto 0.9 % (0-4.4); Hematocrit 39.7 % (42.0-52.0); Hemoglobin 12.5 g/dL (14.0-18.0); Immature Granulocyte Absolute 0.04 K/mm3 (0.00-0.031); Immature Granulocyte Percent A 0.4 % (0-0.5); Lymphocytes Absolute Auto 1.25 K/mm3 (0.9-3.2); Mean Corpuscular HGB Conc 31.5 g/dl (32-36); Mean Corpuscular Volume 88.8 fl (80-100); Mean Platelet Volume 8.4 fl (7.4-10.4); Monocytes Absolute Auto 1.3 K/mm3 (0.1-0.6); Neutrophils Absolute Auto 7.7 K/mm3 (1.3-6.7); Neutrophils Percent Auto 74.4 % (45.5-73.1); Platelet Count Result 279 k/mm3 (150-375); Red Blood Count 4.47 M/mm3 (4.6-6.20); White Blood Count 10.4 K/mm3 (4.5-10.0)
[2021-07-11 07:46] LABS: Potassium 4.4 mmol/L (3.4-5.0)
[2021-07-11 07:50] LABS: Anion Gap 6 mmol/L (8-16); Blood Urea Nitrogen 26 mg/dL (9-20); Calcium 8.4 mg/dL (8.4-10.2); Carbon Dioxide 29 mmol/L (22-30); Chloride 102 mmol/L (98-107); Estimated CRCL calculation 82 ml/min; Estimated Glomerular Filt Rate 57; Glucose 181 mg/dL (65-110); Sodium 137 mmol/L (137-145)
[2021-07-11] MEDS: SENNA/DOCUSATE SODIUM TABLET 2 TAB PO (09:47)
[2021-07-11] MEDS: IRBESARTAN 150 MG TABLET 300 MG PO (09:47)
[2021-07-11] MEDS: hydroCHLOROthiazide 25 MG TABLET PO (09:48)
[2021-07-11] MEDS: carvediloL 25 MG TABLET BY MOUTH (09:48)
[2021-07-11] MEDS: ASPIRIN 81 MG ENTERIC TABLET PO (09:48)
[2021-07-11] MEDS: OMEGA 3 POLYUNSAT FATTY ACIDS 1 GM CAP PO (09:48)
[2021-07-11] MEDS: cilostazoL 100 MG TABLET PO (09:48)
[2021-07-11] MEDS: ROSUVASTATIN 10 MG TABLET PO (09:49)
[2021-07-11] MEDS: polyethylene glycoL 3350 17 GM POWD.PACK PO (09:49)
[2021-07-11] MEDS: CHOLECALCIFEROL 400 UNITS TABLET (VIT D) PO (09:49)
--- NOTE | 2021-07-11 13:05 | PM.PNORT ---
Progress Note: A&P Assessment and Plan (1) S/P BKA (below knee amputation): Qualifiers: Laterality: right Qualified Code(s): Z89.511 - Acquired absence of right leg below knee Code(s): Z89.519 - Acquired absence of unspecified leg below knee Status: Acute Assessment and Plan: POD #1: Right BKA Continue PT/OT. Transfer assistance. Pain control. Elevate. Ice. Incentive spirometry. Dispo: Home Follow up in 2 weeks. Stump protector to be ordered by Bernard (2) CAD (coronary artery disease) of artery bypass graft: Code(s): I25.810 - Atherosclerosis of coronary artery bypass graft(s) without angina pectoris Status: Acute (3) Insulin pump titration: Code(s): Z46.81 - Encounter for fitting and adjustment of insulin pump Status: Acute Assessment and Plan: Well controlled. Subjective Subjective Date/Time Seen: 07/11/21 13:05 Post Op day: 1 Interval history: POD #1: Right BKA Patient doing very well. Pain well controlled. Working well with PT/OT. Hopeful for discharge home. Review of Systems Review of Systems: All systems reviewed & are unremarkable except as noted in HPI and below (HPI ) Exam Const: General: comfortable and no acute distress Resp: Effort & Inspection: normal respiratory effort Cardio: Rate: regular rate Rhythm: regular rhythm GI: Inspection: non-distended GI Palp: Yes Soft to palpation, No Firmness to palpation present (GI) and No Tenderness to palpation present (GI) Neuro: Cognition (Neuro): normal cognition Extrem: Other: Right BKA with cast in place. C/D/I. No drainage. Objective Data Vital Signs Vital Signs: Vital Signs - 24 hr 07/10/21 13:40 07/10/21 19:50 07/10/21 19:59 Temperature 36.2 C L Pulse Rate 60 63 66 Respiratory Rate 18 18 Blood Pressure 153/70 H Pulse Oximetry 97 100 07/10/21 20:00 07/10/21 23:43 07/11/21 03:48 Temperature 36.2 C L 36.7 C 36.7 C Pulse Rate 63 74 86 Respiratory Rate 18 18 20 Blood Pressure 163/68 H 149/68 H 129/74 Pulse Oximetry 100 97 95 07/11/21 06:00 Temperature 35.8 C L Pulse Rate 75 Respiratory Rate 14 Blood Pressure 113/62 Pulse Oximetry 91 Intake/Output Intake/Output: Intake & Output 07/08/21 07/09/21 07/10/21 07/11/21 23:59 23:59 23:59 23:59 Intake Total 2330 420 Output Total 900 Balance 2330 -480 Meds/Results Medications: Active Medications Generic Name Dose Route Start Last Admin Trade Name Freq PRN Reason Stop Dose Admin Acetaminophen 650 mg 07/10/21 11:29 Acetaminophen 325 Mg Tablet PO Q6H PRN Pain or Fever Hydrocodone Bitart/Acetaminophen 1 tab 07/10/21 11:29 Hydrocodone/Acetaminophen (*Crx) 7.5-325 Mg Tablet PO Q3H PRN Pain Rated 4-6 Aspirin 81 mg 07/11/21 09:00 07/11/21 09:48 Aspirin 81 Mg Enteric Tablet PO 81 mg DAILY MARY Administration Carvedilol 25 mg 07/10/21 21:00 07/11/21 09:48 Carvedilol 25 Mg Tablet BY MOUTH 25 mg Q12HR MARY Administration Cilostazol 100 mg 07/10/21 17:00 07/11/21 09:48 Cilostazol 100 Mg Tablet PO 100 mg BID MARY Administration Dextrose 12.5 gm 07/10/21 11:29 Dextrose 50% 25 Gm/50 Ml Syringe IV PUSH PRN PRN Hypoglycemia Protocol Dextrose 12.5 gm 07/10/21 12:05 Dextrose 50% 25 Gm/50 Ml Syringe IV PUSH PRN PRN Hypoglycemia Protocol Diazepam 5 mg 07/10/21 11:29 07/10/21 17:10 Diazepam (*Crx) 5 Mg Tablet PO 5 mg Q8H PRN Administration Muscle Spasm Fish Oil 1 gm 07/11/21 09:00 07/11/21 09:48 [place] 3 Polyunsat Fatty Acids 1 Gm Cap PO 1 gm DAILY MARY Administration Glucagon 1 mg 07/10/21 11:29 Glucagon For Inj 1 Mg Vial IM PRN PRN Hypoglycemia Protocol Glucagon 1 mg 07/10/21 12:05 Glucagon For Inj 1 Mg Vial IM PRN PRN Hypoglycemia Protocol Glucose 15 gm 07/10/21 11:29 Glucose Oral Gel 15 Gm Of Glucse In 37
--- NOTE | 2021-07-11 13:15 | PM.DS ---
DS: Admitting Diagnosis Discharge Date 07/11/21 Admitting Diagnosis Right Foot Osteomyelitis DS: Discharge Diagnosis Discharge Diagnosis (1) S/P BKA (below knee amputation): Qualifiers: Laterality: right Qualified Code(s): Z89.511 - Acquired absence of right leg below knee Code(s): Z89.519 - Acquired absence of unspecified leg below knee Status: Acute Assessment and Plan: POD #1: Right BKA Continue PT/OT. Transfer assistance. Pain control. Elevate. Ice. Incentive spirometry. Dispo: Home Follow up in 2 weeks. Stump protector to be ordered by Bernard (2) CAD (coronary artery disease) of artery bypass graft: Code(s): I25.810 - Atherosclerosis of coronary artery bypass graft(s) without angina pectoris Status: Acute (3) Insulin pump titration: Code(s): Z46.81 - Encounter for fitting and adjustment of insulin pump Status: Acute Assessment and Plan: Well controlled. DS: Summary Hospital Course Reason for hospitalization: Right Foot Osteomyelitis/[facility] Course: 55 year old male admitted s/p right BKA by Dr. Monteiro. Patient progressed very well on POD 0 and POD 1. He began working with PT/OT on POD 0 and did very well. He has been [facility] of the [facility] for the last 2 years and is familiar with transfers. His pain has been well controlled. He has been deemed safe to be discharged home at this time. Status at Discharge Functional status at discharge: wheelchair bound (pending transition to prosthetic. May use walker for some transfers. ) Overall status at discharge: other (progressing to new baseline given right BKA ) Time Spent with Patient Time attestation: Total time spent providing and/or coordinating discharge services: Time spent: Less than 30 minutes Exam Const: General: comfortable and no acute distress Resp: Effort & Inspection: normal respiratory effort Cardio: Rate: regular rate Rhythm: regular rhythm GI: Inspection: non-distended GI Palp: Yes Soft to palpation, No Firmness to palpation present (GI) and No Tenderness to palpation present (GI) Neuro: Cognition (Neuro): normal cognition Extrem: Other: Right BKA with cast in place. C/D/I. No drainage. DS: Data Data Completed and Pending Pending studies at discharge: Pending at discharge 07/10/21 08:37 Surgical [PTH] Routine Labs on day of discharge: Labs from last 24 hours 07/11/21 07/11/21 07:16 07:16 WBC 10.4 H RBC 4.47 L Hgb 12.5 L Hct 39.7 L MCV 88.8 MCH 28.0 MCHC 31.5 L RDW 15.0 H Plt Count 279 MPV 8.4 Immature Gran % (Auto) 0.4 Neut % (Auto) 74.4 H Lymph % (Auto) 12.0 L Fleming % (Auto) 12.0 H Eos % (Auto) 0.9 Baso % (Auto) 0.3 Lymph # (Auto) 1.25 Fleming # (Auto) 1.3 H Eos # (Auto) 0.1 Baso # (Auto) 0.0 Abs Immat Gran (auto) 0.04 H Absolute Neuts (auto) 7.7 H Absolute Nucleated RBC 0.0 Nucleated RBC % 0.0 Sodium 137 Potassium 4.4 Chloride 102 Carbon Dioxide 29 Anion Gap 6 L BUN 26 H Creatinine 1.30 Estim Creat Clear Calc 82 Estimated GFR 57 L Glucose 181 H Calcium 8.4 Discharge Plan Discharge Attending physician on discharge: Familia Monteiro Discharging Clinician: Lluvia Lam Anticipated Discharge Date/Time: 07/11/21 13:09 Patient Disposition: Home, Self-Care Activity: may shower, no driving and follow weight bearing status Diet: diabetic Wound Care Instructions: follow printed instructions Discharge Instructions: Orthopedic Recommendations Dr. Monteiro [phone] Keep cast clean and dry. Elevate right leg on pillows. If cast falls off as swelling improves, place transfer dressing over incision and cover. Then put stump protector in place. We will remove cast in 2 weeks at your follow up appointment. Contact us with questions/concerns at [phone] We have sent an order to [facility] for your stump protector. Please let us k
[2021-07-11 14:00] VITALS: BP 108/57; PULSE 81; RESP 18; TEMP 36.2; O2SAT 95
[2021-07-11] MEDS: HYDROcodone/acetaminophen (*CRX) 7.5-325 MG TABLET 1 TAB PO (14:12)
== END 2021-07-11 14:42 | disposition home or self-care (01) | DRG 617 ==
LOC: ANH3MEDSUR 11:41
PROVIDERS: Admitting Provider Orthopaedic Surgery; PCP Family Medicine; Visit Provider Nurse Practitioner Family
PROC: 0Y6H0Z1 Detachment at Right Lower Leg, High, Open Approach (ICD-10-PCS; CPT 27882; principal; 2021-07-10 07:30)
DX: E10.69 Type 1 diabetes mellitus with other specified complication (principal); M86.9 Osteomyelitis, unspecified; I25.810 Atherosclerosis of coronary artery bypass graft(s) without angina pectoris; Z79.4 Long term (current) use of insulin; Z96.41 Presence of insulin pump (external) (internal); Z95.1 Presence of aortocoronary bypass graft; I77.1 Stricture of artery; E78.2 Mixed hyperlipidemia; G47.33 Obstructive sleep apnea (adult) (pediatric); N18.2 Chronic kidney disease, stage 2 (mild); E10.621 Type 1 diabetes mellitus with foot ulcer; E10.22 Type 1 diabetes mellitus with diabetic chronic kidney disease; E10.51 Type 1 diabetes mellitus with diabetic peripheral angiopathy without gangrene; Z82.49 Family history of ischemic heart disease and other diseases of the circulatory system; Z82.61 Family history of arthritis; Z79.899 Other long term (current) drug therapy; F17.210 Nicotine dependence, cigarettes, uncomplicated
CPT/HCPCS: 36415; 80048; 82948; 85025; 88307; 88311; 97161; 97165; 97530; A9270; C1713; G0378; J0690; J1170; J1885; J2250; J2270; J2405; J2704; J2710; J3010; J3480; J7120

== ENCOUNTER 2021-12-27 12:30 | Outpatient (RCR) | payer MEDICARE, SELFPAY ==
--- NOTE | 2021-10-27 16:21 | PTOPEVAL ---
PHYSICAL THERAPY EVALUATION AND PLAN OF CARE 10-27-21 Thank you for referring Bereket Julian to [facility][Note 3].? He is scheduled to be seen for therapy? 2 x/week for 5 weeks. Please review, sign, date and return this plan of care NAEEM. I agree with and certify that the following plan of care is medically necessary. 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 Respiratory History Hx Sleep Apnea Yes: cpap Gastrointestinal History Hx Gastrointestinal Disorders No Significant History Genitourinary History Hx Other Genitourinary Disorders Yes: stage 2 kidney disease - SEES DR. TAPIA Musculoskeletal History Hx Arthritis Yes: GENERALIZED Hx Fractures Yes: RT SHOULDER Hx Orthopedic Surgery Yes: RT FOOT ULCERS, RT ANKLE/ TIB-FIB Hx Osteomyelitis Yes: RT FOOT- Charcot Telma disease Hx Other Musculoskeletal Disorders Yes: L ankle pain and collapse - to get new brace/ shoe Hematological History Hx Hematological Disorders No Significant History Endocrine History Hx Diabetes Yes: type 1 - INSULIN PUMP Hx Insulin Pump Yes HEENT History Hx Other HEENT Disorders Yes: NASAL CAUTERY Integumentary History Hx Other Skin Disorders Yes: multiple debridements to right foot Reproductive History Hx Reproductive Disorders No Significant History Psychosocial History Hx Psychiatric Disorders No Significant History Pain History Has Past Pain Affected Your Daily Life Yes History of Long-Term Prescription Pain Yes Medication Use (Opiates) Anesthesia History Hx Anesthesia Reactions No Significant History Other History Hx Implanted Device Yes: RT ANKLE/FOOT Evaluation Information Diagnosis R BKA Onset 07-10-21 Subjective Information working with Ruthie at [employer] Query Text:As Reported By Patient/ with his prosthesis, have had Family for 3 weeks;is wearing the prosthesis about 8 hours/day; walking in the house about 20'
--- NOTE | 2021-11-29 16:20 | PTOPEVAL ---
PHYSICAL THERAPY REEVALUATION AND UPDATED PLAN OF CARE 11-29-21 Refer to the clinical summary for his status today, compared to the initial evaluation. The goals were partially achieved. Continue PT treatment 2x/wk for 4 weeks. Thank you for referring Bereket Julian to [facility].? Please review, sign, date and return this updated plan of care [facility]. I agree with and certify that the following plan of care is medically necessary. Referring Physician Date Attending Provider: DAO Wade Subjective Information Ross reports: have the L Query Text:As Reported By Patient/ ankle brace, but not the shoe Family yet; L ankle collapses when stand on it, have pain and then walking uneven and back starts to hurt; at home, walking with and without cane; have been into the basement- with rail and cane; have not had any falls, but did lose balance few times, walking up ramp into home; is wearing prosthetic leg all day- about noon takes off and adds sock layer and puts back on; R leg skin good; have a blister on L lateral foot-- shoe rubs, watching it; has been trying to increase his walking distance, able to go ~ 200 steps, then have to stop due to L back, hip and leg locking up; Pain Assessment Pain Scale Pain Scale Used Numeric (1 - 10) Self Report Pain Assessment Right Leg(s) Reported Pain Level 2 Pain Description Tightness Pain Frequency Chronic,Continuous Additional Pain Score Comments also have back pain and hip pain- tightening with walking- range 0-5/10 General Lower Extremity Strength Gross Lower Extremity Strength functional strength testing: - sit to stand from 18 seat without use of hands - standing hip exercises R and L hip abduction x 20 reps; Transfer Assessment Floor Transfer Assessment Ambulation Assistive Devices None Sit to Floor Transfer Ability Independent Floor to Stand Transfer Ability Independent Cues Needed for Floor Transfer None Floor Transfer Comments use of UE's on mat to assist with transfer Gait Assessment Ambulation Assistive Devices Cane Orthotic/Prosthetic Devices
--- NOTE | 2021-12-13 14:53 | PCPTNOTE ---
Patient arrived to appointment 30min late, scheduling error; adjustment made.
--- NOTE | 2021-12-27 13:29 | PTOPEVAL ---
PHYSICAL THERAPY DISCHARGE 12-27-21 Refer to the clinical summary below, for his status today, compared to the last reevaluation. The goals were partially achieved. Discharge PT at this time. He is to continue with his HEP and increase walking and activity tolerance. Thank you for referring Bereket Julian to [facility].? Please review, sign, date and return this Discharge NAEEM. I agree with and certify that the following plan of care is medically necessary. Referring Physician Date Attending Provider: DAO Wade Subjective Information Ross reports: have not found Query Text:As Reported By Patient/ a 6E wide shoe to accommodate Family the L ankle brace; does wear the lace up brace without a shoe, around the house for a few hours and it is comfortable; have had issues with L eye for visceral bleeding and now getting injections into L eye, decreased vision L eye and have floaters in R eye; at home, do stairs daily multiple times, doing alternating steps; have been going out int the yard and out in community; with the fit bit max of 5,000 steps/day total, about 300 steps or slightly more; wearing 15 ply socks continues to check skin and no issues; is walking in the house without the cane; no falls; Discussed use of cast/post op shoe for L foot--showed him one and he thinks that may work for his brace. Pain Assessment Self Report Self Report Pain Level 0 Pain Score Pain Score 0: Self Report Additional Pain Score Comments some soreness over R anterior lower leg at end of day from pressure; no skin irritation or issues R LE; back is better, does not have the tightness or pain in L hip anymore---only had once recently with walking about 30 minutes straight when shopping, had to stop and rest to ease it; is doing back exercises and s
== END 2021-12-27 16:20 | disposition home or self-care (01) ==
LOC: ANHPT 12:30
PROVIDERS: PCP Family Medicine; Referring Provider Nurse Practitioner Family; Visit Provider Nurse Practitioner Family
DX: Z47.81 Encounter for orthopedic aftercare following surgical amputation (principal); Z89.511 Acquired absence of right leg below knee
CPT/HCPCS: 97110; 97112; 97116; 97140; 97161; 97530

== ENCOUNTER 2023-05-27 10:39 | Outpatient (CLI) | payer MEDICARE, SELFPAY ==
[2023-05-27 19:05] LABS: Iron 107 ug/dL (49-181)
[2023-05-27 19:15] LABS: Percent Iron Saturation 30 % (20-50)
[2023-05-29 10:11] LABS: Apolipoprotein B 98 mg/dL (<90)
[2023-05-30 05:44] LABS: LH 6.2 mIU/mL (1.5-9.3); Prolactin 3.6 ng/mL (***)
[2023-05-30 12:14] LABS: Testosterone Free 65.4 pg/mL (35.0-155.0); Testosterone Total 507 ng/dL (250-1100)
== END 2023-05-27 10:40 | disposition home or self-care (01) ==
LOC: ANHGOSHLAB 10:41
PROVIDERS: PCP Internal Medicine; Visit Provider Internal Medicine
DX: E78.2 Mixed hyperlipidemia (principal); E10.43 Type 1 diabetes mellitus with diabetic autonomic (poly)neuropathy; I73.9 Peripheral vascular disease, unspecified; Z95.1 Presence of aortocoronary bypass graft
CPT/HCPCS: 36415; 82172; 82728; 83002; 83540; 83550; 84146; 84402; 84403; 84443

== ENCOUNTER 2023-06-11 09:05 | Outpatient (CLI) | payer MEDICARE, SELFPAY ==
[2023-07-02 13:21] VITALS: BMI 34.0
--- NOTE | 2023-07-02 13:21 | WPDSLEEPSTUD ---
Sleep Study Date of Study: 06/11/23 Ordering Provider: Guy Heard DO Interpreting Physician: Xiomara Keys DO Sleep Study Type: CPAP Titration Height: 1.93 m Weight: 127.006 kg Body Mass Index: 34.0 Neck Circumference (inches): 16 [place]: 21 Reason for Sleep Study Previous diagnosis of AIDA and has been on CPAP since 2017. Still snoring with CPAP. Struggling with mask leak. Sleep History The patient is a 57-year-old male with hypertension, Type 1 diabetes, GERD, chronic kidney disease, Charcot foot, coronary artery disease, diabetic peripheral angiopathy, lymphedema, hyperlipidemia, peripheral vascular disease, bilateral eye hemorrhage, history of tobacco use and previous diagnosis of sleep apnea that had a sleep study ordered by his primary care for optimization of CPAP settings. The patient occasionally awakens from sleep short of breath. He frequently awakens at night with heartburn, belching or cough. He frequently snores and is frequently loud that others complain. He constantly has trouble sleeping when he has a cold. He occasionally wakes up gasping for air throughout the night. He occasionally has breathing problems at night observed by himself or others. He rarely sweats excessively at night. He rarely has heart palpitations or irregular heartbeats during the night. He constantly falls asleep during the day but never while driving. He denies sleep paralysis, cataplexy and hypnagogic / hypnopompic hallucinations. He occasionally has trouble at school or work due to sleepiness. He denies feeling afraid of going to sleep. He rarely has nightmares. He occasionally remembers his dreams. He occasionally has thoughts racing through his mind. He denies feeling sad or depressed. He occasionally has anxiety. He frequently has muscular tension. He denies noticing parts of his body jerk. He rarely kicks during the night. He occasionally has crawling and aching feelings in his legs and occasionally has leg pain during the night. He frequently grinds his teeth during sleep but never awakens with morning jaw pain. He is constantly bothered by pain during the day and constantly awakened by pain during the night. He constantly wakes up feeling stiff in the morning. He constantly wakes up with sore or achy muscles. He constantly wakes up with pain in the neck, spine and other joints. He goes to bed at 9:30 p.m. on weekdays and at 10:30 p.m. on weekends. It takes him 5-10 minutes to fall asleep. He wakes up frequently throughout the night to adjust position in his bed and is able to fall back asleep within a few minutes. He wakes up between 6-7 a.m. on weekdays and between 7-8 a.m. on the weekends. He typically gets 6-8 hours of sleep per night. He will stay in bed for a few minutes after waking up in the morning. He currently lives with his girlfriend. He denies consuming any caffeinated beverages within 2 hours of bedtime. He denies engaging in physical exercise before bedtime. He will read and watch television before falling asleep. He will take naps in the afternoon or the evening and they are refreshing. He consumes 3 cups of coffee per day. He is a former smoker. He denies alcohol and recreational drug use. [facility] Past Medical History Medical History Absent pedal pulses AILEEN (acute kidney injury) Arterial insufficiency of lower extremity BMI greater than 30 CAD (coronary artery disease) of artery bypass graft Charcot foot due to diabetes mellitus Chronic pain Chronic pain in right foot [place], acquired Coronary artery disease Coronary artery disease involving [place] coronary artery of [place] heart Diabetic foot ulcer associated with diabetes mellitus due to underlying condition Diabetic peripheral angiopathy Diabetic ulcer of ankle associated with diabetes mellitus due to underlying condition Dietary counseling and surveillance Essential (primary)
== END 2023-06-12 07:01 | disposition home or self-care (01) ==
LOC: ANHCSM 09:07
PROVIDERS: PCP Internal Medicine; Visit Provider Internal Medicine
DX: G47.33 Obstructive sleep apnea (adult) (pediatric) (principal)
CPT/HCPCS: 95811

== ENCOUNTER → 2023-07-10 12:42 | Outpatient (CLI) | payer MEDICARE, SELFPAY ==
--- NOTE | ~2023-07-10 | MR_ITS ---
MRI of the lumbar spine Clinical History: Back pain Technique: Axial T2-weighted images, and sagittal T1-weighted, T2-weighted, and T2 fat-sat images wer e acquired. COMPARISON: 11/18/2015 Findings: There is no fracture or subluxation of the lumbar spine. Vertebral bodies maintain normal h eight and alignment. There is reactive marrow signal changes about the L5-S1 disc space due to underl asha degenerative disease. At L1-L2, there is minimal disc bulge and moderate facet arthropathy. No central canal stenosis or ne ural foraminal narrowing. At L2-L3, there is minimal disc bulge. There is moderate facet arthropathy. No central canal stenosis or neural foraminal narrowing. At L3-L4, there is minimal disc bulge with moderate facet arthropathy. There is no bernardino thecal sac c ompression. There is mild to moderate bilateral neural foraminal narrowing. At L4-L5, there is disc bulge and severe facet arthropathy, with moderate to severe spinal canal sten osis/thecal sac compression. There is moderate bilateral neural foraminal narrowing, right worse than left. At L5-S1, there is disc bulge with probable superimposed focal extrusion at the left paracentral kinza on. There is probable impingement of descending left-sided S1-S2 level nerve root. Thecal sac itself is relatively noncompressed at this level. Right neural foramen preserved. Left neural foramen is mod erate to severely narrowed. Paravertebral soft tissues are unremarkable. Impression: Left paracentral disc protrusion with superimposed focal extrusion at L5-S1, with impingement of desc ending left-sided S1-S2 level nerve root, and advanced left neural foraminal narrowing at this level. Multifactorial moderate to severe spinal canal stenosis/thecal sac compression L4-L5, with moderate b ilateral neural foraminal narrowing. Reviewed, dictated and finalized at location M. [employer] Impression: Left paracentral disc protrusion with superimposed focal extrusion at L5-S1, wi th impingement of descending left-sided S1-S2 level nerve root, and advanced le ft neural foraminal narrowing at this level. Multifactorial moderate to severe spinal canal stenosis/thecal sac compression L4-L5, with moderate bilateral neural foraminal narrowing.
== END ==
PROVIDERS: PCP Internal Medicine; Visit Provider Nurse Practitioner Family
DX: M54.50 Low back pain, unspecified (principal); M51.37 Other intervertebral disc degeneration, lumbosacral region; M48.061 Spinal stenosis, lumbar region without neurogenic claudication
CPT/HCPCS: 72148

== ENCOUNTER 2023-08-07 10:27 | Outpatient (CLI) | payer MEDICARE, SELFPAY ==
--- NOTE | ~2023-08-07 | XR_ITS ---
XR chest 2V DATE: 08/07/2023 10:39 INDICATION: Low oxygen saturation on 6 study TECHNIQUE: 2 views COMPARISON: None FINDINGS: Status post sternotomy. Normal heart size. No hilar or mediastinal enlargement. No pulmonary infiltrate or consolidation, pleural effusion or pulmonary vascular congestion or pneumo thorax is detected. IMPRESSION: Status post sternotomy; no active cardiopulmonary disease Reviewed, dictated and finalized at location B.
== END 2023-08-07 10:28 ==
PROVIDERS: PCP Family Medicine; Visit Provider Family Medicine
DX: R79.81 Abnormal blood-gas level (principal); R09.02 Hypoxemia; Z98.890 Other specified postprocedural states
CPT/HCPCS: 71046

== ENCOUNTER 2023-08-08 09:23 | Outpatient (CLI) | payer MEDICARE, SELFPAY ==
--- NOTE | 2023-08-08 17:02 | WPDPFTINT ---
PFT Procedure Performed PFT Procedure Performed Spirometry with Pre/Post Bronchodilator Plethysmography (Lung Vol) Diffusing Cap (DLCO) Flow Vol Loop PFT Interpretation This is a pulmonary function test with pre and post-bronchodilator spirometry, plethysmography and diffusing capacity. The test was performed and results interpreted in accordance with the 2019 and 2005 ATS/ERS Task Force guidelines respectively using the Global Lung Function Initiative-2012 reference equations. Patient demonstrated good effort and cooperation. Reproducibility criteria were met. The quality of the pre bronchodilator spirometry maneuver was Grade B and post bronchodilator spirometry maneuver was Grade A. Findings: Spirometry: the contour the inspiratory and expiratory flow tracing are normal. The pre bronchodilator FVC is 4.29 L, 80% predicted. The pre bronchodilator FEV1 is 3.41 L, 83% predicted. The pre bronchodilator FEV1: FVC ratio is 80%. The post bronchodilator FVC is 4.37 L, representing a 2% increase. The post bronchodilator FEV1 is 3.59 L, representing a 5% increase. The post bronchodilator FEV1: FVC ratio is 82%. Plethysmography: The total lung capacity is 7.80 L, 100% predicted. The functional residual capacity is 3.17 L, 77% predicted. The residual volume is 3.14 L, 129% predicted. Diffusing capacity: The diffusing capacity unadjusted for hemoglobin and carboxyhemoglobin is 25.8, 85% predicted. The diffusing capacity adjusted for alveolar volume is 4.22, 104% predicted. Impression: The spirometry is normal without evidence of an obstructive abnormality. There is no significant improvement after inhaling a single dose of albuterol. The lung volumes are normal. The diffusing capacity is normal. There are no prior studies for comparison
== END 2023-08-08 09:24 | disposition home or self-care (01) ==
LOC: ANHPFT 09:24
PROVIDERS: PCP Family Medicine; Visit Provider Family Medicine
DX: R06.00 Dyspnea, unspecified (principal)
CPT/HCPCS: 94060; 94726; 94729

== ENCOUNTER 2023-10-15 11:09 | Outpatient (CLI) | payer MEDICARE, SELFPAY ==
--- NOTE | ~2023-10-15 | XR_ITS ---
AP view of the pelvis and AP and lateral views of the bilateral hips Clinical history: Pain Findings: No acute fracture or dislocation is seen. Osseous alignment is anatomic. Bilateral hip and SI joint spaces are preserved. Soft tissues are unremarkable. Impression: No significant abnormality is seen. Reviewed, dictated and finalized at location . Impression: No significant abnormality is seen.
--- NOTE | ~2023-10-15 | XR_ITS ---
Lumbosacral Spine: AP and lateral views, with neutral, flexion, extension positioning. Clinical History: Pain Findings: The normal lordotic curve is maintained. The vertebral bodies and posterior elements are i ntact. No instability seen on flexion or extension. The intervertebral disc spaces are preserved. Mod erate facet arthropathy present throughout the lumbar spine. The sacroiliac joints are normally outli betzaida. Impression: Moderate facet arthropathy and lumbar spine. Reviewed, dictated and finalized at location M. Impression: Moderate facet arthropathy and lumbar spine.
== END 2023-10-15 11:10 ==
LOC: MICIMG 11:10
PROVIDERS: PCP Internal Medicine; Visit Provider Neurological Surgery
DX: M47.26 Other spondylosis with radiculopathy, lumbar region (principal); M25.551 Pain in right hip; M25.552 Pain in left hip
CPT/HCPCS: 72110; 73521

== ENCOUNTER 2023-10-15 12:32 | Outpatient (CLI) | payer MEDICARE, SELFPAY ==
[2023-10-15 19:10] LABS: Alanine Aminotransferase 34 U/L (6-50); Albumin Level 4.3 g/dL (3.5-5.1); Alkaline Phosphatase 95 U/L (38-126); Anion Gap 6 mmol/L (4-12); Aspartate Amino Transferase 79 U/L (17-59); Bilirubin,Total 0.9 mg/dL (0.2-1.3); Blood Urea Nitrogen 25 mg/dL (9-20); Calcium 9.1 mg/dL (8.4-10.2); Carbon Dioxide 29 mmol/L (22-30); Chloride 104 mmol/L (98-107); Cholesterol 161 mg/dL (0-200); Estimated Glomerular Filt Rate > 60; Glucose 132 mg/dL (65-110); HDL Direct 39 mg/dL; Potassium 5.1 mmol/L (3.4-5.0); Sodium 139 mmol/L (137-145); Triglycerides 132 mg/dL (<150)
[2023-10-15 19:20] LABS: LDL Cholesterol Direct 82 mg/dL
[2023-10-15 19:25] LABS: Free T4 Free Thyroxine 0.84 ng/mL (0.78-2.19); Vitamin D 25 Hydroxy 39.4 ng/mL
[2023-10-15 19:54] LABS: Creatinine Urine 26.7 mg/dL
[2023-10-15 19:59] LABS: MALB Creatinine Ratio 342.7 mg/g (0-30); Microalbumin Urine Random 91.5 mg/L (0-16.7)
== END 2023-10-15 12:33 | disposition home or self-care (01) ==
PROVIDERS: PCP Internal Medicine; Visit Provider Nurse Practitioner Family
DX: I25.10 Atherosclerotic heart disease of native coronary artery without angina pectoris (principal); E78.2 Mixed hyperlipidemia; R80.9 Proteinuria, unspecified; I10 Essential (primary) hypertension; E10.319 Type 1 diabetes mellitus with unspecified diabetic retinopathy without macular edema
CPT/HCPCS: 36415; 80053; 80061; 82043; 82306; 82607; 84439; 84443

== ENCOUNTER 2023-12-14 08:15 | Outpatient (CLI) | payer MEDICARE, SELFPAY ==
--- NOTE | ~2023-12-14 | MR_ITS ---
EXAMINATION: MR foot LT wo con DATE: 12/14/2023 10:11 INDICATION: Left foot sore. TECHNIQUE: Magnetic resonance imaging (MRI) of the left foot was performed without intravenous contra st. COMPARISON: Left foot radiograph 12/03/2023, MRI 05/23/16 FINDINGS: There is a rocker-bottom foot. There is lateral subluxation of second and third metatarsals with respect to the tarsals, consistent with chronic Lisfranc ligament tear. There is ankylosis of s econd and third tarsometatarsal joints. There is polyarticular severe osteoarthritis in the midfoot. There is a skin marker lateral to the fifth digit. No fracture. There is no evidence of osteomyelitis . There is subcutaneous edema of the dorsal foot and anterior lower leg. There is extensive moderate to severe fatty atrophy of musculature. IMPRESSION: 1. No evidence of osteomyelitis. 2. Severe neuropathic osteoarthropathy of the midfoot. Reviewed, dictated and finalized at location A.
--- NOTE | ~2023-12-14 | MR_ITS ---
EXAMINATION: MR cervical spine wo con DATE: 12/14/2023 10:24 INDICATION: Cervical radiculopathy. Neck pain. TECHNIQUE: Magnetic resonance imaging (MRI) of the cervical spine was performed without intravenous c ontrast. COMPARISON: None FINDINGS: Bone alignment is normal. Vertebral body heights are normal. Intervertebral disc heights ar e normal. There is increased T2-weighted signal intensity in the spinal cord at C4 and C5, consistent with myelomalacia. The following disc levels are specifically discussed: C2-C3: The disc does not extend beyond the endplate margin. There is mild right and moderate left unc overtebral joint osteoarthritis. There is mild right and severe left facet joint osteoarthritis. Ther e is mild left neural foraminal stenosis. There is no central canal stenosis. C3-C4: There is a central extrusion. There is mild bilateral uncovertebral joint osteoarthritis. Ther e is severe right and moderate left facet joint osteoarthritis. There is moderate right and mild left neural foraminal stenosis. There is moderate central canal stenosis with ventral and dorsal indentat ion of the spinal cord. C4-C5: There is a central extrusion. There is mild bilateral uncovertebral joint osteoarthritis. Ther e is severe right and moderate left facet joint osteoarthritis. There is mild bilateral neural forami nal stenosis. There is severe central canal stenosis with ventral and dorsal indentation of the spina l cord. C5-C6: The disc is bulging. There is moderate bilateral uncovertebral joint osteoarthritis. There is mild bilateral facet joint osteoarthritis. There is mild bilateral neural foraminal stenosis. There i s mild central canal stenosis. C6-C7: There is a left central extrusion. There is mild right and moderate left uncovertebral joint o steoarthritis. There is severe bilateral facet joint osteoarthritis. There is mild right and moderate left neural foraminal stenosis. There is mild central canal stenosis. C7-T1: The disc does not extend beyond the endplate margin. There is no uncovertebral joint osteoarth ritis. There is severe right and mild left facet joint osteoarthritis. There is moderate right neural foraminal stenosis. There is no central canal stenosis. IMPRESSION: 1. Severe cervical spondylosis. 2. Myelomalacia at C4 and C5. Reviewed, dictated and finalized at location A.
== END 2023-12-14 08:16 ==
PROVIDERS: PCP Internal Medicine; Visit Provider Neurological Surgery
DX: M79.672 Pain in left foot (principal); L97.529 Non-pressure chronic ulcer of other part of left foot with unspecified severity; L08.9 Local infection of the skin and subcutaneous tissue, unspecified; E11.628 Type 2 diabetes mellitus with other skin complications; E11.621 Type 2 diabetes mellitus with foot ulcer; M54.12 Radiculopathy, cervical region; R20.0 Anesthesia of skin; M43.02 Spondylolysis, cervical region; G95.89 Other specified diseases of spinal cord; M19.072 Primary osteoarthritis, left ankle and foot
CPT/HCPCS: 72141; 73718

== ENCOUNTER 2024-01-13 11:20 | Outpatient (CLI) | payer MEDICARE, SELFPAY ==
[2024-01-13 15:16] LABS: Albumin Level 4.1 g/dL (3.5-5.1); Anion Gap 8 mmol/L (4-12); Basophils Absolute Auto 0.1 K/mm3 (0.0-0.1); Basophils Percent Auto 0.4 % (0.2-1.2); Blood Urea Nitrogen 19 mg/dL (9-20); Calcium 9.4 mg/dL (8.4-10.2); Carbon Dioxide 31 mmol/L (22-30); Chloride 99 mmol/L (98-107); Eosinophils Absolute Auto 0.1 K/mm3 (0-0.3); Eosinophils Percent Auto 0.8 % (0-4.4); Estimated Glomerular Filt Rate 56; Glucose 81 mg/dL (65-110); Hematocrit 42.4 % (42.0-52.0); Hemoglobin 13.6 g/dL (14.0-18.0); Immature Granulocyte Absolute 0.04 K/mm3 (0.00-0.031); Immature Granulocyte Percent A 0.3 % (0-0.5); Lymphocytes Absolute Auto 1.47 K/mm3 (0.9-3.2); Lymphocytes Percent Auto 12.3 % (18.3-44.2); Mean Corpuscular HGB Conc 32.1 g/dl (32-36); Mean Corpuscular Hemoglobin 30.8 pg (26-34); Mean Corpuscular Volume 95.9 fl (80-100); Monocytes Percent Auto 8.6 % (2.6-8.5); Neutrophils Absolute Auto 9.3 K/mm3 (1.3-6.7); Neutrophils Percent Auto 77.6 % (45.5-73.1); Phosphorus 3.1 mg/dL (2.5-4.5); Platelet Count Result 363 k/mm3 (150-375); Potassium 4.3 mmol/L (3.4-5.0); Red Blood Count 4.42 M/mm3 (4.6-6.20); Red Cell Distribution Width 12.7 % (11.5-14.5); Sodium 138 mmol/L (137-145)
[2024-01-13 15:17] LABS: Alanine Aminotransferase 18 U/L (6-50); Albumin Level 4.2 g/dL (3.5-5.1); Alkaline Phosphatase 90 U/L (38-126); Anion Gap 8 mmol/L (4-12); Aspartate Amino Transferase 47 U/L (17-59); Bilirubin,Total 0.7 mg/dL (0.2-1.3); Blood Urea Nitrogen 19 mg/dL (9-20); Calcium 9.4 mg/dL (8.4-10.2); Carbon Dioxide 31 mmol/L (22-30); Chloride 99 mmol/L (98-107); Estimated Glomerular Filt Rate 56; Glucose 84 mg/dL (65-110); Potassium 4.3 mmol/L (3.4-5.0); Sodium 138 mmol/L (137-145)
[2024-01-13 15:24] LABS: Creatinine Urine 34.9 mg/dL; Thyroid Stimulating Hormone 0.992 uIU/mL (0.465-4.680); Total Protein Urine Random 24 mg/dL; Ur Ttl Prot Creatinine Ratio 0.69 mg/mg (0-0.20)
[2024-01-13 16:51] LABS: Prostate Specific Antigen 2.9 ng/mL (< OR = 4.0)
[2024-01-13 17:28] LABS: Vitamin D 25 Hydroxy 14.7 ng/mL
== END 2024-01-13 11:21 | disposition home or self-care (01) ==
PROVIDERS: Nurse Practitioner Family; PCP Internal Medicine; Visit Provider Internal Medicine Nephrology
DX: Z12.5 Encounter for screening for malignant neoplasm of prostate (principal); E78.2 Mixed hyperlipidemia; E11.21 Type 2 diabetes mellitus with diabetic nephropathy; R35.1 Nocturia; M79.89 Other specified soft tissue disorders; G47.33 Obstructive sleep apnea (adult) (pediatric); R80.1 Persistent proteinuria, unspecified; Z79.899 Other long term (current) drug therapy; Z99.89 Dependence on other enabling machines and devices
CPT/HCPCS: 36415; 80053; 80069; 82306; 82570; 84153; 84156; 84443; 85025; G0103

== ENCOUNTER 2024-01-14 10:44 | Outpatient (CLI) | payer MEDICARE, SELFPAY ==
--- NOTE | ~2024-01-14 | US_ITS ---
EXAMINATION: US venous doppler [facility] DATE: 01/14/2024 11:46 INDICATION: Left lower limb pain, swelling and erythema TECHNIQUE: Grayscale ultrasound images without and with compression and Doppler ultrasound images of the left lower extremity veins were obtained. COMPARISON: None. FINDINGS: The visualized portions of left common femoral vein, profunda (deep) femoral vein, femoral vein, popl iteal vein, posterior tibial veins, gastrocnemius vein and greater saphenous vein outflow are patent. IMPRESSION: 1. No deep venous thrombosis in the left lower limb. Reviewed, dictated and finalized at location B.
== END 2024-01-14 10:45 | disposition home or self-care (01) ==
PROVIDERS: PCP Internal Medicine; Visit Provider Clinical Nurse Specialist
DX: M79.89 Other specified soft tissue disorders (principal)
CPT/HCPCS: 93971

== ENCOUNTER 2024-01-14 19:03 | Inpatient (IN) | payer MEDICARE, SELFPAY ==
--- NOTE | ~2024-01-14 | XR_ITS ---
EXAMINATION: XR surgery orthopedic DATE: 01/16/2024 13:22 INDICATION: Left fifth ray amputation TECHNIQUE: 4 fluoroscopic images of the left forefoot were obtained during procedure performed by Dr. Monteiro. Radiologist was not present for the imaging or procedure. The amount of fluoroscopy time us ed during this procedure was 0.1 minutes. COMPARISON: None. FINDINGS: Images demonstrate the right fifth ray presentation with mid diaphyseal osteotomy of the left fifth m etatarsal. There is soft tissue gas at the operative bed at the site of the resected distal fifth met atarsal. No fractures. No radiopaque foreign bodies. IMPRESSION: 1. Fluoroscopy utilized during partial indication of the fifth ray with mid diaphyseal fifth metatars al osteotomy. See procedure note for further detail. Reviewed, dictated and finalized at location B. IMPRESSION: 1. Fluoroscopy utilized during partial indication of the fifth ray with mid kristyn physeal fifth metatarsal osteotomy. See procedure note for further detail.
--- NOTE | ~2024-01-14 | XR_ITS ---
Left foot Technique: AP, oblique, and lateral views were obtained. Clinical History: Diabetic ulceration, infection COMPARISON: 12/03/2023 Findings: No acute fracture or dislocation is seen. There is chronic malalignment at the midfoot diso rganization, ankylosis of the second and third tarsometatarsal joints, and joint space narrowing, com patible with Charcot foot/neuropathic foot. No destructive change seen to suggest osteomyelitis.. Sof t tissues are unremarkable. Impression: No acute abnormality evident. No definite radiographic evidence for osteomyelitis. Neuropathic/Charcot foot changes, stable from prior exam. Reviewed, dictated and finalized at location . Impression: No acute abnormality evident. No definite radiographic evidence for osteomyelit is. Neuropathic/Charcot foot changes, stable from prior exam.
[2024-01-14 19:08] VITALS: BP 181/65; PULSE 95; RESP 18; TEMP 36.4; O2SAT 97
[2024-01-15] VITALS (8 sets, daily range): BP systolic 132–148; BP diastolic 65–80; PULSE 71–86; RESP 16–18; TEMP 36.3–36.8; O2SAT 96–99; BMI 33.3
[2024-01-15] MEDS: PIPERACILLN/TAZ 3.375GM/NS50ML 3.375 GM/50 ML BAG IVPB (02:46)
[2024-01-15] MEDS: MORPHINE SULFATE (*CRX) 4 MG/ML INJ IV PUSH (02:46)
[2024-01-15 02:55] LABS: Basophils Absolute Auto 0.1 K/mm3 (0.0-0.1); Basophils Percent Auto 0.4 % (0.2-1.2); Eosinophils Absolute Auto 0.2 K/mm3 (0-0.3); Eosinophils Percent Auto 1.4 % (0-4.4); Hematocrit 41.7 % (42.0-52.0); Hemoglobin 13.6 g/dL (14.0-18.0); Immature Granulocyte Absolute 0.05 K/mm3 (0.00-0.031); Immature Granulocyte Percent A 0.4 % (0-0.5); Lymphocytes Percent Auto 20.5 % (18.3-44.2); Mean Corpuscular HGB Conc 32.6 g/dl (32-36); Mean Corpuscular Hemoglobin 30.7 pg (26-34); Mean Corpuscular Volume 94.1 fl (80-100); Mean Platelet Volume 8.7 fl (7.4-10.4); Monocytes Absolute Auto 1.6 K/mm3 (0.1-0.6); Monocytes Percent Auto 13.3 % (2.6-8.5); Neutrophils Absolute Auto 7.8 K/mm3 (1.3-6.7); Platelet Count Result 346 k/mm3 (150-375); Red Blood Count 4.43 M/mm3 (4.6-6.20); Red Cell Distribution Width 12.4 % (11.5-14.5); White Blood Count 12.2 K/mm3 (4.5-10.0)
[2024-01-15 03:09] LABS: INR 1.1; Lactic Acid Reflex 0.8 mmol/L (0.7-2.0); Prothrombin Time 14.8 Seconds (11.1-14.7)
[2024-01-15 03:10] LABS: Alanine Aminotransferase 15 U/L (6-50); Albumin Level 4.3 g/dL (3.5-5.1); Alkaline Phosphatase 83 U/L (38-126); Anion Gap 11 mmol/L (4-12); Aspartate Amino Transferase 25 U/L (17-59); Blood Urea Nitrogen 22 mg/dL (9-20); CRP 7.7 mg/dL (<1.0); Calcium 9.1 mg/dL (8.4-10.2); Carbon Dioxide 26 mmol/L (22-30); Chloride 98 mmol/L (98-107); Estimated CRCL calculation 78 ml/min; Estimated Glomerular Filt Rate 56; Glucose 132 mg/dL (65-110); Partial Thromboplastin Time 31.6 Seconds (22.3-36.8); Potassium 4.3 mmol/L (3.4-5.0); Sodium 135 mmol/L (137-145)
--- NOTE | 2024-01-15 03:28 | ED.EXTPRO ---
HPI - Extremity Problem General Chief complaint: Extremity Problem,Nontraumatic Stated complaint: LEFT LOWER EXTREMITY INFECTION Time Seen by Provider: 01/14/24 23:52 History of Present Illness HPI Narrative: This is a 58-year-old male with extensive peripheral arterial disease, coronary disease, insulin-dependent diabetes with previous amputations who presents to the emergency department at the request of his orthopedic surgeon. He was sent in from the clinic for admission to the hospital for a planned operation and amputation/surgical debridement of his left lower extremity. He has an obvious infected left foot with purulent and necrotic drainage. On review of the EMR patient has a visit from his orthopedics office with instructions to return to the emergency department for IV antibiotics and admission, pain control. He has no systemic features such as fever, chills, chest pain, shortness a breath, nausea, vomiting. He was otherwise in his normal state of health. MRI underwent in December revealed no osteomyelitis. Related Data Home Medications Medication Instructions Recorded Confirmed cholecalciferol (vitamin D3) 10 400 unit PO DAILY 05/01/19 01/14/24 mcg (400 unit) capsule omega-3 fatty acids 1,000 mg 1,000 mg PO DAILY 05/01/19 01/14/24 capsule (Fish Oil Concentrate) aspirin 81 mg chewable tablet 1 tablet PO DAILY 02/26/23 01/14/24 clopidogrel 75 mg tablet 75 mg PO DAILY 02/26/23 01/14/24 amlodipine 5 mg tablet 5 mg PO DAILY 01/14/24 01/14/24 Allergies Allergy/AdvReac Type Severity Reaction Status Date / Time No Known Allergies Allergy Verified 01/15/24 02:22 Review of Systems Review of Systems: As reviewed above in HPI [facility] Past Medical History Medical History Absent pedal pulses AILEEN (acute kidney injury) Arterial insufficiency of lower extremity BMI greater than 30 CAD (coronary artery disease) of artery bypass graft Charcot foot due to diabetes mellitus Chronic pain Chronic pain in right foot [place], acquired Coronary artery disease Coronary artery disease involving [place] coronary artery of [place] heart Diabetic foot ulcer associated with diabetes mellitus due to underlying condition Diabetic infection of left foot Diabetic peripheral angiopathy Diabetic ulcer of ankle associated with diabetes mellitus due to underlying condition Dietary counseling and surveillance Essential (primary) hypertension Exposed orthopaedic hardware Eye hemorrhage 2021, bilateral Failure of joint fusion Family history of colon cancer in father Impingement of vertebral body syndrome Infection of bone of right ankle Intervertebral disc protrusion [facility] (current) use of insulin Lymphedema of right lower extremity Mixed hyperlipidemia Nonpalpable pulse IADA on CPAP Other chronic pain Peripheral vascular disease Pre-operative cardiovascular exam, new EKG abnormalities c/w ischemia PVD (peripheral vascular disease) Retinopathy Septic arthritis of right ankle Stage 2 chronic kidney disease Stenosis of lateral 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 Swelling of left foot Tendinitis of left rotator cuff 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
[2024-01-15] MEDS: VANCOMYCIN 1,250 MG/NS 250 ML 1,250 MG/250 ML BAG 166.67 MG IVPB ×2 (03:51→05:40)
--- NOTE | 2024-01-15 04:45 | PC.NURSE ---
Pt to be taken to floor after SNEHAL Husain finishes admission assessment.
[2024-01-15 05:37] LABS: Glucose Point of Care 159 mg/dl (65-105)
[2024-01-15 07:49] LABS: Glucose Point of Care 149 mg/dl (65-105)
[2024-01-15] MEDS: carvediloL 25 MG TABLET PO ×2 (08:35→20:45)
[2024-01-15] MEDS: ASPIRIN 81 MG CHEWABLE TABLET PO (08:35)
[2024-01-15] MEDS: PREGABALIN (*CRX) 75 MG CAPSULE 150 MG PO (08:35)
[2024-01-15] MEDS: amLODIPine BESYLATE 5 MG TABLET PO (08:36)
[2024-01-15] MEDS: CLOPIDOGREL BISULFATE 75 MG TABLET PO (08:36)
[2024-01-15] MEDS: ROSUVASTATIN 20 MG TABLET PO (08:36)
[2024-01-15] MEDS: hydroCHLOROthiazide 25 MG TABLET PO (08:36)
--- NOTE | 2024-01-15 10:39 | PM.IMHP ---
H&P: HPI History of Present Illness Date/Time: 01/15/24 10:39 Chief Complaint: HPI Narrative: This is a 58-year-old male with extensive peripheral arterial disease, coronary disease, insulin-dependent diabetes typr 1- with previous amputations admitted from the emergency department at the request of his orthopedic surgeon. He was sent in from the clinic for admission to the hospital for a planned operation and amputation/surgical debridement of his left lower extremity. He has an obvious infected left foot with purulent and necrotic drainage. He has no systemic features such as fever, chills, chest pain, shortness a breath, nausea, vomiting. He was otherwise in his normal state of health. MRI underwent in December revealed no osteomyelitis. 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 He has t1dm, sees mental health social worker on a regular basis and has insulin pump. his sugars had been well controlled.d His pump is set to deliver 2.9 units per h on average. He doesnot smoke, drinks on a rare occasion- budlight In ED: WBC 12.2, HG/HCT 13.6/41.7. c REACTIVE PROTEIN 7.7 Review of Systems Constitutional: Constitutional: Denies body ache(s) and Denies chills Eyes: Eyes: Denies blurry vision and Denies photophobia Cardiovascular: Cardiovascular: Denies chest pain Respiratory: Respiratory: Denies chest congestion and Denies cough Gastrointestinal: Gastrointestinal: Denies abdominal pain and Denies melena Musculoskeletal: Musculoskeletal: Denies back pain Comments: lt foot drainage PMFSH Past Medical History Medical History Absent pedal pulses AILEEN (acute kidney injury) Arterial insufficiency of lower extremity BMI greater than 30 CAD (coronary artery disease) of artery bypass graft Charcot foot due to diabetes mellitus Chronic pain Chronic pain in right foot [place], acquired Coronary artery disease Coronary artery disease involving [place] coronary artery of [place] heart Diabetic foot ulcer associated with diabetes mellitus due to underlying condition Diabetic infection of left foot Diabetic peripheral angiopathy Diabetic ulcer of ankle associated with diabetes mellitus due to underlying condition Dietary counseling and surveillance Essential (primary) hypertension Exposed orthopaedic hardware Eye hemorrhage 2021, bilateral Failure of joint fusion Family history of colon cancer in father Impingement of vertebral body syndrome Infection of bone of right ankle Intervertebral disc protrusion [facility] (current) use of insulin Lymphedema of right lower extremity Mixed hyperlipidemia Nonpalpable pulse AIDA on CPAP Other chronic pain Peripheral vascular disease Pre-operative cardiovascular exam, new EKG abnormalities c/w ischemia PVD (peripheral vascular disease) Retinopathy Septic arthritis of right ankle Stage 2 chronic kidney disease Stenosis of lateral 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 Swelling of left foot Tendinitis of left rotator cuff 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homa Other Diabetes mellitus Family history of arthritis Family history of cardiovascular disease Family history of congestive heart
[2024-01-15 11:34] LABS: Glucose Point of Care 170 mg/dl (65-105)
--- NOTE | 2024-01-15 15:11 | PM.CNOR ---
Assessment and Plan Assessment and plan (1) Diabetic foot ulcer: Qualifiers: Diabetic foot ulcer location: other Diabetes mellitus type: type 1 Laterality: left Non-pressure ulcer stage: with necrosis of muscle Qualified Code(s): E10.621 - Type 1 diabetes mellitus with foot ulcer; L97.523 - Non-pressure chronic ulcer of other part of left foot with necrosis of muscle Code(s): E11.621 - Type 2 diabetes mellitus with foot ulcer; L97.509 - Non-pressure chronic ulcer of other part of unspecified foot with unspecified severity Status: Acute Assessment and Plan: Updated history, physical exam and radiographs reviewed with the patient. Interval changes reviewed. Worsening ulcer and infection left forefoot over the lateral 5th metatarsal head. Worsening despite treatment to date including daily dressing changes, oral antibiotics. Discussed the condition, nature, etiology and course of natural history with the patient. Treatment options including surgical and nonoperative treatment were reviewed. Risks and benefits of each as well as alternatives reviewed. The patient's questions were answered. Conservative treatment ice, compression and elevation. He had a vascular evaluation which reportedly noted appropriate blood flow to the left lower extremity with no further recommendations. MRI done 3 weeks ago showed no evidence of osteo. Recent x-rays show no changes that would be consistent with osteo. Previous ulcer now with infection and necrotic changes. Recommend surgery. (2) Swelling of left lower extremity: Code(s): M79.89 - Other specified soft tissue disorders Status: Acute Assessment and Plan: Patient was seen by his primary care physician. Some of his medication including amlodipine was adjusted. He had a Doppler study done which ruled out DVT. We will try to effect edema with elevation, sequential compression and Lasix. (3) Diabetic infection of left foot: Code(s): E11.628 - Type 2 diabetes mellitus with other skin complications; L08.9 - Local infection of the skin and subcutaneous tissue, unspecified Status: Acute Assessment and Plan: Discussed nonoperative and operative treatment options with the patient. Risks and benefits of each as well as alternatives were reviewed. All of the patient's questions were answered. The risks of surgery reviewed including but not limited to: Neurovascular damage, wound complication, infection, blood clot, pulmonary embolus, stroke, myocardial infarction, and anesthetic risks up to and including . Continued pain and possible dysfunction were explained. Specific risks of the procedure including later recurrence of deformity. No guarantees were offered. If hardware used, discussed risk of failure/ breakage and possible need for removal. If complications occur, the patient understands the need for further treatment, possible further surgery. Patient verbalizes understanding and wishes to proceed. PLAN: Left diabetic foot ulcer debridement with possible 5th ray amputation. History of Present Illness HPI Consult date: 01/15/24 Requesting physician: Chasidy Henao MD Chief complaint: Diabetic foot wound Narrative: 58-year-old gentleman known to the orthopedic service for diabetic foot ulcer and previous infections. Status post right below-knee amputation 2.5 years ago. Has developed a ulcer over the lateral aspect of the left foot over the past 6 weeks. Started out as a soft tissue injury over the lateral aspect of the 5th metatarsal. Workup included blood flow studies and vascular surgery evaluation, x-rays and MRI. He noted increased wound size with increased swelling, drainage and foul odor over the past week. He was seen yesterday in the orthopedic office and discussion was had regarding operative and non operative treatment. He presented to the emergency room Last night to get IV antibiotics and was admitted subsequently for
[2024-01-15] MEDS: MICONAZOLE NITRATE 2% CREAM 30 GM TUBE 1 APPLIC TOPICAL (15:50)
[2024-01-15 16:08] LABS: Basophils Absolute Auto 0.1 K/mm3 (0.0-0.1); Basophils Percent Auto 0.4 % (0.2-1.2); Eosinophils Absolute Auto 0.2 K/mm3 (0-0.3); Eosinophils Percent Auto 1.4 % (0-4.4); Hematocrit 39.3 % (42.0-52.0); Hemoglobin 13.2 g/dL (14.0-18.0); Immature Granulocyte Absolute 0.04 K/mm3 (0.00-0.031); Immature Granulocyte Percent A 0.4 % (0-0.5); Lymphocytes Absolute Auto 1.72 K/mm3 (0.9-3.2); Lymphocytes Percent Auto 15.4 % (18.3-44.2); Mean Corpuscular HGB Conc 33.6 g/dl (32-36); Mean Corpuscular Hemoglobin 31.8 pg (26-34); Mean Corpuscular Volume 94.7 fl (80-100); Mean Platelet Volume 8.7 fl (7.4-10.4); Monocytes Absolute Auto 1.3 K/mm3 (0.1-0.6); Monocytes Percent Auto 11.3 % (2.6-8.5); Neutrophils Percent Auto 71.1 % (45.5-73.1); Platelet Count Result 336 k/mm3 (150-375); Red Blood Count 4.15 M/mm3 (4.6-6.20); Red Cell Distribution Width 12.3 % (11.5-14.5); White Blood Count 11.2 K/mm3 (4.5-10.0)
[2024-01-15 16:21] LABS: Anion Gap 7 mmol/L (4-12); Blood Urea Nitrogen 25 mg/dL (9-20); Calcium 9.1 mg/dL (8.4-10.2); Carbon Dioxide 29 mmol/L (22-30); Chloride 99 mmol/L (98-107); Estimated CRCL calculation 73 ml/min; Estimated Glomerular Filt Rate 52; Glucose 167 mg/dL (65-110); Potassium 4.5 mmol/L (3.4-5.0); Sodium 135 mmol/L (137-145)
[2024-01-15 16:35] LABS: Glucose Point of Care 154 mg/dl (65-105)
[2024-01-15] MEDS: ACETAMINOPHEN 500 MG TABLET 1000 MG PO (17:21)
[2024-01-15] MEDS: VANCOMYCIN 1,500 MG/NS 500 ML 1,500 MG/500 ML BAG 250 MG IVPB (19:44)
[2024-01-15 20:07] LABS: Glucose Point of Care 146 mg/dl (65-105)
[2024-01-15] MEDS: DOXAZOSIN MESYLATE 4 MG TABLET 8 MG PO (20:44)
[2024-01-15] MEDS: PREGABALIN (*CRX) 75 MG CAPSULE PO (20:44)
[2024-01-15] MEDS: IRBESARTAN 150 MG TABLET 300 MG PO (20:44)
[2024-01-15] MEDS: INSULIN GLARGINE (*BKC) 100 UNITS/ML 15 UNITS SUB-Q (20:45)
[2024-01-16] VITALS (12 sets, daily range): BP systolic 130–160; BP diastolic 53–81; PULSE 65–75; RESP 12–20; TEMP 36.5–37.1; O2SAT 92–100
[2024-01-16 06:45] LABS: Estimated CRCL calculation 84 ml/min; Estimated Glomerular Filt Rate > 60
--- NOTE | 2024-01-16 07:30 | WPDHPUPDATE1 ---
History and Physical Update Update Date/Time: 01/16/24 07:30 History and Physical has been reviewed, including an updated exam of the patient. There are NO changes in the patient's condition. Risks, benefits, and alternatives have been discussed and questions answered. Patient agrees to proceed with procedure.
[2024-01-16 07:37] LABS: Glucose Point of Care 173 mg/dl (65-105)
[2024-01-16] MEDS: carvediloL 25 MG TABLET PO ×2 (08:16→20:38)
[2024-01-16] MEDS: amLODIPine BESYLATE 5 MG TABLET PO (08:17)
[2024-01-16] MEDS: FUROSEMIDE INJ 40 MG/4 ML VIAL IV PUSH (08:53)
--- NOTE | 2024-01-16 09:14 | PM.IMPN ---
Progress Note: A&P Assessment and Plan (1) Diabetic infection of left foot: Code(s): E11.628 - Type 2 diabetes mellitus with other skin complications; L08.9 - Local infection of the skin and subcutaneous tissue, unspecified Status: Acute Assessment and Plan: - ortho consult - wound care consult - pain control 01/15- Excisional debridement of left diabetic foot ulcer down to muscle, 5th ray amputation with Dr Monteiro (2) Coronary artery disease: Qualifiers: Associated angina: without angina Coronary Disease-Associated Artery/Lesion type: [place] artery [place] vs. transplanted heart: [place] heart Qualified Code(s): I25.10 - Atherosclerotic heart disease of [place] coronary artery without angina pectoris Code(s): I25.10 - Atherosclerotic heart disease of [place] coronary artery without angina pectoris Status: Acute Assessment and Plan: s/p angioplasty, with stents -s/p cabg x 3 - plavix, asa, coreg, irbesartan (3) AIDA (obstructive sleep apnea): Code(s): G47.33 - Obstructive sleep apnea (adult) (pediatric) Status: Acute Assessment and Plan: continues home cpap (4) Type 1 diabetes mellitus with other circulatory complications: Code(s): E10.59 - Type 1 diabetes mellitus with other circulatory complications Status: Acute Assessment and Plan: -hold insulin pump - ok to wear CGM - hypoglycemia protocol accucheck ac.hs lantus 15 units hs, ss - titrate in am based on BS readings (5) Stage 2 chronic kidney disease: Code(s): N18.2 - Chronic kidney disease, stage 2 (mild) Status: Acute (6) Swelling of left lower extremity: Code(s): M79.89 - Other specified soft tissue disorders Status: Acute Assessment and Plan: -LLE swelling amlodipine was d/c per pcp recently He had a Doppler study done which ruled out DVT elevation, sequential compression Plan dvt prophylaxis: Lonenox Time Spent With Patient Time with patient: Greater than 35 minutes Subjective Date/time seen: 01/16/24 09:14 Interval history: HPI Narrative: This is a 58-year-old male with extensive peripheral arterial disease, coronary disease, insulin-dependent diabetes type 1- with previous amputations admitted from the emergency department at the request of his orthopedic surgeon. He was sent in from the clinic for admission to the hospital for a planned operation and amputation/surgical debridement of his left lower extremity. He has an obvious infected left foot with purulent and necrotic drainage. He has no systemic features such as fever, chills, chest pain, shortness a breath, nausea, vomiting. He was otherwise in his normal state of health. MRI underwent in December revealed no osteomyelitis. 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 He has t1dm, sees paving machine operator on a regular basis and has insulin pump. his sugars had been well controlled.d His pump is set to deliver 2.9 units per h on average. He doesnot smoke, drinks on a rare occasion- budlight In ED: WBC 12.2, HG/HCT 13.6/41.7. c REACTIVE PROTEIN 7.7 01/15- pt is seen and examined. ortho saw him and will proceed with surgery On [facility]. BS reviewed. Review of Systems Constitutional: Constitutional: Denies body ache(s) and Denies chills Eyes: Eyes: Denies blurry vision and Denies photophobia Cardiovascular: Cardiovascular: Denies chest pain Respiratory: Respiratory: Denies chest congestion and Denies cough Gastrointestinal: Gastrointestinal: Denies abdominal pain and Denies melena Musculoskeletal: Musculoskeletal: Denies back pain Exam Const: General: comfortable Eyes: Direct Ophthalmoscopy: No photophobia Resp: Effort & Inspection: normal respiratory effort Auscultation: clear to auscultation bilaterally Cardio: Rate: regular rate Extrem: Other: Right upper extremity: normal to inspection Left upper
[2024-01-16] MEDS: LACTATED RINGERS 1,000 ML 30 ML IV CONT ×2 (09:34→12:20)
[2024-01-16 09:35] LABS: Glucose Point of Care 169 mg/dl (65-105)
[2024-01-16] MEDS: PIPERACILLN/TAZ 3.375GM/NS50ML 3.375 GM/50 ML BAG IVPB ×3 (10:03→20:38)
--- NOTE | 2024-01-16 10:57 | WPDANESEPPF ---
Anes - Initial Pre Proc Eval Procedure: Operation Date: 01/16/24 10:30 Proposed Procedures p Incision and Drainage Left Foot with Possible Fifth Ray Amputation - Familia Monteiro MD Date/Time: 01/16/24 10:57 Surgeon: Chasidy Henao MD Pre Op Diagnosis: Diabetic foot wound Patient Data Age: 58 Gender: M Height: 1.93 m Weight: 124.2 kg Last Vital Signs Temp 36.6 C 01/16/24 09:34 Pulse 71 01/16/24 09:34 Resp 16 01/16/24 09:34 BP 138/53 L 01/16/24 09:34 Pulse Ox 97 01/16/24 09:34 O2 Del Method Room Air 01/16/24 09:34 Allergies Allergy/AdvReac Type Severity Reaction Status Date / Time No Known Allergies Allergy Verified 01/16/24 09:14 Home Medications Medication Instructions Recorded Confirmed Type omega-3 fatty acids 1,000 mg 1,000 mg PO DAILY 05/01/19 01/15/24 History capsule (Fish Oil Concentrate) blood sugar diagnostic (Contour #400 ea 06/06/21 01/15/24 Rx Next Test Strips) glucagon 1 mg/0.2 mL subcutaneous 1 mg (0.2 mL) subcut ONCE #0.4 mL 09/26/22 01/15/24 Rx auto-injector (Gvoke HypoPen 2-Pack) urine glucose-ketones test #50 ea 09/26/22 01/15/24 Rx aspirin 81 mg chewable tablet 1 tablet PO DAILY 02/26/23 01/15/24 History clopidogrel 75 mg tablet 75 mg PO DAILY 02/26/23 01/15/24 History blood-glucose sensor (Dexcom G7 #9 ea 06/26/23 01/15/24 Rx Sensor device) nystatin 100,000 unit/gram topical 1 applic topical DAILY #30 grams 07/02/23 01/15/24 Rx cream CPAP Equipment #1 ea 07/24/23 01/15/24 Rx Novolog U-100 Insulin aspart 100 See Rx Instructions .Route 11/29/23 01/15/24 Rx unit/mL subcutaneous solution .COMPLEX E10.65 - Type 1 diabetes (insulin aspart U-100) mellitus with hyperglycem #140 mL amlodipine 5 mg tablet 5 mg PO DAILY 01/14/24 01/15/24 History carvedilol 25 mg tablet 25 mg PO BID 01/15/24 01/15/24 History doxazosin 8 mg tablet 8 mg PO HS 01/15/24 01/15/24 History hydrochlorothiazide 25 mg tablet 25 mg PO DAILY 01/15/24 01/15/24 History irbesartan 300 mg tablet 300 mg PO HS 01/15/24 01/15/24 History pregabalin 75 mg capsule 150 mg PO BID 01/15/24 01/15/24 History rosuvastatin 20 mg tablet 20 mg PO DAILY 01/15/24 01/15/24 History Laboratory Tests 01/15/24 01/15/24 01/15/24 11:23 15:42 16:30 WBC 11.2 H K/mm3 (4.5-10.0) RBC 4.15 L M/mm3 (4.6-6.20) Hgb 13.2 L g/dL (14.0-18.0) Hct 39.3 L % (42.0-52.0) MCV 94.7 fl (80-100) MCH 31.8 pg (26-34) MCHC 33.6 g/dl (32-36) RDW 12.3 % (11.5-14.5) Plt Count 336 k/mm3 (150-375) MPV 8.7 fl (7.4-10.4) Immature Gran % (Auto) 0.4 % (0-0.5) Neut % (Auto) 71.1 % (45.5-73.1) Lymph % (Auto) 15.4 L % (18.3-44.2) [place] % (Auto) 11.3 H % (2.6-8.5) Eos % (Auto) 1.4 % (0-4.4) Baso % (Auto) 0.4 % (0.2-1.2) Lymph # (Auto) 1.72 K/mm3 (0.9-3.2) [place] # (Auto) 1.3 H K/mm3 (0.1-0.6) Eos # (Auto) 0.2 K/mm3 (0-0.3) Baso # (Auto) 0.1 K/mm3 (0.0-0.1) Abs Immat Gran (auto) 0.04 H K/mm3 (0.00-0.031) Absolute Neuts (auto) 8.0 H K/mm3 (1.3-6.7) Absolute Nucleated RBC 0.000 K/mm3 (0.0-0.012) Nucleated RBC % 0.0 % (0.0-0.2) Sodium 135 L mmol/L (137-145) Potassium 4.5 mmol/L (3.4-5.0) Chloride 99 mmol/L (98-107) Carbon Dioxide 29 mmol/L (22-30) Anion Gap 7 mmol/L (4-12) BUN 25 H mg/dL (9-20) Creatinine 1.40 H mg/dL (0.7-1.3) Estim Creat Clear Calc 73 ml/min Estimated GFR 52 L (59 - ) Glucose 167 H mg/dL (65-110) POC Capillary Glucose 170 H mg/dl 154 H mg/dl (65-105) (65-105) Calcium 9.1 mg/dL (8.4-10.2) 01/15/24 01/16/24 01/16/24 19:44 05:51 07:33 WBC RBC Hgb
[2024-01-16] MEDS: VANCOMYCIN HCL 1,000 MG VIAL 1000 MG TOPICAL (12:04)
[2024-01-16] MEDS: BUPivacaine HCL 0.5% 10 ML AMP 20 ML INFILTRATE (12:04)
--- NOTE | 2024-01-16 12:32 | W.PM.PROC2 ---
Procedure Note - Detailed Date of Procedure 01/16/24 Pre-op Diagnosis Diabetic foot Ulcer left foot, 5th metatarsal osteomyelitis. Post-op Diagnosis Same Procedure Performed Excisional debridement of left diabetic foot ulcer down to muscle, 5th ray amputation. Surgeon Familia Monteiro MD Cloth Winding Supervisor [employer] clinical services assistant Anesthesia General Indications 58-year-old gentleman with diabetes, peripheral neuropathy, peripheral arterial disease who developed an ulcer over the lateral aspect of the left foot. Ulcer nonhealing with standard wound care technique. Has now gone on to infection of the ulcer and the surrounding tissue. Presents for operative treatment. Findings 3 x 3 cm ulcer lateral left foot distal aspect. Necrotic and infected tissue involving skin, subcutaneous tissue and muscle from the ulcer lateral foot. Osteomyelitis changes 5th metatarsal head. Description of Procedure Patient identified in the preoperative holding. Informed consent given. Operative extremity marked. Patient received intravenous antibiotics. Patient brought to the operating room where underwent general anesthetic by anesthesia team. Positioned supine on operating room table. Time-out performed confirming the patient, site of the surgery and the plan. Left foot prepped draped usual sterile surgical fashion using a Betadine prep solution. Foot and ankle exsanguinated and a calf tourniquet inflated to 250 mmHg. Local anesthetic with 0.5% Marcaine plain to the left foot. 15 blade knife used to sharply excise skin, subcutaneous tissue and muscle from the left foot ulcer that was necrotic or infected. Approximately 3 x 3 cm area debrided of skin, subcutaneous tissue and muscle. Devitalized tissue passed. Healthy viable tissue left in place. Culture of the purulent material taken and sent to the lab. Wound then thoroughly irrigated with antibiotic saline and packed with vancomycin powder wound closed with 0 Prolene interrupted suture. Incision over the lateral 5th metatarsal head allowed exposure of the 5th metatarsal head which was thought to be infected and had changes consistent with osteomyelitis. Longitudinal incision then made over the lateral aspect of the 5th metatarsal and extended proximally. Longitudinal incision was extended distally over the lateral aspect of the small toe. The 5th metatarsal was shelled out of the surrounding soft tissue with 15 blade knife utilizing sharp dissection. Sagittal saw then used to transect the 5th metatarsal at the proximal diaphysis. Metatarsal then brought out metatarsal and toe dissected free of soft tissue and passed off as specimen. 5Th ray amputation performed in order to eradicate the osteomyelitis as well as allow closure of the soft tissue. Involvement of the base of the proximal phalanx of the small toe also noted and required 5th ray amputation. Wound thoroughly irrigated with antibiotic saline. tourniquet released and bleeding points coagulated. Soft tissue closed with 2-0 Vicryl interrupted suture. Skin repaired with 0 Prolene interrupted suture. Sterile dressing applied. The patient was then woken from anesthesia, extubated and taken to the recovery room in stable condition. All sponge, needle, instrument counts were correct at the end of the case. Estimated Blood Loss 50 Tourniquet Time Total Tourniquet Time: 25 Urine Output 200 Drains No Packing No Pathology None sent Complications None Condition Stable Disposition PACU [facility] Billing Surgery - Charge Forward: Surgery Billing ([id number], [id number] Left)
--- NOTE | 2024-01-16 12:38 | SUR.PHASEI ---
dr lee given stat gram stain results from laboratory.
[2024-01-16 12:42] LABS: Glucose Point of Care 179 mg/dl (65-105)
[2024-01-16] MEDS: CLOPIDOGREL BISULFATE 75 MG TABLET PO (13:35)
[2024-01-16] MEDS: PREGABALIN (*CRX) 75 MG CAPSULE 150 MG PO (13:35)
[2024-01-16] MEDS: ROSUVASTATIN 20 MG TABLET PO (13:35)
[2024-01-16] MEDS: hydroCHLOROthiazide 25 MG TABLET PO (13:35)
[2024-01-16] MEDS: ASPIRIN 81 MG CHEWABLE TABLET PO (13:35)
[2024-01-16] MEDS: MICONAZOLE NITRATE 2% CREAM 30 GM TUBE 1 APPLIC TOPICAL (13:36)
[2024-01-16] MEDS: ENOXAPARIN 40 MG/0.4 ML SYRINGE SUB-Q (14:03)
[2024-01-16 15:45] LABS: Vancomycin Trough 9.1 ug/mL (10.0-20.0)
[2024-01-16] MEDS: oxyCODONE HCL (*CRX) 5 MG TAB IR PO (16:06)
[2024-01-16 16:36] LABS: Glucose Point of Care 182 mg/dl (65-105)
[2024-01-16] MEDS: VANCOMYCIN 1,500 MG/NS 500 ML 1,500 MG/500 ML BAG 250 MG IVPB (17:22)
[2024-01-16 20:10] LABS: Glucose Point of Care 157 mg/dl (65-105)
[2024-01-16] MEDS: DOXAZOSIN MESYLATE 4 MG TABLET 8 MG PO (20:38)
[2024-01-16] MEDS: IRBESARTAN 150 MG TABLET 300 MG PO (20:38)
[2024-01-16] MEDS: PREGABALIN (*CRX) 75 MG CAPSULE PO (20:38)
[2024-01-16] MEDS: ACETAMINOPHEN 500 MG TABLET 1000 MG PO (20:44)
[2024-01-16] MEDS: INSULIN GLARGINE (*BKC) 100 UNITS/ML 15 UNITS SUB-Q (20:55)
[2024-01-17] VITALS (8 sets, daily range): BP systolic 116–156; BP diastolic 55–75; PULSE 63–85; RESP 14–20; TEMP 36.1–37.4; O2SAT 94–99
[2024-01-17] MEDS: PIPERACILLN/TAZ 3.375GM/NS50ML 3.375 GM/50 ML BAG IVPB ×2 (04:07→10:56)
[2024-01-17] MEDS: SODIUM CHLORIDE 0.9% IV 500 ML 30 ML (04:08)
[2024-01-17] MEDS: VANCOMYCIN 1,500 MG/NS 500 ML 1,500 MG/500 ML BAG 250 MG IVPB (04:42)
[2024-01-17 06:37] LABS: Estimated CRCL calculation 73 ml/min; Estimated Glomerular Filt Rate 52
[2024-01-17 08:24] LABS: Glucose Point of Care 142 mg/dl (65-105)
[2024-01-17] MEDS: amLODIPine BESYLATE 5 MG TABLET PO (08:31)
[2024-01-17] MEDS: FUROSEMIDE INJ 40 MG/4 ML VIAL IV PUSH (08:31)
[2024-01-17] MEDS: PREGABALIN (*CRX) 75 MG CAPSULE 150 MG PO (08:32)
[2024-01-17] MEDS: ROSUVASTATIN 20 MG TABLET PO (08:32)
[2024-01-17] MEDS: carvediloL 25 MG TABLET PO ×2 (08:32→20:12)
[2024-01-17] MEDS: ASPIRIN 81 MG CHEWABLE TABLET PO (08:32)
[2024-01-17] MEDS: hydroCHLOROthiazide 25 MG TABLET PO (08:32)
[2024-01-17] MEDS: ACETAMINOPHEN 500 MG TABLET 1000 MG PO ×2 (08:33→16:36)
[2024-01-17] MEDS: CLOPIDOGREL BISULFATE 75 MG TABLET PO (08:33)
--- NOTE | 2024-01-17 09:14 | PM.IMPN ---
Progress Note: A&P Assessment and Plan (1) Diabetic infection of left foot: Code(s): E11.628 - Type 2 diabetes mellitus with other skin complications; L08.9 - Local infection of the skin and subcutaneous tissue, unspecified Status: Acute Assessment and Plan: - ortho consult - wound care consult - pain control 01/15- Excisional debridement of left diabetic foot ulcer down to muscle, 5th ray amputation with Dr Monteiro 01/16- post op day 1: Dressing changed per ortho. Incision well approximated. Sutures intact. Mild sanguinous drainage. Begin daily dressing changes with Xeroform over the incision line, cover with gauze and ABD, wrap loosely with kerlex/coband. NWB LLE. Plan to transition to TCC on Saturday. IV antibiotics/diuresis. (2) Coronary artery disease: Qualifiers: Associated angina: without angina Coronary Disease-Associated Artery/Lesion type: [place] artery [place] vs. transplanted heart: [place] heart Qualified Code(s): I25.10 - Atherosclerotic heart disease of [place] coronary artery without angina pectoris Code(s): I25.10 - Atherosclerotic heart disease of [place] coronary artery without angina pectoris Status: Acute Assessment and Plan: s/p angioplasty, with stents -s/p cabg x 3 - plavix, asa, coreg, irbesartan (3) AIDA (obstructive sleep apnea): Code(s): G47.33 - Obstructive sleep apnea (adult) (pediatric) Status: Acute Assessment and Plan: continues home cpap (4) Type 1 diabetes mellitus with other circulatory complications: Code(s): E10.59 - Type 1 diabetes mellitus with other circulatory complications Status: Acute Assessment and Plan: -hold insulin pump - ok to wear CGM - hypoglycemia protocol accucheck ac.hs lantus 15 units hs, ss - titrate in am based on BS readings (5) Stage 2 chronic kidney disease: Code(s): N18.2 - Chronic kidney disease, stage 2 (mild) Status: Acute (6) Swelling of left lower extremity: Code(s): M79.89 - Other specified soft tissue disorders Status: Acute Assessment and Plan: -LLE swelling amlodipine was d/c per pcp recently He had a Doppler study done which ruled out DVT elevation, sequential compression Plan dvt prophylaxis: Lonenox Time Spent With Patient Time with patient: Greater than 35 minutes Subjective Date/time seen: 01/17/24 09:14 Interval history: HPI Narrative: This is a 58-year-old male with extensive peripheral arterial disease, coronary disease, insulin-dependent diabetes type 1- with previous amputations admitted from the emergency department at the request of his orthopedic surgeon. He was sent in from the clinic for admission to the hospital for a planned operation and amputation/surgical debridement of his left lower extremity. He has an obvious infected left foot with purulent and necrotic drainage. He has no systemic features such as fever, chills, chest pain, shortness a breath, nausea, vomiting. He was otherwise in his normal state of health. MRI underwent in December revealed no osteomyelitis. 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 He has t1dm, sees business programmer on a regular basis and has insulin pump. his sugars had been well controlled.d His pump is set to deliver 2.9 units per h on average. He doesnot smoke, drinks on a rare occasion- budlight In ED: WBC 12.2, HG/HCT 13.6/41.7. c REACTIVE PROTEIN 7.7 01/15 - pt is seen and examined. ortho saw him and will proceed with surgery On vanc and zosyn. BS reviewed. 01/16 - seen and examined. He is doing well- pain is at 3'- tolerable- Alejandra in place- BS stable. no n/v/d. Review of Systems Constitutional: Constitutional: Denies body ache(s) and Denies chills Eyes: Eyes: Denies blurry vision and Denies photophobia Cardiovascular: Cardiovascular: Denies chest pain Respiratory: Respiratory: Denies chest congestion and Denies cough
--- NOTE | 2024-01-17 09:34 | PM.PNORT ---
Progress Note: A&P Assessment and Plan (1) Diabetic foot ulcer: Qualifiers: Diabetes mellitus type: type 1 Diabetic foot ulcer location: other Laterality: left Non-pressure ulcer stage: with necrosis of muscle Qualified Code(s): E10.621 - Type 1 diabetes mellitus with foot ulcer; L97.523 - Non-pressure chronic ulcer of other part of left foot with necrosis of muscle Code(s): E11.621 - Type 2 diabetes mellitus with foot ulcer; L97.509 - Non-pressure chronic ulcer of other part of unspecified foot with unspecified severity Status: Acute Assessment and Plan: POD #1: Excisional debridement of left diabetic foot ulcer down to muscle, 5th ray amputation. Dressing removed. Incision well approximated. Sutures intact. Mild sanguinous drainage. Begin daily dressing changes with Xeroform over the incision line, cover with gauze and ABD, wrap loosely with kerlex/coband. NWB LLE. Plan to transition to TCC on Saturday. IV antibiotics/diuresis. Awaiting pathology results. (2) Leukocytosis: Code(s): D72.829 - Elevated white blood cell count, unspecified Status: Acute (3) Swelling of left lower extremity: Code(s): M79.89 - Other specified soft tissue disorders Status: Acute Time Spent With Patient Time: Reviewed history, exam, radiographs and current labs with attending MD and covering surgeon, Dr. Monteiro, who agrees with current plan as indicated above. No further recommendations from Dr. Monteiro at this time. Subjective Subjective Date/Time Seen: 01/17/24 09:34 Post Op day: 1 Principal diagnosis: Left Foot Interval history: POD #1: Excisional debridement of left diabetic foot ulcer down to muscle, 5th ray amputation. Patient doing well. Sitting up in chair. Pain well controlled. No new concerns. Review of Systems Review of Systems: All systems reviewed & are unremarkable except as noted in HPI and below Exam Const: General: comfortable and no acute distress Resp: Effort & Inspection: normal respiratory effort Cardio: Rate: regular rate Rhythm: regular rhythm GI: Inspection: non-distended Urinary Catheter: Urinary Catheter: patent and draining and urine dark Neuro: Sensory Exam: No normal sensation Extrem: Left lower extremity: foot Details: normal capillary refill, edema Location: of the dorsal foot and of the lateral foot, vascular exam Details: dorsalis pedis pulse present, motor-sensory exam light-touch abnormal and other (Incision well approximated left lateral foot. Mild sanguineous drainage. No surrounding erythema. ); no tenderness, no ecchymosis and no crepitus Objective Data Vital Signs Vital Signs: Vital Signs - 24 hr 01/16/24 12:23 01/16/24 12:30 01/16/24 12:45 Temperature 36.6 C Pulse Rate 70 68 65 Respiratory Rate 14 15 14 Blood Pressure 145/76 H 132/54 L 134/54 L Pulse Oximetry 98 93 94 Oxygen Delivery Simple Face Mask Room Air Room Air Oxygen Flow Rate 10 01/16/24 13:00 01/16/24 13:07 01/16/24 13:30 Temperature 36.6 C Pulse Rate 67 69 70 Respiratory Rate 12 15 18 Blood Pressure 140/55 L 142/55 H 139/63 Pulse Oximetry 95 95 92 Oxygen Delivery Room Air Room Air Oxygen Flow Rate 01/16/24 13:45 01/16/24 14:15 01/16/24 15:15 Temperature 36.5 C 36.7 C 36.7 C Pulse Rate 67 66 69 Respiratory Rate 18 18 20 Blood Pressure 160/81 H 139/65 138/67 Pulse Oximetry 95 98 100 Oxygen Delivery Oxygen Flow Rate 01/16/24 20:00 01/16/24 20:00 01/17/24 00:27 Temperature 37.1 C 37.4 C Pulse Rate 67 85 Respiratory Rate 20 16 Blood Pressure 136/62 116/55 L Pulse Oximetry 97 99 Oxygen Delivery Room Air Oxygen Flow Rate 01/17/24 05:30 01/17/24 05:50 01/17/24 08:32 Temperature 36.6 C Pulse Rate 64 68 Respiratory Rate 18 Blood Pressure 128/75 Pulse Oximetry 99 99 Oxygen Delivery Room Air Oxygen Flow Rate Intake/Output Intake/Output: Intake & Output 01/14/24 01/15/24 01/16/24
[2024-01-17 12:11] LABS: Glucose Point of Care 217 mg/dl (65-105)
[2024-01-17] MEDS: INSULIN ASPART (*BKC) 100 UNITS/ML SUB-Q (12:57)
--- NOTE | 2024-01-17 14:58 | PCPTNOTE ---
PT evaluation attempted, per Nursing, patient is currently having increased bleeding to diabetic wound, Nursing recommended therapy withheld at this time 14:58.
[2024-01-17] MEDS: AMOXICILLIN/CLAVULANATE K 875-125 MG TAB 1 TABLET PO ×2 (16:35→20:11)
[2024-01-17] MEDS: DOXYCYCLINE HYCLATE 100 MG TABLET PO ×2 (16:35→20:11)
[2024-01-17 16:53] LABS: Glucose Point of Care 164 mg/dl (65-105)
[2024-01-17 19:30] LABS: Glucose Point of Care 187 mg/dl (65-105)
[2024-01-17] MEDS: IRBESARTAN 150 MG TABLET 300 MG PO (20:11)
[2024-01-17] MEDS: PREGABALIN (*CRX) 75 MG CAPSULE PO (20:12)
[2024-01-17] MEDS: DOXAZOSIN MESYLATE 4 MG TABLET 8 MG PO (20:12)
[2024-01-17] MEDS: HYDROcodone/acetaminophen (*CRX) 5-325 MG TABLET 1 TAB PO (20:14)
[2024-01-17] MEDS: INSULIN GLARGINE (*BKC) 100 UNITS/ML 15 UNITS SUB-Q (21:02)
[2024-01-18 06:00] VITALS: BP 105/58; PULSE 67; RESP 22; TEMP 36.8; O2SAT 97
[2024-01-18 07:07] LABS: Hematocrit 36.8 % (42.0-52.0); Hemoglobin 11.9 g/dL (14.0-18.0); Mean Corpuscular HGB Conc 32.3 g/dl (32-36); Mean Corpuscular Hemoglobin 30.7 pg (26-34); Mean Corpuscular Volume 94.8 fl (80-100); Mean Platelet Volume 8.7 fl (7.4-10.4); Platelet Count Result 327 k/mm3 (150-375); Red Blood Count 3.88 M/mm3 (4.6-6.20); Red Cell Distribution Width 12.1 % (11.5-14.5); White Blood Count 8.9 K/mm3 (4.5-10.0)
[2024-01-18 07:33] LABS: Blood Urea Nitrogen 28 mg/dL (9-20); Calcium 8.7 mg/dL (8.4-10.2); Carbon Dioxide 25 mmol/L (22-30); Chloride 98 mmol/L (98-107); Estimated CRCL calculation 65 ml/min; Estimated Glomerular Filt Rate 44; Glucose 186 mg/dL (65-110); Potassium 4.1 mmol/L (3.4-5.0)
[2024-01-18 07:50] LABS: Glucose Point of Care 203 mg/dl (65-105)
[2024-01-18 07:50] LABS: Anion Gap 7 mmol/L (4-12); Sodium 130 mmol/L (137-145)
--- NOTE | 2024-01-18 08:40 | PM.IMPN ---
Progress Note: A&P Assessment and Plan (1) Coronary artery disease: Qualifiers: Associated angina: without angina Coronary Disease-Associated Artery/Lesion type: [place] artery [place] vs. transplanted heart: [place] heart Qualified Code(s): I25.10 - Atherosclerotic heart disease of [place] coronary artery without angina pectoris Code(s): I25.10 - Atherosclerotic heart disease of [place] coronary artery without angina pectoris Status: Acute Assessment and Plan: s/p angioplasty, with stents s/p cabg x 3 plavix, asa, coreg, irbesartan - holding plavix and asa per ortho (2) AIDA (obstructive sleep apnea): Code(s): G47.33 - Obstructive sleep apnea (adult) (pediatric) Status: Acute Assessment and Plan: continues home cpap (3) Type 1 diabetes mellitus with other circulatory complications: Code(s): E10.59 - Type 1 diabetes mellitus with other circulatory complications Status: Acute Assessment and Plan: ortho consult - wound care consult - pain control 01/15- Excisional debridement of left diabetic foot ulcer down to muscle, 5th ray amputation with Dr Monteiro 01/16- post op day 1: Dressing changed per ortho. Incision well approximated. Sutures intact. Mild sanguinous drainage. Begin daily dressing changes with Xeroform over the incision line, cover with gauze and ABD, wrap loosely with kerlex/coband. NWB LLE. Plan to transition to TCC on Saturday. IV antibiotics/diuresis. - hold insulin pump - ok to wear CGM - hypoglycemia protocol accucheck ac.hs lantus 15 units hs, ss - titrate in am based on BS readings - BS reviewed - stable- will continue 15 units of lantus and SS (4) Stage 2 chronic kidney disease: Code(s): N18.2 - Chronic kidney disease, stage 2 (mild) Status: Acute (5) Swelling of left lower extremity: Code(s): M79.89 - Other specified soft tissue disorders Status: Acute Assessment and Plan: -LLE swelling amlodipine was d/c per pcp recently He had a Doppler study done which ruled out DVT elevation, sequential compression, 40 mg IV furosemide -01/17- swelling is pretty much gone (6) Local infection of the skin and subcutaneous tissue, unspecified: Code(s): L08.9 - Local infection of the skin and subcutaneous tissue, unspecified Status: Acute Assessment and Plan: see above Plan dvt prophylaxis: per Ortho (was on lovenox prior to surgery) Time Spent With Patient Time with patient: Greater than 35 minutes Subjective Date/time seen: 01/18/24 08:40 Interval history: HPI Narrative: This is a 58-year-old male with extensive peripheral arterial disease, coronary disease, insulin-dependent diabetes type 1- with previous amputations admitted from the emergency department at the request of his orthopedic surgeon. He was sent in from the clinic for admission to the hospital for a planned operation and amputation/surgical debridement of his left lower extremity. He has an obvious infected left foot with purulent and necrotic drainage. He has no systemic features such as fever, chills, chest pain, shortness a breath, nausea, vomiting. He was otherwise in his normal state of health. MRI underwent in December revealed no osteomyelitis. 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 He has t1dm, sees nurse instructor on a regular basis and has insulin pump. his sugars had been well controlled.d His pump is set to deliver 2.9 units per h on average. He doesnot smoke, drinks on a rare occasion- budlight In ED: WBC 12.2, HG/HCT 13.6/41.7. c REACTIVE PROTEIN 7.7 01/15 - pt is seen and examined. ortho saw him and will proceed with surgery On vanc and zolollyn. BS reviewed. 01/16 - seen and examined. He is doing well- pain is at 3'- tolerable- Alejandra in place- BS stable. no n/v/d. 01/17 seen and examined. doing well pain pablo- rates it at 3-4. Could not work with PT/OT as wound s
--- NOTE | 2024-01-18 08:49 | PCPTNOTE ---
Attempted PT evaluation, pt adamantly refusing to transfer Out of bed stating he would like to stay in bed until Saturday. Per pt, Dr. Monteiro was OK with this plan. Will make RN aware. Will follow.
[2024-01-18] MEDS: HYDROcodone/acetaminophen (*CRX) 5-325 MG TABLET 1 TAB PO ×3 (09:08→21:17)
[2024-01-18] MEDS: AMOXICILLIN/CLAVULANATE K 875-125 MG TAB 1 TABLET PO ×2 (09:09→20:23)
[2024-01-18] MEDS: PREGABALIN (*CRX) 75 MG CAPSULE 150 MG PO (09:09)
[2024-01-18 09:10] VITALS: PULSE 70
[2024-01-18] MEDS: DOXYCYCLINE HYCLATE 100 MG TABLET PO ×2 (09:10→20:24)
[2024-01-18] MEDS: FUROSEMIDE INJ 40 MG/4 ML VIAL IV PUSH (09:10)
[2024-01-18] MEDS: hydroCHLOROthiazide 25 MG TABLET PO (09:10)
[2024-01-18] MEDS: ROSUVASTATIN 20 MG TABLET PO (09:10)
[2024-01-18] MEDS: carvediloL 25 MG TABLET PO ×2 (09:10→20:23)
[2024-01-18] MEDS: amLODIPine BESYLATE 5 MG TABLET PO (09:10)
[2024-01-18] MEDS: INSULIN ASPART (*BKC) 100 UNITS/ML SUB-Q ×2 (09:11→17:06)
--- NOTE | 2024-01-18 10:07 | PCOTNOTE ---
Pt. adamantly refusing to out of bed activity and therapy services at this time Stating he would like to stay in bed until Saturday. Per pt, Dr. Monteiro was OK with this plan. Will make RN aware. Will follow.
--- NOTE | 2024-01-18 10:36 | PM.PNORT ---
Progress Note: A&P Assessment and Plan (1) Diabetic foot ulcer: Qualifiers: Diabetes mellitus type: type 1 Diabetic foot ulcer location: other Laterality: left Non-pressure ulcer stage: with necrosis of muscle Qualified Code(s): E10.621 - Type 1 diabetes mellitus with foot ulcer; L97.523 - Non-pressure chronic ulcer of other part of left foot with necrosis of muscle Code(s): E11.621 - Type 2 diabetes mellitus with foot ulcer; L97.509 - Non-pressure chronic ulcer of other part of unspecified foot with unspecified severity Status: Acute Assessment and Plan: POD #2: Excisional debridement of left diabetic foot ulcer, 5th ray amputation. Dressing removed. Incision well approximated. Sutures intact. Mild sanguinous drainage. Daily dressing changes with Xeroform over the incision line, cover with gauze and ABD. bedrest today for left foot swelling and bleeding. We will plan to mobilize tomorrow. Plan to transition to TCC on Saturday. IV antibiotics/diuresis. Awaiting pathology results. Lasix today. Continue Alejandra catheter while diuresing For in/ out accuracy and mobility. Plan to DC Alejandra tomorrow. (2) Swelling of left lower extremity: Code(s): M79.89 - Other specified soft tissue disorders Status: Acute Assessment and Plan: Lasix working well. Swelling much improved. Continued today then plan to discontinue tomorrow. SCDs to start. Time Spent With Patient Time: Subjective Subjective Date/Time Seen: 01/18/24 10:36 Post Op day: 2 Principal diagnosis: Left Diabetic Foot Ulcer Interval history: POD #2: Excisional debridement of left diabetic foot ulcer down to muscle, 5th ray amputation. Patient doing well. Sitting up in bed. Pain well controlled. No new concerns. Nurse noted increased drainage from left foot yesterday and overnight. Exam Const: General: comfortable Eyes: EOM: EOMs intact bilaterally Resp: Effort & Inspection: normal respiratory effort Auscultation: clear to auscultation bilaterally Cardio: Rate: regular rate Urinary Catheter: Urinary Catheter: patent and draining Skin: Other: dressing to lle- some serosanguineous drainage noted Extrem: Right upper extremity: normal to inspection Left upper extremity: normal to inspection Left lower extremity: lower leg Details: pitting edema ( Improved) Details: 1+ and other ( negative Hom[place]) Other: Right lower extremity: rt lower leg abnormal ( Transtibial amputation) Left lower extremity: lower leg- pitting edema much improved. Dressing changed left foot. Serosanguineous drainage noted on the dressing. Mild sanguinous drainage when open. New sterile dressing applied. Psych: Affect: normal affect Objective Data Vital Signs Vital Signs: Vital Signs - 24 hr 01/17/24 12:27 01/17/24 16:27 01/17/24 20:27 Temperature 97.0 F L 97.5 F L 98.1 F Pulse Rate 63 66 65 Respiratory Rate 14 14 20 Blood Pressure 119/61 125/66 156/65 H Pulse Oximetry 94 95 97 Oxygen Delivery 01/17/24 20:00 01/18/24 06:00 01/18/24 09:10 Temperature 98.3 F Pulse Rate 67 70 Respiratory Rate 22 H Blood Pressure 105/58 L Pulse Oximetry 97 Oxygen Delivery Room Air Intake/Output Intake/Output: Intake & Output 01/15/24 01/16/24 01/17/24 01/18/24 23:59 23:59 23:59 23:59 Intake Total 994 1450 1044 540 Output Total 0 1600 4025 Balance 994 150 2987 540 Meds/Results Medications: Active Medications Generic Name Dose Route Start Last Admin Trade Name Freq PRN Reason Stop Dose Admin Acetaminophen 1,000 mg 01/15/24 05:48 01/17/24 16:36 Acetaminophen 500 Mg Tablet PO 1,000 mg Q6H PRN Administration Mild Pain (1-3) or Fever Hydrocodone Bitart/Acetaminophen 1 tab 01/16/24 20:30 01/18/24 09:08 Hydrocodone/Acetaminophen (*Crx) 5-325 Mg Tablet PO 1 tab Q6H PRN Administration Pain Rated 4-6 Amlodipine Besylate 5 mg 01/15/24
--- NOTE | 2024-01-18 10:40 | PC.NURSE ---
Dr Monteiro changed dressing this a.m will continue to monitor for additional drainage today
[2024-01-18 12:06] LABS: Glucose Point of Care 196 mg/dl (65-105)
[2024-01-18 14:00] VITALS: BP 130/66; PULSE 67; RESP 14; TEMP 36.7; O2SAT 94
[2024-01-18 16:41] LABS: Glucose Point of Care 216 mg/dl (65-105)
[2024-01-18 20:19] LABS: Glucose Point of Care 209 mg/dl (65-105)
[2024-01-18] MEDS: PREGABALIN (*CRX) 75 MG CAPSULE PO (20:23)
[2024-01-18] MEDS: IRBESARTAN 150 MG TABLET 300 MG PO (20:23)
[2024-01-18] MEDS: DOXAZOSIN MESYLATE 4 MG TABLET 8 MG PO (20:24)
[2024-01-18 21:00] VITALS: BP 127/63; PULSE 65; RESP 20; TEMP 36.8; O2SAT 95
[2024-01-18] MEDS: INSULIN GLARGINE (*BKC) 100 UNITS/ML 15 UNITS SUB-Q (21:18)
[2024-01-19 05:28] VITALS: BP 106/67; PULSE 68; RESP 22; TEMP 37.2; O2SAT 99
[2024-01-19 06:49] LABS: Hematocrit 37.5 % (42.0-52.0); Hemoglobin 12.2 g/dL (14.0-18.0); Mean Corpuscular HGB Conc 32.5 g/dl (32-36); Mean Corpuscular Hemoglobin 30.7 pg (26-34); Mean Corpuscular Volume 94.5 fl (80-100); Mean Platelet Volume 8.7 fl (7.4-10.4); Platelet Count Result 341 k/mm3 (150-375); Red Blood Count 3.97 M/mm3 (4.6-6.20); Red Cell Distribution Width 12.1 % (11.5-14.5); White Blood Count 9.4 K/mm3 (4.5-10.0)
[2024-01-19 07:02] LABS: Anion Gap 10 mmol/L (4-12); Blood Urea Nitrogen 35 mg/dL (9-20); Calcium 9.1 mg/dL (8.4-10.2); Carbon Dioxide 29 mmol/L (22-30); Chloride 96 mmol/L (98-107); Estimated CRCL calculation 61 ml/min; Estimated Glomerular Filt Rate 41; Glucose 211 mg/dL (65-110); Potassium 4.3 mmol/L (3.4-5.0); Sodium 135 mmol/L (137-145)
[2024-01-19 07:50] LABS: Glucose Point of Care 200 mg/dl (65-105)
--- NOTE | 2024-01-19 08:26 | PCOTNOTE ---
Spoke with charge nurse for 3rd [facility] SUR[facility]- Pt. remains on bedrest until Saturday. Pt. to be seen for therapy services when appropriate to mobilize.
[2024-01-19] MEDS: AMOXICILLIN/CLAVULANATE K 875-125 MG TAB 1 TABLET PO ×2 (08:54→20:23)
[2024-01-19] MEDS: amLODIPine BESYLATE 5 MG TABLET PO (08:54)
[2024-01-19] MEDS: DOXYCYCLINE HYCLATE 100 MG TABLET PO ×2 (08:54→20:23)
[2024-01-19] MEDS: ROSUVASTATIN 20 MG TABLET PO (08:54)
[2024-01-19] MEDS: PREGABALIN (*CRX) 75 MG CAPSULE 150 MG PO (08:54)
[2024-01-19 08:55] VITALS: PULSE 62
[2024-01-19] MEDS: carvediloL 25 MG TABLET PO ×2 (08:55→20:23)
[2024-01-19] MEDS: hydroCHLOROthiazide 25 MG TABLET PO (08:55)
--- NOTE | 2024-01-19 09:46 | PM.PNORT ---
Progress Note: A&P Assessment and Plan (1) Diabetic foot ulcer: Qualifiers: Diabetes mellitus type: type 1 Diabetic foot ulcer location: other Laterality: left Non-pressure ulcer stage: with necrosis of muscle Qualified Code(s): E10.621 - Type 1 diabetes mellitus with foot ulcer; L97.523 - Non-pressure chronic ulcer of other part of left foot with necrosis of muscle Code(s): E11.621 - Type 2 diabetes mellitus with foot ulcer; L97.509 - Non-pressure chronic ulcer of other part of unspecified foot with unspecified severity Status: Acute Assessment and Plan: POD #3: Excisional debridement of left diabetic foot ulcer, 5th ray amputation. Dressing removed. Incision well approximated. Sutures intact. Mild sanguinous drainage- improved. Daily dressing changes with Xeroform over the incision line, cover with gauze and ABD. plan to mobilize today. Plan to transition to TCC on Saturday. P.o. antibiotics started as wound culture results show group B strep. Awaiting pathology results. Discontinue Alejandra catheter today. Lasix finished yesterday. Left leg swelling much improved. Drainage improved. Continue SCDs. (2) Swelling of left lower extremity: Code(s): M79.89 - Other specified soft tissue disorders Status: Acute Assessment and Plan: Lasix working well. Swelling much improved. Continue SCDs. Time Spent With Patient Time: Subjective Subjective Date/Time Seen: 01/19/24 09:46 Post Op day: 3 Principal diagnosis: Left Diabetic Foot Ulcer Interval history: POD #3: left 5th ray amputation. Patient doing well. Sitting up in bed. Pain well controlled. No new concerns. Less drainage noted from left foot. Exam Const: General: comfortable Eyes: EOM: EOMs intact bilaterally Resp: Effort & Inspection: normal respiratory effort Auscultation: clear to auscultation bilaterally Cardio: Rate: regular rate Urinary Catheter: Urinary Catheter: patent and draining Extrem: Right upper extremity: normal to inspection Left upper extremity: normal to inspection Left lower extremity: lower leg Details: pitting edema ( Improved) Details: 1+ and other ( negative Homans) Other: Right lower extremity: rt lower leg abnormal ( Transtibial amputation) Left lower extremity: lower leg- pitting edema much improved. Dressing changed left foot. Serosanguineous drainage noted on the dressing. Mild sanguinous drainage when open. New sterile dressing applied. Psych: Affect: normal affect Objective Data Vital Signs Vital Signs: Vital Signs - 24 hr 01/18/24 14:00 01/18/24 21:00 01/18/24 20:00 Temperature 98.1 F 98.2 F Pulse Rate 67 65 Respiratory Rate 14 20 Blood Pressure 130/66 127/63 Pulse Oximetry 94 95 Oxygen Delivery Room Air 01/19/24 05:28 01/19/24 08:55 Temperature 99.0 F Pulse Rate 68 62 Respiratory Rate 22 H Blood Pressure 106/67 Pulse Oximetry 99 Oxygen Delivery Intake/Output Intake/Output: Intake & Output 01/16/24 01/17/24 01/18/24 01/19/24 23:59 23:59 23:59 23:59 Intake Total 1450 1044 980 200 Output Total 0762 1520 7233 700 [facility] -[phone] Meds/Results Medications: Active Medications Generic Name Dose Route Start Last Admin Trade Name Freq PRN Reason Stop Dose Admin Acetaminophen 1,000 mg 01/15/24 05:48 01/17/24 16:36 Acetaminophen 500 Mg Tablet PO 1,000 mg Q6H PRN Administration Mild Pain (1-3) or Fever Hydrocodone Bitart/Acetaminophen 1 tab 01/16/24 20:30 01/18/24 21:17 Hydrocodone/Acetaminophen (*Crx) 5-325 Mg Tablet PO 1 tab Q6H PRN Administration Pain Rated 4-6 Amlodipine Besylate 5 mg 01/15/24 09:00 01/19/24 08:54 Amlodipine Besylate 5 Mg Tablet PO 5 mg DAILY MARY Administration Amoxicillin/Clavulanate Potassium 1 tablet 01/17/24 14:00 01/19/24 08:54 Amoxicillin/Clavulanate K 875-125 Mg Tab PO 1 tablet Q12HR MARY Administration
--- NOTE | 2024-01-19 10:28 | PM.IMPN ---
Progress Note: A&P Assessment and Plan (1) Coronary artery disease: Qualifiers: Associated angina: without angina Coronary Disease-Associated Artery/Lesion type: [place] artery [place] vs. transplanted heart: [place] heart Qualified Code(s): I25.10 - Atherosclerotic heart disease of [place] coronary artery without angina pectoris Code(s): I25.10 - Atherosclerotic heart disease of [place] coronary artery without angina pectoris Status: Acute Assessment and Plan: s/p angioplasty, with stents s/p cabg x 3 plavix, asa, coreg, irbesartan - holding plavix and asa per ortho (2) AIDA (obstructive sleep apnea): Code(s): G47.33 - Obstructive sleep apnea (adult) (pediatric) Status: Acute Assessment and Plan: continues home cpap (3) Type 1 diabetes mellitus with other circulatory complications: Code(s): E10.59 - Type 1 diabetes mellitus with other circulatory complications Status: Acute Assessment and Plan: ortho consult - wound care consult - pain control 01/15- Excisional debridement of left diabetic foot ulcer down to muscle, 5th ray amputation with Dr Monteiro 01/16- post op day 1: Dressing changed per ortho. Incision well approximated. Sutures intact. Mild sanguinous drainage. Begin daily dressing changes with Xeroform over the incision line, cover with gauze and ABD, wrap loosely with kerlex/coband. NWB LLE. Plan to transition to TCC on Saturday. IV antibiotics/diuresis. - hold insulin pump - ok to wear CGM - hypoglycemia protocol accucheck ac.hs lantus 15 units hs, ss - titrate in am based on BS readings - BS reviewed - stable- will continue 15 units of lantus and SS (4) Stage 2 chronic kidney disease: Code(s): N18.2 - Chronic kidney disease, stage 2 (mild) Status: Acute (5) Swelling of left lower extremity: Code(s): M79.89 - Other specified soft tissue disorders Status: Acute Assessment and Plan: -LLE swelling amlodipine was d/c per pcp recently He had a Doppler study done which ruled out DVT elevation, sequential compression, 40 mg IV furosemide -01/17- swelling is pretty much gone 01/18- lasix stopped Alejandra is to be removed- flomax ordered (6) Local infection of the skin and subcutaneous tissue, unspecified: Code(s): L08.9 - Local infection of the skin and subcutaneous tissue, unspecified Status: Acute Assessment and Plan: Dressing removed and changed per ortho Incision well approximated. Sutures intact. Mild sanguinous drainage but improved. Daily dressing changes with Xeroform over the incision line, cover with gauze and ABD. plan to mobilize today. Plan to transition to TCC on Saturday. on PO antibiotics - as wound culture results show group B strep. Plan dvt prophylaxis: per Ortho (was on lovenox prior to surgery) SCD ambulate today Time Spent With Patient Time with patient: Greater than 35 minutes Subjective Date/time seen: 01/19/24 10:28 Interval history: HPI Narrative: This is a 58-year-old male with extensive peripheral arterial disease, coronary disease, insulin-dependent diabetes type 1- with previous amputations admitted from the emergency department at the request of his orthopedic surgeon. He was sent in from the clinic for admission to the hospital for a planned operation and amputation/surgical debridement of his left lower extremity. He has an obvious infected left foot with purulent and necrotic drainage. He has no systemic features such as fever, chills, chest pain, shortness a breath, nausea, vomiting. He was otherwise in his normal state of health. MRI underwent in December revealed no osteomyelitis. 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 He has t1dm, sees procedures tech on a regular basis and has insulin pump. his sugars had been well controlled.d His pump is set to deliver 2.9 units per h on average. He doesnot smoke
[2024-01-19 11:33] LABS: Glucose Point of Care 232 mg/dl (65-105)
[2024-01-19] MEDS: INSULIN ASPART (*BKC) 100 UNITS/ML SUB-Q ×2 (11:58→16:44)
[2024-01-19 14:00] VITALS: BP 122/72; PULSE 71; RESP 16; TEMP 36.9; O2SAT 100
[2024-01-19 16:35] LABS: Glucose Point of Care 218 mg/dl (65-105)
[2024-01-19] MEDS: TAMSULOSIN HCL 0.4 MG CAPSULE PO (16:43)
[2024-01-19] MEDS: HYDROcodone/acetaminophen (*CRX) 5-325 MG TABLET 1 TAB PO (20:22)
[2024-01-19] MEDS: PREGABALIN (*CRX) 75 MG CAPSULE PO (20:23)
[2024-01-19] MEDS: IRBESARTAN 150 MG TABLET 300 MG PO (20:23)
[2024-01-19] MEDS: DOXAZOSIN MESYLATE 4 MG TABLET 8 MG PO (20:23)
[2024-01-19 20:25] LABS: Glucose Point of Care 242 mg/dl (65-105)
[2024-01-19] MEDS: INSULIN GLARGINE (*BKC) 100 UNITS/ML 15 UNITS SUB-Q (20:25)
[2024-01-19 21:18] VITALS: BP 136/65; PULSE 69; RESP 18; TEMP 36.4; O2SAT 97
[2024-01-20 05:44] VITALS: BP 118/65; PULSE 68; RESP 18; TEMP 36.5; O2SAT 100
[2024-01-20 06:28] LABS: Hematocrit 38.4 % (42.0-52.0); Hemoglobin 12.7 g/dL (14.0-18.0); Mean Corpuscular HGB Conc 33.1 g/dl (32-36); Mean Corpuscular Hemoglobin 30.6 pg (26-34); Mean Corpuscular Volume 92.5 fl (80-100); Mean Platelet Volume 8.7 fl (7.4-10.4); Platelet Count Result 327 k/mm3 (150-375); Red Blood Count 4.15 M/mm3 (4.6-6.20); White Blood Count 8.6 K/mm3 (4.5-10.0)
[2024-01-20 06:41] LABS: Anion Gap 8 mmol/L (4-12); Blood Urea Nitrogen 37 mg/dL (9-20); Carbon Dioxide 31 mmol/L (22-30); Chloride 97 mmol/L (98-107); Estimated CRCL calculation 74 ml/min; Estimated Glomerular Filt Rate 52; Glucose 231 mg/dL (65-110); Potassium 4.3 mmol/L (3.4-5.0); Sodium 136 mmol/L (137-145)
[2024-01-20 07:42] LABS: Glucose Point of Care 264 mg/dl (65-105)
--- NOTE | 2024-01-20 08:00 | PM.IMPN ---
Progress Note: A&P Assessment and Plan (1) Coronary artery disease: Qualifiers: Associated angina: without angina Coronary Disease-Associated Artery/Lesion type: [place] artery [place] vs. transplanted heart: [place] heart Qualified Code(s): I25.10 - Atherosclerotic heart disease of [place] coronary artery without angina pectoris Code(s): I25.10 - Atherosclerotic heart disease of [place] coronary artery without angina pectoris Status: Acute Assessment and Plan: s/p angioplasty, with stents s/p cabg x 3 plavix, asa, coreg, irbesartan - holding plavix and asa per ortho (2) AIDA (obstructive sleep apnea): Code(s): G47.33 - Obstructive sleep apnea (adult) (pediatric) Status: Acute Assessment and Plan: continues home cpap (3) Type 1 diabetes mellitus with other circulatory complications: Code(s): E10.59 - Type 1 diabetes mellitus with other circulatory complications Status: Acute Assessment and Plan: ortho consult - wound care consult - pain control 01/15- Excisional debridement of left diabetic foot ulcer down to muscle, 5th ray amputation with Dr Monteiro 01/16- post op day 1: Dressing changed per ortho. Incision well approximated. Sutures intact. Mild sanguinous drainage. Begin daily dressing changes with Xeroform over the incision line, cover with gauze and ABD, wrap loosely with kerlex/coband. NWB LLE. Plan to transition to TCC on Saturday. IV antibiotics/diuresis. - hold insulin pump - ok to wear CGM - hypoglycemia protocol accucheck ac.hs lantus 15 units hs, ss - titrate in am based on BS readings - BS reviewed - stable- will continue 15 units of lantus and SS (4) Stage 2 chronic kidney disease: Code(s): N18.2 - Chronic kidney disease, stage 2 (mild) Status: Acute (5) Swelling of left lower extremity: Code(s): M79.89 - Other specified soft tissue disorders Status: Acute Assessment and Plan: -LLE swelling amlodipine was d/c per pcp recently He had a Doppler study done which ruled out DVT elevation, sequential compression, 40 mg IV furosemide -01/17- swelling is pretty much gone 01/18- lasix stopped Alejandra is to be removed- flomax ordered (6) Local infection of the skin and subcutaneous tissue, unspecified: Code(s): L08.9 - Local infection of the skin and subcutaneous tissue, unspecified Status: Acute Assessment and Plan: Dressing removed and changed per ortho Incision well approximated. Sutures intact. Mild sanguinous drainage but improved. Daily dressing changes with Xeroform over the incision line, cover with gauze and ABD. plan to mobilize today. Plan to transition to TCC on Saturday. on PO antibiotics - as wound culture results show group B strep. Plan dvt prophylaxis: per Ortho (was on lovenox prior to surgery) SCD ambulate today Subjective Date/time seen: 01/20/24 08:00 Interval history: HPI Narrative: This is a 58-year-old male with extensive peripheral arterial disease, coronary disease, insulin-dependent diabetes type 1- with previous amputations admitted from the emergency department at the request of his orthopedic surgeon. He was sent in from the clinic for admission to the hospital for a planned operation and amputation/surgical debridement of his left lower extremity. He has an obvious infected left foot with purulent and necrotic drainage. He has no systemic features such as fever, chills, chest pain, shortness a breath, nausea, vomiting. He was otherwise in his normal state of health. MRI underwent in December revealed no osteomyelitis. 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 He has t1dm, sees yeast maker on a regular basis and has insulin pump. his sugars had been well controlled.d His pump is set to deliver 2.9 units per h on average. He doesnot smoke, drinks on a rare occasion- budlight In ED: WBC 12.2, HG/HCT 13.6/4
[2024-01-20] MEDS: INSULIN ASPART (*BKC) 100 UNITS/ML SUB-Q ×2 (08:07→12:36)
[2024-01-20 08:08] VITALS: PULSE 66
[2024-01-20] MEDS: ASPIRIN 81 MG CHEWABLE TABLET PO (08:08)
[2024-01-20] MEDS: carvediloL 25 MG TABLET PO (08:08)
[2024-01-20] MEDS: hydroCHLOROthiazide 25 MG TABLET PO (08:08)
[2024-01-20] MEDS: ROSUVASTATIN 20 MG TABLET PO (08:08)
[2024-01-20] MEDS: TAMSULOSIN HCL 0.4 MG CAPSULE PO (08:08)
[2024-01-20] MEDS: CLOPIDOGREL BISULFATE 75 MG TABLET PO (08:08)
[2024-01-20] MEDS: DOXYCYCLINE HYCLATE 100 MG TABLET PO (08:09)
[2024-01-20] MEDS: amLODIPine BESYLATE 5 MG TABLET PO (08:09)
[2024-01-20] MEDS: PREGABALIN (*CRX) 75 MG CAPSULE 150 MG PO (08:09)
[2024-01-20] MEDS: AMOXICILLIN/CLAVULANATE K 875-125 MG TAB 1 TABLET PO (08:09)
[2024-01-20 11:55] LABS: Glucose Point of Care 241 mg/dl (65-105)
--- NOTE | 2024-01-20 13:39 | PM.PNORT ---
Progress Note: A&P Assessment and Plan (1) Diabetic foot ulcer: Qualifiers: Diabetes mellitus type: type 1 Diabetic foot ulcer location: other Laterality: left Non-pressure ulcer stage: with necrosis of muscle Qualified Code(s): E10.621 - Type 1 diabetes mellitus with foot ulcer; L97.523 - Non-pressure chronic ulcer of other part of left foot with necrosis of muscle Code(s): E11.621 - Type 2 diabetes mellitus with foot ulcer; L97.509 - Non-pressure chronic ulcer of other part of unspecified foot with unspecified severity Status: Acute Assessment and Plan: POD #4: Excisional debridement of left diabetic foot ulcer, 5th ray amputation. Dressing removed. TCC applied. Continue PO antibiotics as wound culture results show group B strep. Awaiting pathology results. Dispo: Home, follow up Saturday in the [facility] wound clinic (2) Swelling of left lower extremity: Code(s): M79.89 - Other specified soft tissue disorders Status: Acute Assessment and Plan: Significant improvement in LLE swelling s/p IV Lasix. May need to consider oral Lasix for swelling control. Discuss with PCP. Plan Reviewed history, exam, radiographs and current labs with attending MD and covering surgeon, Dr. Monteiro, who agrees with current plan as indicated above. No further recommendations from Dr. Monteiro at this time. Time Spent With Patient Time: Subjective Subjective Date/Time Seen: 01/20/24 13:39 Post Op day: 4 Principal diagnosis: Left Diabetic Foot Ulcer Interval history: POD #4: Left 5th Ray Amputation. Patient doing well. Sitting up in bed. Pain well controlled. No new concerns. Less drainage noted from left foot. Hopeful for d/c Review of Systems Review of Systems: All systems reviewed & are unremarkable except as noted in HPI and below Exam Const: General: comfortable Eyes: EOM: EOMs intact bilaterally Resp: Effort & Inspection: normal respiratory effort Auscultation: clear to auscultation bilaterally Cardio: Rate: regular rate Urinary Catheter: Urinary Catheter: patent and draining Extrem: Right upper extremity: normal to inspection Left upper extremity: normal to inspection Left lower extremity: lower leg Details: pitting edema ( Improved) Details: 1+ and other ( negative Homans) Other: Right lower extremity: rt lower leg abnormal (Transtibial amputation) Left lower extremity: lower leg- pitting edema much improved. Dressing changed left foot. Serosanguineous drainage noted on the dressing. Mild sanguinous drainage when open. New TCC applied. Psych: Affect: normal affect Objective Data Vital Signs Vital Signs: Vital Signs - 24 hr 01/19/24 14:00 01/19/24 21:18 01/19/24 20:00 Temperature 36.9 C 36.4 C Pulse Rate 71 69 Respiratory Rate 16 18 Blood Pressure 122/72 136/65 Pulse Oximetry 100 97 Oxygen Delivery Room Air 01/20/24 05:44 01/20/24 08:08 01/20/24 08:00 Temperature 36.5 C Pulse Rate 68 66 Respiratory Rate 18 Blood Pressure 118/65 Pulse Oximetry 100 Oxygen Delivery Room Air 01/20/24 11:23 Temperature Pulse Rate Respiratory Rate Blood Pressure Pulse Oximetry Oxygen Delivery Room Air Intake/Output Intake/Output: Intake & Output 01/17/24 01/18/24 01/19/24 01/20/24 23:59 23:59 23:59 23:59 Intake Total 7856 524 6135 780 Output Total 0733 8895 2200 1250 [facility] -[phone] Meds/Results Medications: Active Medications Generic Name Dose Route Start Last Admin Trade Name Freq PRN Reason Stop Dose Admin Acetaminophen 1,000 mg 01/15/24 05:48 01/17/24 16:36 Acetaminophen 500 Mg Tablet PO 1,000 mg Q6H PRN Administration Mild Pain (1-3) or Fever Hydrocodone Bitart/Acetaminophen 1 tab 01/16/24 20:30 01/19/24 20:22 Hydrocodone/Acetaminophen (*Crx) 5-325 Mg Tablet PO 1 tab Q6H PRN Administration Pain Rated 4-6 Amlodipine Besylate 5 mg 01/15/24 09:00
[2024-01-20 13:50] VITALS: BMI 34.7
--- NOTE | 2024-01-20 13:52 | PM.DS ---
DS: Admitting Diagnosis Discharge Date 01/19 Admitting Diagnosis foot infection DS: Discharge Diagnosis Discharge Diagnosis (1) Coronary artery disease: Qualifiers: Coronary Disease-Associated Artery/Lesion type: [place] artery [place] vs. transplanted heart: [place] heart Associated angina: without angina Qualified Code(s): I25.10 - Atherosclerotic heart disease of [place] coronary artery without angina pectoris Code(s): I25.10 - Atherosclerotic heart disease of [place] coronary artery without angina pectoris Status: Acute Assessment and Plan: s/p angioplasty, with stents s/p cabg x 3 plavix, asa, coreg, irbesartan - holding plavix and asa per ortho (2) AIDA (obstructive sleep apnea): Code(s): G47.33 - Obstructive sleep apnea (adult) (pediatric) Status: Acute Assessment and Plan: continues home cpap (3) Type 1 diabetes mellitus with other circulatory complications: Code(s): E10.59 - Type 1 diabetes mellitus with other circulatory complications Status: Acute Assessment and Plan: ortho consult - wound care consult - pain control 01/15- Excisional debridement of left diabetic foot ulcer down to muscle, 5th ray amputation with Dr Monteiro 01/16- post op day 1: Dressing changed per ortho. Incision well approximated. Sutures intact. Mild sanguinous drainage. Begin daily dressing changes with Xeroform over the incision line, cover with gauze and ABD, wrap loosely with kerlex/coband. NWB LLE. Plan to transition to TCC on Saturday. IV antibiotics/diuresis. - hold insulin pump - ok to wear CGM - hypoglycemia protocol accucheck ac.hs lantus 15 units hs, ss - titrate in am based on BS readings - BS reviewed - stable- will continue 15 units of lantus and SS (4) Stage 2 chronic kidney disease: Code(s): N18.2 - Chronic kidney disease, stage 2 (mild) Status: Acute (5) Swelling of left lower extremity: Code(s): M79.89 - Other specified soft tissue disorders Status: Acute Assessment and Plan: -LLE swelling amlodipine was d/c per pcp recently He had a Doppler study done which ruled out DVT elevation, sequential compression, 40 mg IV furosemide -01/17- swelling is pretty much gone 01/18- lasix stopped Alejandra is to be removed- flomax ordered (6) Local infection of the skin and subcutaneous tissue, unspecified: Code(s): L08.9 - Local infection of the skin and subcutaneous tissue, unspecified Status: Acute Assessment and Plan: Dressing removed and changed per ortho Incision well approximated. Sutures intact. Mild sanguinous drainage but improved. Daily dressing changes with Xeroform over the incision line, cover with gauze and ABD. plan to mobilize today. Plan to transition to [facility] on Saturday. on PO antibiotics - as wound culture results show group B strep. Plan Final dx: diabetic foot ulcer, s/p Excisional debridement of left diabetic foot ulcer, 5th ray amputation. dvt prophylaxis: per Ortho (was on lovenox prior to surgery) SCD ambulate today DS: Summary Hospital Course Hospital Course: HPI Narrative: This is a 58-year-old male with extensive peripheral arterial disease, coronary disease, insulin-dependent diabetes type 1- with previous amputations admitted from the emergency department at the request of his orthopedic surgeon. He was sent in from the clinic for admission to the hospital for a planned operation and amputation/surgical debridement of his left lower extremity. He has an obvious infected left foot with purulent and necrotic drainage. He has no systemic features such as fever, chills, chest pain, shortness a breath, nausea, vomiting. He was otherwise in his normal state of health. MRI underwent in December revealed no osteomyelitis. 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 He has t1dm, sees lumber loader on a regular basis and has insulin pump.
[2024-01-20] MEDS: metroNIDAZOLE 500 MG TABLET PO (14:40)
== END 2024-01-20 15:25 | disposition home or self-care (01) | DRG 618 ==
LOC: ANHED 01-15 03:48 → ANH3MEDSUR 01-15 04:25
PROVIDERS: Orthopaedic Surgery; Admitting Provider Internal Medicine; Emergency Provider Student in an Organized Health Care Education/Training Program; PCP Internal Medicine; Visit Provider Nurse Practitioner
PROC: 0Y6N0ZF Detachment at Left Foot, Partial 5th Ray, Open Approach (ICD-10-PCS; principal; 2024-01-16 10:30)
DX: E10.621 Type 1 diabetes mellitus with foot ulcer (principal); L97.523 Non-pressure chronic ulcer of other part of left foot with necrosis of muscle; E10.628 Type 1 diabetes mellitus with other skin complications; E10.51 Type 1 diabetes mellitus with diabetic peripheral angiopathy without gangrene; E10.610 Type 1 diabetes mellitus with diabetic neuropathic arthropathy; E10.22 Type 1 diabetes mellitus with diabetic chronic kidney disease; E10.319 Type 1 diabetes mellitus with unspecified diabetic retinopathy without macular edema; I25.10 Atherosclerotic heart disease of native coronary artery without angina pectoris; I89.0 Lymphedema, not elsewhere classified; I12.9 Hypertensive chronic kidney disease with stage 1 through stage 4 chronic kidney disease, or unspecified chronic kidney disease; L08.9 Local infection of the skin and subcutaneous tissue, unspecified; N18.2 Chronic kidney disease, stage 2 (mild); E78.2 Mixed hyperlipidemia; M48.00 Spinal stenosis, site unspecified; G47.33 Obstructive sleep apnea (adult) (pediatric); G89.29 Other chronic pain; Z96.41 Presence of insulin pump (external) (internal); Z89.511 Acquired absence of right leg below knee; Z89.422 Acquired absence of other left toe(s); Z79.4 Long term (current) use of insulin; Z79.82 Long term (current) use of aspirin; Z95.1 Presence of aortocoronary bypass graft; Z95.5 Presence of coronary angioplasty implant and graft; Z80.0 Family history of malignant neoplasm of digestive organs; Z87.891 Personal history of nicotine dependence; E10.69 Type 1 diabetes mellitus with other specified complication
CPT/HCPCS: 36415; 73630; 80048; 80053; 80069; 80202; 82306; 82565; 82570; 82948; 83605; 84153; 84156; 84443; 85025; 85027; 85610; 85730; 86140; 86850; 86900; 86901; 87040; 87070; 87075; 87076; 87077; 87205; 88305; 88311; 93971; 96365; 96375; 97161; 99199; 99285; A9270; G0103; J1650; J1815; J1940; J2270; J2405; J2543; J2704; J3010; J3370; J7040; J7120

== ENCOUNTER 2024-04-21 07:07 | Outpatient (RCR) | payer MEDICARE, SELFPAY ==
--- NOTE | 2024-01-24 08:49 | PM.PNORT ---
Progress Note: A&P Assessment and Plan (1) Diabetic foot ulcer: Qualifiers: Diabetes mellitus type: type 1 Diabetic foot ulcer location: other Laterality: left Non-pressure ulcer stage: with necrosis of muscle Qualified Code(s): E10.621 - Type 1 diabetes mellitus with foot ulcer; L97.523 - Non-pressure chronic ulcer of other part of left foot with necrosis of muscle Code(s): E11.621 - Type 2 diabetes mellitus with foot ulcer; L97.509 - Non-pressure chronic ulcer of other part of unspecified foot with unspecified severity Status: Acute Assessment and Plan: 1 week, 1 day s/p excisional debridement of left diabetic foot ulcer, 5th ray amputation. TCC removed. Incision well approximated. New TCC applied. Final culture results group B strep and Bacteroides consistent with skin rosita. Pathology result showing necrosis of the 5th metatarsal head without evidence of osteomyelitis. Appropriate to continue oral antibiotics per recommended course. Follow up Saturday for cast change. (2) Swelling of left lower extremity: Code(s): M79.89 - Other specified soft tissue disorders Status: Acute Assessment and Plan: Significant improvement in LLE swelling s/p IV Lasix. May need to consider oral Lasix for swelling control. Discuss with PCP. Time Spent With Patient Time: Subjective Subjective Date/Time Seen: 01/24/24 08:49 Interval history: 1 week, 1 day s/p left 5th ray amputation. Patient follows up in [facility] wound clinic for reevaluation. Review of Systems Review of Systems: All systems reviewed & are unremarkable except as noted in HPI and below Exam Const: General: comfortable Eyes: EOM: EOMs intact bilaterally Resp: Effort & Inspection: normal respiratory effort Auscultation: clear to auscultation bilaterally Cardio: Rate: regular rate Urinary Catheter: Urinary Catheter: patent and draining Extrem: Right upper extremity: normal to inspection Left upper extremity: normal to inspection Left lower extremity: lower leg Details: pitting edema ( Improved) Details: 1+ and other ( negative Homans) Other: Right lower extremity: rt lower leg abnormal (Transtibial amputation) Left lower extremity: lower leg- pitting edema much improved. Cast changed left foot. Serosanguineous drainage noted on the dressing. Mild sanguinous drainage when open. New TCC applied. Psych: Affect: normal affect Fracture/Casting/Strapping Pre Procedure Consent was obtained, Procedures/risks were explained, Questions were answered, Correct patient identified and Correct side and site confirmed Episode of Care Return Visit (Left Foot ) Casting Modification and Status: Diabetic Application Exam of Affected Area: Color: Normal, Temp: Normal, Pulse: Normal, Blanching: Normal, Capillary Refill: Normal and Sensory Exam: Abnormal Swelling: No and Tenderness: No Skin Apperance: Clean and Dry and Intact (sutures well approximated ) Care: Alcohol Wipes Patient Tolerated Procedure Well: Yes Post Procedure Patient tolerated the procedure well?: Tolerated procedure well
[2024-01-24 09:17] VITALS: BMI 34.7
--- NOTE | 2024-01-28 08:41 | PM.PNORT ---
Progress Note: A&P Assessment and Plan (1) Diabetic foot ulcer: Qualifiers: Diabetes mellitus type: type 1 Diabetic foot ulcer location: other Laterality: left Non-pressure ulcer stage: with necrosis of muscle Qualified Code(s): E10.621 - Type 1 diabetes mellitus with foot ulcer; L97.523 - Non-pressure chronic ulcer of other part of left foot with necrosis of muscle Code(s): E11.621 - Type 2 diabetes mellitus with foot ulcer; L97.509 - Non-pressure chronic ulcer of other part of unspecified foot with unspecified severity Status: Acute Assessment and Plan: 1 week, 5 days s/p excisional debridement of left diabetic foot ulcer, 5th ray amputation. TCC removed. Incision well approximated. New TCC applied. Final culture results group B strep and Bacteroides consistent with skin rosita. Pathology result showing necrosis of the 5th metatarsal head without evidence of osteomyelitis. Appropriate to continue oral antibiotics per recommended course. Follow up next week for cast change. (2) Swelling of left lower extremity: Code(s): M79.89 - Other specified soft tissue disorders Status: Acute Assessment and Plan: Significant improvement in LLE swelling s/p IV Lasix. May need to consider oral Lasix for swelling control. Discuss with PCP. Time Spent With Patient Time: Subjective Subjective Date/Time Seen: 01/28/24 08:41 Interval history: 1 week, 5 days s/p left 5th ray amputation. Patient follows up in [facility] wound clinic for reevaluation. Review of Systems Review of Systems: All systems reviewed & are unremarkable except as noted in HPI and below Exam Const: General: comfortable Eyes: EOM: EOMs intact bilaterally Resp: Effort & Inspection: normal respiratory effort Auscultation: clear to auscultation bilaterally Cardio: Rate: regular rate Urinary Catheter: Urinary Catheter: patent and draining Extrem: Right upper extremity: normal to inspection Left upper extremity: normal to inspection Left lower extremity: lower leg Details: pitting edema ( Improved) Details: 1+ and other ( negative Homans) Other: Right lower extremity: rt lower leg abnormal (Transtibial amputation) Left lower extremity: lower leg- pitting edema much improved. Cast changed left foot. Serosanguineous drainage noted on the dressing. Mild sanguinous drainage when open. New TCC applied. Psych: Affect: normal affect Fracture/Casting/Strapping Pre Procedure Consent was obtained, Procedures/risks were explained, Questions were answered, Correct patient identified and Correct side and site confirmed Episode of Care Return Visit Casting Modification and Status: Diabetic Application Exam of Affected Area: Color: Normal, Temp: Normal, Pulse: Normal, Blanching: Normal, Capillary Refill: Normal and Sensory Exam: Abnormal Swelling: No and Tenderness: No Skin Apperance: Clean and Dry and Intact (sutures well approximated ) Care: Alcohol Wipes Patient Tolerated Procedure Well: Yes Post Procedure Patient tolerated the procedure well?: Tolerated procedure well
--- NOTE | 2024-02-04 08:51 | P.PNOP_ITS ---
Progress Note: A&P Assessment and Plan (1) Diabetic foot ulcer: Qualifiers: Diabetes mellitus type: type 1 Diabetic foot ulcer location: other Laterality: left Non-pressure ulcer stage: with necrosis of muscle Qualified Code(s): E10.621 - Type 1 diabetes mellitus with foot ulcer; L97.523 - Non- pressure chronic ulcer of other part of left foot with necrosis of muscle Code(s): E11.621 - Type 2 diabetes mellitus with foot ulcer; L97.509 - Non-pressure chronic ulcer of other part of unspecified foot with unspecified severity Status: Acute Assessment and Plan: 2 weeks, 5 days s/p excisional debridement of left diabetic foot ulcer, 5th ray amputation. TCC removed. Incision well approximated. New TCC applied. Final culture results group B strep and Bacteroides consistent with skin rosita. Pathology result showing necrosis of the 5th metatarsal head without evidence of osteomyelitis. Appropriate to continue oral antibiotics per recommended course. Follow up next week for cast change and suture removal. (2) Swelling of left lower extremity: Code(s): M79.89 - Other specified soft tissue disorders Status: Acute Assessment and Plan: Significant improvement in LLE swelling s/p IV Lasix. May need to consider oral Lasix for swelling control. Discuss with PCP. Time Spent With Patient Time: Subjective Subjective Date/Time Seen: 02/04/24 08:51 Interval history: 2 weeks, 5 days s/p left 5th ray amputation. Patient follows up in [facility] wound clinic for reevaluation. Review of Systems Review of Systems: All systems reviewed & are unremarkable except as noted in HPI and below Exam Const: General: comfortable Eyes: EOM: EOMs intact bilaterally Resp: Effort & Inspection: normal respiratory effort Auscultation: clear to auscultation bilaterally Cardio: Rate: regular rate Urinary Catheter: Urinary Catheter: patent and draining Extrem: Right upper extremity: normal to inspection Left upper extremity: normal to inspection Left lower extremity: lower leg Details: pitting edema ( Improved) Details: 1+ and other ( negative Homans) Other: Right lower extremity: rt lower leg abnormal (Transtibial amputation) Left lower extremity: lower leg- pitting edema much improved. Cast changed left foot. Serosanguineous drainage noted on the dressing. Mild sanguinous drainage when open. New TCC applied. Psych: Affect: normal affect Fracture/Casting/Strapping Pre Procedure Consent was obtained, Procedures/risks were explained, Questions were answered, Correct patient identified and Correct side and site confirmed Episode of Care Return Visit Casting Modification and Status: Diabetic Application Exam of Affected Area: Color: Normal, Temp: Normal, Pulse: Normal, Blanching: Normal, Capillary Refill: Normal and Sensory Exam: Abnormal Swelling: No and Tenderness: No Skin Apperance: Clean and Dry and Intact (sutures well approximated ) Care: Alcohol Wipes Patient Tolerated Procedure Well: Yes Post Procedure Patient tolerated the procedure well?: Tolerated procedure well
--- NOTE | 2024-02-11 08:47 | PM.PNORT ---
Progress Note: A&P Assessment and Plan (1) Diabetic foot ulcer: Qualifiers: Diabetes mellitus type: type 1 Diabetic foot ulcer location: other Laterality: left Non-pressure ulcer stage: with necrosis of muscle Qualified Code(s): E10.621 - Type 1 diabetes mellitus with foot ulcer; L97.523 - Non-pressure chronic ulcer of other part of left foot with necrosis of muscle Code(s): E11.621 - Type 2 diabetes mellitus with foot ulcer; L97.509 - Non-pressure chronic ulcer of other part of unspecified foot with unspecified severity Status: Acute Assessment and Plan: 3 weeks, 5 days s/p excisional debridement of left diabetic foot ulcer, 5th ray amputation. Final culture results group B strep and Bacteroides consistent with skin rosita. Pathology result showing necrosis of the 5th metatarsal head without evidence of osteomyelitis. TCC removed. Incision well approximated. Sutures removed today. Begin daily dressing changes with silver foam. Fracture boot. Follow up in 1 week for reevaluation. (2) Swelling of left lower extremity: Code(s): M79.89 - Other specified soft tissue disorders Status: Acute Assessment and Plan: Resolved. Time Spent With Patient Time: Subjective Subjective Date/Time Seen: 02/11/24 08:47 Interval history: 3 weeks, 5 days s/p left 5th ray amputation. Patient follows up in [facility] wound clinic for reevaluation. Review of Systems Review of Systems: All systems reviewed & are unremarkable except as noted in HPI and below Exam Const: General: comfortable Eyes: EOM: EOMs intact bilaterally Resp: Effort & Inspection: normal respiratory effort Auscultation: clear to auscultation bilaterally Cardio: Rate: regular rate Urinary Catheter: Urinary Catheter: patent and draining Extrem: Right upper extremity: normal to inspection Left upper extremity: normal to inspection Left lower extremity: lower leg Details: pitting edema ( Improved) Details: 1+ and other ( negative Homans) Other: Right lower extremity: rt lower leg abnormal (Transtibial amputation) Left lower extremity: lower leg- pitting edema much improved. Cast changed left foot. Serosanguineous drainage noted on the dressing. Mild sanguinous drainage when open. New TCC applied. Psych: Affect: normal affect
--- NOTE | 2024-02-18 09:21 | P.PNOP_ITS ---
Progress Note: A&P Assessment and Plan (1) Diabetic foot ulcer: Qualifiers: Diabetes mellitus type: type 1 Diabetic foot ulcer location: other Laterality: left Non-pressure ulcer stage: with necrosis of muscle Qualified Code(s): E10.621 - Type 1 diabetes mellitus with foot ulcer; L97.523 - Non- pressure chronic ulcer of other part of left foot with necrosis of muscle Code(s): E11.621 - Type 2 diabetes mellitus with foot ulcer; L97.509 - Non-pressure chronic ulcer of other part of unspecified foot with unspecified severity Status: Acute Assessment and Plan: 4.5 weeks left 5th ray amputation, debridement of ulcer with closure. Small necrotic area where the original ulcer was present. This measures 1.5 x 1 cm x 0.3 cm. Debrided today. Sterile dressing applied. Continue with silver foam. Add Laney. Follow-up in 1 week. Needs to be measured for new orthotics. Ring to give this 1 more week of healing before he goes and has impressions made for the left foot. (2) Ulcer of left foot due to type 2 diabetes mellitus: Code(s): E11.621 - Type 2 diabetes mellitus with foot ulcer; L97.529 - Non-pressure chronic ulcer of other part of left foot with unspecified severity Status: Acute Assessment and Plan: Discussed nonoperative and operative treatment options with the patient. Risks and benefits of each as well as alternatives were reviewed. All of the patient's questions were answered. The risks of surgery reviewed including but not limited to: Neurovascular damage, wound complication, infection, blood clot, pulmonary embolus, stroke, myocardial infarction, and anesthetic risks up to and including . Continued pain and possible dysfunction were explained. Specific risks of the procedure including later recurrence of deformity. No guarantees were offered. If complications occur, the patient understands the need for further treatment, possible further surgery. Patient verbalizes understanding and wishes to proceed. PLAN: Left foot excisional debridement (3) Charcot foot due to diabetes mellitus: Code(s): E11.610 - Type 2 diabetes mellitus with diabetic neuropathic arthropathy Status: Acute Plan Left midfoot Charcot arthropathy. Severe pes [place] valgus deformity. At risk for ulceration. Indicated for custom orthotic. Medically necessary for custom prosthetic fit and fabrication. Patient condition requires custom fitting due to bone, joint, musculoskeletal deformity. Unable to fit with [id number] brace. Patient condition will be improved with bracing. Condition likely to deteriorate without custom support. Indicated for custom Full length insert with off-loading, accommodative shoe. Subjective Subjective Date/Time Seen: 02/18/24 09:21 Post Op day: 4.5wks Principal diagnosis: Left diabetic foot ulcer Interval history: 4.5 weeks s/p left 5th ray amputation. Patient follows up in [facility] wound clinic for reevaluation. currently using silver foam for dressing changes and fracture boot. Exam Const: General: comfortable Resp: Effort & Inspection: normal respiratory effort Auscultation: clear to auscultation bilaterally Cardio: Rate: regular rate Extrem: Right upper extremity: normal to inspection Left upper extremity: normal to inspection Left lower extremity: lower leg Details: pitting edema ( Improved) Details: 1+ and other ( negative Homans) Other: Right lower extremity: rt lower leg abnormal (Transtibial amputation) Left lower extremity: lower leg- pitting edema much improved. Left foot dressing removed. 1.5 cm eschar and necrotic tissue lateral foot. Remainder of the surgical incision well healed. No erythema. Mild serous drainage from eschar. Psych: Affect: normal affect Podiatry Debridement Skin Pre Procedure Consent was obtained, Procedures/risks were explained, Questions were answered, Correct patient identified and Correct side and site confirmed Podiatry Debridement Skin Site(s) of debridement: Left foot Sent to Pathology: No Debridement Depth: Skin,subcutaneous tissue, and muscle Size (CM): 2 Duvall's classificatoin for foot ulcers: Grade 2 Procedure Debridement skin, subcut tissue/muscle ( Informed consent, alcohol prep, 15 blade knife used to remove skin, subcu and muscle from left lateral foot.) Post Procedure Patient tolerated the procedure well?: Tolerated procedure well Comments: Necrotic tissue excised. Hemostasis with pressure. Sterile dressing applied.
--- NOTE | 2024-02-25 08:26 | P.PNOP_ITS ---
Progress Note: A&P Assessment and Plan (1) Diabetic foot ulcer: Qualifiers: Diabetes mellitus type: type 1 Diabetic foot ulcer location: other Laterality: left Non-pressure ulcer stage: with necrosis of muscle Qualified Code(s): E10.621 - Type 1 diabetes mellitus with foot ulcer; L97.523 - Non- pressure chronic ulcer of other part of left foot with necrosis of muscle Code(s): E11.621 - Type 2 diabetes mellitus with foot ulcer; L97.509 - Non-pressure chronic ulcer of other part of unspecified foot with unspecified severity Status: Acute Assessment and Plan: 5.5 weeks left 5th ray amputation, debridement of ulcer with closure. Small necrotic area where the original ulcer was present. This measures 0.6x1.5x0.1 cm. Continue with foam. Stop Laney. Follow-up in 2 weeks. Prescription for custom orthotics dispensed. (2) Ulcer of left foot due to type 2 diabetes mellitus: Code(s): E11.621 - Type 2 diabetes mellitus with foot ulcer; L97.529 - Non-pressure chronic ulcer of other part of left foot with unspecified severity Status: Acute (3) Charcot foot due to diabetes mellitus: Code(s): E11.610 - Type 2 diabetes mellitus with diabetic neuropathic arthropathy Status: Acute Plan Left midfoot Charcot arthropathy. Severe pes [place] valgus deformity. At risk for ulceration. Indicated for custom orthotic. Medically necessary for custom prosthetic fit and fabrication. Patient condi tion requires custom fitting due to bone, joint, musculoskeletal deformity. Unable to fit with [id number] brace. Patient condition will be improved with bracing. Condition likely to deteriorate without custom support. Indicated for custom Full length insert with off-loading, accommodative shoe. Subjective Subjective Date/Time Seen: 02/25/24 08:26 Post Op day: 5.5wks Principal diagnosis: Left diabetic foot ulcer Interval history: 5.5 weeks s/p left 5th ray amputation. Patient follows up in [facility] wound clinic for reevaluation. Currently using laney/foam for dressing changes and fracture boot. Review of Systems Review of Systems: All systems reviewed & are unremarkable except as noted in HPI and below Exam Const: General: comfortable Resp: Effort & Inspection: normal respiratory effort Auscultation: clear to auscultation bilaterally Cardio: Rate: regular rate Extrem: Right upper extremity: normal to inspection Left upper extremity: normal to inspection Left lower extremity: lower leg Details: pitting edema ( Improved) Details: 1+ and other ( negative Homans) Other: Right lower extremity: rt lower leg abnormal (Transtibial amputation) Left lower extremity: lower leg- pitting edema much improved. Left foot dressing removed. 0.6x1.5x0.1 cm slough tissue lateral foot. Remainder of the surgical incision well healed. No erythema. Mild serous drainage from eschar. Psych: Affect: normal affect
--- NOTE | 2024-03-03 08:52 | PM.PNORT ---
Progress Note: A&P Assessment and Plan (1) Diabetic foot ulcer: Qualifiers: Diabetes mellitus type: type 1 Diabetic foot ulcer location: other Laterality: left Non-pressure ulcer stage: with necrosis of muscle Qualified Code(s): E10.621 - Type 1 diabetes mellitus with foot ulcer; L97.523 - Non-pressure chronic ulcer of other part of left foot with necrosis of muscle Code(s): E11.621 - Type 2 diabetes mellitus with foot ulcer; L97.509 - Non-pressure chronic ulcer of other part of unspecified foot with unspecified severity Status: Acute Assessment and Plan: 6.5 weeks left 5th ray amputation, debridement of ulcer with closure. Small necrotic area where the original ulcer was present. This measures 0.6x1.5x0.1 cm. Continue with foam. Add silver gel. Follow-up in 2 weeks. Prescription for custom orthotics dispensed. (2) Ulcer of left foot due to type 2 diabetes mellitus: Code(s): E11.621 - Type 2 diabetes mellitus with foot ulcer; L97.529 - Non-pressure chronic ulcer of other part of left foot with unspecified severity Status: Acute (3) Charcot foot due to diabetes mellitus: Code(s): E11.610 - Type 2 diabetes mellitus with diabetic neuropathic arthropathy Status: Acute Plan Left midfoot Charcot arthropathy. Severe pes [place] valgus deformity. At risk for ulceration. Indicated for custom orthotic. Medically necessary for custom prosthetic fit and fabrication. Patient condition requires custom fitting due to bone, joint, musculoskeletal deformity. Unable to fit with [id number] brace. Patient condition will be improved with bracing. Condition likely to deteriorate without custom support. Indicated for custom Full length insert with off-loading, accommodative shoe. Subjective Subjective Date/Time Seen: 03/03/24 08:52 Post Op day: 6.5wks Principal diagnosis: Left diabetic foot ulcer Interval history: 6.5 weeks s/p left 5th ray amputation. Patient follows up in [facility] wound clinic for reevaluation. Currently using shoshana/foam for dressing changes and fracture boot. Review of Systems Review of Systems: All systems reviewed & are unremarkable except as noted in HPI and below Exam Const: General: comfortable Resp: Effort & Inspection: normal respiratory effort Auscultation: clear to auscultation bilaterally Cardio: Rate: regular rate Extrem: Right upper extremity: normal to inspection Left upper extremity: normal to inspection Left lower extremity: lower leg Details: pitting edema ( Improved) Details: 1+ and other ( negative Homans) Other: Right lower extremity: rt lower leg abnormal (Transtibial amputation) Left lower extremity: lower leg- pitting edema much improved. Left foot dressing removed. 0.6x1.4x0.1 cm slough tissue lateral foot. Remainder of the surgical incision well healed. No erythema. Mild serous drainage from eschar. Psych: Affect: normal affect
--- NOTE | 2024-03-17 09:54 | PM.PNORT ---
Progress Note: A&P Assessment and Plan (1) Diabetic foot ulcer: Qualifiers: Diabetes mellitus type: type 1 Diabetic foot ulcer location: other Laterality: left Non-pressure ulcer stage: with necrosis of muscle Qualified Code(s): E10.621 - Type 1 diabetes mellitus with foot ulcer; L97.523 - Non-pressure chronic ulcer of other part of left foot with necrosis of muscle Code(s): E11.621 - Type 2 diabetes mellitus with foot ulcer; L97.509 - Non-pressure chronic ulcer of other part of unspecified foot with unspecified severity Status: Acute Assessment and Plan: 8.5 weeks left 5th ray amputation, debridement of ulcer with closure. Small necrotic area where the original ulcer was present debrided under sterile conditions. This measures 0.5x1.1x0.3 cm. Continue with foam. Add silver gel/shoshana. Follow-up in 2 weeks. Prescription for custom orthotics dispensed. (2) Ulcer of left foot due to type 2 diabetes mellitus: Code(s): E11.621 - Type 2 diabetes mellitus with foot ulcer; L97.529 - Non-pressure chronic ulcer of other part of left foot with unspecified severity Status: Acute (3) Charcot foot due to diabetes mellitus: Code(s): E11.610 - Type 2 diabetes mellitus with diabetic neuropathic arthropathy Status: Acute Plan Left midfoot Charcot arthropathy. Severe pes [place] valgus deformity. At risk for ulceration. Indicated for custom orthotic. Medically necessary for custom prosthetic fit and fabrication. Patient condition requires custom fitting due to bone, joint, musculoskeletal deformity. Unable to fit with [id number] brace. Patient condition will be improved with bracing. Condition likely to deteriorate without custom support. Indicated for custom Full length insert with off-loading, accommodative shoe. Subjective Subjective Date/Time Seen: 03/17/24 09:54 Post Op day: 8.5wks Principal diagnosis: Left diabetic foot ulcer Interval history: 8.5 weeks s/p left 5th ray amputation. Patient follows up in [facility] wound clinic for reevaluation. Currently using shoshana/foam for dressing changes and fracture boot. Review of Systems Review of Systems: All systems reviewed & are unremarkable except as noted in HPI and below Exam Const: General: comfortable Resp: Effort & Inspection: normal respiratory effort Auscultation: clear to auscultation bilaterally Cardio: Rate: regular rate Extrem: Right upper extremity: normal to inspection Left upper extremity: normal to inspection Left lower extremity: lower leg Details: pitting edema ( Improved) Details: 1+ and other ( negative Homans) Other: Right lower extremity: Rt lower leg abnormal (Transtibial amputation) Left lower extremity: lower leg- pitting edema much improved. Left foot dressing removed. 0.5x1.1x0.3 cm slough tissue lateral foot. Remainder of the surgical incision well healed. No erythema. Mild serous drainage from eschar. Psych: Affect: normal affect Debridement/Burn/Wound Pre Procedure Consent was obtained, Procedures/risks were explained, Questions were answered, Correct patient identified and Correct side and site confirmed Episode Return Visit Area was prepped and draped using sterile technique?: Yes Ulcer/Wound Debridement, skin, first 20 sq cm or less: Yes Left (lateral forefoot ) Comments:: Debridement of the skin, subcutaneous tissue and muscle debrided under sterile conditions with #15 blade knife. All devitalized tissue including muscle removed. Procedure tolerated well. Patient instructed on post-debridement dressing changes. Reviewed signs/symptoms of complications to report to the office. Patient verbalized understanding and agrees with plan of care. Dressing Applied antibiotic ointment and Applied sterile dressing Post Procedure Patient tolerated the procedure well?: Tolerated procedure well
--- NOTE | 2024-03-24 08:30 | P.PNOP_ITS ---
Progress Note: A&P Assessment and Plan (1) Diabetic foot ulcer: Qualifiers: Diabetes mellitus type: type 1 Diabetic foot ulcer location: other Laterality: left Non-pressure ulcer stage: with necrosis of muscle Qualified Code(s): E10.621 - Type 1 diabetes mellitus with foot ulcer; L97.523 - Non- pressure chronic ulcer of other part of left foot with necrosis of muscle Code(s): E11.621 - Type 2 diabetes mellitus with foot ulcer; L97.509 - Non-pressure chronic ulcer of other part of unspecified foot with unspecified severity Status: Acute Assessment and Plan: 9.5 weeks left 5th ray amputation, debridement of ulcer with closure. Small necrotic area where the original ulcer was present debrided under sterile conditions. This measures 0.5x0.9x0.3 cm. Continue with foam, silver gel/shoshana. Follow-up in 2 weeks. Prescription for custom orthotics dispensed. Awaiting contact from P&O. Will follow up and direct P&O to contact the patient as he has not yet heard from them to set up an appt. (2) Ulcer of left foot due to type 2 diabetes mellitus: Code(s): E11.621 - Type 2 diabetes mellitus with foot ulcer; L97.529 - Non-pressure chronic ulcer of other part of left foot with unspecified severity Status: Acute (3) Charcot foot due to diabetes mellitus: Code(s): E11.610 - Type 2 diabetes mellitus with diabetic neuropathic arthropathy Status: Acute Plan Left midfoot Charcot arthropathy. Severe pes [place] valgus deformity. At risk for ulceration. Indicated for custom orthotic. Medically necessary for custom prosthetic fit and fabrication. Patient condition requires custom fitting due to bone, joint, musculoskeletal deformity. Unable to fit with [id number] brace. Patient condition will be improved with bracing. Condition likely to deteriorate without custom support. Indic ated for custom full length insert with off-loading, accommodative shoe. Subjective Subjective Date/Time Seen: 03/24/24 08:30 Post Op day: 9.5wks Principal diagnosis: Left diabetic foot ulcer Interval history: 9.5 weeks s/p left 5th ray amputation. Patient follows up in [facility] wound clinic for reevaluation. Currently using shoshana/foam and silver gel for dressing changes. He has self transitioned back to his shoes. Review of Systems Review of Systems: All systems reviewed & are unremarkable except as noted in HPI and below Exam Const: General: comfortable Resp: Effort & Inspection: normal respiratory effort Auscultation: clear to auscultation bilaterally Cardio: Rate: regular rate Extrem: Right upper extremity: normal to inspection Left upper extremity: normal to inspection Left lower extremity: lower leg Details: pitting edema ( Improved) Details: 1+ and other ( negative Homans) Other: Right lower extremity: Rt lower leg abnormal (Transtibial amputation) Left lower extremity: lower leg- pitting edema much improved. Left foot dressing removed. 0.5x0.9x0.3 cm fibrinous tissue lateral foot. Remainder of the surgical incision well healed. No erythema. Mild serous drainage from eschar. Psych: Affect: normal affect
--- NOTE | 2024-04-07 08:53 | PM.PNORT ---
Progress Note: A&P Assessment and Plan (1) Diabetic foot ulcer: Qualifiers: Diabetes mellitus type: type 1 Diabetic foot ulcer location: other Laterality: left Non-pressure ulcer stage: with necrosis of muscle Qualified Code(s): E10.621 - Type 1 diabetes mellitus with foot ulcer; L97.523 - Non-pressure chronic ulcer of other part of left foot with necrosis of muscle Code(s): E11.621 - Type 2 diabetes mellitus with foot ulcer; L97.509 - Non-pressure chronic ulcer of other part of unspecified foot with unspecified severity Status: Acute Assessment and Plan: 11.5 weeks left 5th ray amputation, debridement of ulcer with closure. Small necrotic area where the original ulcer was present debrided under sterile conditions. This measures 0.4x0.8x0.1 cm. Continue with foam, silver gel/shoshana. Follow-up in 2 weeks. (2) Ulcer of left foot due to type 2 diabetes mellitus: Code(s): E11.621 - Type 2 diabetes mellitus with foot ulcer; L97.529 - Non-pressure chronic ulcer of other part of left foot with unspecified severity Status: Acute (3) Charcot foot due to diabetes mellitus: Code(s): E11.610 - Type 2 diabetes mellitus with diabetic neuropathic arthropathy Status: Acute Plan Left midfoot Charcot arthropathy. Severe pes [place] valgus deformity. At risk for ulceration. Indicated for custom orthotic. Medically necessary for custom prosthetic fit and fabrication. Patient condition requires custom fitting due to bone, joint, musculoskeletal deformity. Unable to fit with [id number] brace. Patient condition will be improved with bracing. Condition likely to deteriorate without custom support. Indicated for custom full length insert with off-loading, accommodative shoe. Subjective Subjective Date/Time Seen: 04/07/24 08:53 Post Op day: 11.5wks Principal diagnosis: Left diabetic foot ulcer Interval history: 11.5 weeks s/p left 5th ray amputation. Patient follows up in [facility] wound clinic for reevaluation. Currently using shoshana/foam and silver gel for dressing changes. He has self transitioned back to his shoes. Review of Systems Review of Systems: All systems reviewed & are unremarkable except as noted in HPI and below Exam Const: General: comfortable Resp: Effort & Inspection: normal respiratory effort Auscultation: clear to auscultation bilaterally Cardio: Rate: regular rate Extrem: Right upper extremity: normal to inspection Left upper extremity: normal to inspection Left lower extremity: lower leg Details: pitting edema ( Improved) Details: 1+ and other ( negative Homans) Other: Right lower extremity: Rt lower leg abnormal (Transtibial amputation) Left lower extremity: lower leg- pitting edema much improved. Left foot dressing removed. 0.4x0.8x0.1 cm fibrinous tissue lateral foot. Remainder of the surgical incision well healed. No erythema. Mild serous drainage from eschar. Psych: Affect: normal affect Debridement/Burn/Wound Pre Procedure Consent was obtained, Procedures/risks were explained, Questions were answered, Correct patient identified and Correct side and site confirmed Episode Return Visit Area was prepped and draped using sterile technique?: Yes Ulcer/Wound Debridement, skin, first 20 sq cm or less: Yes Left (lateral forefoot ) Comments:: Debridement of the skin, subcutaneous tissue and muscle debrided under sterile conditions with #15 blade knife. All devitalized tissue including muscle removed. Procedure tolerated well. Patient instructed on post-debridement dressing changes. Reviewed signs/symptoms of complications to report to the office. Patient verbalized understanding and agrees with plan of care. Dressing Applied antibiotic ointment and Applied sterile dressing Post Procedure Patient tolerated the procedure well?: Tolerated procedure well
--- NOTE | 2024-04-21 08:43 | P.PNOP_ITS ---
Progress Note: A&P Assessment and Plan (1) Diabetic foot ulcer: Qualifiers: Diabetes mellitus type: type 1 Diabetic foot ulcer location: other Laterality: left Non-pressure ulcer stage: with necrosis of muscle Qualified Code(s): E10.621 - Type 1 diabetes mellitus with foot ulcer; L97.523 - Non- pressure chronic ulcer of other part of left foot with necrosis of muscle Code(s): E11.621 - Type 2 diabetes mellitus with foot ulcer; L97.509 - Non-pressure chronic ulcer of other part of unspecified foot with unspecified severity Status: Acute Assessment and Plan: 13.5 weeks left 5th ray amputation, debridement of ulcer with closure. Remaining wound measures 0.3x0.3x0.1cm, 100% red/pink wound bed. Continue with foam, silver gel. Follow-up in 3 weeks. (2) Ulcer of left foot due to type 2 diabetes mellitus: Code(s): E11.621 - Type 2 diabetes mellitus with foot ulcer; L97.529 - Non-pressure chronic ulcer of other part of left foot with unspecified severity Status: Acute Assessment and Plan: Discussed importance of proper nutrition, diabetic diet and medication compliance for optimal healing. Reviewed signs and symptoms of infection including fever, chills, night sweats, nausea, vomiting, diarrhea, changes to the wound bed or purulent drainage to report to the ED immediately. Patient verbalized understanding. (3) Charcot foot due to diabetes mellitus: Code(s): E11.610 - Type 2 diabetes mellitus with diabetic neuropathic arthropathy Status: Acute Plan Left midfoot Charcot arthropathy. Severe pes [place] valgus deformity. At risk for ulceration. Indicated for custom orthotic. Medically necessary for custom prosthetic fit and fabrication. Patient condition requires custom fitting due to bone, joint, musculoskeletal deformity. Unable to fit with [id number] brace. Patient condition will be improved with bracing. Condition likely to deteriorate without custom support. Indicated for custom full length insert with off-loading, accommodative shoe. Subjective Subjective Date/Time Seen: 04/21/24 08:43 Post Op day: 11.5wks Principal diagnosis: Left diabetic foot ulcer Interval history: 13.5 weeks s/p left 5th ray amputation. Patient follows up in [facility] wound clinic for reevaluation. Currently using shoshana/foam and silver gel for dressing changes. He has self transitioned back to his shoes. Review of Systems Review of Systems: All systems reviewed & are unremarkable except as noted in HPI and below Exam Const: General: comfortable Resp: Effort & Inspection: normal respiratory effort Auscultation: clear to auscultation bilaterally Cardio: Rate: regular rate Extrem: Right upper extremity: normal to inspection Left upper extremity: normal to inspection Left lower extremity: lower leg Details: pitting edema ( Improved) Details: 1+ and other ( negative Homans) Other: Right lower extremity: Rt lower leg abnormal (Transtibial amputation) Left lower extremity: lower leg- pitting edema much improved. Left foot dressing removed. 0.3x0.3x0.1 cm, 100% red/pink wound bed. Remainder of the surgical incision well healed. No erythema. Mild serous drainage from eschar. Psych: Affect: normal affect
== END 2024-04-23 23:59 | disposition home or self-care (01) ==
LOC: ANHWOC 07:07
PROVIDERS: PCP Internal Medicine; Visit Provider Nurse Practitioner Family
DX: L97.523 Non-pressure chronic ulcer of other part of left foot with necrosis of muscle (principal); E11.621 Type 2 diabetes mellitus with foot ulcer; M79.89 Other specified soft tissue disorders; Z48.00 Encounter for change or removal of nonsurgical wound dressing
CPT/HCPCS: 29445; 99213; 99214; G0463

== ENCOUNTER 2024-06-09 07:10 | Outpatient (RCR) | payer MEDICARE, SELFPAY ==
[2024-04-24 00:04] VITALS: BMI 34.7
--- NOTE | 2024-05-12 08:29 | PM.IMHP ---
H&P: HPI History of Present Illness Date/Time: 05/12/24 08:29 Chief Complaint: Left DFU Narrative: 3 months s/p left 5th ray amputation. Patient follows up in [facility] wound clinic for reevaluation. Currently using shoshana/foam and silver gel for dressing changes. He has self transitioned back to his shoes. Unable to obtain DFU inserts through insurance. 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 Coronary artery disease Family history of colon cancer in father Nonpalpable pulse Absent pedal pulses Swelling of left foot Arterial insufficiency of lower extremity Tendinitis of left rotator cuff Pre-operative cardiovascular exam, new EKG abnormalities c/w ischemia Vision loss Eye hemorrhage 2021, bilateral Chronic pain Retinopathy CAD (coronary artery disease) of artery bypass graft Charcot foot due to diabetes mellitus Failure of joint fusion Exposed orthopaedic hardware Diabetic ulcer of ankle associated with diabetes mellitus due to underlying condition BMI greater than 30 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, with long-term current use of insulin Clawtoe, acquired Septic arthritis of right ankle AILEEN (acute kidney injury) Infection of bone of right ankle Diabetic foot ulcer associated with diabetes mellitus due to underlying condition Peripheral vascular disease Dietary counseling and surveillance Chronic pain in right foot Coronary artery disease involving [place] coronary artery of [place] heart Diabetic peripheral angiopathy Essential (primary) hypertension detention (current) use of insulin Lymphedema of right lower extremity Mixed hyperlipidemia AIDA on CPAP Other chronic pain PVD (peripheral vascular disease) Stage 2 chronic kidney disease Type 1 diabetes mellitus with hyperglycemia Surgical History Surgical History History of eye surgery History of foot surgery 3 toes amputated on left foot 5 toes amputated on right foot, gangrene S/P BKA (below knee amputation) 07/10/2021 S/P coronary artery stent placement Encounter for postoperative care related to surgical joint fusion S/P CABG x 3 S/P angioplasty with stent Family History Family History Mother Family history of lung cancer Father Family history of lymphoma Other Diabetes mellitus Family history of arthritis Family history of cardiovascular disease Family history of congestive heart failure Family history of coronary artery disease Family history of heart disease in male family member before age 55 Family history of malignant neoplasm Family history of premature coronary heart disease Hypertension Social History Social History Social History: Patient lives at home alone. He does have a significant other and his daughter available for intermittent assistance with wound care. Years smoked: 5 Smoking status: Former smoker Tobacco type: cigarettes Second hand tobacco smoke exposure: No Smoking end date: 05/06/09 Additional smoking assessment comments: PT STATES SMOKED ON WEEKENDS SOCIALLY Alcohol intake: former Alcohol use details: stopped alcohol consumption 5 years ago Substance use: never Substance use type: does not use Do You Feel Safe in your Home?: Yes Lack of Transportation: No Lack of Food: Never True Current Housing: I Have Housing Concerned About Future Housing: No Difficulty Paying Gas/Electric Bills: No Difficulty Paying for Meds: No Currently Unemployed: No Education: Trade/Vocational Certificate Difficulty w/ Childcare or Family Care: No Living arrangements: with family Occupation/Education: unemployed Additional occupation/education comments: Disability Gender identity (if verbalized by the patient): Male Sexual Orientation (if Verbalized by the Patient): Straight or Heterosexual Spiritual care concerns: No Meds Home Medications and Allergies Home Medications ?Medication ?Instructions ?Recorded ?Confirmed ?Type omega-3 fatty acids 1,000 mg 1,000 mg PO DAILY 05/01/19 04/21/24 History capsule (Fish Oil Concentrate) blood sugar diagnostic (Contour #400 ea 06/06/21 04/21/24 Rx Next Test Strips) urine glucose-ketones test #50 ea 09/26/22 04/21/24 Rx aspirin 81 mg chewable tablet 1 tablet PO DAILY 02/26/23 04/21/24 History clopidogrel 75 mg tablet 75 mg PO DAILY 02/26/23 04/21/24 History blood-glucose sensor (Dexcom G7 #9 ea 06/26/23 04/21/24 Rx Sensor device) nystatin 100,000 unit/gram topical 1 applic topical DAILY #30 grams 07/02/23 04/21/24 Rx cream CPAP Equipment #1 ea 03/20/24 12/17/24 Rx carvedilol 25 mg tablet 25 mg PO BID 01/15/24 04/21/24 History pregabalin 75 mg capsule 150 mg PO BID 01/15/24 04/21/24 History metronidazole 500 mg tablet 500 mg PO Q8HR #30 tabs 01/20/24 04/21/24 Rx tamsulosin 0.4 mg capsule 0.4 mg PO QAM #30 caps 01/20/24 04/21/24 Rx hydrochlorothiazide 25 mg tablet 25 mg PO DAILY #90 tabs 01/22/24 04/21/24 Rx doxazosin 8 mg tablet 8 mg PO HS #90 tabs 02/05/24 04/21/24 Rx irbesartan 300 mg tablet 300 mg PO HS #90 tabs 02/14/24 04/21/24 Rx Novolog U-100 Insulin aspart 100 180 unit (1.8 mL) continuous 04/21/24 04/21/24 Rx unit/mL subcutaneous solution subcutaneous infusion DAILY E10.65 (insulin aspart U-100) - Type 1 diabetes mellitus with hyperglycem #170 mL glucagon 1 mg/0.2 mL subcutaneous 1 mg (0.2 mL) subcut ONCE #0.4 mL 04/21/24 04/21/24 Rx auto-injector (Gvoke HypoPen 2-Pack) semaglutide (weight loss) 0.5 0.5 mg (0.5 mL) subcut WEEKLY #6 mL 04/21/24 04/21/24 Rx mg/0.5 mL subcutaneous pen injector (Wegovy) rosuvastatin 20 mg tablet 20 mg PO DAILY #90 tabs 04/22/24 Rx Allergies Allergy/AdvReac Type Severity Reaction Status Date / Time No Known Allergies Allergy Verified 04/21/24 09:55 Exam Const: General: comfortable Resp: Effort & Inspection: normal respiratory effort Auscultation: clear to auscultation bilaterally Cardio: Rate: regular rate Extrem: Right upper extremity: normal to inspection Left upper extremity: normal to inspection Left lower extremity: lower leg Details: pitting edema ( Improved) Details: 1+ and other ( negative Homans) Other: Right lower extremity: Rt lower leg abnormal (Transtibial amputation) Left lower extremity: lower leg- edema resolved Left foot wound closed. Psych: Affect: normal affect Assessment and Plan Assessment and plan (1) Diabetic foot ulcer: Qualifiers: Diabetes mellitus type: type 1 Diabetic foot ulcer location: other Laterality: left Non-pressure ulcer stage: with necrosis of muscle Qualified Code(s): E10.621 - Type 1 diabetes mellitus with foot ulcer; L97.523 - Non-pressure chronic ulcer of other part of left foot with necrosis of muscle Code(s): E11.621 - Type 2 diabetes mellitus with foot ulcer; L97.509 - Non-pressure chronic ulcer of other part of unspecified foot with unspecified severity Status: Acute Assessment and Plan: 3 months s/p I&D Left 5th Ray Amputation. Patient doing well. Wound now fully closed. No new concerns. Recommended f/u in 1 month for foot check. Discussed options for DF inserts. Patient to obtain. (2) Diabetic infection of left foot: Code(s): E11.628 - Type 2 diabetes mellitus with other skin complications; L08.9 - Local infection of the skin and subcutaneous tissue, unspecified Status: Acute
--- NOTE | 2024-06-09 09:08 | PM.IMHP ---
H&P: HPI History of Present Illness Date/Time: 06/09/24 09:08 Chief Complaint: Left DFU Narrative: 4 months s/p left 5th ray amputation. Patient follows up in [facility] wound clinic for reevaluation. Wound remains closed. No new concerns. 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 Diabetic infection of left foot Ulcer of left foot due to type 2 diabetes mellitus Impingement of vertebral body syndrome Intervertebral disc protrusion Stenosis of lateral 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 Coronary artery disease Family history of colon cancer in father Nonpalpable pulse Absent pedal pulses Swelling of left foot Arterial insufficiency of lower extremity Tendinitis of left rotator cuff Pre-operative cardiovascular exam, new EKG abnormalities c/w ischemia Vision loss Eye hemorrhage 2021, bilateral Chronic pain Retinopathy CAD (coronary artery disease) of artery bypass graft Charcot foot due to diabetes mellitus Failure of joint fusion Exposed orthopaedic hardware Diabetic ulcer of ankle associated with diabetes mellitus due to underlying condition BMI greater than 30 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, with long-term current use of insulin Clawtoe, acquired Septic arthritis of right ankle AILEEN (acute kidney injury) Infection of bone of right ankle Diabetic foot ulcer associated with diabetes mellitus due to underlying condition Peripheral vascular disease Dietary counseling and surveillance Chronic pain in right foot Coronary artery disease involving [place] coronary artery of [place] heart Diabetic peripheral angiopathy Essential (primary) hypertension penitentiary (current) use of insulin Lymphedema of right lower extremity Mixed hyperlipidemia AIDA on CPAP Other chronic pain PVD (peripheral vascular disease) Stage 2 chronic kidney disease Type 1 diabetes mellitus with hyperglycemia Surgical History Surgical History History of eye surgery History of foot surgery 3 toes amputated on left foot 5 toes amputated on right foot, gangrene S/P BKA (below knee amputation) 07/10/2021 S/P coronary artery stent placement Encounter for postoperative care related to surgical joint fusion S/P CABG x 3 S/P angioplasty with stent Family History Family History Mother Family history of lung cancer Father Family history of lymphoma Other Diabetes mellitus Family history of arthritis Family history of cardiovascular disease Family history of congestive heart failure Family history of coronary artery disease Family history of heart disease in male family member before age 55 Family history of malignant neoplasm Family history of premature coronary heart disease Hypertension Social History Social History Social History: Patient lives at home alone. He does have a significant other and his daughter available for intermittent assistance with wound care. Years smoked: 5 Smoking status: Former smoker Tobacco type: cigarettes Second hand tobacco smoke exposure: No Smoking end date: 05/06/09 Additional smoking assessment comments: PT STATES SMOKED ON WEEKENDS SOCIALLY Alcohol intake: former Alcohol use details: stopped alcohol consumption 5 years ago Substance use: never Substance use type: does not use Do You Feel Safe in your Home?: Yes Lack of Transportation: No Lack of Food: Never True Current Housing: I Have Housing Concerned About Future Housing: No Difficulty Paying Gas/Electric Bills: No Difficulty Paying for Meds: No Currently Unemployed: No Education: Trade/Vocational Certificate Difficulty w/ Childcare or Family Care: No Living arrangements: with family Occupation/Education: unemployed Additional occupation/education comments: Disability Gender identity (if verbalized by the patient): Male Sexual Orientation (if Verbalized by the Patient): Straight or Heterosexual Spiritual care concerns: No Meds Home Medications and Allergies Home Medications ?Medication ?Instructions ?Recorded ?Confirmed ?Type omega-3 fatty acids 1,000 mg 1,000 mg PO DAILY 05/01/19 06/01/24 History capsule (Fish Oil Concentrate) blood sugar diagnostic (Contour #400 ea 06/06/21 06/01/24 Rx Next Test Strips) urine glucose-ketones test #50 ea 09/26/22 06/01/24 Rx clopidogrel 75 mg tablet 75 mg PO DAILY 02/26/23 06/01/24 History blood-glucose sensor (Dexcom G7 #9 ea 06/26/23 06/01/24 Rx Sensor device) nystatin 100,000 unit/gram topical 1 applic topical DAILY #30 grams 07/02/23 06/01/24 Rx cream CPAP Equipment #1 ea 07/24/23 06/01/24 Rx carvedilol 25 mg tablet 25 mg PO BID 01/15/24 06/01/24 History pregabalin 75 mg capsule 150 mg PO BID 01/15/24 06/01/24 History tamsulosin 0.4 mg capsule 0.4 mg PO QAM #30 caps 01/20/24 06/01/24 Rx hydrochlorothiazide 25 mg tablet 25 mg PO DAILY #90 tabs 01/22/24 06/01/24 Rx doxazosin 8 mg tablet 8 mg PO HS #90 tabs 02/05/24 06/01/24 Rx irbesartan 300 mg tablet 300 mg PO HS #90 tabs 02/14/24 06/01/24 Rx glucagon 1 mg/0.2 mL subcutaneous 1 mg (0.2 mL) subcut ONCE #0.4 mL 04/21/24 06/01/24 Rx auto-injector (Gvoke HypoPen 2-Pack) rosuvastatin 20 mg tablet 20 mg PO DAILY #90 tabs 04/22/24 06/01/24 Rx semaglutide 0.25 mg or 0.5 mg (2 0.25 mg (0.368 mL) subcut WEEKLY 06/01/24 06/01/24 Rx mg/3 mL) subcutaneous pen injector #3 mL ([place] [email or web address]) insulin aspart U-100 100 unit/mL 180 unit (1.8 mL) continuous 06/08/24 Rx subcutaneous solution (Novolog subcutaneous infusion DAILY E10.65 U-100 Insulin aspart) - Type 1 diabetes mellitus with hyperglycem #170 mL Allergies Allergy/AdvReac Type Severity Reaction Status Date / Time No Known Allergies Allergy Verified 06/04/24 10:32 Exam Const: General: comfortable Resp: Effort & Inspection: normal respiratory effort Auscultation: clear to auscultation bilaterally Cardio: Rate: regular rate Extrem: Right upper extremity: normal to inspection Left upper extremity: normal to inspection Left lower extremity: lower leg Details: pitting edema ( Improved) Details: 1+ and other ( negative Homans) Other: Right lower extremity: Rt lower leg abnormal (Transtibial amputation) Left lower extremity: lower leg- edema resolved Left foot wound closed. Psych: Affect: normal affect Assessment and Plan Assessment and plan (1) Diabetic foot ulcer: Qualifiers: Diabetes mellitus type: type 1 Diabetic foot ulcer location: other Laterality: left Non-pressure ulcer stage: with necrosis of muscle Qualified Code(s): E10.621 - Type 1 diabetes mellitus with foot ulcer; L97.523 - Non-pressure chronic ulcer of other part of left foot with necrosis of muscle Code(s): E11.621 - Type 2 diabetes mellitus with foot ulcer; L97.509 - Non-pressure chronic ulcer of other part of unspecified foot with unspecified severity Status: Acute Assessment and Plan: 4 months s/p I&D Left 5th Ray Amputation. Patient doing well. Wound now fully closed. No new concerns. Recommended f/u prn. Discussed options for DF inserts. Patient to obtain. (2) Diabetic infection of left foot: Code(s): E11.628 - Type 2 diabetes mellitus with other skin complications; L08.9 - Local infection of the skin and subcutaneous tissue, unspecified Status: Acute
== END 2024-07-27 08:28 | disposition home or self-care (01) ==
LOC: ANHWOC 07:10
PROVIDERS: PCP Internal Medicine; Visit Provider Nurse Practitioner Family
DX: Z48.00 Encounter for change or removal of nonsurgical wound dressing (principal); E11.621 Type 2 diabetes mellitus with foot ulcer; E11.610 Type 2 diabetes mellitus with diabetic neuropathic arthropathy; E11.628 Type 2 diabetes mellitus with other skin complications; L97.523 Non-pressure chronic ulcer of other part of left foot with necrosis of muscle; L97.529 Non-pressure chronic ulcer of other part of left foot with unspecified severity; L08.9 Local infection of the skin and subcutaneous tissue, unspecified; M79.89 Other specified soft tissue disorders
CPT/HCPCS: 99213; G0463

== ENCOUNTER 2024-07-13 13:13 | Outpatient (CLI) | payer MEDICARE, SELFPAY ==
--- OUTSIDE RECORDS SUMMARY | 2024-07-13 15:11 | XMS_ITS | Clinical Summary ---
Author Organization [facility] Address [address] [place] [address] Care Team Providers Care Global Compensation Manager Name Role Phone Unavailable Primary Care Provider Unavailabl e Social History Tobacco Use Types Packs/Day Years Used Date Smoking Tobacco: Never Assessed Sex and Gender Information Value Date Recorded Sex Assigned at Not on file Legal Sex Male 4:39 PM CDT Gender Identity Not on file Sexual Orientation Not on file Plan of Treatment Health Maintenance Due Date Last Done Comments Colorectal Cancer Screening Colonoscopy (10 Years) 1963 Annual Physical 12/27/1966 Hepatitis C 12/27/1981 DTaP, Tdap and Td Vaccines ( 1 - Tdap) 12/27/1982 Zoster Vaccines (1 of 2) 12/27/2013 COVID-19 Vaccine ( - 2023-2 5 season) 2024 Influenza Adult (#1) 2024 RSV Immunization or 60+ Years (1 - 1-dose 75+ series) 12/27/2038 Meningococcal B Vaccine Aged Out No l onger eligible based on patient's age to complete this topic Meningococcal Vaccine Aged Out No enoc geovany eligible based on patient's age to complete this topic Pneumococcal Vaccine: Pediat rics (0 to 5 Years) and At-Risk Patients (6 to 64 Years) Aged Out No longer eligible b ased on patient's age to complete this topic RSV Immunizations Under 20 Months Aged Out No longer eligible based on patient's age to complete this topic
--- OUTSIDE RECORDS SUMMARY | 2024-07-13 15:11 | XMS_ITS | Clinical Summary ---
Author Organization [facility] Address [address] [place] [address] Care Team Providers Care Sterile Supply Technician Name Role Phone Roxana Mosley MD Primary Care Provider + Source Comments [facility],non-owned Affiliates and Associated Physician Practices is amultiple site organization consisting of ambulatory clinics and hospital sitesin [place], [place], [place] and [place]. This disclosure is being madepursuant to the Care Everywhere program and may not contain all information available regarding this patient. Last updated 18.[facility] Allergies No known active allergies Medications * Be aware that medications may not be up to date on this document. Alwaysverify current medications with the patient. Medication Sig Dispensed Refills Start Date End Date Status oxymetazoline (AFRIN) 0.05 % nasal spray [place] 1 spray into each nostril 2 times daily 1 bottles 02/02/2018 Active NOVOLOG vial USE 140-160 UNITS VIA INSULIN PUMP DAILY 0 01/15/2018 Active carvedilol (COREG) 25 MG tablet Take 25 mg by mouth 2 times daily 3 11/08/2017 Active lisinopril (PRINIVIL; ZESTRIL) 10 MG tablet Take 10 mg by mouth once daily 5 02/04/2018 Active cilostazol (PLETAL) 100 MG tablet Take 1 tablet by mouth 2 times daily 5 02/04/2018 Active meloxicam (MOBIC) 15 MG tablet Take 1 tablet by mouth once daily 02/22/2018 Active acetaminophen-codeine (TYLENOL #4) 300-60 MG tablet Take 1 tablet by mouth every 8 hours as needed 1 02/18/2018 Active rosuvastatin (CRESTOR) 10 MG tablet Take 10 mg by mouth once daily 3 12/03/2017 Active Active Problems Problem Noted Date Diagnosed Date Orbital fracture, with seun betsy healing, subsequent encounter 03/14/2018 Social History Tobacco Use Types Packs/Day Years Used Date Smoking Tobacco: Never Assessed Sex and Gender Information Value Date Recorded Sex Assigned at Not on file Gender Identity Not on file Sexual Orientation Not on file Last Filed Vital Signs Vital Sign Reading Time Taken Comments Blood Pressure 131/66 02/02/2018 7:00 PM CDT Pulse 68 02/02/2018 4:22 PM CDT Temperature 36.3 C (97.4 F) 02/02/2018 4:22 PM CDT Respiratory Rate 18 02/02/2018 4:22 PM CDT Oxygen Saturation 95% 02/02/2018 7:00 PM CDT Inhaled Oxygen Concentration - - Weight 113.4 kg (250 lb) 02/02/2018 4:31 PM CDT Height 193 cm (6' 4 ) 02/02/2018 4:31 PM CDT Body Mass Index 30.43 02/02/2018 4:31 PM CDT Plan of Treatment Health Maintenance Due Date Last Done Comments COLOGUARD (AGES 45-75) - COL ON CA SCREENING 1965 COLON MONITORING 1963 COLONOSCOPY - COLON CA SCREENING 1963 CT COLONOGRAPHY - COLON CA SCREENING 1965 Colorectal Cancer Screening 1963 FIT - COLON CA SCREENING 1963 FLEX SIG - COLON CA SCREENING 1963 MEDICARE AWV 12 MONTHS 1963 HIV SCREENING 12/27/1978 HEPATITIS C SCREENING 12/23/1981 DTAP/TDAP/TD VACCINES (1 - Tdap) 12/27/1982 PNEUMOCOCCAL VACCINE 50+ (1 of 1 - PCV) 12/27/2013 ZOSTER VACCINE (1 of 2) 12/27/2013 SCREENING FOR DIABETES 02/25/2018 COVID-19 VACCINE ( - 2023-2 5 season) 2024 INFLUENZA VACCINE (#1) 2024 DEPRESSION SCREENING 05/06/2024 Respiratory Syncytial Virus (RSV) Vaccine Pt: or over 60 yrs (1 - 1-dose 75+ series) 12/27/2038 HEPATITIS B VACCINE Aged Out No longe r eligible based on patient's age to complete this topic HIB VACCINE Aged Out No longer eligi ble based on patient's age to complete this topic HPV VACCINE Aged Out No longer eligi ble based on patient's age to complete this topic MENINGOCOCCAL (Group B) VACCINE Aged Out No longer eligible based on patient's age to complete this topic MENINGOCOCCAL VACCINE Aged Out No enoc geovany eligible based on patient's age to complete this topic Care Teams Sterile Supply Technician Relationship Specialty Start Date End Date Roxana Mosley MD [address] [place], [place] [id number] PCP - General Family Medicine 02/02/18
--- OUTSIDE RECORDS SUMMARY | 2024-07-13 15:11 | XMS_ITS | Referral Summary ---
Author Organization [facility] Address [address] [place] [address] Care Team Providers Care Sales Assistant Displays Name Role Phone Roxana Mosley MD Primary Care Provider + Source Comments [facility],non-owned Affiliates and Associated Physician Practices is amultiple site organization consisting of ambulatory clinics and hospital sitesin [place], [place], [place] and [place]. This disclosure is being madepursuant to the Care Everywhere program and may not contain all information available regarding this patient. Last updated 18.[facility] Allergies No known active allergies Medications * Be aware that medications may not be up to date on this document. Alwaysverify current medications with the patient. Medication Sig Dispensed Refills Start Date End Date Status oxymetazoline (AFRIN) 0.05 % nasal spray [place] 1 spray into each nostril 2 times [...] Noted Date Diagnosed Date Orbital fracture, with joselitoi ne healing, subsequent encounter 03/14/2018 Social History Tobacco [...] 02/02/2018 4:31 PM CDT Plan of Treatment Not on file Care Teams Sales Assistant Displays Relationship Specialty Start Date End Date Roxana Mosley MD [address] [place] [address] PCP - General Family Medicine 02/02/18
--- OUTSIDE RECORDS SUMMARY | 2024-07-13 15:11 | XMS_ITS | Clinical Summary ---
Author Organization [facility] Address [address] [place] [id number] Phone Care Team Providers Care Body Coverer Name Role Phone Roxana Mosley MD Primary Care Provider [phone] Allergies No known active allergies Medications Medication Sig Dispensed Refills Start Date End Date Status carvedilol (COREG) 25 MG tablet 1 bid 0 12/06/2016 Active rosuvastatin (CRESTOR) 10 MG tablet 1 daily 0 10/16/2017 Active aspirin (ASPIR-LOW) 81 MG EC tablet 1 daily 0 10/16/2017 Active cilostazol (PLETAL) 100 MG tablet 1bid 0 10/16/2017 Active acetaminophen-codei ne (TYLENOL/CODEINE #4) 300-60 MG per tablet 1prn pain 0 12/06/2016 Active insulin aspart (NOVOLOG) 100 UNIT/ML injection for pump 0 10/16/2017 Active omega-3 (FISH OIL) 1000 MG capsule 1 daily 0 10/16/2017 Active CONTOUR NEXT TEST test strip TEST BLOOD 6 TIMES DAILY 11/12/2019 Active Continuous Blood Gluc [place] (Dexcom G6 Sternman) device USE TO CHECK BLOOD SUGAR 11/28/2020 Active Continuous Blood Gluc Sensor (Dexcom G6 Sensor) misc REPLACE SENSOR EVERY 10 DAYS 12/26/2020 Active Continuous Blood Gluc Transmit (Dexcom G6 Transmitter) misc REPLACE TRANSMITTER EVERY 90 DAYS 11/28/2020 Active clopidogrel (PLAVIX) 75 MG tablet Take 75 mg by mouth 1 (one) time each day 12/13/2020 Active irbesartan (AVAPRO) 300 MG tablet Take 300 mg by mouth 1 (one) time each day 05/01/2021 Active amLODIPine (NORVASC) 5 MG tablet Take 2.5 mg by mouth every night Half of a 5 daily 10/05/2021 Active saccharomyces boulardii (FLORASTOR) 250 MG capsule Take 250 mg by mouth 2 (two) times a day Active hydroCHLOROthiazide (HYDRODIURIL) 25 MG tablet TAKE 1 TABLET BY MOUTH EVERY DAY 90 tablet 3 01/15/2022 Active Active Problems Problem Noted Date Diagnosed Date Acute osteomyelitis of ankle and/or foot 019 Overview (01/03/2019): Last Assessment & Plan: Patient has extensive Charcot deformity right foot with complete bone and ligament destruction. Has confirmed osteomyelitis on MRI in the foot is no longer functional. In my opinion he would best be served with right below-knee amputation. I have every reason to believe that he would do well with the appropriate rehab and a prosthetic would allow him to get back to his normal functional status. I do not see a way that the right foot is salvageable and certainly exposing him to the risks of orthopedic or vascular reconstruction would likely not be successful and/or promote a good outcome. Patient is to meet with his surgeons and the [place] wound clinic this Saturday and will call the office to let us know how he wishes to proceed. Type 2 diabetes mellitus without complication Stage 3a chronic kidney disease 12/10/2016 Atherosclerotic heart diseas e of [place] coronary artery without angina pectoris 12/10/2016 Other and unspecified hyperlipidemia 12/10/2016 Overview (07/19/2018): Converted unresolved ICD9, potential mismatch. Immunizations Name Administration Dates Next Due Influenza TIV (IM) 05/14/2019 Influenza, Injectable, Quadrivalent 02/18/2018,1 Influenza, Injectable, Quadrivalent, Preservativ e Free 12/20/2016 Influenza, Quadrivalent 02/17/2018 Moderna Sars-cov-2 Vaccination 08/11/2020,2020 Pneumococcal Polysaccharide 02/17/2018 Tdap 12/20/2016 Family History Medical History Relation Comments Diabetes mellitus Father Heart disease Father Malignant neoplastic disease Father Cerebrovascular accident Relative Relation Status Comments Father Relative Social History Tobacco Use Types Packs/Day Years Used Date Smoking Tobacco: Former Smokeless Tobacco: Never Alcohol Use Standard Drinks/Week Comments No 0 (1 standard drink = 0.6 oz pur e alcohol) AUDIT-C Answer Date Recorded Frequency of Alcohol Consumption Never 10/18/2018 Average Number of Drinks Not on file 019 Frequency of Binge Drinking Not on file 10/04 Sex and Gender Information Value Date Recorded Sex Assigned at Not on file Gender Identity Not on file Sexual Orientation Not on file Last Filed Vital Signs Vital Sign Reading Time Taken Comments Blood Pressure 128/70 01/10/2022 10:05 AM CDT Pulse 72 01/10/2022 10:05 AM CDT Temperature 36.3 C (97.4 F) 01/10/2022 10:05 AM CDT Respiratory Rate - - Oxygen Saturation - - Inhaled Oxygen Concentration - - Weight 124 kg (274 lb) 01/10/2022 10:05 AM CDT Height 193 cm (6' 4 ) 01/10/2022 10:05 AM CDT Body Mass Index 33.35 01/10/2022 10:05 AM CDT Plan of Treatment Health Maintenance Due Date Last Done Comments Pneumococcal PPSV23 Highest Risk Adult (2 of 3 - PCV13) 02/17/2019 02/17/2018 COVID-19 Vaccine (3 - season) 01/05/202412/2020, 07/21/2020 Influenza Vaccine (#1) 2024 05/14/2019, 2016 Care Teams Body Coverer Relationship Specialty Start Date End Date Roxana Mosley MD [address] [place] [id number] PCP - General Internal Medicine 10/22/18
--- OUTSIDE RECORDS SUMMARY | 2024-07-13 15:11 | XMS_ITS | Patient Health Summary ---
Author Organization [facility] Address [address] [place] [address] Care Team Providers Care Cashier Or Checker Stock Clerk Name Role Phone Roxana Mosley MD Primary Care Provider + Note from [facility],non-owned Affiliates and Associated Physician Practices is amultiple site organization consisting of ambulatory clinics and hospital sitesin [place], [place], [place] and [place]. This disclosure is being madepursuant to the Care Everywhere program and may not contain all information available regarding this patient. Last updated 18.[facility] Allergies No known active allergies Medications * Be aware that medications may not be up to date on this document. Alwaysverify current medications with the patient. * oxymetazoline (AFRIN) 0.05 % nasal spray(Started 02/02/2018) [place] 1 spray into each nostril 2 times daily * NOVOLOG vial(Started 01/15/2018) USE 140-160 UNITS VIA INSULIN PUMP DAILY * carvedilol (COREG) 25 MG tablet(Started 11/08/2017) Take 25 mg by mouth 2 times daily 3 refills left * lisinopril (PRINIVIL; ZESTRIL) 10 MG tablet(Started 02/04/2018) Take 10 mg by mouth once daily 5 refills left * cilostazol (PLETAL) 100 MG tablet(Started 02/04/2018) Take 1 tablet by mouth 2 times daily 5 refills left * meloxicam (MOBIC) 15 MG tablet(Started 02/22/2018) Take 1 tablet by mouth once daily * acetaminophen-codeine (TYLENOL #4) 300-60 MG tablet(Started 02/18/2018) Take 1 tablet by mouth every 8 hours as needed 1 refill left * rosuvastatin (CRESTOR) 10 MG tablet(Started 12/03/2017) Take 10 mg by mouth once daily 3 refills left Active Problems Problem Noted Date Diagnosed Date Orbital fracture, with routi ne healing, subsequent encounter 03/14/2018 Social History [...] Mass Index 30.43 02/02/2018 4:31 PM CDT Care Teams Cashier Or Checker Stock Clerk Relationship Specialty Start Date End Date Roxana Mosley MD [address] [place] [address] PCP - General Family Medicine 02/02/18
--- OUTSIDE RECORDS SUMMARY | 2024-07-13 15:12 | XMS_ITS | Clinical Summary ---
Author Organization [facility] Office Center Address [address] [place] [address] Care Team Providers Care Neurodiagnostic Technologist Name Role Phone Familia Monteiro MD Unavailable [phone] Toi Trejo MD Unavailable [phone] Guy Heard DO Primary Care Provider [phone] Allergies No known active allergies Medications acetaminophen-co deine (TYLENOL with CODEINE #4) 300-60 mg per tablet Take 1 tablet by mouth every 8 (eight) hours as needed 0 9 Active carvedilol (COREG) 25 mg tablet TAKE 1 TABLET BY MOUTH EVERY 12 HOURS WITH FOOD OR SNACK 3 9 Active NOVOLOG U-100 INSULIN ASPART 100 unit/mL injection INJECT 140-160 UNITS VIA INSULIN PUMP DAILY 1 9 Active rosuvastatin (CRESTOR) 10 mg tablet Take 2 tablets (20 mg total) by mouth daily 3 9 Active irbesartan (AVAPRO) 300 mg tablet Take 1 tablet (300 mg total) by mouth daily Active hydroCHLOROthiaz jacob (HYDRODIURIL) 25 mg tablet Take 1 tablet (25 mg total) by mouth daily Active amLODIPine (NORVASC) 10 mg tablet Take 1 tablet (10 mg total) by mouth daily Active doxazosin (CARDURA) 8 mg tablet Take 1 tablet (8 mg total) by mouth nightly at bedtime. 3 Active Dexcom G6 Sensor device REPLACE EVERY 10 DAYS 3 Active Dexcom G6 Transmitter device REPLACE TRANSMITTER EVERY 90 DAYS 3 Active pregabalin (LYRICA) 75 mg capsule 3 Active vitamin E mixed 400 unit capsule 0 1 Active aspirin 81 mg chewable tablet TAKE 1 TABLET BY MOUTH EVERY DAY 90 tablet 3 4 Active Additional Information Patient not taking.Reported on 06/25/2024 clopidogreL (PLAVIX) 75 mg tablet TAKE 1 TABLET BY MOUTH EVERY DAY 90 tablet 3 5 Active Additional Information Patient not taking.Reported on 06/25/2024 cholecalciferol (VITAMIN D-3) 5,000 unit tablet Active magnesium glycinate 100 mg tablet Take by mouth Active multivitamin-min erals-lutein tablet Take by mouth Active Active Problems Problem Noted Date Diagnosed Date Atherosclerosis of [place] ar domitila of left lower extremity with intermittent claudication 11/11/2023 Assessment & Plan (06/25/2024 2:24 PM INTEGRATION ANALYST): Continues do well status post recent intervention to left popliteal artery stent. Patient recently discontinued his aspirin regimen due to daily nosebleeds. Will plan for continuing Plavix regimen, referral to ENT, follow-up in our office in 6 months with repeat left lower extremity arterial duplex Assessment & Plan (11/11/2023 11:08 AM CDT): Impression: Patient is status post drug coated balloon angioplasty left popliteal artery. Patient is doing well. Left lower extremity is warm, well perfused with palpable distal pulses. Plan:Continue ongoing risk factor modifications. -continue dual antiplatelet therapy of aspirin and Plavix. -follow-up in 4 weeks for re-evaluation with lower extremity arterial duplex. Restenosis of arterial stent 10/03/2023 History of right below knee amputation 3 Assessment & Plan (11/11/2023 11:06 AM CDT): Impression: Patient has a history of right [id number] amputation utilizing a prosthesis without any complications. Plan: Continue utilizing prosthesis for ambulation needs. Cardiomyopathy 01/01/2023 Fatigue 01/01/2023 Sleep apnea 01/01/2023 PVD (peripheral vascular disease) 12/26/2022 Assessment & Plan (12/26/2023 1:26 PM CDT): Left popliteal artery stent remains patent. Adequate perfusion left lower extremity support wound healing. Continue anti-platelet therapy follow up 6 months with duplex Assessment & Plan (10/04/2023 8:41 AM CDT): In stent stenosis noted at the distal end of the popliteal stent. Discussed the need for a angiogram for treatment. Discussed the procedure along with its potential risks with the patient. He is agreeable wishes to proceed. Assessment & Plan (04/05/2023 12:44 PM INTEGRATION ANALYST): Patient continues to do well. Current duplex shows triphasic waveforms distally with a patent popliteal stent. Plan: Continue statin and Plavix and aspirin therapy. Follow up in 6 months for routine surveillance with a lower extremity arterial duplex Assessment & Plan (02/28/2023 2:26 PM CDT): Lower extremity arterial occlusive disease status post atherectomy left popliteal artery lithotripsy balloon angioplasty and stenting to the left popliteal artery on 02/12/2023. Patient is recovering well. Denies any claudication pain or rest pain. His started to develop pain around the Charcot foot. Is taking Lyrica and wearing his orthotics which is helping. Plan: Follow-up in 1 month with a lower extremity arterial duplex Assessment & Plan (01/03/2023 1:49 PM CDT): Considering patient's overall clinical picture involving diabetes, limiting claudication buttock and thigh level, previous right below-knee amputation in the past, will proceed with left lower extremity angiogram with possible intervention. Patient wishes to discuss this with his primary care provider, family. Patient states his primary care provider would like him to avoid any angiogram due to contrast exposure. I informed the patient there is minimal kidney exposure to contrast during this procedure. He is considering this, will call with scheduling. Assessment & Plan (12/26/2022 2:37 PM CDT): Patient has a history of severe Charcot foot deformity with a right below-knee amputation. Patient has developing deformity left lower extremity with evidence of underlying arterial occlusive disease. Will obtain left lower extremity arterial duplex follow-up 1-2 weeks to further evaluate with further recommendations at that time. Type 2 diabetes mellitus with chronic kidney dis ease 12/26/2022 Osteomyelitis of ankle or foot, acute, right Assessment & Plan (08/21/2018 9:54 AM CDT): Patient has extensive Charcot deformity right foot [...] to meet with his surgeons and the [place] wound [facility] this Saturday and will call the office to let us know how he wishes to proceed. Orbital fracture, with seun meyer healing, subsequent encounter 03/14/2018 Atherosclerotic heart diseas e of [place] coronary artery without angina pectoris 12/10/2016 Chronic kidney disease, stage 2 (mild) 7 Other hyperlipidemia 12/10/2016 Overview (08/20/2018): Converted unresolved ICD9, potential mismatch. Assessment & Plan (11/11/2023 11:06 AM CDT): Impression: Chronic stable. Plan: Continue rosuvastatin. Assessment & Plan (12/26/2022 2:36 PM CDT): Hyperlipidemia chronic and controlled. Continue Crestor daily. Type 2 diabetes mellitus wit h diabetic peripheral angiopathy without gangrene 12/10/2016 Assessment & Plan (12/26/2023 1:26 PM CDT): Type 2 diabetes chronic controlled. Continue current medical regimen as directed by PCP. Assessment & Plan (11/11/2023 11:05 AM CDT): Impression: Chronic with good glucose control. Plan: Continue insulin Assessment & Plan (12/26/2022 2:36 PM CDT): Type 2 diabetes is chronic and controlled. Continue current insulin regimen. Stage 3a chronic kidney disease 12/10/2016 Lumbago 12/23/2015 Arthralgia of hip 12/23/2015 Heart attack Encounters Date Type Department Care Team Description 06/26/2024 Orders Only [facility] Vascular and Vein Surgery [address] [place] [phone] Toi Trejo MD Aftercare following surgery of the circulatory system (Primary Dx); Bilateral carotid artery stenosis 06/25/2024 9:00 AM INTEGRATION ANALYST Office Visit [facility] Vascular and Vein Surgery [address] [place] [phone] Brenda Mariee PA Atherosclerosis of [place] artery of left lower extremity with intermittent claudication (Primary Dx); Other hyperlipidemia; Essential hypertension; Type 2 diabetes mellitus with diabetic peripheral angiopathy without gangrene, with long-term current use of insulin (HCC); Epistaxis, recurrent; History of right below knee amputation (HCC) 06/22/2024 10:15 AM INTEGRATION ANALYST - 06/22/2024 11:59 PM INTEGRATION ANALYST Hospital Encounter [facility] [address] [place] [phone] Aftercare following surgery of the circulatory system Discharge Disposition: Discharge to home or self care 06/22/2024 10:00 AM INTEGRATION ANALYST - 06/22/2024 11:59 PM INTEGRATION ANALYST Hospital Encounter [facility] [address] [place] [phone] Bilateral carotid artery stenosis Discharge Disposition: Discharge to home or self care 06/22/2024 9:59 AM INTEGRATION ANALYST - 06/22/2024 11:59 PM INTEGRATION ANALYST Hospital Encounter [facility] [address] [place] [phone] Aftercare following surgery of the circulatory system Discharge Disposition: Discharge to home or self care 06/17/2024 Telephone [facility] Vascular and Vein Surgery [address] [place] [phone] Jelly Nielsen 06/08/2024 Orders Only [facility] Vascular at [address] [place] [phone] Toi Trejo MD Aftercare following surgery of the circulatory system (Primary Dx) from Last 3 Months Immunizations Immunization Administration Dates Next Due Influenza LAIV (Nasal) 02/17/2018 Influenza, Quadrivalent, Radha l Culture-based MDCK, Preservative Free, Antibiotic Free, Intramuscular 02/18/2018 Influenza, Quadrivalent, Rec ombinant, Egg Free, Preservative Free, Intramuscular 02/16/2020 Influenza, Quadrivalent, Spl it, Intramuscular 02/18/2018 Influenza, Quadrivalent, Spl it, Preservative Free, Intramuscular 03/14/2022,05/14/2019,12/20/2016 Influenza, Trivalent, IM (MDV) 05/14/2019 Moderna SARS-CoV-2 Monovalen t Vaccination (12+ YRS) 08/11/2020,07/21/2020 Pneumococcal Polysaccharide PPV23 02/18/2018 Tdap 12/20/2016 ZOSTER Recombinant 08/30/2022,03/23/2022 Surgical History Surgery Date Site/Laterality Comments BELOW KNEE LEG AMPUTATION 07/10/2021 Right DEBRIDEMENT FOOT Right BYPASS GRAFT 05/06/2007 - 05/05/2008 x3 cardiac bypass CARDIAC STENT PLACEMENT 05/06/2007 - 05/05/2008 CARDIAC STENT PLACEMENT 05/06/2020 - 05/05/2021 ATHERECTOMY 02/12/2023 Left LLE angiogram. Atherectomy LT pop artery. Lithotripsy BA & stenting LT pop artery. ANGIOPLASTY 10/17/2023 Left Aortogram, LLE angiogram. DCBA LT pop Medical History Medical History Date Comments Heart attack (HCC) Coronary artery disease Diabetes mellitus (HCC) Hypertension Hyperlipidemia Family History Medical History Relation Name Comments Cancer Father Family history of malignant neoplasm - (Added by TW Conv) Diabetes Father Family history of diabetes mellitus - (Added by TW Conv) Heart disease Father Family history of cardiac disorder - (Added by TW Conv) Hypertension Father Family history of hypertension - (Added by TW Conv) Cancer Mother Family history of malignant neoplasm - (Added by TW Conv) Lung disease Mother Family history of lung disease - (Added by TW Conv) Relation Name Status Comments Father Mother Social History Tobacco Use Types Packs/Day Years Used Date Smoking Tobacco: Former Smokeless Tobacco: Never Tobacco Cessation:Counseling Given: Not Answered AUDIT-C Answer Date Recorded Q1: How often do you have a drink containing alcohol? Never 10/17/2023 Q2: How many drinks containi ng alcohol do you have on a typical day when you are drinking? Patient does not drink Q3: How often do you have si x or more drinks on one occasion? Never 10/17/2023 Personal Safety Answer Date Recorded Have you ever been in or are you currently in a harmful physical or emotional relationship or is someone making you feel afraid or unsafe? Denies 10/17/2023 Sex and Gender Information Value Date Recorded Sex Assigned at Not on file Legal Sex Male 11:29 AM INTEGRATION ANALYST Gender Identity Not on file Sexual Orientation Not on file Obstetrics History Last Filed Vital Signs Vital Sign Reading Time Taken Comments Blood Pressure 167/97 06/25/2024 8:46 AM INTEGRATION ANALYST Pulse 73 06/25/2024 8:46 AM INTEGRATION ANALYST Temperature 36.8 C (98.2 F) 10/17/2023 12:20 PM CDT Respiratory Rate 18 10/17/2023 1:50 PM CDT Oxygen Saturation 96% 10/17/2023 1:50 PM CDT Inhaled Oxygen Concentration - - Weight 129.3 kg (285 lb) 06/25/2024 8:46 AM INTEGRATION ANALYST Height 193 cm (6' 4 ) 06/25/2024 8:46 AM INTEGRATION ANALYST Body Mass Index 34.69 06/25/2024 8:46 AM INTEGRATION ANALYST Plan of Treatment Health Maintenance Due Date Last Done Comments Albumin Creatinine Ratio, Urine 1965 Colon Cancer Screening-Colonoscopy 1965 Depression Screening 1965 Hemoglobin A1C 1965 Hepatitis C Screening 1965 Prostate Cancer Screening-PSA 1965 Dilated Eye Exam 1965 Foot Exam 1965 Lipid Panel 1965 Hepatitis B Screening 12/27/1981 Regular Well Visit/Exam 18-64 12/27/1981 Pneumococcal vaccine <65 (2 of 2 - PCV) 02/18/2019 02/18/2018 Covid-19 Vaccine (2023-2 5 season) 2024 04/10/2021, 08/11/2020, 08/11/2020, Additional history exists Influenza Vaccine (#1) 2024 , 02/16/2020, 05/14/2019, Additional history exists eGFR 10/16/2024 10/17/2023, 02/12/2023 DTaP/Tdap/Td Vaccine (2 - Td or Tdap) 12/20/2026 12/20/2016 Zoster Vaccine Completed 08/30/2022, 03/23/2022 Medical Devices Implanted Type Area Paper Folding Machine Operator Device Identifier Shelf Expiration Date Model / Serial / Lot Bard Peripheral Vascular Lifestent 6mm 6fr 200mm 135cm Self Expand Catheter Guidewire .035 [id number] - [id number] Implanted:Qty: 1 on 02/12/2023 by Toi Trejo MD at [facility] [employer] [facility] 06/05/2025 [id number] / / [id number] Ta Vascular Device Clsr Perclose Prostyle Sut-Mediatd Closure-Repair Sys 44429-73 - [id number] Implanted:Qty: 1 on 02/12/2023 by Toi Trejo MD at [facility] [employer] [id number] / / Ta Vascular System Closure Repair Femoral Artery Suture Mediated Perclose Prostyle 96826-17 - [id number] Implanted:Qty: 1 on 10/17/2023 by Toi Trejo MD at [facility] [employer] [facility] 07/03/2025 [id number] / / [id number] Procedures Procedure Name Priority Date/Time Associated Diagnosis Comments US KATIE Schedule Routine, Read Routine (OP Routine) 06/22/2024 10:45 AM INTEGRATION ANALYST Aftercare following surgery of the circulatory system US CAROTIDS DUPLEX BILATERAL Schedule Routine, Read Routine (OP Routine) 06/22/2024 10:45 AM INTEGRATION ANALYST Bilateral carotid artery stenosis US ARTERIAL DUPLEX LOWER EXTREMITY LEFT LIMITED Schedule Routine, Read Routine (OP Routine) 06/22/2024 10:45 AM INTEGRATION ANALYST Aftercare following surgery of the circulatory system EGFR STAT 10/17/2023 8:44 AM CDT Restenosis of arterial stent from Last 3 Months or Most Recently Relevant to Health Maintenance Results * US Carotids Duplex Bilateral (06/22/2024 10:45 AM INTEGRATION ANALYST) Anatomical Region Laterality Modality Vascular Bilateral Ultrasound 06/22/2024 10:5 6 AM INTEGRATION ANALYST Narrative 06/22/2024 4:06 PM INTEGRATION ANALYST Carotid Duplex Ultrasound Report Patient Name: BEREKET JULIAN R : 1965 (58y 5m) Study Date: 06/22/2024 10:56:59 AM Gender: M Snuff Grinder And Screener: Gabrielle Deal Ref Provider: TOI TREJO Quality: Adequate Order Provider: TOI TREJO PROCEDURES: Carotid Report: Carotid duplex examination of the extracranial arteries was performed using 2D, color and spectral Doppler. INDICATIONS: I65.23 Occlusion and stenosis of bilateral carotid arteries. HISTORY: HTN/HLD/DM/CABG. COMPARISONS: No prior exams. MEASUREMENTS: Right Value Left Value RT Prox CCA PSV 111 cm/sec LT Prox CCA PSV 122 cm/sec RT Prox CCA EDV 25 cm/sec LT Prox CCA EDV 22 cm/sec RT Distal CCA PSV 57 cm/sec LT Distal CCA PSV 95 cm/sec RT Distal CCA EDV 16 cm/sec LT Distal CCA EDV 22 cm/sec RT Prox ICA PSV 157 cm/sec LT Prox ICA PSV 58 cm/sec RT Prox ICA EDV 39 cm/sec LT Prox ICA EDV 21 cm/sec RT Mid ICA PSV 146 cm/sec LT Mid ICA PSV 75 cm/sec RT Mid ICA EDV 45 cm/sec LT Mid ICA EDV 28 cm/sec RT Distal ICA PSV 106 cm/sec LT Distal ICA PSV 68 cm/sec RT Distal ICA EDV 32 cm/sec LT Distal ICA EDV 22 cm/sec RT ECA Prx PSV 747 cm/sec LT ECA Prx PSV 187 cm/sec RT ECA Prx EDV 218 cm/sec LT ECA Prx EDV 33 cm/sec RT ICA/CCA 2.80 ratio Lt Vert Dst PSV 36 cm/sec Rt Vert Dst PSV 19 cm/sec FINDINGS: Rt Common Carotid Artery: Duplex imaging of the right common carotid artery is within normal limits without evidence of atherosclerotic disease. Rt Internal Carotid Artery: The plaque in the right internal carotid artery appears to be heterogeneous and smooth. Significant atherosclerotic changes of the right internal carotid artery with elevated peak systolic velocity and end diastolic velocity, as above. 50-69% stenosis. Rt External Carotid Artery: Patent right external carotid artery with evidence of atherosclerotic disease present. Rt Vertebral Artery: The right vertebral artery is patent with antegrade flow. Lt Common Carotid Artery: Duplex imaging of the left common carotid artery is within normal limits without evidence of atherosclerotic disease. Lt Internal Carotid Artery: The plaque in the left internal carotid artery appears to be heterogeneous and smooth. Atherosclerotic changes of the left internal carotid artery without hemodynamically significant Doppler findings. <50% stenosis. Lt External Carotid Artery: Patent left external carotid artery with evidence of atherosclerotic disease present. Lt Vertebral Artery: The left vertebral artery is patent with antegrade flow. Comments: Low carotid bifurcations bilaterally. Rt B/P 149 Lt B/P 157. CONCLUSIONS: 1. The right internal carotid artery disease is consistent with a 50-69% stenosis. 2. Right internal carotid artery stent with evidence of in-stent restenosis measuring greater than 50%. 3. Normal, antegrade flow is noted in bilateral vertebral arteries. ATTESTATION: I have reviewed and interpreted the pertinent images and measurements of this study. I attest to the conclusions in the final report that is provided above. Electronically Signed By: Toi Trejo MD 06/22/2024 2:51:17 PM INTEGRATION ANALYST Procedure Note Toi Trejo MD - 06/22/2024 Carotid Duplex Ultrasound Report Patient Name: BEREKET JULIAN R : 1965 (58y 5m) Study Date: 06/22/2024 10:56:59 AM Gender: M Snuff Grinder And Screener: Gabrielle Deal Provider: TOI TREJO Quality: Adequate Order Provider: TOI TREJO PROCEDURES: Carotid Report: Carotid duplex examination of the extracranial arterieswas performed using 2D, color and spectral Doppler. INDICATIONS: I65.23 Occlusion and stenosis of bilateral carotid arteries. HISTORY: HTN/HLD/DM/CABG. COMPARISONS: No prior exams. MEASUREMENTS: Right Value Left Value RT Prox CCA PSV 111 cm/sec LT Prox CCA PSV 122 cm/sec RT Prox CCA EDV 25 cm/sec LT Prox CCA EDV 22 cm/sec RT Distal CCA PSV 57 cm/sec LT Distal CCA PSV 95 cm/sec RT Distal CCA EDV 16 cm/sec LT Distal CCA EDV 22 cm/sec RT Prox ICA PSV 157 cm/sec LT Prox ICA PSV 58 cm/sec RT Prox ICA EDV 39 cm/sec LT Prox ICA EDV 21 cm/sec RT Mid ICA PSV 146 cm/sec LT Mid ICA PSV 75 cm/sec RT Mid ICA EDV 45 cm/sec LT Mid ICA EDV 28 cm/sec RT Distal ICA PSV 106 cm/sec LT Distal ICA PSV 68 cm/sec RT Distal ICA EDV 32 cm/sec LT Distal ICA EDV 22 cm/sec RT ECA Prx PSV 747 cm/sec LT ECA Prx PSV 187 cm/sec RT ECA Prx EDV 218 cm/sec LT ECA Prx EDV 33 cm/sec RT ICA/CCA 2.80 ratio Lt Vert Dst PSV 36 cm/sec Rt Vert Dst PSV 19 cm/sec FINDINGS: Rt Common Carotid Artery: Duplex imaging of the right common carotidartery is within normal limits without evidence of atherosclerotic disease. Rt Internal Carotid Artery: The plaque in the right internal carotidartery appears to be heterogeneous and smooth. Significant atherosclerotic changes of the rightinternal carotid artery with elevated peak systolic velocity and end diastolicvelocity, as above. 50-69% stenosis. Rt External Carotid Artery: Patent right external carotid artery withevidence of atherosclerotic disease present. Rt Vertebral Artery: The right vertebral artery is patent with antegradeflow. Lt Common Carotid Artery: Duplex imaging of the left common carotid arteryis within normal limits without evidence of atherosclerotic disease. Lt Internal Carotid Artery: The plaque in the left internal carotid arteryappears to be heterogeneous and smooth. Atherosclerotic changes of the left internalcarotid artery without hemodynamically significant Doppler findings. <50% stenosis. Lt External Carotid Artery: Patent left external carotid artery withevidence of atherosclerotic disease present. Lt Vertebral Artery: The left vertebral artery is patent with antegradeflow. Comments: Low carotid bifurcations bilaterally. Rt B/P 149 Lt B/P 157. CONCLUSIONS: 1. The right internal carotid artery disease is consistent with a 50- 69%stenosis. 2. Right internal carotid artery stent with evidence of in-stentrestenosis measuring greater than 50%. 3. Normal, antegrade flow is noted in bilateral vertebral arteries. ATTESTATION: I have reviewed and interpreted the pertinent images and measurements ofthis study. I attest to the conclusions in the final report that is provided above. Electronically Signed By: Toi Trejo MD 06/22/2024 2:51:17 PM INTEGRATION ANALYST us Toi Trejo MD IMG US PROCEDURES Final Re sult * US Arterial Duplex Lower Extremity Left Limited (06/22/2024 10:45 AM INTEGRATION ANALYST) Anatomical Region Laterality Modality Vascular Left Ultrasound 06/22/2024 10:1 4 AM INTEGRATION ANALYST Narrative 06/22/2024 4:07 PM INTEGRATION ANALYST Lower Extremity Arterial Duplex Report Patient Name: BEREKET JULIAN R : 1965 (58y 5m) Gender: M Study Date: 06/22/2024 10:14:40 AM Ht(Inch): Wt(Lb): BSA: Snuff Grinder And Screener: Gabrielle Deal Provider: TOI TREJO Quality: Adequate Ref Provider: TOI TREJO PROCEDURES: Arterial Report: A non-invasive vascular imaging study of the left lower extremity arteries was performed using B-mode ultrasound, color flow, and spectral Doppler. A non-invasive vascular imaging study of the left lower extremity arteries and stent was performed using B-mode ultrasound, color flow, and spectral Doppler. INDICATIONS: Z48.812 Encounter for surgical aftercare following surgery on the circulatory system. HISTORY: The patient had a previous vascular surgery on 10/17/2023 [facility] Lt pop art. The patient has a right sogin-xja-nhwy amputation. History of Lt popliteal art. stent 02/12/2023. COMPARISONS: No change compared to prior study. The previous exam was completed on 12/05/2023. MEASUREMENTS: Left Value Lt DETASSELING CREW SUPERVISOR Prx PSV 151.80 cm/sec Lt Profunda Prx PSV 377.30 cm/sec Lt SFA Prx PSV 125.30 cm/sec Lt SFA Mid PSV 97.90 cm/sec Lt SFA Dst PSV 86.00 cm/sec Lt Pop Prx PSV 64.10 cm/sec Lt Pop Dst PSV 113.00 cm/sec STENTS: Left Value Location popliteal Lt Stent Prx PSV 96.00 cm/sec Lt Stent Mid PSV 94.00 cm/sec Lt Stent Dst PSV 141.00 cm/sec FINDINGS: Stent 1: The stent is located in the Popliteal artery. Patent lower extremity stent with no evidence of stenosis. CONCLUSION: 1. The arterial stent is patent with no evidence of stenosis. ATTESTATION: I have reviewed and interpreted the pertinent images and measurements of this study. I attest to the conclusions in the final report that is provided above. Electronically Signed By: Toi Trejo MD 06/22/2024 2:58:04 PM INTEGRATION ANALYST Procedure Note Toi Trejo MD - 06/22/2024 Lower Extremity Arterial Duplex Report Patient Name: BEREKET JULIAN R : 1965 (58y 5m) Gender: M Study Date: 06/22/2024 10:14:40 AM Ht(Inch): Wt(Lb): BSA: Snuff Grinder And Screener: Gabrielle Deal Provider: TOI TREJO Quality: Adequate Ref Provider: TOI TREJO PROCEDURES: Arterial Report: A non-invasive vascular imaging study of the left lowerextremity arteries was performed using B-mode ultrasound, color flow, and spectralDoppler. A non-invasive vascular imaging study of the left lower extremity arteriesand stent was performed using B-mode ultrasound, color flow, and spectral Doppler. INDICATIONS: Z48.812 Encounter for surgical aftercare following surgery on thecirculatory system. HISTORY: The patient had a previous vascular surgery on 10/17/2023 [facility] Lt pop art.The patient has a right trdfn-krx-gzmd amputation. History of Lt popliteal art. stent02/12/2023. COMPARISONS: No change compared to prior study. The previous exam was completed on12/05/2023. MEASUREMENTS: Left Value Lt DETASSELING CREW SUPERVISOR Prx PSV 151.80 cm/sec Lt Profunda Prx PSV 377.30 cm/sec Lt SFA Prx PSV 125.30 cm/sec Lt SFA Mid PSV 97.90 cm/sec Lt SFA Dst PSV 86.00 cm/sec Lt Pop Prx PSV 64.10 cm/sec Lt Pop Dst PSV 113.00 cm/sec STENTS: Left Value Location popliteal Lt Stent Prx PSV 96.00 cm/sec Lt Stent Mid PSV 94.00 cm/sec Lt Stent Dst PSV 141.00 cm/sec FINDINGS: Stent 1: The stent is located in the Popliteal artery. Patent lowerextremity stent with no evidence of stenosis. CONCLUSION: 1. The arterial stent is patent with no evidence of stenosis. ATTESTATION: I have reviewed and interpreted the pertinent images and measurements ofthis study. I attest to the conclusions in the final report that is provided above. Electronically Signed By: Toi Trejo MD 06/22/2024 2:58:04 PM INTEGRATION ANALYST us Toi Trejo MD IMG US PROCEDURES Final Re sult * US KATIE (06/22/2024 10:45 AM INTEGRATION ANALYST) Anatomical Region Laterality Modality Vascular N/A Ultrasound 06/22/2024 10:1 9 AM INTEGRATION ANALYST Narrative 06/22/2024 4:06 PM INTEGRATION ANALYST Lower Extremity Arterial Doppler Report Patient Name: BEREKET JULIAN R : 1965 Study Date: 06/22/2024 10:19:00 AM Gender: M Snuff Grinder And Screener: Gabrielle Deal RN/RVT Ref Provider: TOI TREJO Quality: Adequate Order Provider: TOI TREJO PROCEDURES: Arterial Report: Ankle - Brachial Index Doppler exam. INDICATIONS: Z48.812 Encounter for surgical aftercare following surgery on the circulatory system. HISTORY: Right leg below knee amputation. History of prior intervention on 10/17/2023. Stent 02/13/2024 LT POPLITEAL ART. -1. COMPARISONS: No change compared to prior study. The previous exam was completed on 12/05/2023. MEASUREMENTS: Right Value Left Value Rt Brachial Pressure 149 mmHg Lt Brachial Pressure 157 mmHg Lt CARPET BINDER Pressure 232 mmHg Lt DPA Pressure 238 mmHg Lt 1st Digit Pressure 90 mmHg Lt PT KATIE Resting 1.48 Lt DP KATIE Resting 1.52 Lt Digit/Arm Index 0.57 - FINDINGS: Left Posterior Tibial Artery Analysis: The posterior tibial waveform is multiphasic. Left Anterior Tibial Artery Analysis: Left Dorsalis Pedis Artery is Multiphasic. Left Digits: Normal left digit pressure and waveform. CONCLUSIONS: 1. Ankle-brachial index of 0.9-1.3 is within normal limits in the left lower extremity. ATTESTATION: I have reviewed and interpreted the pertinent images and measurements of this study. I attest to the conclusions in the final report that is provided above. Electronically Signed By: Toi Trejo MD 06/22/2024 2:56:29 PM INTEGRATION ANALYST Procedure Note Toi Trejo MD - 06/22/2024 Lower Extremity Arterial Doppler Report Patient Name: BEREKET JULIAN R : 1965 Study Date: 06/22/2024 10:19:00 AM Gender: M Snuff Grinder And Screener: Gabrielle Deal RN/RVT Ref Provider: TOI TREJO Quality: Adequate Order Provider: TOI TREJO PROCEDURES: Arterial Report: Ankle - Brachial Index Doppler exam. INDICATIONS: Z48.812 Encounter for surgical aftercare following surgery on thecirculatory system. HISTORY: Right leg below knee amputation. History of prior intervention on 10/17/2023. Stent 02/13/2024 LT POPLITEAL ART. -1. COMPARISONS: No change compared to prior study. The previous exam was completed on 12/05/2023. MEASUREMENTS: Right Value Left Value Rt Brachial Pressure 149 mmHg Lt Brachial Pressure 157 mmHg Lt CARPET BINDER Pressure 232 mmHg Lt DPA Pressure 238 mmHg Lt 1st Digit Pressure 90 mmHg Lt PT KATIE Resting 1.48 Lt DP KATIE Resting 1.52 Lt Digit/Arm Index 0.57 - FINDINGS: Left Posterior Tibial Artery Analysis: The posterior tibial waveform is multiphasic. Left Anterior Tibial Artery Analysis: Left Dorsalis Pedis Artery is Multiphasic. Left Digits: Normal left digit pressure and waveform. CONCLUSIONS: 1. Ankle-brachial index of 0.9-1.3 is within normal limits in the leftlower extremity. ATTESTATION: I have reviewed and interpreted the pertinent images and measurements ofthis study. I attest to the conclusions in the final report that is provided above. Electronically Signed By: Toi Trejo MD 06/22/2024 2:56:29 PM INTEGRATION ANALYST us Toi Trejo MD IMG US PROCEDURES Final Re sult * eGFR (10/17/2023 8:44 AM CDT) eGFR 70 >=60 mL/min/1. 73 m2 Comment: Interpretive Data Reference Interval Normal >/= 90 mL/min/1.73m2 Mildly decreased* 60 - 89 mL/min/1.73m2 Mildly to moderately decreased 45 - 59 mL/min/1.73m2 Moderately to severely decreased 30 - 44 mL/min/1.73m2 Severely decreased 15 - 29 mL/min/1.73m2 Kidney Failure < 15 mL/min/1.73m2 *Relative to young adult level Estimated glomerular filtration rate is determined by the 2020 CKD-EPI equation recommended by the National Kidney Foundation (A Unifying Approach to GFR Estimation: Recommendations of the NKF-ASK Task Force on Reassessing the Inclusion of Race in Diagnosing Kidney Disease, JASN 202). The CKD-EPI equation should not be used for patients with unstable renal function and has not been validated in children and those over 70. Current interpretive data was last reviewed 2021. Blood 10/17/2023 8:44 AM CDT 10/17/2023 8:47 AM CDT us Toi Trejo MD LAB BLOOD ORDERABLES Final Result Performing Organization Address City/State/ZIP Co pr Phone Number CERNER MH [address] [facility] Department [place] [address] from Last 3 Months or Most Recently Relevant to Health Maintenance Insurance MEDICARE [facility] Address: [address] [address] [place] [address] [facility] MEDICARE [facility] Care Teams Neurodiagnostic Technologist Relationship Specialty Start Date End Date Guy Heard DO [address] [facility] [address] [place] [address] PCP - General Internal Medicine 10/07/23 Familia Monteiro MD [address] [place] [address] Referring Physician Orthopedic Surgery 08/13/18 Toi Trejo MD [address] [facility] [address] [place] [address] Surgeon Vascular Surgery 01/01/23
--- OUTSIDE RECORDS SUMMARY | 2024-07-13 15:12 | XMS_ITS | Encounter Summary ---
Author Organization [facility] Address [address] [place] [address] Care Team Providers Care Project Management Professional Name Role Phone Roxana Mosley MD Primary Care Provider + Encounter Details Date Type Department Care Team (Late st Contact Info) Description 02/02/2018 Ophth Exam [facility] [address] [place] [address] Jaret Dia MD [address] [facility] 2L DEPT OF OPHTHALMOLOGY [place], [place] Social History Tobacco Use Types Packs/Day Years Used Date Smoking Tobacco: Never Assessed Sex and Gender Information Value Date Recorded Sex Assigned at Not on file Gender Identity Not on file Sexual Orientation Not on file documented as of this encounter Plan of Treatment Not on file documented as of this encounter Visit Diagnoses Not on filedocumented in this encounter Care Teams Project Management Professional Relationship Specialty Start Date End Date Roxana Mosley MD [address] [place] [address] PCP - General Family Medicine 02/02/18 documented as of this encounter
--- OUTSIDE RECORDS SUMMARY | 2024-07-13 15:12 | XMS_ITS | CONTINUITY OF CARE DOCUMENT ---
Author Name mychal horta Address Unknown Organization [facility] Address [address] [place] [address] Phone [phone] Care Team Providers Care Contract Graphic Designer Name Role Phone Hipolito Cain MD Unavailable [phone] Hipolito Cain MD Unavailable Hipolito Cain MD Unavailable [phone] INSURANCE PROVIDERS Payer name Policy type / Coverage type [place] red green party ID [id number] PAY
--- OUTSIDE RECORDS SUMMARY | 2024-07-13 15:12 | XMS_ITS | Referral Summary ---
Author Organization [facility] Address [address] [place] [address] Care Team Providers Care Machine Hose Cutter Name Role Phone Familia Monteiro MD Unavailable [phone] Toi Trejo MD Unavailable [phone] Guy Heard DO Primary Care Provider + [phone] Encounters Date Type Department Care Team Description 06/26/2024 Orders Only [facility] Medical [facility] Vascular and Vein Surgery [address] [place] [address] [address] [place] [address] Toi Trejo MD Aftercare following surgery of the circulatory system (Primary Dx); Bilateral carotid artery stenosis 06/25/2024 9:00 AM CODE CLERK Office Visit [facility] Vascular and Vein Surgery [address] [place] [address] [address] [place] [address] Brenda Mariee PA Atherosclerosis of nenana artery of left lower extremity with intermittent claudication (Primary Dx); Other hyperlipidemia; Essential hypertension; Type 2 diabetes mellitus with diabetic peripheral angiopathy without gangrene, with long-term current use of insulin (HCC); Epistaxis, recurrent; History of right below knee amputation (HCC) 06/22/2024 10:15 AM CODE CLERK - 06/22/2024 11:59 PM CODE CLERK Hospital Encounter [facility] [address] [place] [address] [address] [place] [address] Aftercare following surgery of the circulatory system Discharge Disposition: Discharge to home or self care 06/22/2024 9:59 AM CODE CLERK - 06/22/2024 11:59 PM CODE CLERK Hospital Encounter [facility] 2 Vascular [address] [facility] [address] [place] [address] Aftercare following surgery of the circulatory system Discharge Disposition: Discharge to home or self care 06/22/2024 10:00 AM CODE CLERK - 06/22/2024 11:59 PM CODE CLERK Hospital Encounter [facility] 2 Vascular [address] [facility] [address] [place] [address] Bilateral carotid artery stenosis Discharge Disposition: Discharge to home or self care 06/17/2024 Telephone [facility] Vascular and Vein Surgery [address] [facility] [address] [place] [address] Jelly Nielsen 06/08/2024 Orders Only [facility] Vascular at [address] [place] [address] Toi Trejo MD Aftercare following surgery of the circulatory system (Primary Dx) from Last 3 Months Allergies No known active allergies Medications acetaminophen-co [...] by mouth nightly at bedtime. 3 Active Tellagence G6 Sensor device REPLACE EVERY 10 DAYS 3 Active Tellagence G6 Transmitter device REPLACE TRANSMITTER EVERY 90 [...] Problem Noted Date Diagnosed Date Atherosclerosis of nenana ar doimtila of left lower extremity with intermittent claudication 11/11/2023 Assessment & Plan (06/25/2024 2:24 PM CODE CLERK): Continues do well status post recent intervention [...] Impression: Patient has a history of right tskbb-xox-luad amputation utilizing a prosthesis without any complications. [...] proceed. Assessment & Plan (04/05/2023 12:44 PM CODE CLERK): Patient continues to do well. Current duplex [...] to meet with his surgeons and the [facility] this Saturday and will call the office to let us know how he wishes to proceed. 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 12/10/2016 Chronic [...] 12/23/2015 Arthralgia of hip 12/23/2015 Heart attack Immunizations Immunization Administration Dates Next Due Influenza [...] PPV23 02/18/2018 Tdap 12/20/2016 ZOSTER Recombinant 08/30/2022,03/23/2022 Social History Tobacco Use Types Packs/Day Years [...] on file Legal Sex Male 11:29 AM CODE CLERK Gender Identity Not on file Sexual Orientation Not on file Last Filed Vital Signs Vital Sign Reading Time Taken Comments Blood Pressure 167/97 06/25/2024 8:46 AM CODE CLERK Pulse 73 06/25/2024 8:46 AM CODE CLERK Temperature 36.8 C (98.2 F) 10/17/2023 12:20 PM CDT Respiratory Rate 18 10/17/2023 1:50 PM CDT Oxygen Saturation 96% 10/17/2023 1:50 PM CDT Inhaled Oxygen Concentration - - Weight 129.3 kg (285 lb) 06/25/2024 8:46 AM CODE CLERK Height 193 cm (6' 4 ) 06/25/2024 8:46 AM CODE CLERK Body Mass Index 34.69 06/25/2024 8:46 AM CODE CLERK Plan of Treatment Not on file Medical Devices Implanted Type Area Assistant Health Educator Device Identifier Shelf Expiration Date Model / Serial / Lot Bard Peripheral Vascular Lifestent 6mm 6fr 200mm 135cm Self Expand Catheter Guidewire .035 [id number] - [id number] Implanted:Qty: 1 on 02/12/2023 by Toi Trejo MD at [facility] Bard Peripheral Vascular 06/05/2025 [id number] / / [id number] Ta Vascular Device Clsr Perclose Prostyle Sut-Mediatd Closure-Repair Sys 66866-85 - [id number] Implanted:Qty: 1 on 02/12/2023 by Toi Trejo MD at [facility] Ta Vascular [id number] / / Ta Vascular System Closure Repair Femoral Artery Suture Mediated Perclose Prostyle 18644-31 - [id number] Implanted:Qty: 1 on 10/17/2023 by Toi Trejo MD at [facility] Ta Vascular 07/03/2025 [id number] / / [id number] Procedures Procedure Name Priority Date/Time Associated Diagnosis Comments US KATIE Schedule Routine, Read Routine (OP Routine) 06/22/2024 10:45 AM CODE CLERK Aftercare following surgery of the circulatory system US CAROTIDS DUPLEX BILATERAL Schedule Routine, Read Routine (OP Routine) 06/22/2024 10:45 AM CODE CLERK Bilateral carotid artery stenosis US ARTERIAL DUPLEX LOWER EXTREMITY LEFT LIMITED Schedule Routine, Read Routine (OP Routine) 06/22/2024 10:45 AM CODE CLERK Aftercare following surgery of the circulatory system EGFR STAT 10/17/2023 8:44 AM CDT Restenosis of arterial stent from Last 3 Months or Most Recently Relevant to Health Maintenance Results * US Carotids Duplex Bilateral (06/22/2024 10:45 AM CODE CLERK) Anatomical Region Laterality Modality Vascular Bilateral Ultrasound 06/22/2024 10:5 6 AM CODE CLERK Narrative 06/22/2024 4:06 PM CODE CLERK Carotid Duplex Ultrasound Report Patient Name: BEREKET JULIAN R : 1965 (58y 5m) Study Date: 06/22/2024 10:56:59 AM Gender: M State Tested Nursing Assistant: Gabrielle Deal Provider: TOI TREJO Quality: Adequate [...] By: Toi Trejo MD 06/22/2024 2:51:17 PM CODE CLERK Procedure Note Toi Trejo MD - 06/22/2024 Carotid Duplex Ultrasound Report Patient Name: BEREKET JULIAN R : 1965 (58y 5m) Study Date: 06/22/2024 10:56:59 AM Gender: M State Tested Nursing Assistant: Gabrielle Deal Provider: TOI TREJO Quality: Adequate [...] By: Toi Trejo MD 06/22/2024 2:51:17 PM CODE CLERK us Toi Trejo MD IMG US PROCEDURES Final Re sult * US Arterial Duplex Lower Extremity Left Limited (06/22/2024 10:45 AM CODE CLERK) Anatomical Region Laterality Modality Vascular Left Ultrasound 06/22/2024 10:1 4 AM CODE CLERK Narrative 06/22/2024 4:07 PM CODE CLERK Lower Extremity Arterial Duplex Report Patient Name: BEREKET JULIAN R : 1965 (58y 5m) Gender: M Study Date: 06/22/2024 10:14:40 AM Ht(Inch): Wt(Lb): BSA: State Tested Nursing Assistant: Gabrielle Deal Provider: TOI TREJO Quality: Adequate [...] had a previous vascular surgery on 10/17/2023 AZBA Lt pop art. The patient has a right txspu-isu-crkq amputation. History of Lt popliteal art. stent 02/12/2023. COMPARISONS: No change compared to prior study. The previous exam was completed on 12/05/2023. MEASUREMENTS: Left Value Lt EXPORT SPECIALIST Prx PSV 151.80 cm/sec Lt Profunda Prx [...] By: Toi Trejo MD 06/22/2024 2:58:04 PM CODE CLERK Procedure Note Toi Trejo MD - 06/22/2024 Lower Extremity Arterial Duplex Report Patient Name: BEREKET JULIAN R : 1965 (58y 5m) Gender: M Study Date: 06/22/2024 10:14:40 AM Ht(Inch): Wt(Lb): BSA: State Tested Nursing Assistant: Gabrielle Deal Provider: TOI TREJO Quality: Adequate [...] Lt pop art.The patient has a right pmvet-ysu-jlip amputation. History of Lt popliteal art. stent02/12/2023. COMPARISONS: No change compared to prior study. The previous exam was completed on12/05/2023. MEASUREMENTS: Left Value Lt EXPORT SPECIALIST Prx PSV 151.80 cm/sec Lt Profunda Prx [...] By: Toi Trejo MD 06/22/2024 2:58:04 PM CODE CLERK us Toi Trejo MD IMG US PROCEDURES Final Re sult * US KATIE (06/22/2024 10:45 AM CODE CLERK) Anatomical Region Laterality Modality Vascular N/A Ultrasound 06/22/2024 10:1 9 AM CODE CLERK Narrative 06/22/2024 4:06 PM CODE CLERK Lower Extremity Arterial Doppler Report Patient Name: BEREKET JULIAN R : 1965 Study Date: 06/22/2024 10:19:00 AM Gender: M State Tested Nursing Assistant: Gabrielle Deal RN/RVT Ref Provider: TOI TREJO [...] mmHg Lt Brachial Pressure 157 mmHg Lt INTENSIVE CARE UNIT REGISTERED NURSE Pressure 232 mmHg Lt DPA Pressure 238 [...] By: Toi Trejo MD 06/22/2024 2:56:29 PM CODE CLERK Procedure Note Toi Trejo MD - 06/22/2024 Lower Extremity Arterial Doppler Report Patient Name: BEREKET JULIAN R : 1965 Study Date: 06/22/2024 10:19:00 AM Gender: M State Tested Nursing Assistant: Gabrielle Deal RN/RVT Ref Provider: TOI TREJO [...] mmHg Lt Brachial Pressure 157 mmHg Lt INTENSIVE CARE UNIT REGISTERED NURSE Pressure 232 mmHg Lt DPA Pressure 238 [...] By: Toi Trejo MD 06/22/2024 2:56:29 PM CODE CLERK us Toi Trejo MD IMG US PROCEDURES [...] Final Result Performing Organization Address City/State/ZIP Co ne Phone Number CERNER MH [address] [facility] Department [place] [address] from Last 3 Months or Most Recently Relevant to Health Maintenance Insurance MEDICARE [facility] Address: [address] [address] [facility] MEDIC[facility] Care Teams Machine Hose Cutter Relationship Specialty Start Date End Date Guy Heard DO [address] [facility] [address] [facility] [place] [address] PCP - General Internal Medicine 10/07/23 Familia Monteiro MD [address] [place] [address] Referring Physician Orthopedic Surgery 08/13/18 Toi Trejo MD [address] [facility] [address] [facility] [place] [address] Surgeon Vascular Surgery 01/01/23
[2024-07-13 18:51] LABS: Hematocrit 45.6 % (42.0-52.0); Hemoglobin 14.9 g/dL (14.0-18.0); Mean Corpuscular HGB Conc 32.7 g/dl (32-36); Mean Corpuscular Hemoglobin 31.2 pg (26-34); Mean Corpuscular Volume 95.4 fl (80-100); Mean Platelet Volume 9.2 fl (7.4-10.4); Platelet Count Result 261 k/mm3 (150-375); Red Blood Count 4.78 M/mm3 (4.6-6.20); Red Cell Distribution Width 12.7 % (11.5-14.5); White Blood Count 9.5 K/mm3 (4.5-10.0)
[2024-07-13 18:56] LABS: Albumin Level 4.1 g/dL (3.5-5.1); Anion Gap 7 mmol/L (4-12); Blood Urea Nitrogen 33 mg/dL (9-20); Calcium 9.3 mg/dL (8.4-10.2); Carbon Dioxide 31 mmol/L (22-30); Chloride 101 mmol/L (98-107); Estimated Glomerular Filt Rate 56; Glucose 155 mg/dL (65-110); Phosphorus 2.9 mg/dL (2.5-4.5); Potassium 4.5 mmol/L (3.4-5.0); Sodium 139 mmol/L (137-145)
[2024-07-13 19:08] LABS: Parathyroid Intact 38.2 pg/mL (14.5-75.2)
[2024-07-13 19:55] LABS: Creatinine Urine 27.8 mg/dL; Total Protein Urine Random 58 mg/dL; Ur Ttl Prot Creatinine Ratio 2.09 mg/mg (0-0.20)
== END 2024-07-13 13:14 | disposition home or self-care (01) ==
LOC: ANHGOSHLAB 13:14
PROVIDERS: PCP Internal Medicine; Visit Provider Internal Medicine Nephrology
DX: N18.2 Chronic kidney disease, stage 2 (mild) (principal); R80.1 Persistent proteinuria, unspecified
CPT/HCPCS: 36415; 80069; 82570; 83970; 84156; 85027

== ENCOUNTER 2024-10-22 10:17 | Outpatient (NON) | payer MEDICARE, SELFPAY ==
--- OUTSIDE RECORDS SUMMARY | 2024-10-22 11:04 | XMS_ITS | Encounter Summary ---
Author Organization [facility] Address [address] [place] [address] Care Team Providers Care Morning Caregiver Name Role Phone Roxana Mosley MD Primary Care Provider + Encounter Details Date Type Department Care Team (Late st Contact Info) Description 02/02/2018 Ophth Exam [facility] [address] [place] [address] Jaret Dia MD [address] [facility] 2L DEPT OF OPHTHALMOLOGY [place], [place] Social History Tobacco Use Types Packs/Day Years Used Date Smoking Tobacco: Never Assessed Sex and Gender Information Value Date Recorded Sex Assigned at Not on file Legal Sex Male 4:22 PM CDT Gender Identity Not on file Sexual Orientation Not on file documented as of this encounter Plan of Treatment Not on file documented as of this encounter Visit Diagnoses Not on filedocumented in this encounter Care Teams Morning Caregiver Relationship Specialty Start Date End Date Roxana Mosley MD [address] [place] [address] PCP - General Family Medicine 02/02/18 documented as of this encounter
--- OUTSIDE RECORDS SUMMARY | 2024-10-22 11:04 | XMS_ITS | Clinical Summary ---
Author Organization [facility] Address [address] [place] [address] Phone Care Team Providers Care Archives Technician Name Role Phone Roxana Mosley MD Primary Care Provider [phone] Allergies No known active allergies Medications carvedilol (COREG) 25 MG tablet 1 bid 0 7 Active rosuvastatin (CRESTOR) 10 MG tablet 1 daily 0 8 Active aspirin (ASPIR-LOW) 81 MG EC tablet 1 daily 0 8 Active cilostazol (PLETAL) 100 MG tablet 1bid 0 8 Active acetaminophen-c odeine (TYLENOL/CODEIN E #4) 300-60 MG per tablet 1prn pain 0 7 Active insulin aspart (NOVOLOG) 100 UNIT/ML injection for pump 0 8 Active omega-3 (FISH OIL) 1000 MG capsule 1 daily 0 8 Active CONTOUR NEXT TEST test strip TEST BLOOD 6 TIMES DAILY 0 Active Continuous Blood Gluc Director Pharmacovigilance (Dexcom G6 Director Pharmacovigilance) device USE TO CHECK BLOOD SUGAR 1 Active Continuous Blood Gluc Sensor (Dexcom G6 Sensor) misc REPLACE SENSOR EVERY 10 DAYS 1 Active Continuous Blood Gluc Transmit (Dexcom G6 Transmitter) misc REPLACE TRANSMITTER EVERY 90 DAYS 1 Active clopidogrel (PLAVIX) 75 MG tablet Take 75 mg by mouth 1 (one) time each day 1 Active irbesartan (AVAPRO) 300 MG tablet Take 300 mg by mouth 1 (one) time each day 1 Active amLODIPine (NORVASC) 5 MG tablet Take 2.5 mg by mouth every night Half of a 5 daily 2 Active saccharomyces boulardii (FLORASTOR) 250 MG capsule Take 250 mg by mouth 2 (two) times a day Active hydroCHLOROthia zide (HYDRODIURIL) 25 MG tablet TAKE 1 TABLET BY MOUTH EVERY DAY 90 tablet 3 2 Active Active Problems Problem Noted Date Diagnosed [...] to meet with his surgeons and the [facility] wound [facility] this Saturday and will call the office to let us know how he wishes to proceed. Type 2 diabetes mellitus without complication Stage 3a chronic kidney disease 12/10/2016 Atherosclerotic heart diseas e of pauma coronary artery without angina pectoris 12/10/2016 Other and unspecified hyperlipidemia 12/10/2016 Overview (07/19/2018): Converted unresolved ICD9, potential mismatch. Immunizations Immunization Administration Dates Next Due Influenza TIV (IM) [...] at Not on file Legal Sex Male 9:40 AM MST Gender Identity Not on file Sexual Orientation [...] 10:05 AM CDT Height 193 cm (6' 4) 01/10/2022 10:05 AM CDT Body Mass Index 33.35 01/10/2022 10:05 AM CDT Plan of Treatment Health Maintenance Due Date Last Done Comments COVID-19 Vaccine ( season) 01/05/202412/2020, 07/21/2020 Influenza Vaccine (Season Ended) 2025 05/14/19, 12/20/2016 Insurance MEDICARE AET Care Teams Archives Technician Relationship Specialty Start Date End Date Roxana Mosley MD [address] [facility] [address] [facility] [address] [place] [address] PCP - General Internal Medicine 10/22/18
--- OUTSIDE RECORDS SUMMARY | 2024-10-22 11:04 | XMS_ITS | Clinical Summary ---
Author Organization [facility] Address [address] [place] [address] Care Team Providers Care Truck Bracer Name Role Phone Roxana Mosley MD Primary Care Provider + Source Comments [facility],non-owned Affiliates and Associated Physician Practices is amultiple site organization consisting of ambulatory clinics and hospital sitesin [place], [place] and [place]. This disclosure is being madepursuant to the Care Everywhere program and may not contain all information available regarding this patient. Last updated 18.[facility] Allergies No known active allergies Medications * Be aware that medications may not be up to date on this document. Alwaysverify current medications with the patient. oxymetazoline (AFRIN) 0.05 % nasal spray Randolph 1 spray into each nostril 2 times [...] tablet by mouth once daily 02/22/2018 Active acetaminophen-c odeine (TYLENOL #4) 300-60 MG tablet Take 1 tablet by mouth every 8 hours as needed 1 02/18/2018 Active rosuvastatin (CRESTOR) 10 MG tablet Take 10 mg by mouth once daily 3 12/03/2017 Active Active Problems Problem Noted Date Diagnosed Date Orbital fracture, with seun ne healing, subsequent encounter 03/14/2018 Social History [...] 4:31 PM CDT Height 193 cm (6' 4) 02/02/2018 4:31 PM CDT Body Mass Index [...] VACCINE ( - 2023-2 5 season) 2024 DEPRESSION SCREENING 05/06/2024 INFLUENZA VACCINE (Season Ended) 2025 Respiratory Syncytial Virus (RSV) Vaccine Pt: or [...] to complete this topic MENINGOCOCCAL (Group B) VACC INE SHARED DECISION-MAKING Aged Out No longer eligibl e based on patient's age to complete this topic MENINGOCOCCAL GROUPS A/C/Y/W VACCINE Aged Out No longer eligible b ased on patient's age to complete this topic Insurance MEDICARE AETNA AETNA MEDICARE AETNA SELF PAY NO INSURANCE Member Subscriber Plan / Payer (Ef fective for All Dates) Name:Bereket Julian Member ID:Not on file Relation to Subscriber:Not on file Name:BEREKET JULIAN Subscriber ID:Not on file (Home) Address: [address] [place] [id number] Payer ID:Not on file Group ID:Not on file Type:Self Pay Address: [place], [place] Care Teams Truck Bracer Relationship Specialty Start Date End Date Roxana Mosley MD [address] [place] [address] PCP - General Family Medicine 02/02/18
--- OUTSIDE RECORDS SUMMARY | 2024-10-22 11:04 | XMS_ITS | CONTINUITY OF CARE DOCUMENT ---
Author Name mychal horta Address Unknown Organization [facility] Address [address] [place] [address] Phone [phone] Care Team Providers Care Electron Beam Machine Welder Setter Name Role Phone Hipolito Cain MD Unavailable [phone] Hipolito Cain MD Unavailable Hipolito Cain MD Unavailable INSURANCE PROVIDERS Payer name Policy type / Coverage type [place] [employer] ID [id number] PAY
--- OUTSIDE RECORDS SUMMARY | 2024-10-22 11:04 | XMS_ITS | Clinical Summary ---
Author Organization [facility] Address [address] [place] [address] Care Team Providers Care Agriscience Instructor Name Role Phone Familia Monteiro MD Unavailable [phone] Kendell Trejo MD Unavailable [phone] Guy Heard DO Primary Care Provider [phone] Allergies No known active allergies Medications acetaminophen-co [...] (25 mg total) by mouth daily Active doxazosin [...] EVERY DAY 90 tablet 3 4 Active clopidogreL (PLAVIX) 75 mg tablet TAKE 1 TABLET BY MOUTH EVERY DAY 90 tablet 3 5 Active cholecalciferol (VITAMIN D-3) 5,000 unit tablet Active magnesium glycinate 100 mg tablet Take by mouth Active multivitamin-min erals-lutein tablet Take by mouth Active Active Problems Problem Noted Date Diagnosed Date Bleeding from the nose 08/13/2024 Deviated nasal septum 08/13/2024 Chronic anticoagulation 08/13/2024 Atherosclerosis of [place] ar domitila of left lower extremity with intermittent claudication 11/11/2023 Assessment & Plan (06/25/2024 2:24 PM IN FILE OPERATOR): Continues do well status post recent intervention [...] Impression: Patient has a history of right iguwn-qso-izii amputation utilizing a prosthesis without any complications. [...] proceed. Assessment & Plan (04/05/2023 12:44 PM IN FILE OPERATOR): Patient continues to do well. Current duplex [...] to meet with his surgeons and the [place] wound clinic this Saturday and will call the office to let us know how he wishes to proceed. Orbital fracture, with seun meyer healing, subsequent encounter 03/14/2018 Atherosclerotic heart diseas e of [place] coronary artery without angina pectoris 12/10/2016 Chronic [...] Encounters Date Type Department Care Team Description 08/13/2024 3:00 PM CDT Office Visit [facility] Otolaryngology [address] [place] [address] Vinod Gray II, MD Deviated nasal septum (Primary Dx); Bleeding from the nose; Chronic anticoagulation 07/27/2024 Orders Only [facility] Vascular and Vein Surgery [address] [facility] [address] [place] [address] Brenda Mariee PA Bleeding from the nose (Primary Dx) 07/27/2024 Telephone [facility] Cardiology [address] [facility] [address] [place] [address] Kendell Trejo MD from Last 3 Months Immunizations Immunization Administration [...] artery disease Diabetes mellitus (HCC) Hypertension Hyperlipidemia Nosebleed Family History Medical History Relation Name Comments [...] on file Legal Sex Male 11:29 AM IN FILE OPERATOR Gender Identity Not on file Sexual Orientation Not on file Obstetrics History Last Filed Vital Signs Vital Sign Reading Time Taken Comments Blood Pressure 167/97 06/25/2024 8:46 AM IN FILE OPERATOR Pulse 73 06/25/2024 8:46 AM IN FILE OPERATOR Temperature 36.8 C (98.2 F) 10/17/2023 12:20 PM CDT Respiratory Rate 18 08/13/2024 3:10 PM CDT Oxygen Saturation 96% 10/17/2023 1:50 PM CDT Inhaled Oxygen Concentration - - Weight 124.7 kg (275 lb) 08/13/2024 3:10 PM CDT Height 193 cm (6' 4) 08/13/2024 3:10 PM CDT Body Mass Index 33.47 08/13/2024 3:10 PM CDT Plan of Treatment Health Maintenance [...] 2024 04/10/2021, 08/11/2020, 08/11/2020, Additional history exists eGFR 10/16/2024 10/17/2023, 02/12/2023 Influenza Vaccine (Season Ended) 2025 03/14/2022, 02/16/2020, 05/14/2019, Additional history exists DTaP/Tdap/Td Vaccine (2 - Td or Tdap) 12/20/2026 12/20/2016 Zoster Vaccine Completed 08/30/2022, 03/23/2022 Medical Devices Implanted Type Area Side Guider Device Identifier Shelf Expiration Date Model / Serial / Lot Bard Peripheral Vascular Lifestent 6mm 6fr 200mm 135cm Self Expand Catheter Guidewire .035 [id number] - [id number] Implanted:Qty: 1 on 02/12/2023 by Kendell Trejo MD at [facility] Bard Peripheral Vascular 06/05/2025 [id number] / / [id number] Ta Vascular Device Clsr Perclose Prostyle Sut-Mediatd Closure-Repair Sys 78582-90 - [id number] Implanted:Qty: 1 on 02/12/2023 by Kendell Trejo MD at [facility] [employer] Vascular [id number] / / Ta Vascular System Closure Repair Femoral Artery Suture Mediated Perclose Prostyle 12118-27 - [id number] Implanted:Qty: 1 on 10/17/2023 by Kendell Trejo MD at [facility] [employer] 07/03/2025 [id number] / / [id number] Procedures Procedure Name Priority Date/Time Associated Diagnosis Comments EGFR STAT 10/17/2023 8:44 AM CDT Restenosis of arterial stent from Last 3 Months or Most Recently Relevant to Health Maintenance Results * eGFR (10/17/2023 8:44 AM CDT) eGFR [...] of Race in Diagnosing Kidney Disease, JASN 2020). The CKD-EPI equation should not be used for patients with unstable renal function and has not been validated in children and those over 70. Current interpretive data was last reviewed 2021. Blood 10/17/2023 8:44 AM CDT 10/17/2023 8:47 AM CDT us Kendell Trejo MD LAB BLOOD ORDERABLES Final Result [facility] [address] [facility] Department [place] [address] from Last 3 Months or Most Recently Relevant to Health Maintenance Insurance MEDICARE [facility] AETNA SENIOR SUPPLEMENT Care Teams Agriscience Instructor Relationship Specialty Start Date End Date Guy Heard DO [address] [place] [address] [place] [address] PCP - General Internal Medicine 10/07/23 Familia Monteiro MD [address] [facility] [address] [place] [address] Referring Physician Orthopedic Surgery 08/13/18 Kendell Trejo MD [address] [place] [address] [place] [address] Surgeon Vascular Surgery 01/01/23
--- OUTSIDE RECORDS SUMMARY | 2024-10-22 11:04 | XMS_ITS | Referral Summary ---
Author Organization [facility] Address [address] [place] [address] Care Team Providers Care Vmware Consultant Name Role Phone Familia Monteiro MD Unavailable [phone] Kendell Trejo MD Unavailable [phone] Guy Heard DO Primary Care Provider [phone] Encounters Date Type Department Care Team Description 08/13/2024 3:00 PM CDT Office Visit [facility] Otolaryngology [address] [place] [address] Vinod Gray II, MD Deviated nasal septum (Primary Dx); Bleeding from the nose; Chronic anticoagulation 07/27/2024 Orders Only [facility] Vascular and Vein Surgery [address] [place] [address] [address] [place] [address] Brenda Mariee PA Bleeding from the nose (Primary Dx) 07/27/2024 Telephone [facility] Cardiology [address] [place] [address] [address] [place] [address] Kenedll Trejo MD from Last 3 Months Allergies No known [...] septum 08/13/2024 Chronic anticoagulation 08/13/2024 Atherosclerosis of [place] ar domitila of left lower extremity with intermittent claudication 11/11/2023 Assessment & Plan (06/25/2024 2:24 PM SLURRY MAN): Continues do well status post recent intervention [...] 10/03/2023 History of right below knee amputation Assessment & Plan (11/11/2023 11:06 AM CDT): Impression: Patient has a history of right rbrym-jhj-wggt amputation utilizing a prosthesis without any complications. [...] proceed. Assessment & Plan (04/05/2023 12:44 PM SLURRY MAN): Patient continues to do well. Current duplex [...] to meet with his surgeons and the [place] wound clinic this Saturday and will call the office to let us know how he wishes to proceed. Orbital fracture, with routi ne healing, subsequent encounter 03/14/2018 Atherosclerotic heart diseas e of [place] coronary artery without angina pectoris 12/10/2016 Chronic [...] on file Legal Sex Male 11:29 AM SLURRY MAN Gender Identity Not on file Sexual Orientation Not on file Last Filed Vital Signs Vital Sign Reading Time Taken Comments Blood Pressure 167/97 06/25/2024 8:46 AM SLURRY MAN Pulse 73 06/25/2024 8:46 AM SLURRY MAN Temperature 36.8 C (98.2 F) 10/17/2023 12:20 PM CDT Respiratory Rate 18 08/13/2024 3:10 PM CDT Oxygen Saturation 96% 10/17/2023 1:50 PM CDT Inhaled Oxygen Concentration - - Weight 124.7 kg (275 lb) 08/13/2024 3:10 PM CDT Height 193 cm (6' 4) 08/13/2024 3:10 PM CDT Body Mass Index 33.47 08/13/2024 3:10 PM CDT Plan of Treatment Not on file Medical Devices Implanted Type Area Screen Stretcher Device Identifier Shelf Expiration Date Model / Serial / Lot Bard Peripheral Vascular Lifestent 6mm 6fr 200mm 135cm Self Expand Catheter Guidewire .035 [id number] - [id number] Implanted:Qty: 1 on 02/12/2023 by Kendell Trejo MD at [facility] [employer] Peripheral Vascular 06/05/2025 [id number] / / [id number] Ta Vascular Device Clsr Perclose Prostyle Sut-Mediatd Closure-Repair Sys 88781-83 - [id number] Implanted:Qty: 1 on 02/12/2023 by Kendell Trejo MD at [facility] [employer] [id number] / / Ta Vascular System Closure Repair Femoral Artery Suture Mediated Perclose Prostyle 36211-57 - [id number] Implanted:Qty: 1 on 10/17/2023 by Kendell Trejo MD at [facility] [employer] 07/03/2025 [id number] / / [id number] Procedures Procedure Name Priority Date/Time Associated Diagnosis [...] Trejo MD LAB BLOOD ORDERABLES Final Result [facility] [address] [facility] Department of Laboratories [place], [place] [id number] from Last 3 Months or Most Recently Relevant to Health Maintenance Insurance MEDICARE [facility] AETNA SENIOR SUPPLEMENT [place] [id number] Care Teams Vmware Consultant Relationship Specialty Start Date End Date Guy Heard DO [address] [facility] [address] [place] [address] [place] [address] PCP - General Internal Medicine 10/07/23 Familia Monteiro MD [address] [facility] [address] [facility] [address] [place] [address] Referring Physician Orthopedic Surgery 08/13/18 Kendell Trejo MD [address] [facility] [address] [place] [address] [place] [address] Surgeon Vascular Surgery 01/01/23
[2024-10-23 19:02] LABS: Total Volume 24 Hour Urine 3000 ml
[2024-10-23 19:03] LABS: Total Volume 24 Hour Urine 3000 ml
[2024-10-23 19:07] LABS: Total Protein Urine 24 Hr 1170 mg/24hr (28-141); Total Protein Urine Random 39 mg/dL
[2024-10-23 19:31] LABS: Specific Gravity Ur 1.015
== END 2024-10-22 10:18 | disposition home or self-care (01) ==
PROVIDERS: Visit Provider Internal Medicine Nephrology
DX: R80.1 Persistent proteinuria, unspecified (principal)
CPT/HCPCS: 81050; 84156; 84540

== ENCOUNTER 2025-01-05 11:14 | Outpatient (CLI) | payer MEDICARE, SELFPAY ==
--- OUTSIDE RECORDS SUMMARY | 2025-01-05 11:44 | XMS_ITS | Clinical Summary ---
Author Organization [facility] Address [address] [place] [address] Care Team Providers Care Hot Shot Name Role Phone Unavailable Primary Care Provider [...] Td Vaccines ( 1 - Tdap) 12/27/1982 Pneumococcal Vaccine: 50+ Ye ars (1 of 1 - PCV) 12/27/2013 Zoster Vaccines (1 of 2) 12/27/2013 COVID-19 Vaccine (1 - 2023-2 5 season) 2025 RSV Immunization or 60+ Years (1 - [...]
--- OUTSIDE RECORDS SUMMARY | 2025-01-05 11:44 | XMS_ITS | Encounter Summary ---
Author Organization [facility] Address [address] [place] [address] Care Team Providers Care Angular Developer Name Role Phone Roxana Mosley MD Primary Care Provider + Encounter Details Date Type Department Care Team (Late st Contact Info) Description 02/02/2018 Ophth Exam [facility] [address] [place] [address] Jaret Dia MD [address] [facility] [address] DEPT OF OPHTHALMOLOGY [place], [place] Social History Tobacco Use Types Packs/Day [...] on filedocumented in this encounter Care Teams Angular Developer Relationship Specialty Start Date End Date Roxana Mosley MD [address] [place] [address] PCP - General Family Medicine 02/02/18 documented as of this encounter
--- OUTSIDE RECORDS SUMMARY | 2025-01-05 11:44 | XMS_ITS | Clinical Summary ---
Author Organization [facility] Address [address] [place] [address] Care Team Providers Care Printing Press Operator Name Role Phone Roxana Mosley MD Primary Care Provider + Source Comments [facility],non-owned Affiliates and Associated Physician Practices is amultiple site organization consisting of ambulatory clinics and hospital sitesin [place], [place], [place] and [place]. This disclosure is being madepursuant to the Care Everywhere program and may not contain all information available regarding this patient. Last updated 18.[facility] Allergies No known active allergies Medications * Be aware that medications may not be up to date on this document. Alwaysverify current medications with the patient. oxymetazoline (AFRIN) 0.05 % nasal spray [place] 1 spray into each nostril 2 times [...] season) 2024 DEPRESSION SCREENING 05/06/2024 INFLUENZA VACCINE (#1) 2025 Respiratory Syncytial Virus (RSV) Vaccine Pt: [...] JULIAN Subscriber ID:Not on file (Home) Address: [address] [place] [id number] Payer ID:Not on file Group ID:Not on file Type:Self Pay Address: [place], [place] Care Teams Printing Press Operator Relationship Specialty Start Date End Date Roxana Mosley MD [address] [place] [address] PCP - General Family Medicine 02/02/18
--- OUTSIDE RECORDS SUMMARY | 2025-01-05 11:44 | XMS_ITS | Clinical Summary ---
Author Organization [facility] Address [address] [place] [address] Phone Care Team Providers Care Webbing Weaver Name Role Phone Roxana Mosley MD Primary Care Provider [phone] Allergies No known active allergies Medications carvedilol [...] TIMES DAILY 0 Active Continuous Blood Gluc Big Data Platform Architect (Dexcom G6 Big Data Platform Architect) device USE TO CHECK BLOOD SUGAR 1 [...] to meet with his surgeons and the [facility] wound [facility] this Saturday and will call the office to let us know how he wishes to proceed. Type 2 diabetes mellitus without complication Stage 3a chronic kidney disease 12/10/2016 Atherosclerotic heart diseas e of [place] coronary artery without angina pectoris 12/10/2016 Other [...] Vaccine ( season) 01/05/202412/2020, 07/21/2020 Influenza Vaccine (#1) 2025 05/14/2019, 2016 Insurance MEDICARE AET Care Teams Webbing Weaver Relationship Specialty Start Date End Date Roxana Mosley MD [address] [facility] [address] [facility] [address] [place] [address] PCP - General Internal Medicine 10/22/18
--- OUTSIDE RECORDS SUMMARY | 2025-01-05 11:45 | XMS_ITS | Clinical Summary ---
Author Organization [facility] at the [facility] Office Center Address [address] [place] [address] Care Team Providers Care Proposal Analyst Name Role Phone Familia Monteiro MD Unavailable [phone] Kendell Trejo MD Unavailable [phone] Guy Heard DO Primary Care Provider [phone] Allergies No known active allergies Medications carvedilol (COREG) 25 mg tablet TAKE 1 [...] Active Problems Problem Noted Date Diagnosed Date Tinnitus of both ears 11/12/2024 Sensorineural hearing loss ( SNHL) of right ear with unrestricted hearing of left ear 11/12/2024 Epistaxis 10/26/2024 Bleeding from the nose 08/13/2024 Deviated nasal septum 08/13/2024 Chronic anticoagulation 08/13/2024 Atherosclerosis of [place] ar domitila of left lower extremity with intermittent claudication 11/11/2023 Assessment & Plan (06/25/2024 2:24 PM CUTTING TABLE OPERATOR): Continues do well status post recent [...] Impression: Patient has a history of right mdasd-kps-sgbx amputation utilizing a prosthesis without any complications. [...] proceed. Assessment & Plan (04/05/2023 12:44 PM CUTTING TABLE OPERATOR): Patient continues to do well. Current [...] to meet with his surgeons and the [facility] this Saturday and will call the office to let us know how he wishes to proceed. Orbital fracture, with seun meyer healing, subsequent encounter 03/14/2018 Atherosclerotic heart diseas e of [place] coronary artery without angina pectoris 12/10/2016 Chronic [...] Encounters Date Type Department Care Team Description 12/25/2024 Orders Only [facility] Vascular and Vein Surgery [address] [place] [phone] Kendell Trejo MD 12/24/2024 11:00 AM CDT Office Visit [facility] Vascular and Vein Surgery [address] [place] [phone] Kendell Trejo MD Aftercare following surgery of the circulatory system (Primary Dx) 12/24/2024 9:58 AM CDT - 12/24/2024 11:59 PM CDT Hospital Encounter [facility] Medical Office Building [address] [place] [id number] Atherosclerosis of [place] artery of left lower extremity with intermittent claudication Discharge Disposition: Discharge to home or self care 12/24/2024 9:57 AM CDT - 12/24/2024 11:59 PM CDT Hospital Encounter [facility] Medical Office Building [address] [place] [address] Aftercare following surgery of the circulatory system Discharge Disposition: Discharge to home or self care 12/23/2024 Orders Only [facility] Vascular and Vein Surgery [address] [place] [phone] Kendell Trejo MD Atherosclerosis of [place] artery of left lower extremity with intermittent claudication (Primary Dx) 12/22/2024 Telephone [facility] [address] [place] [phone] Alesha Garcia, LATOYA Test Results (MRI with IAC's) 12/21/2024 2:29 PM CDT - 12/21/2024 11:59 PM CDT Hospital Encounter [facility] MRI [address] [place] [address] Tinnitus, unspecified laterality Discharge Disposition: Discharge to home or self care 11/13/2024 Telephone [facility] [address] [place] [phone] Jillian Alva 11/12/2024 2:00 PM CDT Office Visit [facility] [address] [place] [phone] Alesha Garcia NP Tinnitus of both ears (Primary Dx); Sensorineural hearing loss (SNHL) of right ear with unrestricted hearing of left ear 11/12/2024 1:30 PM CDT Procedure visit [facility] [address] [place] [phone] Ana Flynn Au.D. 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 Gender Identity Not on file Sexual Orientation Not on file Obstetrics History Last Filed Vital Signs Vital Sign [place] Time Taken Comments Blood Pressure 177/90 12/24/2024 11:16 AM CDT Pulse 77 12/24/2024 11:16 AM CDT Temperature 36.8 C (98.2 F) 10/17/2023 12:20 PM CDT Respiratory Rate 18 11/12/2024 2:00 PM CDT Oxygen Saturation 96% 10/17/2023 1:50 PM CDT Inhaled Oxygen Concentration - - Weight 124.7 kg (275 lb) 12/24/2024 11:16 AM CDT Height 193 cm (6' 4) 12/24/2024 11:16 AM CDT Body Mass Index 33.47 12/24/2024 11:16 AM CDT Plan of Treatment Health Maintenance Due Date Last Done Comments Albumin Creatinine Ratio, Urine 1965 Colon Cancer Screening-Colonoscopy 1965 Depression Screening 1965 Hemoglobin A1C 1965 Hepatitis C Screening 1965 Prostate Cancer Screening-PSA 1965 Dilated Eye Exam 1965 Foot Exam 1965 Lipid Panel 1965 Hepatitis B Screening 12/27/1981 Regular Well Visit/Exam 18-64 12/27/1981 Pneumococcal vaccine <65 (2 of 2 - PCV) 03/07/2021 03/07/2020, 02/18/2018 eGFR 10/16/2024 10/17/2023, 02/12/2023 Covid-19 Vaccine (6 - 2024-2 6 season) 2025 04/10/2021, 08/11/2020, 08/11/2020, Additional history exists Influenza Vaccine (#1) 2025 , 03/14/2022, 03/13/2022, Additional history exists DTaP/Tdap/Td Vaccine (2 - Td or Tdap) 12/20/2026 12/20/2016 Zoster Vaccine Completed 08/30/2022, 03/06, 02/20/2022 Medical Devices Implanted Type Area Civil Attorney Device Identifier Shelf Expiration Date Model / Serial / Lot Bard Peripheral Vascular Lifestent 6mm 6fr 200mm 135cm Self Expand Catheter Guidewire .035 [id number] - [id number] Implanted:Qty: 1 on 02/12/2023 by Kendell Trejo MD at [facility] [employer] Peripheral Vascular 06/05/2025 [id number] / / [id number] Ta Vascular Device Clsr Perclose Prostyle Sut-Mediatd Closure-Repair Sys 54239-13 - [id number] Implanted:Qty: 1 on 02/12/2023 by Kendell Trejo MD at [facility] Ta Vascular [id number] / / Ta Vascular System Closure Repair Femoral Artery Suture Mediated Perclose Prostyle 61709-19 - [id number] Implanted:Qty: 1 on 10/17/2023 by Kendell Trejo MD at [facility] [employer] V[employer] 07/03/2025 [id number] / / [id number] Procedures Procedure Name Priority Date/Time Associated Diagnosis Comments US KATIE Schedule Routine, Read Routine (OP Routine) 12/24/2024 11:27 AM CDT Atherosclerosis of [place] artery of left lower extremity with intermittent claudication US ARTERIAL DUPLEX LOWER EXTREMITY LEFT LIMITED Schedule Routine, Read Routine (OP Routine) 12/24/2024 11:27 AM CDT Aftercare following surgery of the circulatory system MRI INTERNAL AUDITORY CANAL INCL BRAIN W WO CONTRAST Schedule Routine, Read Routine (OP Routine) 12/21/2024 3:52 PM CDT Tinnitus, unspecified laterality EGFR STAT 10/17/2023 8:44 AM CDT Restenosis of arterial stent from Last 3 Months or Most Recently Relevant to Health Maintenance Results * US KATIE (12/24/2024 11:27 AM CDT) Anatomical Region Laterality Modality Vascular N/A Ultrasound 12/24/2024 10:2 1 AM CDT Narrative 12/25/2024 8:49 AM CDT Lower Extremity Arterial Doppler Report Patient Name: MATT JULIANSue : 1965 Study Date: 12/24/2024 10:21:00 AM Gender: M School Commissioner: DARRON Morataya Ref Provider: KENDELL TREJO Quality: Adequate Order Provider: KENDELL TREJO PROCEDURES: Arterial Report: Ankle - Brachial Index Doppler exam. INDICATIONS: I70.212 Atherosclerosis of [place] arteries of extremities with intermittent claudication, left leg. HISTORY: Previous vascular surgery on 10-17-2023 DCBA left Popliteal Artery. Left Popliteal Artery Stent 02-12-2023. Right leg below knee amputation. COMPARISONS: No prior exams. The previous exam was completed on 06-22-2024. MEASUREMENTS: Right Value Left Value Rt Brachial Pressure 138 mmHg Lt Brachial Pressure 140 mmHg Lt WIREWORKER SUPERVISOR Pressure 240 mmHg Lt DPA Pressure 240 mmHg Lt 1st Digit Pressure 131 mmHg Lt Digit 1/Arm Index 0.94 FINDINGS: Right Posterior Tibial Artery Analysis: The posterior tibial waveform is triphasic. Right Dorsalis Pedis Artery Analysis: The dorsalis pedis waveform is triphasic. Right Digits: Normal right digit pressure and waveform. - CONCLUSIONS: 1. Ankle-brachial index of >1.3 is non-compressible which is consistent with arterial calcifications, thus the ankle/brachial index is not obtainable in the bilateral lower extremities. 2. Multiphasic dorsalis pedis and posterior tibial waveforms suggesting no significant stenosis. ATTESTATION: I have reviewed and interpreted the pertinent images and measurements of this study. I attest to the conclusions in the final report that is provided above. Electronically Signed By: Tyler Trejo MD 12/25/2024 8:36:06 AM CDT Procedure Note Tyler Trejo MD - 12/25/2024 Lower Extremity Arterial Doppler Report Patient Name: MATT JULIAN R : 1965 Study Date: 12/24/2024 10:21:00 AM Gender: M School Commissioner: CODY MoratayaS Ref Provider: KENDELL TREJO Quality: Adequate Order Provider: KENDELL TREJO PROCEDURES: Arterial Report: Ankle - Brachial Index Doppler exam. INDICATIONS: I70.212 Atherosclerosis of [place] arteries of extremities withintermittent claudication, left leg. HISTORY: Previous vascular surgery on 10-17-2023 DCBA left Popliteal Artery. Left Popliteal Artery Stent 02-12-2023. Right leg below knee amputation. COMPARISONS: No prior exams. The previous exam was completed on 06-22-2024. MEASUREMENTS: Right Value Left Value Rt Brachial Pressure 138 mmHg Lt Brachial Pressure 140 mmHg Lt WIREWORKER SUPERVISOR Pressure 240 mmHg Lt DPA Pressure 240 mmHg Lt 1st Digit Pressure 131 mmHg Lt Digit 1/Arm Index 0.94 FINDINGS: Right Posterior Tibial Artery Analysis: The posterior tibial waveform is triphasic. Right Dorsalis Pedis Artery Analysis: The dorsalis pedis waveform is triphasic. Right Digits: Normal right digit pressure and waveform. - CONCLUSIONS: 1. Ankle-brachial index of >1.3 is non-compressible which is consistentwith arterial calcifications, thus the ankle/brachial index is not obtainable in thebilateral lower extremities. 2. Multiphasic dorsalis pedis and posterior tibial waveforms suggesting nosignificant stenosis. ATTESTATION: I have reviewed and interpreted the pertinent images and measurements ofthis study. I attest to the conclusions in the final report that is provided above. Electronically Signed By: Tyler Trejo MD 12/25/2024 8:36:06 AM CDT us Kendell Trejo MD IMG US PROCEDURES Final Re sult * US Arterial Duplex Lower Extremity Left Limited (12/24/2024 11:27 AM CDT) Anatomical Region Laterality Modality Vascular Left Ultrasound 12/24/2024 10:3 7 AM CDT Narrative 12/25/2024 8:49 AM CDT Lower Extremity Arterial Duplex Report Patient Name: MATT JULIAN R : 1965 (58y 11m) Gender: M Study Date: 12/24/2024 10:37:44 AM Ht(Inch): Wt(Lb): BSA: School Commissioner: DARRON Morataya Order Provider: KENDELL TREJO Quality: Adequate Ref Provider: KENDELL TREJO PROCEDURES: Arterial Report: A non-invasive vascular imaging study of the left lower extremity arteries was performed using B-mode ultrasound, color flow, and spectral Doppler. A non-invasive vascular imaging study of the left lower extremity arteries and stent was performed using B-mode ultrasound, color flow, and spectral Doppler. INDICATIONS: Z48.812 Encounter for surgical aftercare following surgery on the circulatory system. HISTORY: Previous vascular surgery on 10-17-2023 DCBA Left Popliteal Artery. The patient has a right vtmjd-yrp-bqmj amputation. Left Popliteal Artery Stent 02-12-2023. COMPARISONS: No change compared to prior study. The previous exam was completed on 06-22-2024. MEASUREMENTS: Left Value Lt AUTOMOBILE ASSEMBLY SUPERVISOR Dst PSV 139.63 cm/sec Lt Profunda Prx PSV 113.47 cm/sec Lt SFA Prx PSV 101.12 cm/sec Lt SFA Mid PSV 65.69 cm/sec Lt SFA Dst PSV 66.21 cm/sec Lt Pop Prx PSV 162.10 cm/sec Lt Pop Dst PSV 107.25 cm/sec STENTS: Left Value Location Popliteal Artery Lt Stent Prx [place] PSV 107.50 cm/sec Lt Stent Prx PSV 162.10 cm/sec Lt Stent Mid PSV 89.58 cm/sec Lt Stent Dst PSV 107.25 cm/sec Lt Stent Dst [place] PSV 99.02 cm/sec FINDINGS: CONCLUSION: 1. Left popliteal artery stent is widely patent. No evidence of stenosis of the left lower extremity. ATTESTATION: I have reviewed and interpreted the pertinent images and measurements of this study. I attest to the conclusions in the final report that is provided above. Electronically Signed By: Tyler Trejo MD 12/25/2024 8:36:33 AM CDT Procedure Note Tyler Trejo MD - 12/25/2024 Lower Extremity Arterial Duplex Report Patient Name: MATT JULIAN R : 1965 (58y 11m) Gender: M Study Date: 12/24/2024 10:37:44 AM Ht(Inch): Wt(Lb): BSA: School Commissioner: DARRON Morataya Order Provider: KENDELL TREJO Quality: Adequate Ref Provider: KENDELL TREJO PROCEDURES: Arterial Report: A non-invasive vascular imaging study of the left lowerextremity arteries was performed using B-mode ultrasound, color flow, and spectralDoppler. A non-invasive vascular imaging study of the left lower extremity arteriesand stent was performed using B-mode ultrasound, color flow, and spectral Doppler. INDICATIONS: Z48.812 Encounter for surgical aftercare following surgery on [email or web address] system. HISTORY: Previous vascular surgery on 10-17-2023 DCBA Left Popliteal Artery. Thepatient has a right nbtnv-bvx-csmf amputation. Left Popliteal Artery Stent 02-12-2023. COMPARISONS: No change compared to prior study. The previous exam was completed [id number]. MEASUREMENTS: Left Value Lt AUTOMOBILE ASSEMBLY SUPERVISOR Dst PSV 139.63 cm/sec Lt Profunda Prx PSV 113.47 cm/sec Lt SFA Prx PSV 101.12 cm/sec Lt SFA Mid PSV 65.69 cm/sec Lt SFA Dst PSV 66.21 cm/sec Lt Pop Prx PSV 162.10 cm/sec Lt Pop Dst PSV 107.25 cm/sec STENTS: Left Value Location Popliteal Artery Lt Stent Prx [place] PSV 107.50 cm/sec Lt Stent Prx PSV 162.10 cm/sec Lt Stent Mid PSV 89.58 cm/sec Lt Stent Dst PSV 107.25 cm/sec Lt Stent Dst Ho-Chunk PSV 99.02 cm/sec FINDINGS: CONCLUSION: 1. Left popliteal artery stent is widely patent. No evidence of stenosisof the left lower extremity. ATTESTATION: I have reviewed and interpreted the pertinent images and measurements ofthis study. I attest to the conclusions in the final report that is provided above. Electronically Signed By: Tyler Trejo MD 12/25/2024 8:36:33 AM CDT us Kendell Trejo MD IMG US PROCEDURES Final Re sult * MRI Internal Auditory Canal Brain W WO Contrast (12/21/2024 3:52 PM CDT) Anatomical Region Laterality Modality Head and Neck N/A Magnetic Resonan ce 12/22/2024 10:4 2 AM CDT Narrative 12/22/2024 10:46 AM CDT EXAM DESCRIPTION: MRI BRAIN WITHOUT AND WITH CONTRAST (IAC PROTOCOL) REASON FOR STUDY: Unspecified type right-sided hearing loss and tinnitus of unspecified duration. No provided history of trauma or inciting and/or aggravating events. No provided past medical history. No head or neck surgeries. TECHNIQUE: Multiplanar imaging includes non-contrasted T1, T2, FLAIR, gradient echo/susceptibility-weighted images, diffusion with ADC map and post gadolinium contrast sequences. Additional thin slice images with and without gadolinium contrast acquired in the posterior fossa. Images stored on PACS. Patient motion artifact variably spanning multiple sequences compromises evaluation. CONTRAST TYPE/DOSE: 20 mL Dotarem injected via peripheral IV site without reported incident. COMPARISON: No prior neuro imaging available at time of interpretation. FINDINGS: IAC's: No vestibular schwannoma. Normal cerebellopontine angles. CEREBRUM: No acute intra-axial hemorrhage. No edema, mass effect, midline shift, or herniation. Within the limitations of patient motion artifact, no overt evidence of abnormal enhancement. WHITE MATTER: Within the limitations of motion artifact, there is slight periventricular-subcortical T2/FLAIR hyperintense white matter disease, nonspecific, though likely secondary to chronic microvascular ischemia. POSTERIOR FOSSA: Brainstem and cerebellum are unremarkable. Within the limitations of patient motion artifact, no overt evidence of abnormal enhancement. DIFFUSION IMAGING: No restricted diffusion to suggest acute/subacute ischemia or infarct. EXTRAAXIAL SPACES: No extra-axial fluid collection. No extra-axial mass. Within the limitations of patient motion artifact, no overt evidence of abnormal enhancement. BRAIN VOLUME: Mild cerebral volume loss. PITUITARY: Unremarkable. VASCULATURE: No flow disturbance evident. CALVARIUM: Unremarkable. ORBITS: No acute abnormality. Ocular lenses and globes normal in conformation and position. PARANASAL SINUSES AND MASTOIDS: Slight mucosal thickening of the inferior left maxillary sinuses no fluid levels of the paranasal sinuses. Right mastoid air cells well aerated. Scattered fluid about the left mastoid air cells. OTHER: No other significant finding. IMPRESSION: No acute intracranial process with chronic findings as above on MRI brain with attention to the IAC's. THIS IS AN ELECTRONICALLY VERIFIED FINAL REPORT 12/22/2024 10:46 AM - Electronically signed by Chauncey PALACIOS T: Report ID: [id number] [place] Location: [place] [address] Procedure Note Chauncey Garcia MD - 12/22/2024 EXAM DESCRIPTION: MRI BRAIN WITHOUT AND WITH CONTRAST (IAC PROTOCOL) REASON FOR STUDY: Unspecified type right-sided hearing loss and tinnitusof unspecified duration. No provided history of trauma or inciting and/or aggravating events. No provided past medical history. No head or neck surgeries. TECHNIQUE: Multiplanar imaging includes non-contrasted T1, T2, FLAIR,gradient echo/susceptibility-weighted images, diffusion with ADC map and post gadolinium contrast sequences. Additional thin slice images with andwithout gadolinium contrast acquired in the posterior fossa. Images stored onPACS. Patient motion artifact variably spanning multiple sequences compromises evaluation. CONTRAST TYPE/DOSE: 20 mL Dotarem injected via peripheral IV sitewithout reported incident. COMPARISON: No prior neuro imaging available at time of interpretation. FINDINGS: IAC's: No vestibular schwannoma. Normal cerebellopontineangles. CEREBRUM: No acute intra-axial hemorrhage. No edema, mass effect,midline shift, or herniation. Within the limitations of patient motion artifact,no overt evidence of abnormal enhancement. WHITE MATTER: Within the limitations of motion artifact, there is slight periventricular-subcortical T2/FLAIR hyperintense white matter disease, nonspecific, though likely secondary to chronic microvascular ischemia. POSTERIOR FOSSA: Brainstem and cerebellum are unremarkable. Within the limitations of patient motion artifact, no overt evidence of abnormal enhancement. DIFFUSION IMAGING: No restricted diffusion to suggest acute/subacute ischemia or infarct. EXTRAAXIAL SPACES: No extra-axial fluid collection. No extra-axialmass. Within the limitations of patient motion artifact, no overt evidence of abnormal enhancement. BRAIN VOLUME: Mild cerebral volume loss. PITUITARY: Unremarkable. VASCULATURE: No flow disturbance evident. CALVARIUM: Unremarkable. ORBITS: No acute abnormality. Ocular lenses and globes normal in conformation and position. PARANASAL SINUSES AND MASTOIDS: Slight mucosal thickening of theinferior left maxillary sinuses no fluid levels of the paranasal sinuses. Right mastoid air cells well aerated. Scattered fluid about the left mastoidair cells. OTHER: No other significant finding. IMPRESSION: No acute intracranial process with chronic findings as aboveon MRI brain with attention to the IAC's. THIS IS AN ELECTRONICALLY VERIFIED FINAL REPORT 12/22/2024 10:46 AM - Electronically signed by Chauncey Garcia M.D. SUZANNE T: Report ID: [id number] [place] Location: [place] [address] us Alesha Garcia [employer] ARCHITECT IMG MRI PROCEDURES Final Resul t * eGFR (10/17/2023 8:44 AM CDT) eGFR [...] Final Result Performing Organization Address City/State/ZIP Co va Phone Number CERNER [facility] [address] [facility] Department [place] [address] from Last 3 Months or Most Recently Relevant to Health Maintenance Insurance MEDICARE [facility] MEDICARE [employer]ET[employer] SENIOR SUPPLEMENT MEDICARE [employer] SENIOR SUPPLEMENT Care Teams Proposal Analyst Relationship Specialty Start Date End Date Guy Heard DO [address] [facility] [address] [facility] [address] [place] [address] PCP - General Internal Medicine 10/07/23 Familia Monteiro MD [address] [facility] [address] [place] [address] Referring Physician Orthopedic Surgery 08/13/18 Kendell Trejo MD [facility] [facility] [address] [facility] [address] [place] [address] Surgeon Vascular Surgery 01/01/23
[2025-01-05 15:28] LABS: Hematocrit 45.6 % (42.0-52.0); Hemoglobin 14.8 g/dL (14.0-18.0); Immature Granulocyte Percent A 0.4 % (0-0.5); Lymphocytes Absolute Auto 1.89 K/mm3 (0.9-3.2); Mean Corpuscular HGB Conc 32.5 g/dl (32-36); Mean Corpuscular Hemoglobin 31.2 pg (26-34); Mean Corpuscular Volume 96.2 fl (80-100); Nucleated Red Blood Cells Absolute Auto 0.000 K/mm3 (0.0-0.012); Nucleated Red Blood Cells Perc 0.0 % (0.0-0.2); Platelet Count Result 269 k/mm3 (150-375); Red Blood Count 4.74 M/mm3 (4.6-6.20); White Blood Count 9.2 K/mm3 (4.5-10.0)
[2025-01-05 16:04] LABS: Total Protein Urine Random 30 mg/dL; Ur Ttl Prot Creatinine Ratio 1.82 mg/mg (0-0.20)
[2025-01-05 16:08] LABS: Albumin Level 4.1 g/dL (3.5-5.1); Anion Gap 7 mmol/L (4-12); Blood Urea Nitrogen 23 mg/dL (9-20); Calcium 9.5 mg/dL (8.4-10.2); Carbon Dioxide 29 mmol/L (22-30); Chloride 102 mmol/L (98-107); Estimated Glomerular Filt Rate 60; Glucose 98 mg/dL (65-110); Potassium 4.5 mmol/L (3.4-5.0); Sodium 138 mmol/L (137-145)
[2025-01-05 16:13] LABS: Cholesterol 147 mg/dL (0-200); HDL Direct 39 mg/dL; Triglycerides 107 mg/dL (<150)
[2025-01-05 16:22] LABS: Parathyroid Intact 33.3 pg/mL (14.5-75.2)
[2025-01-05 16:50] LABS: Prostate Specific Antigen 1.3 ng/mL (< OR = 4.0)
== END 2025-01-05 11:15 | disposition home or self-care (01) ==
LOC: ANHGOSHLAB 11:15
PROVIDERS: PCP Internal Medicine; Visit Provider Internal Medicine Nephrology
DX: N18.32 Chronic kidney disease, stage 3b (principal); E11.22 Type 2 diabetes mellitus with diabetic chronic kidney disease; I25.10 Atherosclerotic heart disease of native coronary artery without angina pectoris; I73.9 Peripheral vascular disease, unspecified; E10.59 Type 1 diabetes mellitus with other circulatory complications; Z12.5 Encounter for screening for malignant neoplasm of prostate
CPT/HCPCS: 36415; 80061; 80069; 82172; 82570; 83970; 84153; 84156; 85025; G0103